=== PATIENT | male | born 1965 | race Caucasian/White ===

== ENCOUNTER 2023-07-24 10:30 | Outpatient (OUT) | payer BC, SELFPAY ==
[2023-07-24 11:51] LABS: Basophils Absolute Auto 0.1 10^3/uL (0.0-0.1); Basophils Percent Auto 0.9 % (0.2-2.0); Eosinophils Absolute Auto 0.2 10^3/uL (0.0-0.7); Eosinophils Percent Auto 2.7 % (0.9-7.0); Hematocrit 48.2 % (42.0-54.0); Hemoglobin 15.8 g/dL (14.0-18.0); Immature Granulocytes Abs Auto 0.02 10^3/uL (0.00-0.03); Immature Granulocytes Pct Auto 0.3 % (0.0-0.5); Lymphocytes Absolute Auto 1.6 10^3/uL (1.2-3.8); Lymphocytes Percent Auto 24.1 % (20.5-60.0); Mean Corpuscular HGB Conc 32.8 g/dL (29.9-35.2); Mean Corpuscular Hemoglobin 28.5 pg (25.9-34.0); Mean Platelet Volume 10.2 fL (9.5-13.5); Monocytes Absolute Auto 0.6 10^3/uL (0.3-0.8); Monocytes Percent Auto 9.4 % (1.7-12.0); Neutrophils Absolute Auto 4.2 10^3/uL (1.4-6.5); Neutrophils Percent Auto 62.6 % (43.0-75.0); Platelet Count 174 10^3/uL (150-450); Red Blood Count 5.54 10^6/uL (4.70-6.10); Red Cell Distribution Width 13.1 % (11.0-15.0); White Blood Count 6.7 10^3/uL (4.0-11.0)
[2023-07-24 12:03] LABS: Estimated Average Glucose 114 mg/dL; Glycohemoglobin A1C 5.6 % (4.5-6.2)
[2023-07-24 13:21] LABS: Alanine Aminotransferase 31 U/L (16-63); Albumin Level 3.7 g/dL (3.4-5.0); Alkaline Phosphatase 68 U/L (46-116); Anion Gap 12.2; Aspartate Amino Transferase 18 U/L (15-37); BUN Creatinine Ratio 13.6; Bilirubin Total 0.6 mg/dL (0.2-1.0); Calcium 8.6 mg/dL (8.5-10.1); Carbon Dioxide 29.3 mmol/L (21.0-32.0); Chloride 106 mmol/L (98-107); Chol HDL Ratio 5.2; Cholesterol 225 mg/dL (<=200); Estimated GFR (African America >60 (>=60); Estimated GFR (Non-African Ame >60 (>=60); Free T3 2.91 pg/mL (2.18-3.98); Globulin 3.8 g/dL; Glucose 89 mg/dL (74-106); HDL Cholesterol 43 mg/dL (40-60); Potassium 4.5 mmol/L (3.5-5.1); Sodium 143 mmol/L (136-145); Thyroid Stimulating Hormone 2.162 uIU/mL (0.358-3.740); Total Protein 7.5 g/dL (6.4-8.2); Triglycerides 188 mg/dL (<=150); VLDL CHOLESTEROL 37.6 mg/dL
[2023-07-24 13:30] LABS: Prostate Specific Antigen Scrn 2.27 ng/mL (<=4.00)
== END 2023-07-24 10:31 | disposition home or self-care (01) ==
LOC: LAB 10:30
PROVIDERS: PCP Family Medicine; Visit Provider Family Medicine
DX: Z00.00 Encounter for general adult medical examination without abnormal findings (principal)
CPT/HCPCS: 36415; 80053; 80061; 83036; 84436; 84443; 84481; 85025; G0103

== ENCOUNTER 2023-07-28 15:07 | Outpatient (REF) | payer BC, SELFPAY ==
[2023-07-28 15:33] LABS: Occult Blood Negative
== END 2023-07-28 15:08 | disposition home or self-care (01) ==
LOC: LAB 15:07
PROVIDERS: PCP Family Medicine; Visit Provider Family Medicine
DX: Z00.00 Encounter for general adult medical examination without abnormal findings (principal)
CPT/HCPCS: G0328

== ENCOUNTER 2024-08-07 00:41 | Emergency (ER) | payer BC, SELFPAY ==
[2024-08-07] VITALS (24 sets, daily range): BP systolic 101–189; BP diastolic 65–114; PULSE 53–88; TEMP 36.6; O2SAT 89–98; BMI 30.1
--- OUTSIDE RECORDS SUMMARY | 2024-08-07 00:48 | XMS_ITS | CCD ---
Author Organization 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 Name Role Phone RICHIE, DR REBOLLAR Admitting Unavailable RICHIE, DR REBOLLAR Attending Unavailable RICHIE, DR REBOLLAR Primary Care Unavailable RICHIE, DR REBOLLAR Consulting Unavailable RICHIE, DR REBOLLAR Admitting Unavailable RICHIE, DR REBOLLAR Attending Unavailable RICHIE, DR REBOLLAR Primary Care Unavailable RICHIE, DR REBOLLAR Consulting Unavailable Problems Active Problems Problem Classification Problem Date Documented Da te Episodic/Chronic Other upper respiratory infections (1 source) Chronic sinusitis, unspecified; Translations: [CHRONIC SINUSITIS UNSPECIFIED] Onset: 06-06-2021 Chronic Unclassified (3 sources) CONTACT W/AND (SUSP) EXPOS COVID-19; Translations: [CONTACT W/AND (SUSP) EXPOS COVID-19] Onset: 06-06-2021 Past or Other Problems Problem Classification Problem Date Documented Da te Episodic/Chronic Other screening for suspected conditions (not mental disorders or infectious disease) (1 source) Encounter for screening for malignant neoplasm of prostate; Translations: [ENC SCREEN MALIG NEOPLASM PROSTATE] Onset: 10-30-2020 Episodic Unclassified (1 source) CONTACT W/AND (SUSP) EXPOS COVID-19; Translations: [CONTACT W/AND (SUSP) EXPOS COVID-19] Onset: 06-05-2021 Results Test Name Value Interpretation Reference Range Facil ity Covid-19 PCR (CVDTBH)on SARS-CoV-2 (COVID-19) RNA HAKEEM+probe Ql (Unsp spec) Not detected Normal NOT DETECTED [facility] Comment on above: Result Comment: This test is not yet approved or cleared by the [place] FDA. When there are no FDA-approved or cleared tests available, and other criteria are met, FDA can make tests available under an emergency access mechanism called an Emergency Use Authorization (EUA). The EUA for this test is supported by the Secretary Board Of Commissioners of Health and Human Service's (HHS's) declaration that circumstances exist to justify the emergency use of in vitro diagnostics for the detection and/or diagnosis of the virus that causes COVID-19. This EUA will remain in effect (meaning this test can be used) for the duration of the COVID-19 declaration justifying emergency of IVDs, unless it is terminated or revoked by FDA (after which the test may no longer be used). When diagnostic testing is negative, the possibility of a false negative should be considered in the context of a patient's recent exposures and the presence of clinical signs and symptoms consistent with SARS-CoV-2. Performed By: #### [facility] #### [facility] [address] [place] [address] Dr. Boby Franks Ambulatory Clinical Summaryo n 11-21-2020 Ambulatory Clinical Summary {[id number]}CD:[id number] Normal [facility] General Surgery Office/Clini c Noteon 11-21-2020 General Surgery Office/Clinic Note HPI Staff Excision of skin lesion on face and chest 11/15/20, 6 days p/o History of Present Illness 6 days s/p excision facial and left chest wall lesions; face lesion with evidence of chronic folliculitis; left chest with seborrheic keratosis; doing well, no pain or drainage. Review of Systems ROS - Provider Constitutional: no fever, no sweats, no weight loss. Eyes: no glasses, no blurred vision, no visual loss. ENMT: no dentures, no hoarseness, no swallowing difficulties, no hearing loss, no ear infection(s), no nose bleeds. Cardiovascular: normal blood pressure, no chest pain, regular heartbeat, no heart murmur. Respiratory: no shortness of breath, no cough, no asthma, no wheezing. Gastrointestinal: no nausea, no vomiting, no diarrhea, no constipation, no blood in stool, no change in bowel habits, no abdominal pain, no hepatitis. Genitourinary: no kidney stones, no urine infection, no dysuria. Musculoskeletal: no pain, no weakness. Skin: no changing moles, no rash, no skin lumps. Neurologic: no seizures, no epilepsy, no headache. Psychiatric: no emotional or psychiatric problem. Heme/Lymph: no bleeding problems, no anemia, no blood clots, no transfusions. Allergy/Immunologic: no swollen lymph nodes/glands, no IV drug abuse. Other: Additional ROS info: Except as noted in the above Review of Systems and in the History of Present Illness, all other systems have been reviewed and are negative or noncontributory. Physical Exam Vitals & Measurements T: 36.4 ?C (Tympanic) skin: incisions healing well, no erythema or drainage, no ecchymoses. Assessment/Plan 1. Seborrheic keratosis (L82.1: Other seborrheic keratosis) doing well, sutures removed, call with problems/questions. 2. Folliculitis barbae (L73.8: Other specified follicular disorders) see #1 Follow-up No qualifying data available Problem List/Past Medical History Ongoing Folliculitis barbae Hyperlipemia Neoplasm of uncertain behavior of skin of face Seborrheic keratosis Skin tag Solar keratosis Vertigo Historical Bilateral carpal tunnel syndrome Entrapment of left ulnar nerve Procedure/Surgical History H/O: vasectomy. Medications Michelle D OTC 24HR 180 mg-240 mg oral tablet, extended release, 1 tab(s), Oral, Daily Multi Vitamins oral tablet, Oral, Daily Pantoprazole [address] Tab, 40 mg= 1 tab(s), Oral, Daily simvastatin 20 mg Tab, 20 mg= 1 tab(s), Oral, Once a day (at bedtime) Allergies No Known Allergies No Known Medication Allergies Social History Alcohol - Low Risk, 11/15/2020 Substance Abuse - Denies Substance Abuse, 11/15/2020 Tobacco Never (less than 100 in lifetime) Tobacco Use:., 11/15/2020 Never (less than 100 in lifetime) Tobacco Use:. Never Smokeless Tobacco Use:., 10/23/2020 Family History HTN: Father. Heart attack: Father. Heart disease: Father. Normal [facility] Comment on above: Result Comment: Elec tronically Signed By: GABI NAJERA, Mike Harkins\Date and Time Signed: 11/21/20 13:13 EDT Pathology Noteon 11-21-2020 Pathology Note [id number] #1.00CD:127 Normal [facility] Ambulatory Clinical Summaryo n 11-15-2020 Ambulatory Clinical Summary {[id number]}CD:[id number] Normal [facility] General Surgery Office/Clini c Noteon 11-15-2020 General Surgery Office/Clinic Note CD:[id number]:[id number] 40KW05iXdmcbGgv7pcie 8xPR5rPvPpmtCiAIkjNu 2qk9syDU62ec3jDyPlVj 8+XtquXN8WSKaHULIv tA9pBMBOBbwSUzMnES9q XxGSDf8DECKbRIgMXQhj TH3ePUK1milawB2lNQ7j VLYjfARfHs3ql6b9 AlljGt3yUq3HUu96hZPo zFFlBJKJS1szlX9kCI7c zZYiN8OlUFVkAo1ZCNr4 iOirbL0kmvA8Gwy4 qUJ6Gd67y8hqcrIaj4Ba FwF5QNphwRn9eUapPQjy fB3bKvXhGTGPrL9lxDzw YC9luN2dkqCwgJix biI+TokhTLWqPld7oXHo AO91N4HyeUklJbb1fTV2 CLMrtKTgLUBuoWi5XLPW LVVBLUNvbXBhdGli bDJhYSBgiuPxkaC0XoyO LQDuHtQlHaj8S4paGSX+ Ethrh7O2Nwl5FTw9DPW6 lRtrKOLbr464QGTa iPqyjCpjeEIqr03vSKMj mQHqOyGag513ULZvikP8 TKfzlHzlVlo1fUQdeISq p1fzbPk1VbOpNBOe AwwOZPIawDxhn7IrAprA DVfad1ycuqJeyZlmBIK5 l1HgUXtwJJIrKDI3PpLu IC8+CgkJPGNvbCB2 GSruB482VpEwrORip0zq cFw2CaX1QRAdNs4YTCjg U35pF1OypRT+Faf2yZEm ZHk+CgkJPHRyPgoJ UGl6oQIxg7X1iAG5YkXf esAbj9c5XIvtXSI2MiY9 LHQ0tRCcbT3hjOoftetm kU2bOgG+CgkJCTxk eSBbN0zsr6H6VaTmn9Uf kOiplbMkTXZjKiPvh6fa LgcqDVJgoI1cMAL0IyCw UXLyyPSiGMNwQH0r vrUfjSIxRQNdTwWxP0Bu v69ii4YzEUPTY7hJRzDg WCE4RT6lZwUsGS2aWjXd YmMxNjlmLWEwZjYt GYFoTo07JVY9OPHaCoS6 KtK2T0A6YuCel0W5pCV6 CdCfGLCywbc4XGSsnFhi BFexmFjcwMddcx4y ZTsiPjxzcGFuIGNsYXNz GIRvZMHiO7Orx74edMJf fRP0Il45n8LhhlRtpPay DM8uRu3hcK64MNkq tGU9PSWstGI9FAXyqLSm HROfx4ZkwLdibnwlzC1b ZERbhR3hHfN+A4lnDJZl F58flZhnhU99HY1f cVIfCdecv9Xeck7LQJlC YAGiprLckCHaaf3tUHPq yFUjd268CT09AyObGXnh a915KA37qDrkJE0f EMAEU7FTBT2JUVYKEtYn ENqyNGVdteMhI8J7aSrv MAMMP2Z4VvQ6FJ3VKmRe YYNBY0JsQeNrPv1L D0ZWKWlYRpB1HfQnLTvl PSJfNzRkYmJkNDQtMDg4 Mx36ETZvOTK8VPRqYcC6 QhkpVGT1ESPwAu79 I0Evfq4ROPlOQF6xqXW+ MshTRWv3NPr7RRGbDFCa UOOlLZGjU1Rjv07gKROs ZWZyZXNoYWJsZSBk TTuvy0SxkUUvOYE6UCu3 WJRpucFqh9RiRtxpDfCq BGyrXKK1eH9aE70sDB5h FO5BAuZbYTGbKdYb CiTlzZI5Gw78LLLyXTZ2 Eu65RvZsROUzLCMtIISc VT1uPpZ3LjY8QHt6DHVw YFI2fTekECAgGWCm nV7gXqJ5fVz7Nz32n2Ux jyKolKTiww6lDNOfHCD4 sD6cQEwwlInqsBV+PHNw LC0jy6G4rQD4MzRz nkNeo4YwF5j5AkJgn1ae CpN7FZh4LLXoO26fRXVl v168HEKjLNYkvQlfYLbw PkhQSSBTdGFmZjwv x9Tpap13O5AlXT6+CgoJ WJe5MNm8KTOgSGEbIMUz ZGVtcmNvbnRlbnQiIGRk SsBsejCybpE2dPMe TMQTUMXXMPVQP30OWPTi EHElGhLsAmPdPL5lDUH0 lAC3GhW0WMQTEQNvSOg3 OFSqFGW7Ib9KSqBe KCFCRKOGYjgiATT0QhPm lGC0Ys66HIPmHVv3Ui0z LYCgICO6ESudADPvUv0x FIV7PXCaHAQ0FFrh AcfKSPj6XOy9FCPkYULy PSJkZGVtcmNvbnRlbnRp iFAoOPWgezVyz9FdTrgj TgVcLZggqP7usQ1y mFikR3T3dAoqNYF6v3Pn cmlnaHQiIGRkOmNvbnRl inD9cLMmNVTRCWQGPJGR A72JSRWnKRWbLfYx dBf1hZeiLQKiDVrjNRFa UFYoRAHtHarhVawuZf31 JiF6FLh3DgHaKDQzG7Mk UMMjAcC2LiX3rFuo xeoaLZ8qDCzcXH4kV3Eu C5TkUU53UZNfe93vEbzP RGk3FPj6GFZ0wElmVPNu NSGeyS65BIStlPZr eK01JNOlIKAvqmy1HDAx yEceMq4aVPEjYqDyhBGc cmdiKDAsIDAsIDApOyB0 HMa8NILddAowGdSy MZN7GkSgf8xifzbvwobr YPMzVEOoMKNyAxU2TRl8 LWluZGVudDogMGluOyBm u341ACE9oKgmHvIr w4XyRIs5TXMdkjGnn7Gp D9s5NsChc3IuFKq0KYRd jZAzARMxw4YbeXhosace ad9rSSpwZfmUOFy6 TWu9WgikTC9faKI7Sn6g PXmzSeZnLU6pOKYfTNP5 VwfeWIJ9XC5aVLJsTRSw XTS2BIvpSkdmQU1G CgkJCTxkaXY+RXhjaXNp u33hg7VduV3mQGPooCon zIVueBBsRD3fOSMgE7Tn XP1mUNJbaF2umITh BZ6zKLRpBSI3FB8uyYE+ HgaCQXtyXXs2IfrDMYj0 M3Grko6POVtAWL2alID+ KftZCOj8DTs0HJSi YXNzPSJkZGVtcmNvbnRl vgQlvPLvDCHkhkOeu8Wr CxccVrYxERgkwD3aoB7a bHdiB3N3cHdsIQP2 o0HkwpwrxZKuLIJiVoVe fmMtekU9nHYkRPTAQKSY HTOWD90KYPWkJHFaDuVc eYe2qVmbUABrUPjm PSJfNTIxYTVlZjItYmQw VU37UgbxZSOyHGYxILqs XlZ9DYjbDXJ5JuQ1bGbc hcxeKD3cCVxiDH6j O8PoE0HfDY21GZYow66w GigyHCg5UrzXIAcIWQMv xpAlzQLrbe5qQQSydZEf t669WG07oYDnjBMt UKTjeW26DYGgJYTbJZT1 YnRuZmxvYXRpbmdzdHls OF3acJ4kCTSzR4f5FaCf YTgef261DV14gQiu MD2iUQIRB3KICE8OBBYD YpMpLCasxkKhrInoZZ1l RuGlXO5lRpmgWQA8AbK6 VETnZPYvNUtmQc53 VYNhFSz5MtJiLSB5OWMj UdVjwT5zdtH2DBE7CoC1 eeIbnRNHi1Z1tYAsqOU7 dP9hFj73W2Jlwq4H UsaDIPdnnWJiU8wzt8Y8 HuXnYB9oT82wxVOhvDs1 GF2dXQQgAC2fldQdtJCb UHRcJcX3ghNnn6X9 nH7kn0X8kMP1OgZoaJ5b dEkkwJKdAUY0C47oeEAs rMG3bJH7OjYHGOBMEbFs AFBGUiCkSQN2RK96 rVP0pHK3ElPdmFR9Zo3o AEYzFIJwNJ87KgvzOAV5 A7KxMJR6Sw9lXKB2Rga1 RKC5YRmgUVjjeO8g EvYwCRBJtI9kcFlrJK7e tU9nepNrkFlkvfN+PC9k aXY+BrwWDAm5DGn2RKYl YXNzPSJkZGVtcmNv bnRlbnRpdGVtIGRkcmVt q7ItXxcnMnAsJDrsdI8u fK2viOsyN4X1rCebZOP4 l9DunxxtwCLoZIKa LlXhfjPdusK4bGFwJKEW WUJZIUJSW55AAXNrOBBj EjBtpBf2bUfrUIZaROkr EKYpBuO2TvNpTMSl MHImPh51UzO5DLi4ZjKr J4BuDnYlWvW9ZUNxNnX7 pOjgwtpuLG9dOFnxNC2h Z2JzD2RvZG40CZYv g17zKpkvIDw8NstPVJrK WSZrvzYnnSExil4vTEPq fDVdw091LU73kOTezSLw GZSrlA76LQBqQIVc TTT8FwRjYyrmHFFjetqg xEpgJT6cxH4hQQKgA6d8 SfTpOPmhw716OJ42nOgs VP0iUBIMY7QRDK4U RUFTIiBkZDplbnRpdHlp GU9kRzDaAH5aEaBfZXH4 GxAlGVB7HjJbDYT5SW21 Kdc2JZYwCDjwWXXd HsY5DVYctY5gzfH6TDK4 DrW9kmZpuYWGx9D1sDDy hVR5hP9vDq81A4Ydih6V SlwPVDavaZViT1ud r9Q1QpPwIM9xH66tcFOm oGx2OL2sVFBgNT6tvbOl wNRuNHCaDgH3xiWrn8S9 eJ8br0Y2fHV8HjNu gF3xcXrdiZWfZOO8K85m mIEkvCB2sQT9VtUIGKTS RaZxTQKJLfKrBBY9VB57 vSI3hWY9VdJmxXR9 Ua8xZJQ2NAB1IX5hQSKq GPTfLmKbYCMxCP2bMcIt LoSiTKHjMhdkLVfcoE5f TdKuRKAEqV9zzInh AB6hsR2ftbRavUftbfA+ OJ8ppHK+ZnlSFGu0VXy7 IGNsYXNzPSJkZGVtcmNv bnRlbnRpdGVtIGRk ikLnh4AvCemfMlQkBEpn mQ0ikG7qxXkkW1F3qHjd HMR1b2QsuzzyjZQrGEOg DcYjfxNpbiB6jPTh OEEAFKCLXHOIR89YVTPr HQBlKjFiwVa7qKrzXEKk IGlkPSJfNjNiNzJmYmUt HhJ9Bf57WmRhVXF3 MDYtNTIwNTlkMDZiZWUw FlB6hYzgnhgwRB8qFTka SQ9wP2SsI8ElWM21DDEd d40hEhkmTJr6ZzdQ FUbBXXNeebVzjBDhqi4o OLNdoPRto841AU25vZYf qWIiDTPsyG26QUDoODXx JEJ7QgHrIvwfBNUg cdbzpWwfXJ4rlP1uTNZi Z7o9FoFuNBezd480PS29 bDhvVN7rIPNSN9ZOZY6K RUFTIiBkZDplbnRp d (more content not included)... [facility] Comment on above: Result Comment: Elec tronically Signed By: GABI NAJERA, Mike Ashraf\.br\Date and Time Signed: 11/15/20 09:19 EDT Provider Letter FTon 10-31 Provider Letter [facility] October 31, 2020 Keturah Quiroz, [address] [place] [address] Re: TOMMIE LOCKWOOD Date of : 1965 Thank you for your referral of Tommie Lockwood who was seen on consultation on October 24, 2020, for mole on face and skin tag on chest. A excisional biopsy is planned. I have enclosed my consultation notes for your review. I will be happy to follow Tommie. Sincerely, iMke Knapp MD General Surgery [facility] OCC BLD IMMUNO SCREENon 08-0 OCCULT BLOOD Negative Normal NEGATIVE [facility] Comment on above: Performed By: #### O BSCRN #### [facility] [address] [place] [address] Lyn Ward Facesheeton 10-25-2020 Facesheet [id number] #1.00CD:127 Normal [facility] Ambulatory Clinical Summaryo n 10-24-2020 Ambulatory Clinical Summary {[id number]}CD:[id number] Normal [facility] GLYCOHEMOGLOBIN A1Con 2020 ADA RECOMMENDATION ADA THERAPEUTIC TARGET 6.0 - 7.0 ACTION SUGGESTED > 7.[address] [facility] Comment on above: Performed By: #### A 1C #### [facility] [address] [place] [address] Lyn Ward Glucose [Mass/Vol] 111 mg/dL Normal [facility] Comment on above: Performed By: #### A 1C #### [facility] [address] [place] [address] Lyn Ward HbA1c (Bld) [Mass fraction] 5.5 % Normal <=6.[address] [facility] Comment on above: Performed By: #### A 1C #### [facility] [address] [place], [place] [address] Lyn Ward Physician Referralon 021 Physician Referral [id number] #1.00CD:127 Normal [facility] Encounters Encounter Date Encounter Type Care Provider Facility Start: 06-05-2021 End: 06-05-[address] KETURAH QUIROZ Facility:[facility] Start: 10-30-2020 Encounter for genera l adult medical examination without abnormal findings DR KETURAH QUIROZ [facility] Start: 10-23-2020 End: 10-24-[address] KETURAH QUIROZ Facility:[facility] Start: 10-23-2020 End: 10-24-2020 Encounter for general adult medical examination without abnormal findings DR KETURAH QUIROZ Facility:[facility] Procedures Date Procedure Procedure Detail Performing Clinician Start: 10-23-[address] AMRBEEN QUIROZ Comment on above: Performed By: #### P SAS #### [facility] [address] [place], [place] [address] Lyn Ward Payers Date Payer Category Payer Unknown [id number] 1965 Unknown [id number] 1958 Unknown [id number] 1958 Unknown [id number] Clinical Note 10-24-2020 Note Date & Type Note Facility 10-24-[address] Quiroz referral for skin tag on chest has been there for years and mole on face just started in the last year and has gotten bigger , no bleeding or drainage from either History of Present Illness 55 yo male with h/o hyperlipidemia, GERD, referred for changing facial mole, increasing in size, no pigmentation change; and irritated skin lesion chest wall; no asa or NSAID use; no personal or fmhx of skin cancer or melanoma. increased sun exposure when younger; no tobacco use. Review of Systems PHQ Score Initial Depression Screen Score: 0 ROS - Provider Constitutional: no fever, no sweats, no weight loss. Eyes: no glasses, no blurred vision, no visual loss. ENMT: no dentures, no hoarseness, no swallowing difficulties, no hearing loss, no ear infection(s), no nose bleeds. Cardiovascular: normal blood pressure, no chest pain, regular heartbeat, no heart murmur. Respiratory: no shortness of breath, no cough, no asthma, no wheezing. Gastrointestinal: no nausea, no vomiting, no diarrhea, no constipation, no blood in stool, no change in bowel habits, no abdominal pain, no hepatitis. Genitourinary: no kidney stones, no urine infection, no dysuria. Musculoskeletal: no pain, no weakness. Skin: yes changing moles, no rash, no skin lumps. Neurologic: no seizures, no epilepsy, no headache. Psychiatric: no emotional or psychiatric problem. Heme/Lymph: no bleeding problems, no anemia, no blood clots, no transfusions. Allergy/Immunologic: no swollen lymph nodes/glands, no IV drug abuse. Other: Additional ROS info: Except as noted in the above Review of Systems and in the History of Present Illness, all other systems have been reviewed and are negative or noncontributory. Physical Exam Vitals & Measurements T: 36.7 ?C (Oral) BP: 122/78 HT: 177.8 cm HT: 177.8 cm WT: 94.4 kg WT: 94.4 kg BMI: 29.86 HEENT: normal conjunctiva, sclera clear, no scleral icterus, EOM intact, PERRLA, oral mucosa moist without lesions. Neck: trachea midline, no mass, symmetric, no thyromegaly or nodules, no adenopathy Respiratory: lungs CTA, respirations non labored. Cardiovascular: regular rate and rhythm, no murmur, no pedal edema or varicosities. Musculoskeletal: normal gait, digits and nails without infection, nodes, cyanosis, clubbing. Skin: no rashes, 3 mm raised, nonpigmented, round lesion right medial cheek; no ulceration or scab; left anterior chest with 5mm raised, keratotic lesion, no ulceration or scab; no ulcers, no subcutaneous nodules, induration. Psychiatric/Neuro: oriented to time, place, person, judgement normal, affect appropriate for age, insight intact, no focal deficits. Tests: review of old records completed, Discussed surgical options, risks, and possible complications with patient. Assessment/Plan 1. Neoplasm of uncertain behavior of skin of face (D48.5: Neoplasm of uncertain behavior of skin) plan excisional biopsy under local anesthesia in the office for definitive diagnosis and treatment; informed consent obtained. 2. Solar keratosis (L57.0: Actinic keratosis) see # 1 Follow-up No qualifying data available Problem List/Past Medical History Ongoing Hyperlipemia Neoplasm of uncertain behavior of skin of face Skin tag Solar keratosis Vertigo Historical Bilateral carpal tunnel syndrome Entrapment of left ulnar nerve Procedure/Surgical History H/O: vasectomy. Medications Michelle D OTC 24HR 180 mg-240 mg oral tablet, extended release, 1 tab(s), Oral, Daily Multi Vitamins oral tablet, Oral, Daily Pantoprazole [address] Tab, 40 mg= 1 tab(s), Oral, Daily simvastatin 20 mg Tab, 20 mg= 1 tab(s), Oral, Once a day (at bedtime) Allergies No Known Allergies No Known Medication Allergies Social History Tobacco Never (less than 100 in lifetime) Tobacco Use:. Never Smokeless Tobacco Use:., 10/23/2020 [facility] Comment on above: Result Comment: Elec tronically Signed By: GABI NAJERA, Mike Harkins\Date and Time Signed: 10/24/20 14:21 EDT Summary Purpose Family History No Family History Records FoundNo Family History Records Found Advance Directives No Advanced Directives Records FoundNo Advanced Directives Records Found Additional Source Comments (unrecognized sect ion and content) No Status Records FoundNo Status Records Found INFORMATION SOURCE (unrecogn ized section and content) DATE CREATED AUTHOR 11/22/2020 [facility] DATE CREATED AUTHOR AUTHOR'S ORGANIZ ATION 06/06/2021 [facility] FOR RECORDS PERTAINING TO PATIENTS WHO ARE OR HAVE BEEN ENROLLED IN A CHEMICAL DEPENDENCY/SUBSTANCEABUSE PROGRAM, SOME INFORMATION MAY BE OMITTED. This clinical summary was aggregated from multiple sources. Caution should be exercised in using it in the provision of clinical care. This summary normalizes information from multiple sources, and as a consequence, information in this document may materially change the coding, format and clinical context of patient data. In addition, data may be omitted in some cases. CLINICAL DECISIONS SHOULD BE BASED ON THE PRIMARY CLINICAL RECORDS. [facility]. provides no warranty or guarantee of the accuracy or completeness of information in this document.
--- NOTE | 2024-08-07 00:50 | ECG_ITS ---
[facility] Test Date: 2024-08-07 Pat Name: ROBERT BOATENG Department: Room: - Gender: Male Residential Program Director: : 1965 Requested By: [id number] Order Number: [id number] Reading MD: NITIN BAUTISTA M.D. Measurements Intervals [place] Rate: 70 P: 30 NM: 174 QRS: 55 QRSD: 86 T: 70 QT: 382 QTc: 403 Interpretive Statements NORMAL SINUS RHYTHM ST ELEVATION, CONSIDER INFERIOR INFARCT, PROBABLY ACUTE ACUTE STEMI Abnormal ECG No previous ECG available for comparison Electronically Signed On 08-07-2024 13:06:27 EDT by NITIN BAUTISTA M.D.
--- NOTE | 2024-08-07 00:58 | ED_ITS ---
HPI - Chest Pain General Chief Complaint: Chest Pain Stated Complaint: CHEST PAIN Time Seen by Provider: 08/07/24 00:57 History of Present Illness HPI narrative: woke up out of his sleep with chest pain, nausea and dyspnea. pain 10. This was around 10:30pm. Denies history of similar pain. nonsmoker. history of hyperlipidemia but noncompliant with his medication. Family history of heart disease. Father NE 48 Related Data Home Medications ?Medication ?Instructions ?Recorded ?Confirmed pantoprazole 40 mg tablet,delayed 40 mg PO DAILY 08/0708/07/24 release simvastatin 20 mg tablet 20 mg PO DAILY 08/07/2407/28 Allergies Allergy/AdvReac Type Severity Reaction Status Date / Time No Known Drug Allergies Allergy Verified 08/07/24 01:09 Review of Systems ROS Status of ROS 10 or more systems reviewed and unremark able except as noted in history and below PFSH PFSH Social History Little interest or pleasure in doing things: not at all Feeling down, depressed, or hopeless: not at all Exam Constitutional Vital Signs, click to edit/add: Last Vital Signs Temp 97.8 F 08/07/24 00:45 Pulse 71 08/07/24 00:45 Resp 18 08/07/24 00:45 BP 168/108 H 08/07/24 00:45 Pulse Ox 98 08/07/24 00:45 O2 Del Method Room Air 08/07/24 00:45 Common normals: no apparent distress, average body habitus, oriented x3, no limitations, healthy appearing, alert and well nourished [facility] Common normals: normocephalic and head/scalp atraumatic Eye Common normals: PERRL and EOMs intact bilaterally Respiratory Common normals: normal respiratory effort, no retractions, no use of accessory muscles and clear to auscultation bilaterally Cardio Common normals: regular rate, regular rhythm, S1 normal heart sound and S2 normal heart sound GI Common normals: Normal to inspection, nondistended, normoactive bowel sounds present, soft to palpation and non-tender Extremity Common normals: normal to inspection and full ROM Neuro Common normals: oriented x3, CN's II-XII intact bilaterally, moves all extremities and no focal motor deficits Psych Appearance: grossly normal Course Vital Signs Vital signs: Vital Signs Temperature 97.8 F 08/07/24 00:45 Pulse Rate 71 08/07/24 00:45 Respiratory Rate 18 08/07/24 00:45 Blood Pressure 168/108 H 08/07/24 00:45 Pulse Oximetry 98 08/07/24 00:45 Oxygen Delivery Method Room Air 08/07/24 00:45 Temperature 97.8 F 08/07/24 00:45 Pulse Rate 71 08/07/24 00:45 Respiratory Rate 18 08/07/24 00:45 Blood Pressure 168/108 H 08/07/24 00:45 Pulse Oximetry 98 08/07/24 00:45 Oxygen Delivery Method Room Air 08/07/24 00:45 MDM - Chest Pain MDM Narrative Medical decision making narrative: patient arrives 2.5 hours after onset of chest pain. pain at home 6-7/10 associated with nausea and dyspnea. Nausea and dyspnea resolved after ER arrival and chest pain decreased to 3-4/10. EKG with 1mm ST elevation II, III, aVF. minimal ST depression I and assymtric T inversion aVL. photo of the EKG sent to pay station department manager Cardiology Dr Aden. Discussed with folder stitcher operator Dr Méndez and he was sent a copy of the EKG. He call back and recommended transfer to [facility]. Closest is [facility]. Will contact [facility]. spoke to integration project manager Dr Damon. sent the first EKG with mild elevation and then the 2nd EKG with marked ST elevation inferior leads. He recommends heparin, Brinlinta, nitro drip and metoprolol. He would like the patient transferred to the geochemical laboratory technician. Will have nursing contact helicopter for transfer Dr Damon called back and because of the length of time of onset of symptoms( over 3 hours now) he would like the patient to receive TNK lytic agent. patient given TNK. He is feeing better and his skin is pink and dry. Informed Dr Damon the patient is leaving via med flight to [facility] Lab Data Labs: Lab Results 08/07/24 Range/Units 00:55 WBC 8.1 (4.0-11.0) 10^3/uL RBC 5.45 (4.70-6.10) 10^6/uL Hgb 16.0 (14.0-18.0) g/dL Hct 46.9 (42.0-54.0) % MCV 86.1 (80.0-94.0) fL MCH 29.4 (25.9-34.0) pg MCHC 34.1 (29.9-35.2) g/dL RDW 13.3 (11.0-15.0) % Plt Count 190 (150-450) 10^3/uL MPV 10.5 (9.5-13.5) fL Neut % (Auto) 64.6 (43.0-75.0) % Lymph % (Auto) 19.3 L (20.5-60.0) % [place] % (Auto) 11.4 (1.7-12.0) % Eos % (Auto) 3.5 (0.9-7.0) % Baso % (Auto) 1.1 (0.2-2.0) % Neut # (Auto) 5.2 (1.4-6.5) 10^3/uL Lymph # (Auto) 1.6 (1.2-3.8) 10^3/uL [place] # (Auto) 0.9 H (0.3-0.8) 10^3/uL Eos # (Auto) 0.3 (0.0-0.7) 10^3/uL Baso # (Auto) 0.1 (0.0-0.1) 10^3/uL Abs Immat Gran (auto) 0.01 (0.00-0.03) 10^3/uL Imm/Tot Granulo (auto) 0.1 (0.0-0.5) % Sodium 142 (136-145) mmol/L Potassium 3.7 (3.5-5.1) mmol/L Chloride 105 (98-107) mmol/L Carbon Dioxide 29.0 (21.0-32.0) mmol/L Anion Gap 11.7 BUN 18.0 (7.0-18.0) mg/dL Creatinine 1.68 H (0.70-1.30) mg/dL Est GFR ( Amer) 51 L (>=60 mL/min/1.73m^2) Est GFR (Non-Af Amer) 42 L (>=60 mL/min/1.73m^2) BUN/Creatinine Ratio 10.7 Glucose 119 H (74-106) mg/dL Calcium 9.3 (8.5-10.1) mg/dL Troponin I High Sens 228.8 H* (4.0-76.1) pg/mL Heart Score History: Highly Suspicious Age: >45-<65 years Risk Factors: 1 or 2 Risk Factors Critical Care Time Critical Care Time Total Critical Care Time: 60 Discharge Plan Discharge Chief Complaint: Chest Pain Clinical Impression: ST elevation myocardial infarction (STEMI) Patient Disposition: [facility]
[2024-08-07 01:14] LABS: Basophils Absolute Auto 0.1 10^3/uL (0.0-0.1); Basophils Percent Auto 1.1 % (0.2-2.0); Eosinophils Absolute Auto 0.3 10^3/uL (0.0-0.7); Eosinophils Percent Auto 3.5 % (0.9-7.0); Hematocrit 46.9 % (42.0-54.0); Immature Granulocytes Abs Auto 0.01 10^3/uL (0.00-0.03); Immature Granulocytes Pct Auto 0.1 % (0.0-0.5); Lymphocytes Absolute Auto 1.6 10^3/uL (1.2-3.8); Lymphocytes Percent Auto 19.3 % (20.5-60.0); Mean Corpuscular HGB Conc 34.1 g/dL (29.9-35.2); Mean Corpuscular Hemoglobin 29.4 pg (25.9-34.0); Mean Corpuscular Volume 86.1 fL (80.0-94.0); Mean Platelet Volume 10.5 fL (9.5-13.5); Monocytes Absolute Auto 0.9 10^3/uL (0.3-0.8); Monocytes Percent Auto 11.4 % (1.7-12.0); Neutrophils Absolute Auto 5.2 10^3/uL (1.4-6.5); Neutrophils Percent Auto 64.6 % (43.0-75.0); Platelet Count 190 10^3/uL (150-450); Red Blood Count 5.45 10^6/uL (4.70-6.10); Red Cell Distribution Width 13.3 % (11.0-15.0); White Blood Count 8.1 10^3/uL (4.0-11.0)
[2024-08-07] MEDS: ASPIRIN 81 MG TABLET.DR 324 MG PO (01:19)
[2024-08-07] MEDS: NITROGLYCERIN 0.4 MG BOTTLE SL (01:23)
--- NOTE | 2024-08-07 01:30 | ECG_ITS ---
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 Measurements Intervals [place] Rate: 74 P: 13 NC: 174 QRS: 40 QRSD: 90 T: 94 QT: 362 QTc: 390 Interpretive Statements NORMAL SINUS RHYTHM ST ELEVATION, CONSIDER INFERIOR INFARCT, PROBABLY ACUTE [address] depression, possible subendocardial injury 4637 Inferior injury or acute infarct ACUTE STEMI 9150 abnormal ECG Compared to ECG 08/07/2024 00:49:34 ST is more elevated in inferior ST is more depressed in lateral Electronically Signed On 08-07-2024 13:09:40 EDT by NITIN BAUTISTA M.D.
[2024-08-07 01:32] LABS: Anion Gap 11.7; BUN Creatinine Ratio 10.7; Calcium 9.3 mg/dL (8.5-10.1); Chloride 105 mmol/L (98-107); Estimated GFR (African America 51 (>=60 mL/min/1.73m^2); Estimated GFR (Non-African Ame 42 (>=60 mL/min/1.73m^2); Glucose 119 mg/dL (74-106); Potassium 3.7 mmol/L (3.5-5.1); Sodium 142 mmol/L (136-145)
[2024-08-07 01:33] LABS: Troponin I High Sensitivity 228.8 pg/mL (4.0-76.1)
[2024-08-07] MEDS: MORPHINE SULFATE 4 MG/ML VIAL IV (01:37)
[2024-08-07] MEDS: NITROGLYCERIN IN 5 % DEXTROSE 50 MG/250 ML INFUS..BTL IV (01:53)
[2024-08-07] MEDS: TICAGRELOR 90 MG TABLET 180 MG PO (01:53)
[2024-08-07] MEDS: METOPROLOL TARTRATE 5 MG/5 ML VIAL IVP (01:56)
[2024-08-07] MEDS: HEPARIN SODIUM (PORCINE) 5,000 UNIT/ML VIAL 4000 UNIT IV (01:59)
--- NOTE | 2024-08-07 02:25 | ECG_ITS ---
The 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 Measurements Intervals [place] Rate: 54 P: 17 NE: 180 QRS: 49 QRSD: 86 T: 78 QT: 424 QTc: 409 Interpretive Statements NORMAL SINUS RHYTHM ST ELEVATION, CONSIDER INFERIOR INFARCT, PROBABLY ACUTE ACUTE STEMI 9150 abnormal ECG Compared to ECG 08/07/2024 01:32:05 ST is less elevated in inferior ST is less depressed in lateral Electronically Signed On 08-07-2024 13:14:46 EDT by NITIN BAUTISTA M.D.
[2024-08-07] MEDS: HEPARIN SODIUM 25,000 UNIT/500 ML D5W IV.SOLN 20 UNIT IV (02:26)
[2024-08-07] MEDS: TENECTEPLASE 50 MG VIAL IVP (02:26)
== END 2024-08-07 02:37 | disposition short-term general hospital (02) ==
PROVIDERS: Emergency Provider Internal Medicine; PCP Family Medicine
DX: I21.3 ST elevation (STEMI) myocardial infarction of unspecified site (principal); E78.5 Hyperlipidemia, unspecified; Z91.148 Patient's other noncompliance with medication regimen for other reason; Z82.49 Family history of ischemic heart disease and other diseases of the circulatory system
CPT/HCPCS: 36415; 71045; 80048; 84484; 85025; 93005; 96374; 96375; 99285; J1644; J2270; J2305; J3101

== ENCOUNTER 2024-12-09 10:17 | Outpatient (OUT) | payer BC, SELFPAY ==
--- OUTSIDE RECORDS SUMMARY | 2024-12-09 10:25 | XMS_ITS | CCD ---
Author Organization [facility] Care Team Providers Care Track Repair Supervisor Name Role Phone DR KETURAH PAT Admitting Unavailable RICHIE, DR REBOLLAR Attending Unavailable RICHIE, DR REBOLLAR Primary Care Unavailable RICHIE, DR REBOLLAR Consulting Unavailable RICHIE, DR REBOLLAR Admitting Unavailable RICHIE, DR REBOLLAR Attending Unavailable RICHIE, DR REBOLLAR Primary Care Unavailable RICHIE, DR REBOLLAR Consulting Unavailable PROVIDER, UNKNOWN Attending Unavailable PROVIDER, UNKNOWN Admitting Unavailable Keturah Pat MD Primary Care Provider [phone] Emile Damon MD Admit Provider Emile Damon MD Attending Provider [phone] Emile Damon Admitting Unavailable Emile Damon Attending Unavailable Keturah Pat Primary Care Unavailable Emile Damon MD Other Provider Keturah Pat MD Primary Care Provider [phone] Emile Damon MD Attending Provider [phone] Rosalia Peters APRN Attending Provider [phone] Allergies Allergy Classification Reported Allergen(s) Allergy Type Date of Onset Reaction(s) Facility (3 sources) Opioids - Morphine Analogues Drug allergy (disorder) 08-17-2024 [facility] Repository Medications Current Medications Medication Drug Class(es) Dates Sig (Normalized) Sig (Original) aspirin 81 mg chewable tablet (5 sources) Platelet Aggregation Inhibitor, Nonsteroidal Anti-inflammatory Drug Start: 08-08-2024 End: 09-06-2024 take 1 tablet by mouth once daily Aspirin (Children's Aspirin) 81 mg tablet,chewable Active 81 MG PO Daily 90 90 September 06, 2024 2:01pm Complies with drug therapy atorvastatin 80 mg oral tablet (5 sources) HMG-CoA Reductase Inhibitor Start: 08-08-2024 End: 09-06-2024 take 1 tablet by mouth once daily in the evening Atorvastatin 80 mg tablet Active 80 MG PO Every evening 90 September 06, 2024 2:01pm Complies with drug therapy 24 hr metoprolol succinate 25 mg extended release oral tablet (8 sources) beta-Adrenergic Romeo Start: 09-26-2024 take 2 tablets by mouth once daily Metoprolol Succinate 25 mg tablet extended release 24 hr Active 12.5 MG PO Daily 45 90 September 26, 2024 4:07pm Complies with drug therapy Start: 08-17-2024 End: 09-26-2024 take 1 tablet by mouth once daily Metoprolol Succinate 25 mg tablet extended release 24 hr Discontinued 25 MG PO Daily 90 September 06, 2024 2:01pm September 26, 2024 4:07pm Start: 08-08-2024 End: 08-17-2024 take 1 capsule by mouth once daily in the evening Metoprolol Succinate 25 mg capsule,sprinkle,ER 24hr Discontinued 25 MG PO Every evening 90 August 08, 2024 12:00am August 17, 2024 12:53pm nitroglycerin 0.4 mg sublingual tablet (3 sources) Nitrate Vasodilator Start: 08-08-2024 Nitroglycerin 0.4 mg tablet, sublingual Active 0.4 MG SUBLINGUAL Q5M as needed for chest pain August 08, 2024 12:00am do not exceed 3 doses per episode Complies with drug therapy ticagrelor 90 mg oral tablet (5 sources) Start: 08-08-2024 End: 09-06-2024 take 1 tablet by mouth twice daily Ticagrelor (Brilinta) 90 mg tablet Active 90 MG PO Twice daily 180 September 06, 2024 2:01pm Complies with drug therapy valsartan 80 mg oral tablet (5 sources) Angiotensin 2 Receptor Romeo Start: 08-08-2024 End: 09-06-2024 take 1 tablet by mouth once daily in the evening Valsartan 80 mg tablet Active 80 MG PO Every evening 90 September 06, 2024 2:02pm Complies with drug therapy Problems Active Problems Problem Classification Problem Date Documented Da te Episodic/Chronic Acute myocardial infarction (11 sources) Myocardial infarction; Translations: [ST elevation (STEMI) myocardial infarction involving other coronary artery of inferior wall] Onset: 08-07-2024 08-07-2024 Chronic Coronary atherosclerosis and other heart disease (5 sources) Ischemic myocardial dysfunction; Translations: [Ischemic cardiomyopathy] 08-17-2024 Chronic Coronary atherosclerosis and other heart disease (6 sources) Coronary angioplasty status; Translations: [Stented coronary artery] Onset: 08-07-2024 08-17-2024 Episodic Disorders of lipid metabolism (5 sources) Dyslipidemia; Translations: [Hyperlipidemia, unspecified] 08-17-2024 Chronic Other upper respiratory infections (1 source) Chronic sinusitis, unspecified; Translations: [CHRONIC SINUSITIS UNSPECIFIED] Onset: 06-06-2021 Chronic Unclassified (3 sources) CONTACT W/AND (SUSP) EXPOS COVID-19; Translations: [CONTACT W/AND (SUSP) EXPOS COVID-19] Onset: 06-06-2021 Unclassified (1 source) I25.5 - Ischemic cardiomyopathy,I21 .19 - ST elevation (STEMI) myocardial infarction involving other coronary artery of inferior wall,Z95.5 - Presence of coronary angioplasty implant and graft Past or Other Problems Problem Classification Problem [...] Results Test Name Value Interpretation Reference Range Facility Alanine aminotransferase [En zymatic activity/volume] in Serum or PlasmaOrdered By: Emile Damon on 08-08-2024 ALT [Catalytic activity/Vol] Alanine aminotransferase [Enzymatic activity/volume] in Serum or Plasma High 7-52 [facility] Albumin [Mass/volume] in Ser um or Plasma by Bromocresol green (BCG) dye binding methoOrdered By: Emile Damon on 08-08-2024 Albumin BCG dye [Mass/Vol] Albumin [Mass/volume] in Serum or Plasma by Bromocresol green (BCG) dye binding metho 3.5-5.7 [facility] Albumin BCG dye [Mass/Vol] 3.9 g/dL 3.5-5.7 [facility] Alkaline phosphatase [Enzyma tic activity/volume] in Serum or PlasmaOrdered By: Emile Damon on 08-08-2024 ALP [Catalytic activity/Vol] Alkaline phosphatase [Enzymatic activity/volume] in Serum or Plasma 34-104 [facility] Aspartate aminotransferase [ Enzymatic activity/volume] in Serum or PlasmaOrdered By: Emile Damon on 08-08-2024 AST [Catalytic activity/Vol] Aspartate aminotransferase [Enzymatic activity/volume] in Serum or Plasma High 13-39 [facility] Basophils Auto (Bld) [#/Vol] Ordered By: Emile Damon on 08-08-2024 Basophils (Bld) [#/Vol] Automated basoph il count 0.0-0.2 [facility] Basophils/100 WBC Auto (Bld) Ordered By: Emile Damon on 08-08-2024 Basophils/100 WBC (Bld) Automated basophil % . [facility] Bilirubin.total [Mass/volume ] in Serum or PlasmaOrdered By: Emile Damon on 08-08-2024 Bilirubin [Mass/Vol] Bilirubin.total [Mass/volume] in Serum or Plasma 0.3-1.0 [facility] Calcium [Mass/volume] in Ser um or PlasmaOrdered By: Emile Damno on 08-08-2024 Calcium [Mass/Vol] Calcium [Mass/volume] in Serum or Plasma Low 8.6-10.3 [facility] Carbon dioxide, total [Moles /volume] in Serum or PlasmaOrdered By: Emile Damon on 08-08-2024 CO2 [Moles/Vol] Carbon dioxide, total [Moles/volume] in Serum or Plasma 21.0-31.0 [facility] Chloride [Moles/volume] in S kylee or PlasmaOrdered By: Emile Damon on 08-08-2024 Chloride [Moles/Vol] Chloride [Moles/volume] in Serum or Plasma High 98-107 [facility] Complete Blood Count Auto Di ffOrdered By: Emile Damon on 08-08-2024 Basophils (Bld) [#/Vol] 0.1 10*3/uL 0.0-0.2 [facility] Comment on above: Order Comment: REDRA W Result Comment: PERF ORMED BY: [facility] [address] [place] [address] PATHOLOGIST PONY EDGER SCOTTY ALFORD M.D. Performed By: #### C BC #### [facility] [address] [place] [address] [place] Basophils/100 WBC (Bld) 0.5 % . [facility] Comment on above: Order Comment: REDRA W Performed By: #### C BC #### [facility] [address] Eosinophils (Bld) [#/Vol] 0.3 10*3/uL 0.0-0.45 [facility] Comment on above: Order Comment: REDRA W Performed By: #### C BC #### [address] Eosinophils/100 WBC (Bld) 3.4 % . [facility] Comment on above: Order Comment: REDRA W Performed By: #### C BC #### [address] Erythrocyte distribution width (RBC) [Ratio] 13.8 % 12.0-14.8 [facility] Comment on above: Order Comment: REDRA W Performed By: #### C BC #### [address] Hematocrit (Bld) [Volume fraction] 44.3 % 38.8-50.0 [facility] Comment on above: Order Comment: REDRA W Performed By: #### C BC #### [place] [address] [place] Hemoglobin (Bld) [Mass/Vol] 15.1 g/dL 13.0-17.0 [facility] Comment on above: Order Comment: REDRA W Performed By: #### C BC #### [place] [address] [place] Lymphocytes (Bld) [#/Vol] 2.0 10*3/uL 1.00-4.8 [facility] Comment on above: Order Comment: REDRA W Performed By: #### C BC #### [place] [address] [place] Lymphocytes/100 WBC (Bld) 20.1 % . [facility] Comment on above: Order Comment: REDRA W Performed By: #### C BC #### [address] MCH (RBC) [Entitic mass] 29.0 pg 27.5-35.2 [facility] Comment on above: Order Comment: REDRA W Performed By: #### C BC #### [address] MCV (RBC) [Entitic vol] 85.1 fL 83.5-101 [facility] Comment on above: Order Comment: REDRA W Performed By: #### C BC #### [address] Monocytes (Bld) [#/Vol] 1.0 10*3/uL High 0.0-0.8 [facility] Comment on above: Order Comment: REDRA W Performed By: #### C BC #### [address] Monocytes/100 WBC (Bld) 9.8 % . [facility] Comment on above: Order Comment: REDRA W Performed By: #### C BC #### [address] Neutrophils (Bld) [#/Vol] 6.5 10*3/uL 1.8-7.7 [facility] Comment on above: Order Comment: REDRA W Performed By: #### C BC #### [address] Neutrophils/100 WBC (Bld) 66.2 % . [facility] Comment on above: Order Comment: REDRA W Performed By: #### C BC #### [address] Platelet mean volume (Bld) [Entitic vol] 8.6 fL 6.6-10.1 [facility] Comment on above: Order Comment: REDRA W Performed By: #### C BC #### [address] [place] [address] [place] Platelets (Bld) [#/Vol] 154 10*3/uL 150-450 [facility] Comment on above: Order Comment: REDRA W Performed By: #### C BC #### [address] RBC (Bld) [#/Vol] 5.21 10*6/uL 3.90-5.60 [facility] Comment on above: Order Comment: REDRA W Performed By: #### C BC #### [address] WBC (Bld) [#/Vol] 9.8 10*3/uL 4.1-10.5 [facility] Comment on above: Order Comment: REDRA W Performed By: #### C BC #### [address] Complete Blood Count Auto Di ffon 08-08-2024 Mean Corpuscular HGB Conc 34.2 g/dL Normal 32.5-35.6 [facility] Comment on above: Order Comment: REDRA W Performed By: #### C BC #### [address] NRBC% 0.2 /100{WBC} Normal 0-0.5 [facility] Comment on above: Order Comment: REDRA W Performed By: #### C BC #### [address] Comprehensive Metabolic Pane ghislaine 08-08-2024 Albumin [Mass/Vol] 3.9 g/dL Normal 3.5-5.7 [facility] Comment on above: Performed By: #### C MP, HS TROP #### [address] Creatinine Clr Calc Pharmacy 92.91 Normal [facility] Comment on above: Result Comment: PERF ORMED BY: [place] [address] PATHOLOGIST PONY EDGER SCOTTY ALFORD M.D. Performed By: #### C MP, HS TROP #### [facility] [address] [place] [address] GFR/1.73 sq M.predicted MDRD (S/P/Bld) [Vol rate/Area] mL/min/{1.73_m2} Normal [facility] Comment on above: Performed By: #### C MP, HS TROP #### [facility] [address] [place] [address] Comprehensive Metabolic Pane lOrdered By: Emile Damon on 08-08-2024 Albumin/Globulin [Mass ratio] 1.6 {ratio} [facility] Comment on above: Performed By: #### C MP, HS TROP #### [address] ALP [Catalytic activity/Vol] 56 U/L 34-104 [facility] Comment on above: Performed By: #### C MP, HS TROP #### [facility] [address] [place] [address] ALT [Catalytic activity/Vol] 58 U/L High 7-52 [facility] Comment on above: Performed By: #### C MP, HS TROP #### [facility] [address] [place] [address] Anion gap [Moles/Vol] 9.2 mmol/L 6.0-15.0 [facility] Comment on above: Performed By: #### C MP, HS TROP #### [facility] [address] [place] [address] AST [Catalytic activity/Vol] 122 U/L High 13-39 [facility] Comment on above: Performed By: #### C MP, HS TROP #### [facility] [address] [place] [address] Bilirubin [Mass/Vol] 0.9 mg/dL 0.3-1.0 [facility] Comment on above: Performed By: #### C MP, HS TROP #### [facility] [address] [place] [address] Calcium [Mass/Vol] 8.5 mg/dL Low 8.6-10.3 [facility] Comment on above: Performed By: #### C MP, HS TROP #### [facility] [address] Chloride [Moles/Vol] 108 mmol/L High 98-107 [facility] Comment on above: Performed By: #### C MP, HS TROP #### [facility] [address] CO2 [Moles/Vol] 24.7 mmol/L 21.0-31.0 [facility] Comment on above: Performed By: #### C MP, HS TROP #### [facility] [address] Creatinine [Mass/Vol] 1.04 mg/dL 0.70-1.30 [facility] Comment on above: Performed By: #### C MP, HS TROP #### [facility] [address] Globulin (S) [Mass/Vol] 2.5 g/dL [facility] Comment on above: Performed By: #### C MP, HS TROP #### [facility] [address] Glucose [Mass/Vol] 113 mg/dL High 70-100 [facility] Comment on above: Result Comment: [place] om Glucose Reference Range is dependent on time and content of last meal. Glucose of more than 200 mg/dL in a nonstressed, ambulatory subject supports the diagnosis of Diabetes Mellitus. ADA recommended reference range Performed By: #### C MP, HS TROP #### [facility] [address] ADA recommended refe rence rangeRandom Glucose Reference Range is dependent on time and content of last meal. Glucose of more than 200 mg/dL in a nonstressed, ambulatory subject supports the diagnosis of Diabetes Mellitus. Potassium [Moles/Vol] 3.9 mmol/L 3.5-5.1 [facility] Comment on above: Performed By: #### C MP, HS TROP #### [facility] [address] Protein [Mass/Vol] 6.4 g/dL 6.4-8.9 [facility] Comment on above: Performed By: #### C MP, HS TROP #### [facility] [address] [place] [address] [place] Sodium [Moles/Vol] 138 mmol/L 136-145 [facility] Comment on above: Performed By: #### C MP, HS TROP #### [facility] [address] [place] [address] [place] Urea nitrogen [Mass/Vol] 15 mg/dL 10-21 [facility] Comment on above: Performed By: #### C MP, HS TROP #### [facility] [address] [place] [address] [place] Creatinine [Mass/volume] in Serum or PlasmaOrdered By: Emile Damon on 08-08-2024 Creatinine [Mass/Vol] Creatinine [Mass/volume] in Serum or Plasma 0.70-1.30 [facility] ECG 12 lead ECGon 08-08-2024 ECG 12 lead ECG [facility] Main [place] [address] [place] [address] Electrocardiograph Report Signed Patient: Robert Boateng MR#: [id number] 57 : 1965 Acct:[id number] Age/Sex: 59 / M ADM Date: 08/07/24 Loc: Room: [address] [place] [address] Type: ADM IN Attending Dr: Emile Damon MD Ordering Provider: Emile Damon MD Date of Service: 08/08/2403/23/500 ECG/ECG 12 lead ECG: Post Angioplasty Procedure in AM Copies to: Test Reason : Blood Pressure : 131/78 mmHG Vent. Rate : 60 BPM Atrial Rate : 60 BPM P-R Int : 168 ms QRS Dur : 78 ms QT Int : 468 ms P-R-T Axes : 57 42 -51 degrees QTcB Int : 468 ms Normal sinus rhythm Inferior infarct (cited on or before 07-Aug-2024) T wave abnormality, consider lateral ischemia Abnormal ECG When compared with ECG of 07-Aug-2024 11:33, T wave inversion now evident in Inferior leads T wave inversion now evident in Lateral leads QT has lengthened Confirmed by IFRAH NAJERA [id number] on 08/08/2024 12:21:25 PM Referred By: Electronically Signed By: GUTIERREZ RAINEY MD [facility] Transcribed By: MUS Signed By Gutierrez Rainey MD, [facility] 08/08/24 1221 Normal [facility] echo transthoracicon [facility] echo transthoracic [facility] [address] Echocardiogram Signed Patient: Robert Boateng MR#: [id number] 57 : 1965 Acct:[id number] Age/Sex: 59 / M ADM Date: 08/07/24 Loc: Room: [address] [place] [address] Type: ADM IN Attending Dr: Emile Damon MD Ordering Provider: Emile Damon MD Date of Service: 08/08/2403/23/500 [facility] echo transthoracic: inferior stemi Copies to: Gutierrez Rainey MD, [facility] Emile Damon MD BSA: 2.2 m2 BP: 170/92 mmHg HR: 67 Reason For Study: inferior stemi History: family history of CAD Interpretation Summary Mild concentric left ventricular hypertrophy. There is moderate inferior wall hypokinesis. The LV ejection fraction is 55 %. A variety of Doppler measurements indicate normal left ventricular diastolic function. There is no prior echocardiogram noted for this patient. Procedure/Quality: A two-dimensional transthoracic echocardiogram with color flow, Doppler and injection of contrast agent Definity was performed. The study was technically good in quality. There is no prior echocardiogram noted for this patient. Left Ventricle: Mild concentric left ventricular hypertrophy. The LV ejection fraction is 55 %. A variety of Doppler measurements indicate normal left ventricular diastolic function. There is moderate inferior wall hypokinesis. Left Atrium: The left atrium appears normal in size. The atrial septum appears normal. Right Atrium: The right atrium appears normal in size. Right Ventricle: The right ventricular size, thickness and function are normal. Aortic Valve: The aortic valve is normal in structure and function. Mitral Valve: The mitral valve is normal in structure and function. Tricuspid Valve: The tricuspid valve is normal in structure and function. Pulmonic Valve: The pulmonic valve is not well seen, but is grossly normal. Arteries: The aortic root is normal size. Pericardium/Pleura: No pericardial effusion seen. There is no pleural effusion. IVC/Hepatic Veins: The IVC is normal in size with an inspiratory collapse of greater then 50%, suggesting normal right atrial pressure. Miscellaneous: No thrombus, vegetation or mass is seen. Measurements with Normals IVSd: 1.3 cm (0.7-1.1 cm)LVIDd: 4.0 cm (3.7-5.4 cm) LVPWd: 1.3 cm (0.7-1.1 cm)LVIDs: 3.0 cm (2.3-3.6 cm) LA dimension: 3.4 cm (2.3-4.0 cm)Ao root diam: 3.3 cm(2.0-3.6 cm) asc Aorta Diam: 3.5 cm(2.1-3.4cm) Doppler with Normals LV V1 max: 76.2 cm/sec (0.7-1.7m/s)MV E max fernando: 78.4 cm/sec(0.8-1.3m/s) MV A max fernando: 54.4 cm/sec(0.0-0.0m/s) MV E/A: 1.4 (<1.5) MMode/2D Measurements Calculations TAPSE: 1.9 cm FS: 26.7 % Ao root area: LVOT diam: 2.0 cm RV S Fernando: EDV(Teich): 8.6 cm2 LVOT area: 3.1 cm2 10.9 cm/sec 71.8 ml ESV(Teich): 33.9 ml EF(Teich): 52.7 % __ LVLd ap4: 8.5 cm SV(MOD-sp4): LAV(MOD-sp4): LA A2 area: 14.8 cm2 EDV(MOD-sp4): 76.3 ml 31.5 ml 136.0 ml LAV(MOD-sp2): LA A4 area: 13.7 cm2 LVLs ap4: 7.5 cm 38.3 ml LA length (vol): ESV(MOD-sp4): 4.8 cm 59.7 ml LA vol: 36.2 ml EF(MOD-sp4): 56.1 % LA vol index: 16.7 ml/m2 Doppler Measurements Calculations MV dec time: MV V2 max: E/E' lat: MV dec slope: 0.15 sec 86.3 cm/sec 7.6 MV max P.0 mmHg E/E' med: 511.9 cm/sec2 MV V2 mean: 9.5 49.3 cm/sec MV mean P.2 mmHg MV V2 VTI: 35.3 cm MVA(VTI): 1.4 cm2 __ Ao V2 max: LV V1 max P.4 cm/sec 2.3 mmHg Ao max P.2 mmHg LV V1 mean PG: Ao mean P.9 mmHg 1.4 mmHg Ao V2 mean: LV V1 mean: 83.8 cm/sec 55.6 cm/sec Ao V2 VTI: 20.1 cm LV V1 VTI: 15.4 cm SURI(I,D): 2.4 cm2 SURI(V,D): 2.3 cm2 Transcribed By: SCV Performed At: 08/08/24 0837 Signed By: Gutierrez Rainey MD, [facility] 08/08/24 1231 Normal [facility] Eosinophils Auto (Bld) [#/Vo l]Ordered By: Emile Damon on 08-08-2024 Eosinophils (Bld) [#/Vol] Automated eosi nophil count 0.0-0.45 [facility] Eosinophils/100 WBC Auto (Bl d)Ordered By: Emile Damon on 08-08-2024 Eosinophils/100 WBC (Bld) Automated eosi nophil % . [facility] Erythrocyte distribution wid th Auto (RBC) [Ratio]Ordered By: Emile Damon on 08-08-2024 Erythrocyte distribution width (RBC) [Ratio] Erythrocyte distribution width [Ratio] by Automated count 12.0-14.8 [facility] Globulin Calc (S) [Mass/Vol] Ordered By: Emile Damon on 08-08-2024 Globulin (S) [Mass/Vol] Serum globulin measurement by calculation (mass/volume) [facility] Glucose [Mass/volume] in Ser um or PlasmaOrdered By: Emile Damon on 08-08-2024 Glucose [Mass/Vol] Glucose [Mass/volume] in Serum or Plasma High 70-100 [facility] Comment on above: ADA recommended refe rence rangeRandom Glucose Reference Range is dependent on time and content of last meal. Glucose of more than 200 mg/dL in a nonstressed, ambulatory subject supports the diagnosis of Diabetes Mellitus. Hematocrit Auto (Bld) [Volum e fraction]Ordered By: Emile Damon on 08-08-2024 Hematocrit (Bld) [Volume fraction] Hematocrit [Volume Fraction] of Blood by Automated count 38.8-50.0 [facility] Hemoglobin [Mass/volume] in BloodOrdered By: Emile Damon on 08-08-2024 Hemoglobin (Bld) [Mass/Vol] Hemoglobin [Mass/volume] in Blood 13.0-17.0 [facility] Leukocytes [#/volume] correc cristal for nucleated erythrocytes in Blood by Automated counOrdered By: Emile Damon on 08-08-2024 WBC corrected for nucl RBC Auto (Bld) [#/Vol] Leukocytes [#/volume] corrected for nucleated erythrocytes in Blood by Automated coun 4.1-10.5 [facility] WBC corrected for nucl RBC Auto (Bld) [#/Vol] 9.8 10*3/uL 4.1-10.5 [facility] Lymphocytes Auto (Bld) [#/Vo l]Ordered By: Emile Damon on 08-08-2024 Lymphocytes (Bld) [#/Vol] Lymphocytes [#/volume] in Blood by Automated count 1.00-4.8 [facility] Lymphocytes/100 WBC Auto (Bl d)Ordered By: Emile Damon on 08-08-2024 Lymphocytes/100 WBC (Bld) Lymphocytes/10 0 leukocytes in Blood by Automated count . [facility] MCH Auto (RBC) [Entitic mass ]Ordered By: Emile Damon on 08-08-2024 MCH (RBC) [Entitic mass] MCH [Entitic ma ss] by Automated count 27.5-35.2 [facility] MCHC Auto (RBC) [Mass/Vol]Or dered By: Emile Damon on 08-08-2024 MCHC (RBC) [Mass/Vol] MCHC [Mass/volume] by Automated count 32.5-35.6 [facility] MCHC (RBC) [Mass/Vol] 34.2 g/dL 32.5-35.6 [facility] MCV Auto (RBC) [Entitic vol] Ordered By: Emile Damon on 08-08-2024 MCV (RBC) [Entitic vol] MCV [Entitic vol ume] by Automated count 83.5-101 [facility] Monocytes Auto (Bld) [#/Vol] Ordered By: Emile Damon on 08-08-2024 Monocytes (Bld) [#/Vol] Automated blood monocyte count High 0.0-0.8 [facility] Monocytes/100 WBC Auto (Bld) Ordered By: Emile Damon on 08-08-2024 Monocytes/100 WBC (Bld) Automated monocyte % . [facility] Neutrophils Auto (Bld) [#/Vo l]Ordered By: Emile Damon on 08-08-2024 Neutrophils (Bld) [#/Vol] Neutrophils [#/volume] in Blood by Automated count 1.8-7.7 [facility] Neutrophils/100 WBC Auto (Bl d)Ordered By: Emile Damon on 08-08-2024 Neutrophils/100 WBC (Bld) Automated neut rophil % . [facility] No Panel InformationOrdered By: Emile Damon on 08-08-2024 Estimated GFR (CKD-EPI) > 60.0 mL/Min [facility] Creatinine Clearance (Chem 92.91 [facility] Nucleated erythrocytes [Pres ence] in Blood by Automated countOrdered By: Emile Damon on 08-08-2024 Nucleated RBC Auto Ql (Bld) Nucleated erythrocytes [Presence] in Blood by Automated count 0-0.5 [facility] Nucleated RBC Auto Ql (Bld) 0.2 /100{WBC} 0-0.5 [facility] Platelet mean volume Auto (B ld) [Entitic vol]Ordered By: Emile Damon on 08-08-2024 Platelet mean volume (Bld) [Entitic vol] Platelet mean volume [Entitic volume] in Blood by Automated count 6.6-10.1 [facility] Platelets Auto (Bld) [#/Vol] Ordered By: Emile Damon on 08-08-2024 Platelets (Bld) [#/Vol] Platelets [#/vol ume] in Blood by Automated count 150-450 [facility] Potassium [Moles/volume] in Serum or PlasmaOrdered By: Emile Damon on 08-08-2024 Potassium [Moles/Vol] Potassium [Moles/volume] in Serum or Plasma 3.5-5.1 [facility] Protein [Mass/volume] in Ser um or PlasmaOrdered By: Emile Damon on 08-08-2024 Protein [Mass/Vol] Protein [Mass/volume] in Serum or Plasma 6.4-8.9 [facility] RBC Auto (Bld) [#/Vol]Ordere d By: Emile Damon on 08-08-2024 RBC (Bld) [#/Vol] Erythrocytes [#/volume] in Blood by Automated count 3.90-5.60 [facility] Serum or plasma albumin/glob ulin mass ratioOrdered By: Emile Damon on 08-08-2024 Albumin/Globulin [Mass ratio] Serum or plasma albumin/globulin mass ratio [facility] Serum or plasma anion gap de terminationOrdered By: Emile Damon on 08-08-2024 Anion gap [Moles/Vol] Serum or plasma anion gap determination 6.0-15.0 [facility] Sodium [Moles/volume] in Ser um or PlasmaOrdered By: Emile Damon on 08-08-2024 Sodium [Moles/Vol] Sodium [Moles/volume] in Serum or Plasma 136-145 [facility] Troponin I High Sensitivityo n 08-08-2024 Troponin I High Sensitivity 48443 Off scale high 0-20 [facility] Comment on above: Result Comment: Crit ical Result : Called to and read back by: DERECK LUNA at: 08/08/2024 05:16:37 by:RADHA The Troponin units of report have been changed to meet the Chest Pain Accreditation requirement, element EC5.M1l2. Troponin units are changed from pg/ml to ng/L. Also, the decimal is removed and results are in whole numbers. PERFORMED BY: [place] [address] PATHOLOGIST PONY EDGER SCOTTY ALFORD M.D. Performed By: #### C MP, HS TROP #### [address] Troponin I.cardiac [Mass/vol ume] in Serum or Plasma by Detection limit <= 0.01 ng/Ordered By: Emile Damon on 08-08-2024 Troponin I.cardiac DL <= 0.01 ng/mL [Mass/Vol] Troponin I.cardiac [Mass/volume] in Serum or Plasma by Detection limit <= 0.01 ng/ Critically high 020 [facility] Comment on above: Critical Result : Ca lled to and read back by: DERECK LUNA at: 08/08/2024 05:16:37 by:DHThe Troponin units of report have been changed to meet the Chest Pain Accreditation requirement, element EC5.M1l2. Troponin units are changed from pg/ml to ng/L. Also, the decimal is removed and results are in whole numbers. Troponin I.cardiac [Mass/vol ume] in Serum or Plasma by Detection limit <= 0.01 ng/mLOrdered By: Emile Damon on 08-08-2024 Troponin I.cardiac DL <= 0.01 ng/mL [Mass/Vol] 92349 ng/L Critically high [address] Comment on above: Critical Result : Ca lled to and read back by: DERECK LUNA at: 08/08/2024 05:16:37 by:DHThe Troponin units of report have been changed to meet the Chest Pain Accreditation requirement, element EC5.M1l2. Troponin units are changed from pg/ml to ng/L. Also, the decimal is removed and results are in whole numbers. Urea nitrogen [Mass/volume] in Serum or PlasmaOrdered By: Emile Damon on 08-08-2024 Urea nitrogen [Mass/Vol] Urea nitrogen [Mass/volume] in Serum or Plasma 7-25 [facility] WBC Auto (Bld) [#/Vol]Ordere d By: Emile Damon on 08-08-2024 WBC (Bld) [#/Vol] Leukocytes [#/volume] in Blood by Automated count 4.1-10.5 [facility] Anti-Xa UF Heparinon 025 Anti-Xa UF Heparin 0.60 [IU]/mL Normal 0.30-0.70 [facility] Comment on above: Result Comment: Use the aPTT protocol when triglycerides are > 800 mg/dL, total bilirubin is > 20 mg/dL and/or patient has received a DOAC, Fondaparinux or LMWH within 72 hours AND baseline anti-Xa level is > 0.7 units/mL PERFORMED BY: [place] [address] PATHOLOGIST PONY EDGER SCOTTY ALFORD M.D. Performed By: #### U FHEP ####[address] Anti-Xa UF Heparin 0.42 [IU]/mL Normal 0.30-0.70 [facility] Comment on above: Result Comment: Use the aPTT protocol when triglycerides are > 800 mg/dL, total bilirubin is > 20 mg/dL and/or patient has received a DOAC, Fondaparinux or LMWH within 72 hours AND baseline anti-Xa level is > 0.7 units/mL PERFORMED BY: [place] [address] PATHOLOGIST PONY EDGER SCOTTY ALFORD M.D. Performed By: #### U FHEP #### [address] Basic Metabolic Panelon 07-28 Anion gap [Moles/Vol] 11.9 mmol/L Normal 6.0-15.0 [facility] Comment on above: Performed By: #### B MP ####[address] Calcium [Mass/Vol] 9.0 mg/dL Normal 8.6-10.3 [facility] Comment on above: Performed By: #### B MP ####[place] [address] Chloride [Moles/Vol] 109 mmol/L High 98-107 [facility] Comment on above: Performed By: #### B MP ####[address] CO2 [Moles/Vol] 23.6 mmol/L Normal 21.0-31.0 [facility] Comment on above: Performed By: #### B MP ####[address] Creatinine [Mass/Vol] 1.38 mg/dL High 0.70-1.30 [facility] Comment on above: Performed By: #### B MP ####[address] Creatinine Clr Calc Pharmacy 70.02 Normal [facility] Comment on above: Result Comment: PERF ORMED BY: [facility] [address] [place] [address] PATHOLOGIST PONY EDGER SCOTTY ALFORD M.D. Performed By: #### B MP ####[address] Estimated GFR 59.274 mL/Min Normal [facility] Comment on above: Performed By: #### B MP ####[address] Glucose [Mass/Vol] 125 mg/dL High 70-100 [facility] Comment on above: Result Comment: [place] Glucose Reference Range is dependent on time and content of last meal. Glucose of more than 200 mg/dL in a nonstressed, ambulatory subject supports the diagnosis of Diabetes Mellitus. ADA recommended reference range Performed By: #### B MP ####[address] Potassium [Moles/Vol] 4.5 mmol/L Normal 3.5-5.1 [facility] Comment on above: Performed By: #### B MP ####[address] Sodium [Moles/Vol] 140 mmol/L Normal 136-145 [facility] Comment on above: Performed By: #### B MP ####[place] [id number] [address] Urea nitrogen [Mass/Vol] 20 mg/dL Normal 7-25 [facility] Comment on above: Performed By: #### B MP ####[address] ECG 12 lead ECGon 08-07-2024 ECG 12 lead ECG [facility] [place] [address] Electrocardiograph Report Signed Patient: Robert Boateng MR#: [id number] 57 : 1965 Acct:[id number] Age/Sex: 59 / M ADM Date: 08/07/24 Loc: Room: [address] [place] [address] Type: ADM IN Attending Dr: Emile Damon MD Ordering Provider: Emile Damon MD Date of Service: 08/07/2402/22/1104 ECG/ECG 12 lead ECG: Post Angioplasty Procedure Copies to: Test Reason : Blood Pressure : 139/81 mmHG Vent. Rate : 57 BPM Atrial Rate : 57 BPM P-R Int : 174 ms QRS Dur : 78 ms QT Int : 424 ms P-R-T Axes : 48 48 57 degrees QTcB Int : 412 ms Sinus bradycardia Possible Inferior infarct , age undetermined Abnormal ECG Confirmed by Fauzia Hernandez ([id number]) on 08/07/2024 10:05:18 PM Referred By: Electronically Signed By: Fauzia Hernandez Transcribed By: MUS Signed By Fauzia Hernandez MD [id number] Normal [facility] ECG 12 lead ECG [facility] [place] [address] Electrocardiograph Report Signed Patient: Robert Boateng MR#: [id number] 57 : 1965 Acct:[id number] Age/Sex: 59 / M ADM Date: 08/07/24 Loc: Room: [address] [place] [address] Type: ADM IN Attending Dr: Emile Damon MD Ordering Provider: Emile Damon MD Date of Service: 08/07/2402/21/918 ECG/ECG 12 lead ECG: prn ekg Copies to: Test Reason : Blood Pressure : 129/80 mmHG Vent. Rate : 66 BPM Atrial Rate : 66 BPM P-R Int : 168 ms QRS Dur : 78 ms QT Int : 430 ms P-R-T Axes : 54 66 63 degrees QTcB Int : 450 ms Normal sinus rhythm with sinus arrhythmia Normal ECG When compared with ECG of 07-Aug-2024 03:58, (Unconfirmed) No significant change was found Confirmed by IFRAH NAJERA [facility] ([id number][facility] on 08/08/2024 12:20:50 PM Referred By: Electronically Signed By: GUTIERREZ RAINEY MD [facility] Transcribed By: MUS Signed By Gutierrez Rainey MD, FACC 08/08/24 1220 Normal [facility] Physician [facility] ECG 12 lead ECG [facility] [place] [address] Electrocardiograph Report Signed Patient: Robert Boateng MR#: [id number] 57 : 1965 Acct:[id number] Age/Sex: 59 / M ADM Date: 08/07/24 Loc: Room: [address] [place] [address] Type: ADM IN Attending Dr: Emile Damon MD Ordering Provider: Emile Damon MD Date of Service: 08/07/2402/21/318 ECG/ECG 12 lead ECG: chest pain Copies to: Test Reason : Blood Pressure : 119/73 mmHG Vent. Rate : 60 BPM Atrial Rate : 60 BPM P-R Int : 168 ms QRS Dur : 78 ms QT Int : 420 ms P-R-T Axes : 52 70 76 degrees QTcB Int : 420 ms Normal sinus rhythm Normal ECG Confirmed by Fauzia Hernandez ([id number]) on 08/07/2024 9:59:55 PM Referred By: Electronically Signed By: Fauzia Hernandez Transcribed By: MUS Signed By Fauzia Hernandez MD [id number] Normal [facility] Heparin anti-Xa unfractionat edOrdered By: Emile Damon on 08-07-2024 Heparin unfractionated Chromogenic method Qn (PPP) Heparin anti-Xa unfractionated 0.30-0.70 [facility] Comment on above: Use the aPTT protoco l when triglycerides are > 800 mg/dL,total bilirubin is > 20 mg/dL and/or patient has received aDOAC, Fondaparinux or LMWH within 72 hours AND baselineanti-Xa level is > 0.7 units/mL Heparin unfractionated Chromogenic method Qn (PPP) 0.60 [IU]/mL 0.30-0.70 [facility] Comment on above: Use the aPTT protoco l when triglycerides are > 800 mg/dL,total bilirubin is > 20 mg/dL and/or patient has received aDOAC, Fondaparinux or LMWH within 72 hours AND baselineanti-Xa level is > 0.7 units/mL Partial Thromboplastin Timeo n 08-07-2024 aPTT Coag (Bld) [Time] 41.1 s High 25.1-36.5 [facility] Comment on above: Result Comment: A he matocrit value greater than 55% may lead to inaccurate results in coagulation testing. Patients having hematocrit values >55% require a special collection tube for coagulation studies. Please contact the laboratory at [phone] for redraw instructions. PERFORMED BY: [facility] [address] [place] [address] PATHOLOGIST PONY EDGER SCOTTY ALFORD M.D. Performed By: #### P TT ####[facility] [id number] [place] [address] [facility] Troponin I High Sensitivityo n 08-07-2024 Troponin I High Sensitivity 56967 Off scale high 0-20 [facility] Comment on above: Result Comment: Crit ical Result : Called to and read back by: ADDISON BORGES at: 08/07/2024 10:15:55 by:QUINTON The Troponin units of report have been changed to meet the Chest Pain Accreditation requirement, element EC5.M1l2. Troponin units are changed from pg/ml to ng/L. Also, the decimal is removed and results are in whole numbers. PERFORMED BY: [facility] [address] [place] [id number] PATHOLOGIST PONY EDGER SCOTTY ALFORD M.D. Performed By: #### H S TROP ####[place] [id number] [place] [id number] [facility] Troponin I High Sensitivity 8587 Off scale high 0-20 [facility] Comment on above: Result Comment: Crit ical Result : Called to and read back by: ADDISON BORGES at: 08/07/2024 08:20:01 by:QUINTON The Troponin units of report have been changed to meet the Chest Pain Accreditation requirement, element EC5.M1l2. Troponin units are changed from pg/ml to ng/L. Also, the decimal is removed and results are in whole numbers. PERFORMED BY: [place] [address] PATHOLOGIST PONY EDGER SCOTTY ALFORD M.D. Performed By: #### H S TROP ####[place] [id number] [facility] Troponin I High Sensitivity 5112 Off scale high 0-20 [facility] Comment on above: Order Comment: 0530 draw Result Comment: Crit ical Result : Called to and read back by: ALIDA SEAY at: 08/07/2024 07:15:03 by:QUINTON The Troponin units of report have been changed to meet the Chest Pain Accreditation requirement, element EC5.M1l2. Troponin units are changed from pg/ml to ng/L. Also, the decimal is removed and results are in whole numbers. PERFORMED BY: [place] [address] PATHOLOGIST PONY EDGER SCOTTY ALFORD M.D. Performed By: #### H S TROP #### [facility] [address] [place], [place] [id number] [facility] aPTT in Platelet poor plasma by Coagulation assayOrdered By: Emile Damon on 08-07-2024 aPTT Coag (PPP) [Time] Activated partial thromboplastin time (aPTT) in platelet poor plasma by coagulation a High 25.1-36.5 [facility] Comment on above: A hematocrit value g reater than 55% may lead to inaccurate results in coagulation testing. Patients having hematocrit values >55% require a special collection tube for coagulation studies. Please contact the laboratory at [phone] for redraw instructions. aPTT Coag (PPP) [Time] 41.1 s High 25.1-36.5 [facility] Comment on above: A hematocrit value g reater than 55% may lead to inaccurate results in coagulation testing. Patients having hematocrit values >55% require a special collection tube for coagulation studies. Please contact the laboratory at [phone] for redraw instructions. Covid-19 PCR ([facility])on SARS-CoV-2 (COVID-19) RNA HAKEEM+probe Ql (Unsp spec) Not detected Normal NOT DETECTED [facility] Comment on above: Result Comment: This test is not yet approved or cleared by the [place] FDA. When there are no FDA-approved or cleared tests available, and other criteria are met, FDA can make tests available under an emergency access mechanism called an Emergency Use Authorization (EUA). The EUA for this test is supported by the [employer] Project Manager of Health and Human Service's (HHS's) declaration [...] SARS-CoV-2. Performed By: #### C [facility] #### [facility] [address] [place] [address] Dr. Boby Franks Ambulatory Clinical Summaryo n 11-21-2020 Ambulatory Clinical Summary {[id number]}CD:[id number] Normal [facility] General Surgery Office/Clini c Noteon 11-21-2020 [...] Heart attack: Father. Heart disease: Father. Normal [facility] Comment on above: Result Comment: Elec tronically Signed By: GABI NAJERA, Mike Harkins\Date and Time Signed: 11/21/20 13:13 EDT Pathology Noteon 11-21-2020 Pathology Note [id number] #[id number]:[address] [facility] Ambulatory Clinical Summaryo n 11-15-2020 Ambulatory Clinical Summary {[id number]}CD:[id number] Normal [facility] General Surgery Office/Clini c Noteon 11-15-2020 General Surgery Office/Clinic Note CD:[id number]:[id number] 10XV12aPdutjToa4cfom 4xBD1oPuUmplVnGQotAf 6pv2jlJH06hq5uTuFqVd 8+GworBK1CMTsGZOGy hT2sVHSAOjkCHkZhIC9b KuULTk3OYURfCTaFOVap KV7uWFH7nnkbgN0jAS1t DTAdbQEoGv4mt6l6 QemkCv9mJl2DSd17uGOl uVPvSMDDT5ivuL1oPE6d xKRdY4BxSHUdVu4TBZd3 qFfolS3ihpC6Zya1 tXO2Ts91p0ezusEvl5Wx WuS8HRfzuTh5jWwtOAwc aP6zXiMnIDMJuF8qdZnz DV6owD3inkHvjJik biI+KsshUWSjBsi1kBMf IA63V6XdxEteSlm1pAD1 FEFujIYrDQRefZc0RKWQ LVVBLUNvbXBhdGli yCXpCYVwrzXaahX8OrxX CYOpEtSpUrp3V7xcKUF+ Aguog3A9Tzi7SQh2AQV8 tRubJCGhe393HTYb mNccxRbkaZTcs42zPJIx oAPgBxYct787QCPvqjR2 RBljePelYgq2oFLslCWk m6nvuOh7ToYeABTb IgwFSZDcgMfkv0QjGfuW UEtml6aobpJfsWmkASF3 a8BfYQvnXAKoUJI6QuCx IC8+CgkJPGNvbCB2 NCfzN015EqXzyYDru2bj gFg7RvA8KZKsVw1UQOdn H50iH1VliIP+Scy8wFGh ZHk+CgkJPHRyPgoJ WMs4iNNjx4D1eFC7NmJq xqRlp6a8RJzmDMA2PqW0 MSV0xXSffU2srGwssjwb eN8cFaC+CgkJCTxk yKFbX1gvw1O2PbTqm5Sz wPzugsEsCWUlLmInm4oa WqsgYVBliQ1wPEN1DmZt ZSZcvWJwOIHnYF2z wiVpgHJxIKNgAuBzY6Zf d34vs1TmRCRWB4mBUrDk EOR1CA7sZkTzYN7dDaAc YmMxNjlmLWEwZjYt BTBqNh97XGY0GXJaOhY5 GkZ7P5A2ChVoa6T1wCP0 CwVqXPWcfww7GSQhvTdp BTritFyipSwrot8d ZTsiPjxzcGFuIGNsYXNz APIeLIZeQ0Nsi15lzIPk vIF5Pm70v6VcjdJqtXph MV7pQo1ycT46XOod yOV3NMNfaUM0HXAfdCLe RUHvv8DubEhrrbjaaL3e CDDmlH8lVhD+K1ovHXVl K40usZkknT91LT2k rFDpZareb6Insd0ZDRvN HIWyakWkvLNsrn6kOCWv hRUat449KD00JoRvUXiq i236TR88qIsiAB7v SRJUR5CXPF9YWNRAWaFc LShhMAXerwGoR8G0tWiv WTRGU3Z8XoD9QD3RUkEc GQNVN3CqPfJxKi7T Z1SWYUpRTfI1AlArJEwq PSJfNzRkYmJkNDQtMDg4 Bc73GCSxXTW0NOLoSjX0 CzjmFHH3BKBaTy21 V2Oxwv6ERXyNSB6meJS+ BjtSSLf3ZId4BLDyIRDj QSHzNQVqE1Cjs01hALBd ZWZyZXNoYWJsZSBk YQbpx6FkwCWeKPE8HQp4 TCXulvKfh2KdKaedGnTy RQkjCTG9lO1tI85rMZ4t NA1DZnLbOLLxBwQj PdOtnCT1Gf20JRPvKTG3 Mk87TuEuEYSbDNFcWCCy BN9oBjV6ZyU7KTd7SGXc IAQ4eRziVHLuMSQw hA6aXmA6mSq5Qi83b1Jm mkDdwQYzcd3dIGTdUYI2 tB4bYOhqgPvnmOT+PHNw JY2jp4I4aSB8WpZj txHvd8NiU5t0XyOln5zf GkM5IEy1TIRsP55eMLSq y210LUMbZGHcxXmuPQkw PkhQSSBTdGFmZjwv o3Libo02P6OkCJ2+CgoJ IXv1SEp9CEHyMLEhNHFp ZGVtcmNvbnRlbnQiIGRk XgKquuIfnkA1mUUq QDHJHCIDTDTQR85TJPNd GUUcRzMmJzAiKV7wJTC0 mPH5IzG6ZFTVHNNqNPx2 RWGxYPZ6Nb5SKnUh CUQQJGBODhicJKI9KaXc pMB4Cn81TIDnXMp1Xn7l JMHaQEZ9IYrlBQRcPc0h LTQ9XZIbTYT5QTyb JwvTMFs9OXq4KXFoRTAy PSJkZGVtcmNvbnRlbnRp rHImTSRskdBpu6VoDvvd NwPiNIjglA2eaU5e lEdhP4R1tVixHPN8z1Wv cmlnaHQiIGRkOmNvbnRl wzI3ySBnULAEASZCPUVW S37MBBViETXvIgGb vEg1iEehKXZgCYmqWWRk JJVwEMQtOtrcSretGd15 YlC8GYa3EiIyTIDcZ4Aj KPNzYfL5TfJ2qLwx gtdbOG1fGWuiAQ7iM9Au Y8XdUO70BQSax18kTpiT RGk3OHg2UTG4xRhiUSPp QOLpgH57IOVmdDBs iW16LEMsMJRldli1YBPw sOclKb3aBINdCiKgvOUq cmdiKDAsIDAsIDApOyB0 XSu4TOZejIspYyVx LYO6BlRxf6whjklacqtn YZQxARAyDIZhTuK3YFw6 LWluZGVudDogMGluOyBm w787ZSG0oMyfFtWv y2FeCQp4BAIkwnOlh2Lo B0j1NzXbn0PrAOi7WWSe lGNuKVJgb4DknKjbzqut zk0mOIdbStnAMTa2 VJm0VxpkEF1ukQJ7Uf1v UKbkFoPjBC7uOBLhBOT6 ClsgXZP5IG3tGTNiOKZf OPB6GMejJjxhAH6S CgkJCTxkaXY+RXhjaXNp x66cj6WwpO1pPHNrjExo oUTvuKNlNV7qVIGqV0Kf BT3dXFPxlC4fgODj HU6vMOMwJGE8CR9pkUJ+ VbnGSOxlMRh8ZgoRAEy5 M2Mljc7FLPjUQO5xaEJ+ HkxRWMh7FPj3JTLi YXNzPSJkZGVtcmNvbnRl wsJvaJDfWTNbgfEer2Lh MrkmObBuADwkgL6miZ1o tIrpP5P3wXbyDPI3 d4IkgklpgHEsJKOoYmHe alPpqyR9rJZcYPOBQTEI QFPGH20GBUZpYNOePuKn pIl1mWmjCPYpQAta PSJfNTIxYTVlZjItYmQw WC49WqhpHBNfQRYwKBiq HlN4XIlwHYX2FzE1uRqc dbmjOA3jUPxpCI4m O1IhL5SeAZ82RFCpy54w TizsWDr4VloEGQlIIYQf ysVeoJFfqz1hUMUspZMx s815IX12kWBlwILk GZMcmC31YPKvHGMwMKB6 YnRuZmxvYXRpbmdzdHls VB1pmT2vBAHqC9o0YmOm RZadm572MK76lHaz SQ3gLVOUI0SQXE7PIGQW IgNgUNxyvmDvhToqAW7n DnRbZD0hLwfoGOE6VhI1 MXPzHACrWWkeXb44 ELYwYQo0PeLdYIS7SBGj TzIvrX4vrgY1KKJ3GwE9 ebYdaJDXt7U2eFVjrJP8 zR4nId74P2Lgit0O IejGWZctiQRdD1riw5G6 BgWqVF8eQ94jxKVkaIb2 VD9fNJYeMX4lktSogRRq PXJpIfU5stVub1G7 sJ8ak9N5vAS4LgRyeU2s xVbfkYRuKGJ5C30utZZv aEO7cEA8PcMZJSYDEdIy LCTAZqEiOKC3TJ44 hSN8tKS3PwAbrUC8Kp7d AYMuUODrEU13ShrgOOH3 K1PzSFT3Cv7kPCQ7Joe9 IXI3COgtLIbvaJ9b TiIsGJZQcK2kwLcfQY2k vQ3lwsTjpLncllX+PC9k aXY+JuySCAg6LRc4BRHf YXNzPSJkZGVtcmNv bnRlbnRpdGVtIGRkcmVt r6UnIlglKzYdNIxxyH5f hE6atKaeI5H0oKxkYVJ1 j1VyxcrbcGJiEHGu SlLvziZockH2kEKdOREN YWMTDKTLC03TEUYkRCVt LuOrwYh1dLmwJPFiOVta JJIvOlT8BrRrUOYr AYBmWq47WnP2TQk3SpJk K3DhFxEbGrF9UYShIeK5 mPpyddokDG6nOHbcJG0o O1RlG0BrJZ81ZJVo v05fEypoKTy6RjlTIDqZ SOAlgjYpjQWkwk0lUTTc vGDgf608IU85bYFmjNXy CSGnoY40UKJcKGKl DKC0ThDgWtndZJZvtklw nZbyND9hmA0wZGYqS9l2 IdGqAIzfd432TW33pSzy HJ6kTHGBJ7CTZA8O RUFTIiBkZDplbnRpdHlp UX9zOtIbHC6wKbGqRPK5 NhXzHDA2TvIfJXV6AB69 Uso0WJKeZPohJJMn CjJ3WFGodU2dneU9VJU0 DiY6jqNvzXBJk2P8oEWx xZX4dG1bAx23D3Jtuz0R VxhIZZnajOLlJ5qf g3D4CiBfVE1tK71wsJBh dXu9OY6jLFEaWZ1msnSa sFEpZGXuDpO2dtBkl0K2 qW8dv0E5eCL5ZpVi xX5mgOtlrSOwQCC2Q87n xFSvvEO7eXE6AgHNJHVH NtZqUBKKIuLqEQQ8IN58 mDT8vCZ9DcCtgIP3 Ia8gFYU3CVU1ZE1rABWz RFHoGwRfTVYjTP0pAdTm ZlOqHVHwXfnvNWeofJ0m KqAnZCZHdH2adZrt UH9xqL3gjhMzjXbgbdJ+ OE0adBF+CmgDDEr9FPn7 IGNsYXNzPSJkZGVtcmNv bnRlbnRpdGVtIGRk ajJem5JsYtbqTrLoWTmx dI8ooG3paUhiT2Y7mLrd XSE7l9TvfudszVMtJWFr ZqSljbUmqfC9lSMs RCZSXSIMWVRXG29OZDUl NZObMwYngTm9qQzuNUPo IGlkPSJfNjNiNzJmYmUt XlK0Ss97DwEnQJM6 MDYtNTIwNTlkMDZiZWUw IsS0tJdqtrjcVG6hIYvs KY2fO9EpZ3OmSJ95YOTo b50kQkgsAHn6LwqN QRxBASBiveOmuBUlwo8y RDIepBFzn986XZ24hMZp mWDyQNJrqI96LVUoVLQy ULF3DlCtVhrwZFEc psblkRdrMR0gmB6eQTAa K4y5ElCpYSqpa086PI62 sGghYS8eYQQCA8BMQQ7P RUFTIiBkZDplbnRp d (more content not included)... Normal [facility] Comment on above: Result Comment: Elec tronically Signed By: GABI NAJERA, Mike Olivera.vandana\Date and Time Signed: 11/15/20 09:19 EDT [place] [facility] [place] [facility] [place], 2020 Keturah Pat, [address] [place] [place] [address] Re: ROBERT BOATENG Date of : 1965 Thank you for your referral of Robert Boateng who was seen on consultation on October 24, 2020, for mole on face and skin tag on chest. A excisional biopsy is planned. I have enclosed my consultation notes for your review. I will be happy to follow Robert. Sincerely, Mike Knapp MD General Surgery Normal [facility] OCC BLD IMMUNO SCREENon OCCULT BLOOD Negative Normal NEGATIVE [facility] Comment on above: Performed By: #### O BSCRN #### [facility] [address] [place] [address] Lyn Escobaren Facesheeton 10-25-2020 Facesheet [id number] #1.00CD:[address] [facility] Ambulatory Clinical Summaryo n 10-24-2020 Ambulatory Clinical Summary {[id number]}CD:[id number] Normal [facility] GLYCOHEMOGLOBIN A1Con 2020 ADA RECOMMENDATION ADA THERAPEUTIC TARGET 6.0 - 7.0 ACTION SUGGESTED > 7.0 Normal [facility] Comment on above: Performed By: #### A 1C #### [facility] [address] [address] Lyn Sylvia Glucose [Mass/Vol] 111 mg/dL Normal [facility] Comment on above: Performed By: #### A 1C #### [facility] [address] [address] Lyn Sylvia HbA1c (Bld) [Mass fraction] 5.5 % Normal <=6.0 [facility] Comment on above: Performed By: #### A 1C #### [facility] [address] [place] [address] Lyn Ward Physician Referralon 021 Physician Referral [id number] #1.00CD:[address] [facility] Vital Signs Date Time Vital Sign Value Performing Clinician Romelia hutson 11-10-2024 13:00-0400 Body height 177.8 cm Keturah Pat MD Work Phone: [facility] 11-10-2024 13:00-0400 Body mass index (BMI) [Ratio] 29.5 kg/m2 Keturah Pat MD Work Phone: [facility] 11-10-2024 13:00-0400 Body weight 93.44 kg Keturah Pat MD Work Phone: [facility] 11-10-2024 13:00-0400 Diastolic blood pressure 82 mm[Hg] Keturah Pat MD Work Phone: [facility] 11-10-2024 13:00-0400 Heart rate 54 /min Keturah Pat MD Work Phone: [facility] 11-10-2024 13:00-0400 Respiratory rate 18 /min Keturah Pat MD Work Phone: [facility] 11-10-2024 13:00-0400 SaO2% (BldA) [Mass fraction] 96 % Keturah Pat MD Work Phone: [facility] 11-10-2024 13:00-0400 Systolic blood pressure 122 mm[Hg] Keturah Pat MD Work Phone: [facility] 09-26-2024 15:53-0400 Body height 177.8 cm Keturah Pat MD Work Phone: [facility] 09-26-2024 15:53-0400 Body mass index (BMI) [Ratio] 29.9 kg/m2 Keturah Pat MD Work Phone: [facility] 09-26-2024 15:53-0400 Body weight 94.8 kg Keturah Pat MD Work Phone: [facility] 09-26-2024 15:53-0400 Diastolic blood pressure 78 mm[Hg] Keturah Pat MD Work Phone: [facility] 09-26-2024 15:53-0400 Heart rate 85 /min Keturah Pat MD Work Phone: [facility] 09-26-2024 15:53-0400 Respiratory rate 18 /min Keturah Pat MD Work Phone: [facility] 09-26-2024 15:53-0400 SaO2% (BldA) [Mass fraction] 98 % Keturah Pat MD Work Phone: [facility] 09-26-2024 15:53-0400 Systolic blood pressure 132 mm[Hg] Keturah Pat MD Work Phone: [facility] 08-17-2024 13:06-0400 Body height 177.8 cm Keturah Pat MD Work Phone: [facility] 08-17-2024 13:06-0400 Body mass index (BMI) [Ratio] 30.4 kg/m2 Keturah Pat MD Work Phone: [facility] 08-17-2024 13:06-0400 Body weight 96.16 kg Keturah Pat MD Work Phone: [facility] 08-17-2024 13:06-0400 Diastolic blood pressure 84 mm[Hg] Keturah Pat MD Work Phone: [facility] 08-17-2024 13:06-0400 Heart rate 61 /min Keturah Pat MD Work Phone: [facility] 08-17-2024 13:06-0400 Respiratory rate 18 /min Keturah Pat MD Work Phone: [facility] 08-17-2024 13:06-0400 SaO2% (BldA) [Mass fraction] 97 % Keturah Pat MD Work Phone: [facility] 08-17-2024 13:06-0400 Systolic blood pressure 120 mm[Hg] Keturah Pat MD Work Phone: [facility] 08-08-2024 12:55-0400 Body height 177.8 cm Keturah Pat MD Work Phone: [facility] 08-08-2024 11:30-0400 Body temperature 98.4 [degF] Keturah Pat MD Work Phone: [facility] 08-08-2024 11:30-0400 Diastolic blood pressure 94 mm[Hg] Keturah Pat MD Work Phone: [facility] 08-08-2024 11:30-0400 Heart rate 64 /min Keturah Pat MD Work Phone: [facility] 08-08-2024 11:30-0400 Respiratory rate 15 /min Keturah Pat MD Work Phone: [facility] 08-08-2024 11:30-0400 SaO2% (BldA) [Mass fraction] 94 % Keturah Pat MD Work Phone: [facility] 08-08-2024 11:30-0400 Systolic blood pressure 153 mm[Hg] Keturah Pat MD Work Phone: [facility] 08-08-2024 07:00-0400 Inhaled oxygen flow rate 2 L/min Keturah Pat MD Work Phone: [facility] 08-08-2024 06:00-0400 Body weight 100.7 kg Keturah Pat MD Work Phone: [facility] 08-07-2024 03:17-0400 Body height 177.8 cm Keturah Pat MD Work Phone: [facility] Encounters Encounter Date Encounter Type Care Provider Facility Start: 11-10-2024 End: 11-10-2024 ambulatory Keturah Pat MD Work Phone: [facility] Work Phone: Start: 11-10-2024 End: 11-10-2024 Patient encounter procedure Rosalia Peters [facility]PLER -[facility] Work Phone: Start: 09-26-2024 End: 09-26-2024 ambulatory Keturah Pat MD Work Phone: [facility] Work Phone: Start: 09-26-2024 End: 09-26-2024 Patient encounter procedure Emile Orellana MD -[facility] Work Phone: Start: 08-17-2024 End: 08-17-2024 Patient encounter procedure Emile Orellana MD -[facility] Work Phone: Start: 08-07-2024 Non-patient / Non-visit Enedelia Pat MD Work Phone: [facility] Work Phone: Start: 08-07-2024 End: 08-07-2024 ambulatory UNKNOWN PROVIDER Facility:[facility] Start: 08-07-2024 End: 08-08-2024 Evaluation and management of inpatient Keturah Pat MD Work Phone: [facility] Work Phone: Start: 06-05-2021 End: 06-05-[address] KETURAH PAT Facility:[facility] Start: 10-30-2020 Encounter for genera l adult medical examination without abnormal findings DR KETURAH PAT [facility] Start: 10-23-2020 End: 10-24-[address] KETURAH PAT Facility:[facility] Start: 10-23-2020 End: 10-24-2020 Encounter for general adult medical examination without abnormal findings DR KETURAH PAT Facility:[facility] Procedures Date Procedure Procedure Detail Performing Clinician Start: 08-07-2024 CL Ivus Initial Vessel Keutrah Pat MD Work Phone: Start: 08-07-2024 CL LHC & COR Angio Georgi Pat MD Work Phone: Start: 08-07-2024 CL PCI AMI 1st Vesse l CX LORETO Keturah Pat MD Work Phone: Start: 08-07-2024 Keturah lopez MD Work Phone: Start: 10-23-[address] ENEDELIA PAT Comment on above: Performed By: #### [facility] #### [facility] [address] [address] [place] Plan of Treatment Date Care Activity Detail Author Start: 08-18-2024 Patient referral [facility] Work Phone: Start: 08-08-2024 [facility] Start: 08-07-2024 Dilation of Coronary Artery, One Artery with Drug-eluting Intraluminal Device, Percutaneous Approach Dilation of Coronary Artery, One Artery with Drug-eluting Intraluminal Device, Percutaneous Approach [facility] Start: 08-07-2024 Fluoroscopy of Left Heart using Low Osmolar Contrast Fluoroscopy of Left Heart using Low Osmolar Contrast [facility] Start: 08-07-2024 Fluoroscopy of Multiple Coronary Arteries using Low Osmolar Contrast Fluoroscopy of Multiple Coronary Arteries using Low Osmolar Contrast [facility] Start: 08-07-2024 Measurement of Cardiac Sampling and Pressure, Left Heart, Percutaneous Approach Measurement of Cardiac Sampling and Pressure, Left Heart, Percutaneous Approach [facility] Start: 08-07-2024 Ultrasonography of Single Coronary Artery, Intravascular Ultrasonography of Single Coronary Artery, Intravascular [facility] Start: 08-07-2024 Hospital admission [facility] Patient Education High cholester ol Heart attack - Discharge instructions Drug Eluting Stents Chest pain - Discharge instructions Know your Meds [facility] Work Phone: Patient referral [facility] Work Phone: Referral to cardiac rehabilitation program [facility] Payers Date Payer Category Payer Self-pay 1965 Unknown [id number] 1965 Unknown [id number] 1965 Unknown [id number] 1958 Unknown [id number] 1958 Unknown [id number] Unknown [id number] Social History Date Type Detail Facility Start: 08-07-2024 End: 08-17-2024 Tobacco smoking status NHIS Never smoked tobacco (finding) [facility] Start: 08-08-2024 Sex Male (finding) [facility] Start: 1965 Sex Assigned At Male F [facility] Medical Equipment Procedure Code Equipment Code Equipment Origin al Text Equipment Identifier Dates CL STENT TERRENCE FRONTIER 3.5 X 26 FDA Start: 08-07-2024 CL STENT TERRENCE FRONTIER 3.5 X 26 FDA Start: 08-07-2024 CL STENT TERRENCE FRONTIER 3.5 X 26 FDA Start: 08-07-2024 Goals Date Patient Goal Desired Activity /State Functional Status Date Assessment Result Facility 08-08-2024 Functional status Patient at Baseline [facility] Work Phone: Mental Status Date Assessment Result Facility 08-08-2024 Cognitive function Cognitive Sta tus Patient at Baseline [facility] Work Phone: Clinical Notes 10-24-2020 to 08-17-2024 Note Date & Type Note Facility 08-17-2024 Evaluation note Authored August 17, 2024 2:19p m CCS 0. NYHA Ia. Excellent cl inical response to pharmacal invasive management strategy followed by PCI to RCA. No mechanical complications of RI. No bleeding complications on dual antiplatelet therapy. [facility] Work Phone: 1(226) 313-495705-12-2025 Discharge summary Author Emile Damon [facility] Note Date/Time August 08, 2024 9:36a m [facility] [address] [place] [address] Discharge Summary Signed Patient: Robert Boateng MR#: [id number] : 1965 Acct:[id number] Age/Sex: 59 / M Adm Date: 5 Loc: Room: [address] [place] [address]: Emile Damon MD Copies to: MD Emile Platt MD~ Providers Date of Discharge: 08/08/24 Discharging Provider: Emile Damon Primary Care Provider: Keturah Pat Discharge Diagnosis (1) ST elevation myocardial infarction (STEMI) of inferior wall: Final Diagnosis Final Discharge Diagnosis: 1. Acute inferior STEMI status post successful pharmacoinvasive management strategy with [id number] fibrinolytic therapy followed by early mechanical revascularization with PCI to the left circumflex. 2. Heart failure with mildly reduced ejection fraction. Post PCI EF 50%. 3. Dyslipidemia Summary Hospital Course Hospital course: Robert is a very pleasant 59-year-old white male who presented to [facility] emergency department early Thursday morning with complaints of about 2 hours worthof severe substernal chest pain. Initial EKG was nondiagnostic but while in theER his ECG changes evolved to meet criteria for inferior STEMI. Due to weather-related transport delay in timing of presentation since onset of symptoms we elected to move forward with a pharmacal invasive strategy. The patient was given fibrinolytic therapy with TNK at the outside hospital emergency department and then once available was transported by [facility] to [facility] for further evaluation and management. On arrival to [facility] ICU his chest pain had resolved as had his ST segment elevation on surface ECG. The patient was admitted to theICU on full medical therapy for ACS including IV unfractionated heparin drip, IVnitroglycerin drip. He had been loaded with oral ticagrelor 180 mg at [facility]. Given his anticoagulation and recent fibrinolytic therapy we elected to wait 4 hours from arrival to go to the Pay Clerk for cardiac catheterization and PCI. Please see my cardiac catheterization and PCI reports for full details of the patient's procedure. However in short he was found to have a culprit lesion of the distal left circumflex. This was treated under IVUS guidance with implantation of a single large caliber frontier [place] drug-eluting stent with excellent clinical angiographic and IVUS results no complications. Left ventriculography showed a mild wall motion abnormality in the inferolateral wallwith an ejection fraction of 50%. The patient tolerated the procedure well without complications. The procedure was performed via the right radial approach. Patient had an uneventful post PCI course over the next 24 hours in the ICU. There was no recurrent angina. ECG and telemetry showed continued normalizationof ST segments. Patient tolerated the initiation of dual antiplatelet therapy with aspirin and ticagrelor well without untoward bleeding complication. This morning post PCI echocardiogram which was done with Definity contrast enhancement showed again a very mild wall motion abnormality in the inferolateral wall. The ejection fraction was calculated at 50%. There was no significant valvular heart disease and no mechanical complication of RI noted. At this point as the patient was ambulating well without dyspnea or angina and as the right radial access site was free of vascular complication, he is being made ready for discharge to home in good condition. Time spent discussing smoking cessation with patient: more than 10 minutes Status at Discharge Cognitive/behavioral status at discharge: Normal Functional status at discharge: independent ambulation Time Spent with Patient Time spent providing/coordinating discharge services (# min): 30 Specific discharge activities: No lifting greater than equal to 10 pounds for 5 days with the right arm. No golf for 5 days. Patient should remain home from work for 1 week and next week may return to light duty. Surgeries and Procedures Operation Date: 08/07/24 09:30 Actual Procedures p CL LHC & COR Angio - Emile Damon MD p CL Ivus Initial Vessel - Emile Damon MD p CL PCI AMI 1st Vessel CX LORETO - Emile Damon MD Complications Complications: None Discharge Plan Discharge Plan Patient Disposition: Home Comment: No lifting greater than equal to 10 pounds for 5 days with the right arm Diet: Low-Sodium Additional Instructions: DISCHARGE INSTRUCTIONS FOR ANGIOPLASTY/CORONARY/PERIPHERAL/STENT IMPLANT FOR ADULT ANTICOAGULATION -Since the greatest risk of a blood clot forming with the stent occurs in the first 2-3 weeks after implantation, you will need to take anticoagulants for at least 12 months. ANTICOAGULATION MEDICATION: Aspirin 81mg once a day and Ticagrelor (Brilinta) 90mg twice a day STATIN MEDICATION: atorvastatin (Lipitor) 80 mg daily Drug-Eluting Stent (LORETO) DO NOT discontinue Brilinta and/or Aspirin during the first few months regardless of what you are advised by your family doctor or pharmacist, without first calling the dovetail machine operator who implanted the stent. If you require pain relief during this time, please take only ACETAMINOPHEN (TYLENOL)- NO additional aspirin or ibuprofen. DISCHARGE ACTIVITIES ARE FOLLOWS: First week after discharge: -Take it easy at home, no strenuous activity. -Do not lift or pull objects over 10-15 pounds, including children, and groceries for four weeks. If puncture site is at wrist do NOT lift more than three pounds for three days. - May walk up stairs. -May shower. -No excessive scrubbing of the affected site (groin). -May ride in car. -May resume sexual intercourse after 1-2 weeks. -No MRI for 12 days. -May drive in 4-7 days. -If puncture site is at the wrist do not manipulate the wrist for 24 hours, and no soaking wrist for three days. Second Week: -May take a bath -May start walking 3 times a week for 15-20 minutes at a leisurely pace. You should be able to carry on a conversation comfortably without feeling winded. -No strenuous activity as in jogging, running, weight lifting, stair steppers, etc. until the dovetail machine operator approves these activities. Check with the dovetail machine operator on your first follow-up visit. CALL YOUR ATHLETIC EVENTS SCORER: -If bleeding should occur from the catheter insertion site- apply pressure to the site then immediately call us. -Report any fever, redness, drainage, increased swelling, or firmness at the catheter insertion site. Some bruising or slight swelling may be present at thetime of discharge. -Should arm or leg become cold, numb, white, or blue, contact the dovetail machine operator immediately. -IF you should experience episodes of angina, e.g. chest discomfort, heaviness, tightness, pressure burning with or without radiation to the neck, jaw, arms or back- use 1 Nitrostat tablet under your tongue every 5-10 minutes and up to three tablets. IF NO RELIEF, CALL 911 or GO TO THE NEAREST EMERGENCY ROOM. -Please notify our office if you have recurrent angina. -Cardiac Rehab Education Provided. Participation in the Cardiopulmonary Rehabilitation program is recommended. The attending dovetail machine operator or a nurse clinician should provide you with specificinstructions regarding activity, diet, medications, and further follow up for you. Follow the medication instructions provided on your discharge. If the dosages and instructions on this sheet differ from the dosage and instructions on the bottle, follow the instructions on the bottle. [facility] is not responsible for incorrect prescription information provided by thepatient during their visit. Do not stop your medications without consulting your health care provider. Please take the list with you to your next doctor's appointment. Instructions: High cholesterol, Heart attack - Discharge instructions, Drug Eluting Stents, Chest pain - Discharge instructions, Know your Meds Prescriptions: New atorvastatin 80 mg Tablet 80 mg PO QPM 90 Days Qty: 90 3RF valsartan 80 mg Tablet 80 mg PO QPM 90 Days Qty: 90 3RF aspirin [Children's Aspirin] 81 mg Tablet,Chewable 81 mg PO DAILY 90 Days Qty: 90 3RF Brilinta 90 mg Tablet 90 mg PO BID 90 Days Qty: 180 3RF metoprolol succinate 25 mg capsule,sprinkle,ER 24hr 25 mg PO QPM 90 Days Qty: 90 3RF nitroglycerin 0.4 mg tablet, sublingual 0.4 mg sublingual Q5M PRN (Reason: chest pain) Qty: 90 3RF Rx Instructions: do not exceed 3 doses per episode Exam Physical Exam Vital Signs: Temp Pulse Resp BP Pulse Ox O2 Del Method O2 Flow Rate 98.9 F 57 L 18 131/78 94 L Nasal Cannula 2 08/07/24 20:00 08/08/24 07:00 08/08/24 07:00 08/08/24 07:00 08/08/24 07:00 08/08/24 07:00 08/08/24 07:00 Const General: cooperative, healthy appearing, comfortable and no acute distress HEENT Head: normocephalic and atraumatic Face and sinus: face symmetric Eyes Pupils: PERRL and accommodation normal EOM: EOM intact bilaterally Direct ophthalmoscopy: no photophobia Neck Carotids: normal carotid upstroke Lymphatic: no lymphadenopathy noted Resp Effort & Inspection: normal respiratory effort, able to speak in complete sentences and symmetric chest movement Auscultation: clear to auscultation bilaterally Cardio Jugular venous pressure: no JVD Palpation: normal PMI Rate: regular rate Rhythm: regular rhythm Heart Sounds: S1 normal, S2 normal and gallop S4 gallop Pulses: radial pulses present and femoral pulses present Other: Right radial access site 2+ pulse. Mild ecchymoses. No pulsatile mass. No pain on palpation. GI Palpation: no hepatosplenomegaly Skin General: no rashes or lesions noted Neuro General: patient alert, patient awake and patient oriented x3 Cranial Nerves: CN's II-XII intact bilaterally Cognition: normal cognition Speech: speech normal Motor: muscle tone normal throughout Sensory Exam: no sensory deficits noted Extrem General: no clubbing, cyanosis or edema Psych Insight: insight good Judgment: judgment good Diagnostic Studies Completed and Pending Studies Pending studies at discharge: 08/07/24 11:04 CPR cardiac rehab ed Routine Labs on day of discharge: 08/08/24 06:18: Corrected WBC 9.8, Uncorrected WBC Count 9.8, RBC 5.21, Hgb 15.1, Hct 44.3, MCV 85.1, MCH 29.0, MCHC 34.2, RDW 13.8, Plt Count 154, MPV 8.6,Neut % (Auto) 66.2, Lymph % (Auto) 20.1, Butts % (Auto) 9.8, Eos % (Auto) 3.4, Baso % (Auto) 0.5, Nucleat RBC Rel Count 0.2, Neut # (Auto) 6.5, Lymph # (Auto) 2.0, Butts # (Auto) 1.0 H, Eos # (Auto) 0.3, Baso # (Auto) 0.1 08/08/24 04:20: Corrected WBC Cancelled, Uncorrected WBC Count Cancelled, RBC Cancelled, Hgb Cancelled, Hct Cancelled, MCV Cancelled, MCH Cancelled, MCHC Cancelled, RDW Cancelled, Plt Count Cancelled, MPV Cancelled, Neut % (Auto) Cancelled, Lymph % (Auto) Cancelled, Butts % (Auto) Cancelled, Eos % (Auto) Cancelled, Baso % (Auto) Cancelled, Nucleat RBC Rel Count Cancelled, Neut # (Auto)Cancelled, Lymph # (Auto) Cancelled, Butts # (Auto) Cancelled, Eos # (Auto) Cancelled, Baso # (Auto) Cancelled, Monocyte Dist Width Cancelled, PHA Creatinine Clear 92.91, Sodium 138, Potassium 3.9, Chloride 108 H, Carbon Dioxide 24.7, Anion Gap 9.2, BUN 15, Creatinine 1.04, Est GFR (CKD-EPI) > 60.0, Glucose 113 H, Calcium 8.5 L, Total Bilirubin 0.9, AST 122 H, ALT 58 H, AlkalinePhosphatase 56, Troponin I High Sens 44529 H*, Total Protein 6.4, Albumin 3.9, Globulin 2.5, Albumin/Globulin Ratio 1.6 08/07/24 09:25: Heparin Anti-Xa, Unfract 0.60, Troponin I High Sens 30849 H* Documented By: Emile Damon MD 08/08/24921 Signed By: <Electronically signed by Emile Damon MD> 08/08/2436 [facility] Work Phone: 1(720) 984-364005-12-2025 [id number] Discharge Summary Signed Patient: Robert Boateng MR#: [id number] : 1965 Acct:[id number] Age/Sex: 59 / M Adm Date: 5 Loc: Room: [address] [place] [address]: Emile Damon MD Copies to: MD Emile Platt MD~ Providers Date of Discharge: 08/08/24 Discharging Provider: Emile Damon Primary Care Provider: Keturah Pat Discharge Diagnosis (1) ST elevation myocardial infarction (STEMI) of inferior wall: Final Diagnosis Final Discharge Diagnosis: 1. Acute inferior STEMI status post successful pharmacoinvasive management strategy with [id number] fibrinolytic therapy followed by early mechanical revascularization with PCI to the left circumflex. 2. Heart failure with mildly reduced ejection fraction. Post PCI EF 50%. 3. Dyslipidemia Summary Hospital Course Hospital course: Robert is a very pleasant 59-year-old white male who presented to [facility] [place] emergency department early Thursday morning with complaints of about 2 hours worthof severe substernal chest pain. Initial EKG was nondiagnostic but while in theER his ECG changes evolved to meet criteria for inferior STEMI. Due to weather-related transport delay in timing of presentation since onset of symptoms we elected tomove forward with a pharmacal invasive strategy. The patient was given fibrinolytic therapy with TNK at the outside hospital emergency department and then once available was transported by [facility] for further evaluation and management. On arrival to [facility] ICU his chest pain had resolved as had his ST segment elevation on surface ECG. The patient was admitted to theICU on full medical therapy for ACS including IV unfractionated heparin drip, IVnitroglycerin drip. He had been loaded with oral ticagrelor 180 mg at [facility]. Given his anticoagulation and recent fibrinolytic therapy we elected to wait 4 hours from arrival to go to the Pay Clerk for cardiac catheterization and PCI. Please see my cardiac catheterization and PCI reports for full details of the patient's procedure. However in short he was found to have a culprit lesion of the distal left circumflex. This was treated under IVUS guidance with implantation of a single large caliber frontier [place] drug-eluting stent with excellent clinical angiographic and IVUS results no complications. Left ventriculography showeda mild wall motion abnormality in the inferolateral wallwith an ejection fraction of 50%. The patient tolerated the procedure well without complications. The procedure was performed via the right radial approach. Patient had an uneventful post PCI course over the next 24 hours in the ICU. There was no recurrentangina. ECG and telemetry showed continued normalizationof ST segments. Patient tolerated the initiation of dual antiplatelet therapy with aspirin and ticagrelor well without untoward bleeding complication. This morning post PCI echocardiogram which was done with Definity contrast enhancement showed again a very mild wall motion abnormality in the inferolateral wall. The ejection fraction was calculated at 50%. There was no significant valvular heart disease and no mechanical complication of MInoted. At this point as the patient was ambulating well without dyspnea or angina and as the right radial access site was free of vascular complication, he is being made ready for discharge to home in good condition. Time spent discussing smoking cessation with patient: more than 10 minutes Status at Discharge Cognitive/behavioral status at discharge: Normal Functional status at discharge: independent ambulation Time Spent with Patient Time spent providing/coordinating discharge services (# min): 30 Specific discharge activities: No lifting greater than equal to 10 pounds for 5 days with the rightarm. No golf for 5 days. Patient should remain home from work for 1 week and next week may return to light duty. Surgeries and Procedures Operation Date: 08/07/24 09:30 Actual Procedures p CL LHC & COR Angio - Emile Damon MD p CL Ivus Initial Vessel - Emile Damon MD p ANGY PCI AMI 1st Vessel CX LORETO - Emile Damon MD Complications Complications: None Discharge Plan Discharge Plan Patient Disposition: Home Comment: No lifting greater than equal to 10 pounds for 5 days with the right arm Diet: Low-Sodium Additional Instructions: DISCHARGE INSTRUCTIONS FOR ANGIOPLASTY/CORONARY/PERIPHERAL/STENT IMPLANT FOR ADULT ANTICOAGULATION -Since the greatest risk of a blood clot forming with the stent occurs in the first 2-3 weeks afterimplantation, you will need to take anticoagulants for at least 12 months. ANTICOAGULATION MEDICATION: Aspirin 81mg once a day and Ticagrelor (Brilinta) 90mg twice a day STATIN MEDICATION: atorvastatin (Lipitor) 80 mg daily Drug-Eluting Stent (LORETO) DO NOT discontinue Brilinta and/or Aspirin during the first few months regardless of what you are advised by your family doctor or pharmacist, without first calling the dovetail machine operator who implanted thestent. If you require pain relief during this time, please take only ACETAMINOPHEN (TYLENOL)- NO additional aspirin or ibuprofen. DISCHARGE ACTIVITIES ARE FOLLOWS: First week after discharge: -Take it easy at home, no strenuous activity. -Do not lift or pull objects over 10-15 pounds, including children, and groceries for four weeks. If puncture site is at wrist do NOT lift more than three pounds for three days. - May walk up stairs. -May shower. -No excessive scrubbing of the affected site (groin). -May ride in car. -May resume sexual intercourse after 1-2 weeks. -No MRI for 12 days. -May drive in 4-7 days. -If puncture site is at the wrist do not manipulate the wrist for 24 hours, and no soaking wrist for three days. Second Week: -May take a bath -May start walking 3 times a week for 15-20 minutes at a leisurely pace. You should be able to carry on a conversation comfortably without feeling winded. -No strenuous activity as in jogging, running, weight lifting, stair steppers, etc. until the dovetail machine operator approves these activities. Check with the dovetail machine operator on your first follow-up visit. CALL YOUR ATHLETIC EVENTS SCORER: -If bleeding should occur from the catheter insertion site- apply pressure to the site then immediately call us. -Report any fever, redness, drainage, increased swelling, or firmness at the catheter insertion site. Some bruising or slight swelling may be present at thetime of discharge. -Should arm or leg become cold, numb, white, or blue, contact the dovetail machine operator immediately. -IF you should experience episodes of angina, e.g. chest discomfort, heaviness, tightness, pressureburning with or without radiation to the neck, jaw, arms or back- use 1 Nitrostat tablet under yourtongue every 5-10 minutes and up to three tablets. IF NO RELIEF, CALL 911 or GO TO THE NEAREST EMERGENCY ROOM. -Please notify our office if you have recurrent angina. -Cardiac Rehab Education Provided. Participation in the Cardiopulmonary Rehabilitation program is recommended. The attending dovetail machine operator or a nurse clinician should provide you with specificinstructions regarding activity, diet, medications, and further follow up for you. Follow the medication instructions provided on your discharge. If the dosages and instructions on this sheet differ from the dosage and instructions on the bottle, follow the instructions on the bottle. [facility] is not responsible for incorrect prescription information provided by thepatient during their visit. Do not stop your medications without consulting your health care provider. Please take the list with you to your next doctor's appointment. Instructions: High cholesterol, Heart attack - Discharge instructions, Drug Eluting Stents, Chest pain - Discharge instructions, Know your Meds Prescriptions: New atorvastatin 80 mg Tablet 80 mg PO QPM 90 Days Qty: 90 3RF valsartan 80 mg Tablet 80 mg PO QPM 90 Days Qty: 90 3RF aspirin [Children's Aspirin] 81 mg Tablet,Chewable 81 mg PO DAILY 90 Days Qty: 90 3RF Brilinta 90 mg Tablet 90 mg PO BID 90 Days Qty: 180 3RF metoprolol succinate 25 mg capsule,sprinkle,ER 24hr 25 mg PO QPM 90 Days Qty: 90 3RF nitroglycerin 0.4 mg tablet, sublingual 0.4 mg sublingual Q5M PRN (Reason: chest pain) Qty: 90 3RF Rx Instructions: do not exceed 3 doses per episode Exam Physical Exam Vital Signs: Temp Pulse Resp BP Pulse Ox O2 Del Method O2 Flow Rate 98.9 F 57 L 18 131/78 94 L Nasal Cannula 2 08/07/24 20:00 08/08/24 07:00 08/08/24 07:00 08/08/24 07:00 08/08/24 07:00 08/08/24 07:00 08/08/24 07:00 Const General: cooperative, healthy appearing, comfortable and no acute distress HEENT Head: normocephalic and atraumatic Face and sinus: face symmetric Eyes Pupils: PERRL and accommodation normal EOM: EOM intact bilaterally Direct ophthalmoscopy: no photophobia Neck Carotids: normal carotid upstroke Lymphatic: no lymphadenopathy noted Resp Effort & Inspection: normal respiratory effort, able to speak in complete sentences and symmetric chest movement Auscultation: clear to auscultation bilaterally Cardio Jugular venous pressure: no JVD Palpation: normal PMI Rate: regular rate Rhythm: regular rhythm Heart Sounds: S1 normal, S2 normal and gallop S4 gallop Pulses: radial pulses present and femoral pulses present Other: Right radial access site 2+ pulse. Mild ecchymoses. No pulsatile mass. No pain on palpation. GI Palpation: no hepatosplenomegaly Skin General: no rashes or lesions noted Neuro General: patient alert, patient awake and patient oriented x3 Cranial Nerves: CN's II-XII intact bilaterally Cognition: normal cognition Speech: speech normal Motor: muscle tone normal throughout Sensory Exam: no sensory deficits noted Extrem General: no clubbing, cyanosis or edema Psych Insight: insight good Judgment: judgment good Diagnostic Studies Completed and Pending Studies Pending studies at discharge: 08/07/24 11:04 CPR cardiac rehab ed Routine Labs on day of discharge: 08/08/24 06:18: Corrected WBC 9.8, Uncorrected WBC Count 9.8, RBC 5.21, Hgb 15.1, Hct 44.3, MCV 85.1, MCH 29.0, MCHC 34.2, RDW 13.8, Plt Count 154, MPV 8.6,Neut % (Auto) 66.2, Lymph % (Auto) 20.1, Butts % (Auto) 9.8, Eos % (Auto) 3.4, Baso % (Auto) 0.5, Nucleat RBC Rel Count 0.2, Neut # (Auto) 6.5, Lymph # (Auto) 2.0, Butts # (Auto) 1.0 H, Eos # (Auto) 0.3, Baso # (Auto) 0.1 08/08/24 04:20: Corrected WBC Cancelled, Uncorrected WBC Count Cancelled, RBC Cancelled, Hgb Cancelled, Hct Cancelled, MCV Cancelled, MCH Cancelled, MCHC Cancelled, RDW Cancelled, Plt Count Cancelled, MPV Cancelled, Neut % (Auto) Cancelled, Lymph % (Auto) Cancelled, Butts % (Auto) Cancelled, Eos % (Auto) Cancelled, Baso % (Auto) Cancelled, Nucleat RBC Rel Count Cancelled, Neut # (Auto)Cancelled, Lymph # (Auto) Cancelled, Butts # (Auto) Cancelled, Eos # (Auto) Cancelled, Baso # (Auto) Cancelled, Monocyte Dist Width Cancelled, PHA Creatinine Clear 92.91, Sodium 138, Potassium 3.9, Chloride 108 H,Carbon Dioxide 24.7, Anion Gap 9.2, BUN 15, Creatinine 1.04, Est GFR (CKD-EPI) > 60.0, Glucose 113 H, Calcium 8.5 L, Total Bilirubin 0.9, AST 122 H, ALT 58 H, AlkalinePhosphatase 56, Troponin I High Sens 00058 H*, Total Protein 6.4, Albumin 3.9, Globulin 2.5, Albumin/Globulin Ratio 1.6 08/07/24 09:25: Heparin Anti-Xa, Unfract 0.60, Troponin I High Sens 87975 H* Documented By: Emile Damon MD 08/08/24921 Signed By: 08/08/24 0936 [facility]05-11-2025 History and physical note Author Emile Damon [facility] Note Date/Time August 07, 2024 11:[address] [facility] [address] [place] [address] Cardiology H&P Signed Patient: Robert Boateng MR#: [id number] : 1965 Acct:[id number] Age/Sex: 59 / M Adm Date: 5 Loc: Room: [address] [place] [address] Type: ADM IN Attending Dr: Emile aDmon MD Copies to: MD Emile Platt MD~ Date of Service: 08/07/2024 Cardiology HPI History of Present Illness Chief complaint: Chest pain, abnormal ECG consistent with acute inferior STEMI HPI: Mr. Boateng is a 59 year old male with history of dyslipidemia and strong family history of premature coronary heart disease but no known personal prior cardiac history who was in his normal state of health until about 1030 last night when he experienced the sudden onset of crushing pressure-like 8/10 chest pain. The symptoms were concerning enough to the patient and his family subsequently they activated EMS and the patient was taken directly to [place] emergency department for emergent evaluation. In the ER patient was experiencing 8/10 substernal chest pain. Initial EKG showed some subtle inferior changes. Patient was initially treated with aspirinand sublingual nitroglycerin with improvement in his pain from 8-3. I was contacted at this point by the ER physician and shown his initial EKG. Changes but nothing that met STEMI criteria. I instructed the ER physician to start thepatient on medical therapy for acute coronary syndrome to include IV unfractionated heparin for anticoagulation, IV nitroglycerin for pain control (systolic blood pressure in the 160s), and IV beta-blockers. This therapy was initiated and the patient's pain remained 2-3/10. However I was then sent a second EKG about 20 minutes after initiation of medical therapy which now showed3 mm of ST elevation in the inferior leads. At this point the STEMI protocol was activated. After about another 20 minutes I was contacted again by the ER physician from [place] telling the that there was going to be a significant delay in transporteither by ground or by air due to weather difficulties. At that point we are about 3 hours from the onset of the patient's symptoms. Given that the transport time and therefore time to ideal mechanical reperfusion via primary PCI was going to be in excess of 120 minutes I made a decision to pursue a pharmac0-invasive management strategy. Per my direction the patient was given IV TNK 50 mg in the [place] ER. He had already been loaded with 180 mg oral Brilinta also per my direction. Once weather was conducive he was then transported by air flight to [facility] for further and ongoing management of acute coronary syndrome now status post systemic thrombolysis. On the patient's arrival to our ICU his chest pain was rated as a 2/10. Vital signs showed a heart rate in the low 50s and a blood pressure systolic of 119 mmHg. His IV heparin and nitroglycerin have been stopped during air transport. This was restarted. At this point post fibrinolytic ECG was obtained which showed complete resolution of ST elevations. Patient at this point was chest pain-free. As such she was admitted to the ICU with plans for urgent cardiac catheterization within 3 to 24 hours status post lytic therapy. The patient did well over the ensuing few hours. There was no recurrence of chest pain or ischemic appearing ECG changes on ECG of telemetry monitoring. Heis now being brought directly to the cardiac catheterization suite to undergo urgent diagnostic left heart catheterization with likely percutaneous coronary invention in the treatment of acute inferior ST segment elevation myocardial infarction with clinical and ECG evidence of early reperfusion via thrombolytic therapy. Review of Systems Review of Systems All other systems reviewed & are negative unless noted below or in HPI [facility] Medical History (Updated 08/07/24 @ 11:06 by Emile Damon MD) GERD (gastroesophageal reflux disease) Social History Smoking Status: Never smoker Meds Medications and Allergies Allergies No Known Allergies Allergy (Verified 08/07/24 03:17) Exam Physical Exam Vital Signs: Temp Pulse Resp BP Pulse Ox O2 Del Method O2 Flow Rate 97.9 F 63 19 133/83 95 Room Air 2 08/07/24 03:02 08/07/24 09:00 08/07/24 09:00 08/07/24 09:00 08/07/24 09:00 08/07/24 09:00 08/07/24 03:10 Const General: cooperative, healthy appearing, comfortable and no acute distress HEENT Head: normocephalic and atraumatic Face and sinus: face symmetric Eyes Pupils: PERRL and accommodation normal EOM: EOM intact bilaterally Direct ophthalmoscopy: no photophobia Neck Carotids: normal carotid upstroke Lymphatic: no lymphadenopathy noted Resp Effort & Inspection: normal respiratory effort, able to speak in complete sentences and symmetric chest movement Auscultation: clear to auscultation bilaterally Cardio Jugular venous pressure: no JVD Palpation: normal PMI Rate: regular rate Rhythm: regular rhythm Heart Sounds: S1 normal, S2 normal and gallop S4 gallop Pulses: radial pulses present and femoral pulses present GI Palpation: no hepatosplenomegaly Skin General: no rashes or lesions noted Neuro General: patient alert, patient awake and patient oriented x3 Cranial Nerves: CN's II-XII intact bilaterally Cognition: normal cognition Speech: speech normal Motor: muscle tone normal throughout Sensory Exam: no sensory deficits noted Extrem General: no clubbing, cyanosis or edema Psych Insight: insight good Judgment: judgment good KENY Risk Score KENY Risk Score Predictor Presentation: Recent (>/=24hr) Angina, Increased Cardiac Marker and ST Deviation>/=0.05mV Score Risk Score (0-7): 3 Results - Cardiology Labs 08/07/24 07:25 Lab results: Comprehensive Metabolic Panel 08/07/24 Range/Units 07:25 Sodium 140 (136-145) mmol/L Potassium 4.5 (3.5-5.1) mmol/L Chloride 109 H (98-107) mmol/L Carbon Dioxide 23.6 (21.0-31.0) mmol/L BUN 20 (7-25) mg/dL Creatinine 1.38 H (0.70-1.30) mg/dL Glucose 125 H (70-100) mg/dL Calcium 9.0 (8.6-10.3) mg/dL Intake and Output 08/06/24 08/07/24 08/07/24 23:59 07:59 15:59 Intake Total 0 / 0 Output Total 0 / 0 Balance 0 / 0 Intake: Oral 0 / 0 Output: Urine 0 / 0 Other: Weight 102.6 kg Date of Last Bowel Movement 08/06/24 08/06/24 Patient Weight 08/07/24 23:59 Weight 102.6 kg Lab 08/07/24 03:48 APTT 41.1 H EKG Interpretations EKG Attestation EKG: I reviewed this ECG and interpreted as documented below: Dysrhythmias Sinus rhythms and dysrhythmias: sinus rhythm RI, pacemaker, normal Myocardial infarction: inferior RI (acute or recent) A&P - Cardiology (1) ST elevation myocardial infarction (STEMI) of inferior wall: Assessment/Problem Details: Impression: Patient currently chest pain-free and with resolved ST elevations onECG status post fibrinolytic therapy given in the pharmacal invasive management of acute inferior STEMI. No evidence of bleeding complications with lytic therapy. Patient appears comfortable, clinically euvolemic and well compensated. Currently CCS 0. Plan: 1. Patient is being brought directly to cardiac apposition suite to undergo urgent diagnostic left heart catheterization with likely percutaneous coronary invention in the treatment of a recent acute inferior ST segment elevation myocardial infarction now with signs of successful early reperfusion after managing via pharmaco invasive management strategy with early thrombolysis. 2. Further diagnostic and therapeutic recommendations will be forthcoming basedon the results of the patient's urgent cardiac catheterization. Code(s): I21.19 - ST elevation (STEMI) myocardial infarction involving other coronary artery of inferior wall Plan Continue pharmaco-invasive management strategy with early cardiac catheterization, likely PCI. Documented By: Emile Damon MD 08/07/24 1124 Signed By: <Electronically signed by Emile Damon MD> 08/07/24 1134 [facility] Work Phone: 1(998) 955-408505-11-2025 [place] [id number] Cardiology PCI Note Signed Patient: Robert Boateng MR#: [id number] : 1965 Acct:[id number] Age/Sex: 59 / M Adm Date: 5 Loc: Room: [address] [place] [address] Type: ADM IN Attending Dr: Emile Damon MD Copies to: MD Emile Platt MD~ Cardiac PCI Note DATE/PROVIDER 08/07/2024 Emile Damon MD INDICATION 1. Acute inferolateral STEMI 2. Culprit lesion identified in the distal left circumflex on diagnostic coronary angiography PRE PROCEDURE Cardiology Pre-Op Diagnosis: STEMI Frailty Scale: Well ASA: 3 Mallampati Score: Class I POST PROCEDURE Cardiology Post-Op Diagnosis: STEMI FINDINGS 1st vessel: Lesion Vessel Segment: Distal left circumflex/proximal OM 3 Culprit Lesion?: Yes Pre-stenosis %: 90 Post stenosis %: 0 Lesion length (mm): 20 Bifurcation lesion?: No Pre KENY flow: III Post KENY flow: III Lesion risk: Non-high Chronic total occlusion?: No Thrombus present?: No AUC SCORE: 14 Lesion complication: None PTCA: None: IVUS guided direct stenting technique employed Drug Eluting Stent: 3.5 x 26 mm frontier [place] drug-eluting stent sized and placed with IVUS guidance. Stent initially deployed to 9 pj x 12 seconds. Postdilatation: 3.5 x 15 mm NC Euphora noncompliant balloon. 4 balloon postdilatation was performedusing the proximal optimization technique. Max 18 pj x 12 seconds Post PCI residual stenosis 0% Post PCI KENY flow 3 Post PCI IVUS: Significant luminal gain documented by IVUS. Distal reference vessel 3.2 mm. Proximal reference vessel 3.5 mm. Post PCI IVUS documented fullstent expansion and wall apposition throughout the length of the stent. There was no evidence of proximal or distal edge dissections. Narrative: Guiding catheter: 6 Syriac EBU 3.5 Anticoagulation: IV bivalirudin using weight-based protocol Coronary guidewire: 190 cm 0.14 BMW IVUS: 6 [place] eye Impression: 1. Successful IVUS guided PCI after successful early reperfusion with thrombolytic therapy, now with implantation of a single large caliber frontier [place] drug-eluting stent in the distal left circumflex/proximal OM 3 with excellent clinical angiographic and IVUS results no complications 2. Successful right radial access with patent hemostasis achieved the application of a TR band. Plan: 1. Will return to the ICU 2. IV normal saline at 100 cc/h x 12 hours 3. Will continue IV bivalirudin at post-PCI dosing of 0.2 mg/kg/h then discontinue 4. Patient is been given 90 mg oral Brilinta in the cardiac catheterization suite. Will plan for dual antiplatelet therapy with aspirin 81 mg daily Brilinta 90 mg twice daily for 12 months following implantation of a single frontier [place] drug-eluting stent in the distal left circumflex in the setting ofan acute inferior STEMI. 5. Will initiate guideline directed medical therapy for mild left ventricular systolic dysfunction in the wake of inferior RI: Metoprolol succinate 25 mg nightly and valsartan 80 mg nightly 6. Will continue high intensity statin therapy: Atorvastatin 80 mg nightly 7. Will plan to check post-PCI TTE tomorrow morning to further evaluate the patient's post PCI valvular heart function left ventricular regional wall motionand systolic function 8. No lifting greater than equal to 10 pounds for 5 days with the right arm 9. Pending a favorable clinical evolution anticipate discharge to home tomorrowwith close outpatient follow-up in [facility] cardiology clinic as well as referral to phase 2 monitored cardiac rehabilitation. Documented By: Emile Damon MD 08/07/24 1141 Signed By: 08/07/24 1146 [facility]05-11-2025 [place] [address] Cardiac Catheterization Note Signed Patient: Robert Boateng MR#: [id number] : 1965 Acct:[id number] Age/Sex: 59 / M Adm Date: 5 Loc: Room: [address] [place] [address] Type: ADM IN Attending Dr: Emile Damon MD Copies to: MD Emile Platt MD~ Cardiac Catheterization (Left) DATE/PROVIDER 08/07/2024 Emile Damon MD INDICATION Acute inferior STEMI PRE PROCEDURE Cardiology Pre-Op Diagnosis: STEMI Frailty Scale: Well ASA Classification: 3 Mallampati Score: Class I POST PROCEDURE Cardiology Post-Op Diagnosis: STEMI PROCEDURE PROCEDURE MEDICATIONS: 1. Versed 2 mg IV 2. Fentanyl 50 mcg IV 3. Benadryl 25 mg IV 4. Verapamil 3 mg IA 5. Heparin 4000 units IA Approach: Radial - Rt Procedures performed: 1. Real-time ultrasound-guided vascular access right radial artery 2. Selective angiography left coronary artery 3. Selective angiography right coronary artery 4. The ventriculography PROCEDURE DETAILS After informed consent was obtained the patient was brought from the ICU to the cardiac apposition suite undergo diagnostic left catheterization with possible percutaneous coronary invention in the treatment of acute inferior STEMI status post fibrinolytic therapy. Conscious addition was administered. The patient's right wrist was prepped and draped in the usual sterile fashion. Under real-time ultrasound guidance using a through and through double vessel puncture technique modified Seldinger [id number] technique hydrophilic 6 Syriac vascular access sheath was inserted into the right radial artery without difficulty or complication. The spasmolytic cocktail was administered. Diagnostic left heart catheterization was then performed via the right radial approach. Once the infarct-relatedartery was identified as the distal left circumflex the case was converted to PCI. HEMOSTASIS Following PCI hemostasis was achieved the application of a TR band inflated to 14 cc of air SUMMARY OF FINDINGS CCS Classification: CCS [id number] at rest or w/ any activity Dominance: Mixed Left Main: The left main coronary artery was found to be a short large-caliber vessel whichis angiographicallynormal. LAD-Prox: The LAD was found to be a long large-caliber vessel which courses along the interventricular grooveto wraparound the anterior margin of the cardiac apex. The LAD gives rise to large 1st and 2nd branches and a medium caliber third diagonal branch. This is a type II LAD. The LAD and diagonal system contains diffuse luminal irregularities. CIRC- Prox: The left circumflex coronary arteries are to be a large-caliber nondominant vessel which gives riseto a medium caliber first OM a large caliber second OM and continues distally as a large caliber third obtuse marginal branch. The left circumflex system contains a tubular irregular concentric 90% stenosis in the distal vessel leading into the proximal OM 3 with evidence of plaque disruption/rupture. There is no evidence of macroscopic thrombus and there is KENY-3 flow distal to the culprit lesion. RCA: The right coronary artery centimeter large-caliber dominant vessel which gives rise to a large caliber posterolateral branch and a large caliber posterior descending coronary artery. The right coronary system contains diffuse luminal irregularities. LEFT VENTRICLE EF %: 50 Left ventriculography was performed both in the JASON and MALTESE caudal projections. Left ventricle was found to have moderate hypokinesis of the inferolateral wall segment. The global ejection fraction is well-preserved at 50%. Left ventricular end-diastolic pressure is measured at 10 to 12 mmHg and there is no gradient on pullback across the aortic valve. VALVE-AORTIC Aortic Valve Disease: No VALVE-MITRAL Mitral Valve Disease: No Positive for Pulmonary Hypertension?: No HEMODYNAMICS LVEDP 10 to 12 mmHg FLUOROSCOPY Total fluoroscopy time including PCI: 9.4 minutes Cumulative air kerma including PCI 1092 mGy Total IV contrast including PCI 164 cc of Isovue IMPRESSION 1. Acute inferolateral STEMI secondary to plaque rupture in the distal left circumflex/OM 3 with angiographic evidence of successful thrombolysis and reperfusion. 2. Focal wall motion abnormality noted in the inferolateral wall with well- preserved overall left ventricular systolic function. Ejection fraction approximately 50% with normal resting left ventricular filling pressures. 3. Otherwise diffuse minimal nonobstructive epicardial coronary heart disease with a right dominantcoronary circulation as described above RECOMMENDATIONS Will proceed with IVUS guided PCI to the culprit lesion in the distal left circumflex. Documented By: Emile Damon MD 08/07/24 1134 Signed By: 08/07/24 1140 [facility]05-11-2025 [place] [address] Cardiology H&P Signed Patient: Robert Boateng MR#: [id number] : 1965 Acct:[id number] Age/Sex: 59 / M Adm Date: 5 Loc: Room: 7K3730-1 Type: ADM IN Attending Dr: Emile Damon MD Copies to: MD Emile Platt MD~ Date of Service: 08/07/2024 Cardiology HPI History of Present Illness Chief complaint: Chest pain, abnormal ECG consistent with acute inferior STEMI HPI: Mr. Boateng is a 59 year old male with history of dyslipidemia and strong family history of premature coronary heart disease but no known personal prior cardiac history who was in his normal state of health until about 1030 last night when he experienced the sudden onset of crushing pressure-like 8/10 chest pain. The symptoms were concerning enough to the patient and his family subsequently they activated EMS and the patient was taken directly to [place] emergency department for emergent evaluation. In the ER patient was experiencing 8/10 substernal chest pain. Initial EKG showed some subtle inferior changes. Patient was initially treated with aspirinand sublingual nitroglycerin with improvementin his pain from 8-3. I was contacted at this point by the ER physician and shown his initial EKG. Changes but nothing that met STEMI criteria. I instructed the ER physician to start thepatient on medical therapy for acute coronary syndrome to include IV unfractionated heparin for anticoagulation, IV nitroglycerin for pain control (systolic blood pressure in the 160s), and IV beta-blockers. This therapy was initiated and the patient's pain remained 2-3/10. However I was then sent a second EKG about 20 minutes after initiation of medical therapy which now showed3 mm of ST elevation in the inferior leads. At this point the STEMI protocol was activated. After about another 20 minutes I was contacted again by the ER physician from [place] telling the that there was going to be a significant delay in transporteither by ground or by air due to weatherdifficulties. At that point we are about 3 hours from the onset of the patient's symptoms. Given that the transport time and therefore time to ideal mechanical reperfusion via primary PCI was going to be in excess of 120 minutes I made a decision to pursue a pharmac0-invasive management strategy. Per my direction the patient was given IV TNK 50 mg in the [place] ER. He had already been loaded with 180 mg oral Brilinta also per my direction. Once weather was conducive he was then [facility] for further and ongoing management of acute coronary syndrome now status post systemic thrombolysis. On the patient's arrival to our ICU his chest pain was rated as a 2/10. Vital signs showed a heart rate in the low 50s and a blood pressure systolic of 119 mmHg. His IV heparin and nitroglycerin havebeen stopped during air transport. This was restarted. At this point post fibrinolytic ECG was obtained which showed complete resolution of ST elevations. Patient at this point was chest pain-free. As such she was admitted to the ICU with plans for urgent cardiac catheterization within 3 to 24 hours status post lytic therapy. The patient did well over the ensuing few hours. There was no recurrence of chest pain or ischemic appearing ECG changes on ECG of telemetry monitoring. Heis now being brought directly to the cardiaccatheterization suite to undergo urgent diagnostic left heart catheterization with likely percutaneous coronary invention in the treatment of acute inferior ST segment elevation myocardial infarctionwith clinical and ECG evidence of early reperfusion via thrombolytic therapy. Review of Systems Review of Systems All other systems reviewed & are negative unless noted below or in HPI FOR[facility], [facility] Medical History (Updated 08/07/24 @ 11:06 by Emile Damon MD) GERD (gastroesophageal reflux disease) Social History Smoking Status: Never smoker Meds Medications and Allergies Allergies No Known Allergies Allergy (Verified 08/07/24 03:17) Exam Physical Exam Vital Signs: Temp Pulse Resp BP Pulse Ox O2 Del Method O2 Flow Rate 97.9 F 63 19 133/83 95 Room Air 2 08/07/24 03:02 08/07/24 09:00 08/07/24 09:00 08/07/24 09:00 08/07/24 09:00 08/07/24 09:00 08/07/24 03:10 Const General: cooperative, healthy appearing, comfortable and no acute distress HEENT Head: normocephalic and atraumatic Face and sinus: face symmetric Eyes Pupils: PERRL and accommodation normal EOM: EOM intact bilaterally Direct ophthalmoscopy: no photophobia Neck Carotids: normal carotid upstroke Lymphatic: no lymphadenopathy noted Resp Effort & Inspection: normal respiratory effort, able to speak in complete sentences and symmetric chest movement Auscultation: clear to auscultation bilaterally Cardio Jugular venous pressure: no JVD Palpation: normal PMI Rate: regular rate Rhythm: regular rhythm Heart Sounds: S1 normal, S2 normal and gallop S4 gallop Pulses: radial pulses present and femoral pulses present GI Palpation: no hepatosplenomegaly Skin General: no rashes or lesions noted Neuro General: patient alert, patient awake and patient oriented x3 Cranial Nerves: CN's II-XII intact bilaterally Cognition: normal cognition Speech: speech normal Motor: muscle tone normal throughout Sensory Exam: no sensory deficits noted Extrem General: no clubbing, cyanosis or edema Psych Insight: insight good Judgment: judgment good KENY Risk Score KENY Risk Score Predictor Presentation: Recent (>/=24hr) Angina, Increased Cardiac Marker and ST Deviation>/=0.05mV Score Risk Score (0-7): 3 Results - Cardiology Labs 08/07/24 07:25 Lab results: Comprehensive Metabolic Panel 08/07/24 Range/Units 07:25 Sodium 140 (136-145) mmol/L Potassium 4.5 (3.5-5.1) mmol/L Chloride 109 H (98-107) mmol/L Carbon Dioxide 23.6 (21.0-31.0) mmol/L BUN 20 (7-25) mg/dL Creatinine 1.38 H (0.70-1.30) mg/dL Glucose 125 H (70-100) mg/dL Calcium 9.0 (8.6-10.3) mg/dL Intake and Output 08/06/24 08/07/24 08/07/24 23:59 07:59 15:59 Intake Total 0 / 0 Output Total 0 / 0 Balance 0 / 0 Intake: Oral 0 / 0 Output: Urine 0 / 0 Other: Weight 102.6 kg Date of Last Bowel Movement 08/06/24 08/06/24 Patient Weight 08/07/24 23:59 Weight 102.6 kg Lab 08/07/24 03:48 APTT 41.1 H EKG Interpretations EKG Attestation EKG: I reviewed this ECG and interpreted as documented below: Dysrhythmias Sinus rhythms and dysrhythmias: sinus rhythm RI, pacemaker, normal Myocardial infarction: inferior RI (acute or recent) A&P - Cardiology (1) ST elevation myocardial infarction (STEMI) of inferior wall: Assessment/Problem Details: Impression: Patient currently chest pain-free and with resolved ST elevations onECG status post fibrinolytic therapy given in the pharmacal invasive management of acute inferior STEMI. No evidence ofbleeding complications with lytic therapy. Patient appears comfortable, clinically euvolemic and well compensated. Currently CCS 0. Plan: 1. Patient is being brought directly to cardiac apposition suite to undergo urgent diagnostic left heart catheterization with likely percutaneous coronary invention in the treatment of a recent acuteinferior ST segment elevation myocardial infarction now with signs of successful early reperfusion after managing via pharmaco invasive management strategy with early thrombolysis. 2. Further diagnostic and therapeutic recommendations will be forthcoming basedon the results of the patient's urgent cardiac catheterization. Code(s): I21.19 - ST elevation (STEMI) myocardial infarction involving other coronary artery of inferior wall Plan Continue pharmaco-invasive management strategy with early cardiac catheterization, likely PCI. Documented By: Emile Damon MD 08/07/24 1124 Signed By: 08/07/24 1134 [facility]05-11-2025 Evaluation note* Diagnosis Onset Date Resolution Status Admit Date ST elevation myocardial infa rction (STEMI) of inferior wall acute July 3:00am [facility] Work Phone: 1(931) 723-208107-28-[address] Pat referral for skin tag on chest has been there for years and mole on face just started in thelast year and has gotten bigger , no bleeding or drainage from either History of Present Illness 55 yo male with h/o hyperlipidemia, GERD, referred for changing facial mole, increasing in size, nopigmentation change; and irritated skin lesion chest wall; no asa or NSAID use; no personal or fmhxof skin cancer or melanoma. increased sun exposure when younger; no tobacco use. Review of Systems PHQ Score Initial Depression Screen Score: 0 ROS - Provider Constitutional: no fever, no sweats, no weight loss. Eyes: no glasses, no blurred vision, no visual loss. ENMT: no dentures, no hoarseness, no swallowing difficulties, no hearing loss, no ear infection(s),no nose bleeds. Cardiovascular: normal blood pressure, no [...] lesion right medial cheek; no ulceration or scab;left anterior chest with 5mm raised, keratotic lesion, [...] in the office for definitive diagnosis and treatment;informed consent obtained. 2. Solar keratosis (L57.0: Actinic [...] lifetime) Tobacco Use:. Never Smokeless Tobacco [facility] Comment: Electronically Signed By: Mike KNAPP MD\Date and Time Signed: 10/24/20 14:21 EDTHospital Discharge instructions Additional Instructions DISCHARGE INSTRUCTIONS FOR ANGIOPLASTY/CORONARY/PERIPHERAL/STENT IMPLANT FOR ADULT ANTICOAGULATION -Since the greatest risk of a blood clot forming with the stent occurs in the first 2-3 weeks after implantation, you will need to take anticoagulants for at least 12 months. ANTICOAGULATION MEDICATION: Aspirin 81mg once a day and Ticagrelor (Brilinta) 90mg twice a day STATIN MEDICATION: atorvastatin (Lipitor) 80 mg daily Drug-Eluting Stent (LORETO) DO NOT discontinue Brilinta and/or Aspirin during the first few months regardless of what you are advised by your family doctor or pharmacist, without first calling the dovetail machine operator who implanted the stent. If you require pain relief during this time, please take only ACETAMINOPHEN (TYLENOL)- NO additional aspirin or ibuprofen. DISCHARGE ACTIVITIES ARE FOLLOWS: First week after discharge: -Take it easy at home, no strenuous activity. -Do not lift or pull objects over 10-15 pounds, including children, and groceries for four weeks. If puncture site is at wrist do NOT lift more than three pounds for three days. - May walk up stairs. -May shower. -No excessive scrubbing of the affected site (groin). -May ride in car. -May resume sexual intercourse after 1-2 weeks. -No MRI for 12 days. -May drive in 4-7 days. -If puncture site is at the wrist do not manipulate the wrist for 24 hours, and no soaking wrist for three days. Second Week: -May take a bath -May start walking 3 times a week for 15-20 minutes at a leisurely pace. You should be able to carry on a conversation comfortably without feeling winded. -No strenuous activity as in jogging, running, weight lifting, stair steppers, etc. until the dovetail machine operator approves these activities. Check with the dovetail machine operator on your first follow-up visit. CALL YOUR ATHLETIC EVENTS SCORER: -If bleeding should occur from the catheter insertion site- apply pressure to the site then immediately call us. -Report any fever, redness, drainage, increased swelling, or firmness at the catheter insertion site. Some bruising or slight swelling may be present at the time of discharge. -Should arm or leg become cold, numb, white, or blue, contact the dovetail machine operator immediately. -IF you should experience episodes of angina, e.g. chest discomfort, heaviness, tightness, pressure burning with or without radiation to the neck, jaw, arms or back- use 1 Nitrostat tablet under your tongue every 5-10 minutes and up to three tablets. IF NO RELIEF, CALL 911 or GO TO THE NEAREST EMERGENCY ROOM. -Please notify our office if you have recurrent angina. -Cardiac Rehab Education Provided. Participation in the Cardiopulmonary Rehabilitation program is recommended. The attending dovetail machine operator or a nurse clinician should provide you with specific instructions regarding activity, diet, medications, and further follow up for you. Follow the medication instructions provided on your discharge. If the dosages and instructions on this sheet differ from the dosage and instructions on the bottle, follow the instructions on the bottle. [facility] is not responsible for incorrect prescription information provided by the patient during their visit. Do not stop your medications without consulting your health care provider. Please take the list with you to your next doctor's appointment.[facility] Work Phone: Reason for referral (narrative)No reason for referral information availableNationwide Children'S Hospital Work Phone: Summary Purpose Family History Relationship Condition Age at Onset Recorded Date/T shirin father Heart disease Unknown Cardiac arrest Unknown Hypertension Unknown Myocardial infarction Unknown sister Female pelvic inflammatory disease Unknow n sister Hypertension Unknown brother Heart disease Unknown Chronic obstructive pulmonary disease Unk nown Status post angioplasty Unknown sister Hypothyroidism Unknown Presence of cardiac pacemaker Unknown Atrial fibrillation Unknown sister Renal insufficiency Unknown Advance Directives Advance Directive Response Recorded Date/ Time Advance Directives No August 07 2:36am Chief Complaint and Reason for Visit Chief Complaint Admit Date STEMI August 07, 2024 3:00a m STEMI August 07, 2024 11:24 am Reason for Visit Admit Date ST elevation myocardial infarction (STEM I) of inferior wall August 07, 2024 3:00am Chief Complaint Admit Date STEMI August 07, 2024 3:00a m STEMI August 07, 2024 11:24 am [facility] 08/08August 17, 2024 12:35 pm 6 week f/u September 26, 2024 3:42 pm Reason for Visit Admit Date ST elevation myocardial infarction (STEM I) of inferior wall August 07, 2024 3:00am Acute ST elevation myocardia l infarction (STEMI) of inferior wall August 17, 2024 12:35pm Dyslipidemia August 17, 2024 12:35 pm Ischemic cardiomyopathy August 17, 2024 1 2:35pm Stented coronary artery August 17, 2024 1 2:35pm Chief Complaint Admit Date [facility] 08/08August 17, 2024 12:35 pm 6 week f/u September 26, 2024 3:42 pm 6 week f/u November 10, 2024 12 :54pm Reason for Visit Admit Date Acute ST elevation myocardia l infarction (STEMI) of inferior wall August 17, 2024 12:35pm Dyslipidemia August 17, 2024 12:35 pm Ischemic cardiomyopathy August 17, 2024 1 2:35pm Stented coronary artery August 17, 2024 1 2:35pm Acute ST elevation myocardia l infarction (STEMI) of inferior wall September 26, 2024 3:42pm Dyslipidemia September 26, 2024 3:42 pm Ischemic cardiomyopathy September 26, 2024 3:42pm Stented coronary artery September 26, 2024 3:42pm Additional Source Comments (unrecognized sect ion and content) No Status Records FoundNo Status Records FoundNo Status Records FoundNo Status Records Found INFORMATION SOURCE (unrecogn ized section and content) DATE CREATED AUTHOR 11/22/2020 [facility] DATE CREATED AUTHOR AUTHOR'S ORGANIZ ATION 06/06/2021 [facility] DATE CREATED AUTHOR AUTHOR'S ORGANIZ ATION 08/08/2024 [facility] [employer] [facility] DATE CREATED AUTHOR AUTHOR'S ORGANIZ ATION 09/18/2024 [facility] Care Teams (unrecognized sec tion and content) Team Status: Active Member Role Status Dates Keturah Pat MD Primary Care Provider Active Team Status: Inactive Member Role Status Dates Keturah Pat MD Primary Care Provider Active Start: August 07, 2024 End: August 08, 2024 Emile Damon MD Admit Provider, Attending Provider A ctive Start: August 07, 2024 End: August 08, 2024 Team Status: Active Member Role Status Mi Pat MD Primary Care Provider Active Start: August 07, 2024 Eimle Damon MD Admit Provider, Atte nding Provider, Other Provider Active Start: August 07, 2024 Team Status: Inactive Member Role Status Mi Pat MD Primary Care Provider Active Start: August 07, 2024 End: August 08, 2024 Emile Damon MD Admit Provider Active Start: [facility] 2024 End: August 08, 2024 Emile Damon MD Attending Provider Active Star t: August 07, 2024 End: August 08, 2024 Team Status: Active Member Role Status Mi Pat MD Primary Care Provider Active Start: August 07, 2024 Emile Damon MD Admit Provider Active Start: [facility] 2024 Emile Damon MD Attending Provider Active Star t: August 07, 2024 Emile Damon MD Other Provider Active Start: [facility] 2024 Team Status: Inactive Member Role Status Mi Pat MD Primary Care Provider Active Start: August 17, 2024 End: August 17, 2024 Emile Damon MD Attending Provider Active Star t: August 17, 2024 End: August 17, 2024 Team Status: Inactive Member Role Status Mi Pat MD Primary Care Provider Active Start: September 26, 2024 End: September 26, 2024 Emile Damon MD Attending Provider Active Star t: September 26, 2024 End: September 26, 2024 Team Status: Inactive Member Role Status Mi Pat MD Primary Care Provider Active Start: November 10, 2024 End: November 10, 2024 Rosalia Peters APRN Attending Provider Active Start: November 10, 2024 End: November 10, 2024 Goals (unrecognized section and content) Goals may be documented in a n alternate section FOR RECORDS PERTAINING TO PATIENTS WHO ARE [...] BE BASED ON THE PRIMARY CLINICAL RECORDS. [facility] [employer] [facility]. provides no warranty or guarantee of the accuracy or completeness of information in this document.
[2024-12-09 10:45] LABS: Hematocrit 46.6 % (42.0-54.0); Hemoglobin 15.4 g/dL (14.0-18.0); Immature Granulocytes Abs Auto 0.01 10^3/uL (0.00-0.03); Immature Granulocytes Pct Auto 0.1 % (0.0-0.5); Lymphocytes Absolute Auto 1.5 10^3/uL (1.2-3.8); Mean Corpuscular HGB Conc 33.0 g/dL (29.9-35.2); Mean Corpuscular Hemoglobin 29.1 pg (25.9-34.0); Mean Corpuscular Volume 87.9 fL (80.0-94.0); Platelet Count 191 10^3/uL (150-450); Red Blood Count 5.30 10^6/uL (4.70-6.10); White Blood Count 7.3 10^3/uL (4.0-11.0)
[2024-12-09 11:11] LABS: Alanine Aminotransferase 51 U/L (16-63); Albumin Globulin Ratio 1.1; Albumin Level 4.0 g/dL (3.4-5.0); Alkaline Phosphatase 81 U/L (46-116); Anion Gap 12.2; Aspartate Amino Transferase 27 U/L (15-37); Blood Urea Nitrogen 15.0 mg/dL (7.0-18.0); Calcium 9.1 mg/dL (8.5-10.1); Carbon Dioxide 28.7 mmol/L (21.0-32.0); Chloride 108 mmol/L (98-107); Cholesterol 110 mg/dL (<=200); Estimated GFR (African America >60 (>=60 mL/min/1.73m^2); Estimated GFR (Non-African Ame >60 (>=60 mL/min/1.73m^2); Free T3 1.99 pg/mL (2.18-3.98); Globulin 3.7 g/dL; Glucose 105 mg/dL (74-106); HDL Cholesterol 42 mg/dL (40-60); Potassium 3.9 mmol/L (3.5-5.1); Sodium 145 mmol/L (136-145); Thyroid Stimulating Hormone 1.307 uIU/mL (0.358-3.740); Total Protein 7.7 g/dL (6.4-8.2); Triglycerides 42 mg/dL (<=150); VLDL CHOLESTEROL 8.4 mg/dL
== END 2024-12-09 10:18 | disposition home or self-care (01) ==
LOC: LAB 10:17
PROVIDERS: PCP Family Medicine; Visit Provider Family Medicine
DX: Z00.00 Encounter for general adult medical examination without abnormal findings (principal); Z12.5 Encounter for screening for malignant neoplasm of prostate
CPT/HCPCS: 36415; 80053; 80061; 83036; 84436; 84443; 84481; 85025; G0103

== ENCOUNTER 2024-12-14 15:23 | Outpatient (REF) | payer BC, SELFPAY ==
--- OUTSIDE RECORDS SUMMARY | 2024-12-08 09:15 | XMS_ITS ---
Author Organization [facility] in [place] Address [address] [place] [address] Care Team Providers Care Law Enforcement Director Name Role Phone Bi Georgi Primary Care Provider Allergies No Known Allergies REASON FOR VISIT yearly wellness exam Medications Medication SIG (Take, Route, Frequency, Duration) Notes Start Date End Date Status Pantoprazole Sodium 40 MG TAKE 1 TABLET BY MOUTH EVERY DAY FOR 30 DAYS; Duration: 90 days Active Valsartan 80 MG 1 tablet Orally Once a day Active Aspirin 81 81 MG 1 tablet Orally Once a day Active Atorvastatin Calcium 80 MG 1 tablet Oral ly Once a day Active Metoprolol Succinate ER 25 MG 1 tablet Orally Once a day Active Ticagrelor 90 MG 1 tablet Orally Twic e a day Active Social History Tobacco Use: Social History Observation Description Date Details (start date - stop date) Never Smoker NA - NA Tobacco Use/Smoking Question Answer Notes Patient is a nonsmoker AUDIT-C (Standard) Question Answer Notes Did you have a drink containing alcohol in the p ast year? No Points 0 Interpretation Negative Vital Signs Weight 203.0 lbs 12/08/2024 Height 70 in 12/08/2024 Blood pressure systolic 120 mm Hg 12/09/19 25 Blood pressure diastolic 82 mm Hg 025 BMI 29.12 kg/m2 12/08/2024 Encounters Encounter Location Date Provider Diagnosis [facility] [address] [place] [address] 12/08/2024 Georgi Pat Well adult Z00.0 0 Assessments Encounter Date Diagnosis (ICD Code) Assessment Notes Treatment Notes Treatment Clinical Notes Section Notes 12/08/2024 Well adult (ICD-10 - Z00.00) Plan Of Treatment Pending Test Test Name Order Date HEMOGLOBIN A1C (GLYCO) 12/08/2024 LIPID PANEL (CHOL/TRIG/HDL/LDL) 12/09/19 25 STOOL OCCULT BLOOD 12/08/2024 THYROID PANEL (T4/TSH/FREE T3) PSA, SCREENING 12/08/2024 CMP (COMP MET BLAND) w/eGFR CKD-EPI 2024 CBC WITH DIFF 12/08/2024 Progress Notes * Tommie LOCKWOOD MDOB: 6 (59 yo M)Acc No.[id number]:12/08/2024 Progress Note Patient: Tommie LIU Provider: Roxie Pat ([facility])MD :1965 A ge:59 Y S ex:Male Date:12/08/2024 Address:[address] [place], [place] [id number] Check In:01:05 PM ESTCheck O ut:01:32 PM EST Subjective: * Chief Complaints: * Y early wellness exam * HPI: G eneral: No cpltaint. D epression Screening: PHQ-2 (2015 Edition) L ittle interest or pleasure in doing things??Not at all F eeling down, depressed, or hopeless? S everal days T otal Score 1 * ROS: E ENT: hearing changes d enies. v isual changes d enies.?non-healing mouth sores d enies. s wollen glands or neck lumps d enies. h oarseness d enies. s ore throat d enies. d ifficulty swallowing d enies. n ose bleeds d enies. n west congestion d enies. e ar ache d enies. e ar discharge?denies. r inging in ears d enies. l ight sensitivity d enies. e ye pain d enies. b lurring d enies. e ye irritation d enies. d ouble vision d enies.?vision loss d enies. G eneral/Constitutional: Sweats: D enies. F atigue d enies. S leep problems d enies. A norexia d enies. M alaise d enies. W eight loss d enies.?Fatigue or Weakness d enies. F ever or Chills d enies. C ardiovascular: Shortness of Breath w/lying flat d enies. L ightheadedness/dizziness d enies. C hest tightness/ heavy pressure d enies. S welling of legs, ankles, or feet d enies. W aking up with shortness of breath d enies. C hest pain denies. P alpitations d enies. W eight gain d enies. R espiratory: Chronic or frequent cough d enies. C oughing up blood?denies. D ifficulty breathing d enies. P roductive cough d enies. S noring?denies. S hortness of breath that awakens from sleep (PND) d enies. C hest pain d enies. S putum production d enies. W heezing d enies. M usculoskeletal: Joint pain d enies. J oint Fluid d enies. B ack pain d enies. K nee pain d enies. N aquilino pain d enies. J oint Stiffness d enies. M uscle cramps d enies. W eakness of muscles d enies. A rthritis d enies. M uscle aches d enies. P ain in shoulder(s) d enies. S wollen joints d enies. * Active Problem List R42 Dizziness and giddin ess Modified On:10/03/2022/U Status:confirmed E78.5 Hyperlipidemia, unsp ecified Modified On:10/03/2022U Status:confirmed H10.9 Conjunctivitis Modified On:10/03/2022/U Status:confirmed Z00.00 Well adult Modified On:11/18/2023/U Status:confirmed I21.3 STEMI (ST elevation myocardial infarction) Modified On:08/10/2024/U Status:confirmed Z95.5 Stented coronary art vita Modified On:08/18/2024/U Status:confirmed * Medical History: * Surgical History: V asectomy Cardiac cath- stents placed- Dr Damon * Hospitalization/Major Diagno stic Procedure: s ee above * Family History: F ather: 47 yrs, Heart Disease, diagnosed with Unspecified heart disease. M other: alive. B rother(s): alive. S ister(s): alive. S on(s): alive. D elizaer(s): alive. 2 brother(s) , 4 sister(s) - healthy. 1 son(s) , 1 daughter(s) - healthy. . * Social History: T obacco Use: T obacco Use/Smoking P atient is a n onsmoker D rug/Alcohol: A ROBYN-C (Standard) D id you have a drink containing alcohol in the past year? N o P oints 0 I nterpretation N egative * Medications: T akingAspirin 81(Aspirin) 81 MG Tablet Delayed Release 1 tablet Orally Once a day Atorvastatin Calcium 80 MG Tablet 1 tablet Orally Once a day Metoprolol Succinate ER 25 MG Tablet Extended Release 24 Hour 1 tablet Orally Once a day Pantoprazole Sodium 40 MG Tablet Delayed Release TAKE 1 TABLET BY MOUTH EVERY DAY FOR 30 DAYS Ticagrelor 90 MG Tablet 1 tablet Orally Twice a day Valsartan 80 MG Tablet 1 tablet Orally Once a day Taking Aspirin 81(Aspirin) 81 MG Tablet Delayed Release 1 tablet Orally Once a day Taking Atorvastatin Calcium 80 MG Tablet 1 tablet Orally Once a day Taking Metoprolol Succinate ER 25 MG Tablet Extended Release 24 Hour 1 tablet Orally Once a day Taking Pantoprazole Sodium 40 MG Tablet Delayed Release TAKE 1 TABLET BY MOUTH EVERY DAY FOR 30 DAYS Taking Ticagrelor 90 MG Tablet 1 tablet Orally Twice a day Taking Valsartan 80 MG Tablet 1 tablet Orally Once a day DiscontinuedSimvastatin 20 MG Tablet TAKE 1 TABLET BY MOUTH EVERY DAY IN THE EVENING FOR 90 DAYS Medication List reviewed and reconciled with the patientDiscontinued Simvastatin 20 MG Tablet TAKE 1 TABLET BY MOUTH EVERY DAY IN THE EVENING FOR 90 DAYS Medication List reviewed and reconciled with the patient * Allergies: N .K.D.A.no[Allergies Verified] Objective: * Vitals: W t:203.0lbs, Ht: 70 in, BP:120/82mm Hg, BMI:29.12Index, Ht-cm: 177.8 cm, Wt-k.08 kg. * Examination: P hysical Exam: GENERAL: w ell developed, well nourished, in no acute distress. HEAD: n ormocephalic/atraumatic. EYES: p upils equal, round and reactive to light, conjunctivae and sclerae normal. EARS: n o deformity or lesion of external ear, canals and TM appear normal bilaterally, TM's intact, not inflamed with normal light reflex, hearing grossly normal to conversational speech. NOSE: n o deformity, discharge, inflammation, or lesions.? MOUTH: m ucous membranes moist, normal oropharynx and posterior pharynx without lesions or exudates, tongue normal, dentition normal. NECK: n aquilino supple, no masses or palpable cervical nodes, trachea midline, thyroid without nodules, masses, tenderness, or enlargement. CHEST: n o chest wall deformity, no chest wall tenderness.? LUNGS: n ormal respiratory effort and clear to auscultation, no wheezes, rales, or rhonchi, good air exchange. CARDIO: r egular rate and rhythm, normal S1 and S2, nor murmur, rub, or gallop. PULSES: n ormal capillary refill. ABDOMEN: s oft, non-distended, non-tender, no masses. MUSCULOSKELETAL: n o deformity or scoliosis noted, normal range of motion, joints normal, no erythema, edema, effusion, or ecchymosis. EXTREMITY: n o clubbing, cyanosis, edema, or deformity with normal ROM in both upper and lower bilateral extremities. NEUROLOGIC: g rossly normal. SKIN: n o rashes, ulcerations, or suspicious lesions. LYMPH NODES: n o cervical adenopathy, nodes normal. MENTAL STATUS: a lert and oriented x3, normal mood and affect. P rostate: Prostate Symmetry S ymmetrical Lobes. Prostate Tenderness R ight Lobe no tenderness, Left lobe no tenderness. Prostate Consistency R ight lobe normal consistency, Left lobe normal consistency. Prostate Size 3 0 grams. Prostate Nodule N o prostate Nodule. Assessment: * Assessment: 1. W ell adult - Z00.00 (Primary) Plan: * Treatment: * Procedure Codes: * Preventive Medicine: Screenings/Counseling: B [place] ACTION PLAN Above Normal BMI Follow-up D ietary management education, guidance, and counseling * * Sign off status: Completed Visit Status: C HK (Check Out) true * Provider: Roxie Pat ([facility])MD Date: 0 12/08/2024 Generated for Printi ng/Faxing/eTransmitting on: 0 12/14/2024 03:25 PM EDT History and Physical Notes * HPI (History of Present Illness) Category Sub-Category Detail Notes Category Not es General No cpltaint Depression Screening PHQ-2 (2015 Edition) Little interest or pleasure in doing things?: Not at all Feeling down, depressed, or hopeless?: S everal days Total Score: 1 Examination Category Sub-Category Detail Notes Category Not es Prostate Prostate Symmetry Symmetrical Lobes Prostate Tenderness Right Lobe no tender ness, Left lobe no tenderness Prostate Consistency Right lobe normal c onsistency, Left lobe normal consistency Prostate Size 30 grams Prostate Nodule No prostate Nodule Physical Exam GENERAL: well developed, well nouris hed, in no acute distress HEAD: normocephalic/atraum atic EYES: pupils equal, round and reactive to light, conjunctivae and sclerae normal EARS: no deformity or lesi on of external ear, canals and TM appear normal bilaterally, TM's intact, not inflamed with normal light reflex, hearing grossly normal to conversational speech NOSE: no deformity, discha rge, inflammation, or lesions MOUTH: mucous membranes l[address] [facility], normal oropharynx and posterior pharynx without lesions or exudates, tongue normal, dentition normal NECK: neck supple, no mass es or palpable cervical nodes, trachea midline, thyroid without nodules, masses, tenderness, or enlargement CHEST: no chest wall deform ity, no chest wall tenderness LUNGS: normal respiratory e ffort and clear to auscultation, no wheezes, rales, or rhonchi, good air exchange CARDIO: regular rate and rhy thm, normal S1 and S2, nor murmur, rub, or gallop PULSES: normal capillary ref ill ABDOMEN: soft, non-distended, non-tender, no masses RECTAL: MUSCULOSKELETAL: no deformity or scol iosis noted, normal range of motion, joints normal, no erythema, edema, effusion, or ecchymosis EXTREMITY: no clubbing, cyanosi s, edema, or deformity with normal ROM in both upper and lower bilateral extremities NEUROLOGIC: grossly normal SKIN: no rashes, ulceratio ns, or suspicious lesions LYMPH NODES: no cervical adenopat hy, nodes normal MENTAL STATUS: alert and oriented x 3, normal mood and affect
--- OUTSIDE RECORDS SUMMARY | 2024-12-14 15:25 | XMS_ITS | Encounter Summary ---
Author Organization [facility] Address [address] [place] [address] Phone Care Team Providers Care Detective And Intelligence Analyst Name Role Phone Unavailable Primary Care Provider Unavailabl e Encounter Details Date Type Department Care Team (Late st Contact Info) Description 08/08/2024 Scanned Document [facility] [address] [place] [address] Scanning, Generic Provider Social History Tobacco Use Types Packs/Day Years Used Date Smoking Tobacco: Never Assessed Sex and Gender Information Value Date Recorded Sex Assigned at Not on file Legal Sex Male 12:43 PM EDT Gender Identity Not on file Sexual Orientation Not on file documented as of this encounter Plan of Treatment Not on file documented as of this encounter Procedures Procedure Name Priority Date/Time Associated Diagnosis Comments ECHOCARDIOGRAM 08/08/2024 documented in this encounter Results * Echocardiogram (08/08/2024) Narrative 08/08/2024 Ordered by an unspecified provider. us Generic Provider Scanning CV ECHO PROCEDURES Fin al Result documented in this encounter Visit Diagnoses Not on filedocumented in this encounter
--- OUTSIDE RECORDS SUMMARY | 2024-12-14 15:25 | XMS_ITS | Clinical Summary ---
Author Organization [facility] Address [address] [place] [address] Phone Care Team Providers Care Manager Channel Name Role Phone Unavailable Primary Care Provider Unavailabl e Social History Tobacco Use Types Packs/Day Years Used Date Smoking Tobacco: Never Assessed Sex and Gender Information Value Date Recorded Sex Assigned at Not on file Legal Sex Male 12:43 PM EDT Gender Identity Not on file Sexual Orientation Not on file Plan of Treatment Health Maintenance Due Date Last Done Comments CT Colonography 1965 Colonoscopy 1965 Colorectal Cancer Screening 1965 FIT-DNA (Cologuard) 1965 FIT 1965 HIV Screening 1965 Lipid Panel 1965 Sigmoidoscopy 1965 Yearly Adult Physical 1965 MMR Vaccines (1 of 1 - Stand sophie series) 1967 Hepatitis C Screening 01/10/1984 Hepatitis B Vaccines (1 of 3 - 19+ 3-dose series) 1985 Pneumococcal Vaccine (1 of 2 - PCV) 1985 DTaP/Tdap/Td Vaccines (1 - Tdap) 01/10/1988 PSA Prostate Cancer Screening 01/10/2016 Zoster Vaccines (1 of 2) 01/10/2016 COVID-19 Vaccine (1 - 2023-2 5 season) 2024 Influenza Vaccine (#1) 2024 HIB Vaccines Aged Out No longer eligi ble based on patient's age to complete this topic HPV Vaccines Aged Out No longer eligi ble based on patient's age to complete this topic Hepatitis A Vaccines Aged Out No long er eligible based on patient's age to complete this topic IPV Vaccines Aged Out No longer eligi ble based on patient's age to complete this topic Meningococcal Vaccine Aged Out No ghislaine yessenia eligible based on patient's age to complete this topic Rotavirus Vaccines Aged Out No longer eligible based on patient's age to complete this topic Insurance [facility]
--- OUTSIDE RECORDS SUMMARY | 2024-12-14 16:47 | XMS_ITS | CCD ---
Author Organization [facility] Care Team Providers Care Media Planner / Buyer Name Role Phone DR KETURAH PAT Admitting Unavailable RICHIE, DR REBOLLAR Attending Unavailable RICHIE, DR REBOLLAR Primary Care Unavailable RICHIE, DR REBOLLAR Consulting Unavailable RICHIE, DR REBOLLAR Admitting Unavailable RICHIE, DR REBOLLAR Attending Unavailable RICHIE, DR REBOLLAR Primary Care Unavailable RICHIE, DR REBOLLAR Consulting Unavailable PROVIDER, UNKNOWN Attending Unavailable PROVIDER, UNKNOWN Admitting Unavailable Keturah Pat MD Primary Care Provider [phone] Emile Damon MD Admit Provider Emile Damon MD Attending Provider Emile Damon Admitting Unavailable Emile Damon Attending Unavailable Keturah Pat Primary Care Unavailable Emile Damon MD Other Provider Keturah Pat MD Primary Care Provider [phone] Emile Damon MD Attending Provider Rosalia Peters APRN Attending Provider Allergies Allergy Classification Reported Allergen(s) Allergy Type Date of Onset Reaction(s) Facility (3 sources) Opioids - Morphine Analogues Drug allergy (disorder) 08-17-2024 [facility] Repository Medications Current Medications Medication Drug Class(es) [...] activity/volume] in Serum or Plasma High 7-52 [facility] Albumin [Mass/volume] in Ser um or Plasma by Bromocresol green (BCG) dye binding methoOrdered By: Emile Damon on 08-08-2024 Albumin BCG dye [Mass/Vol] Albumin [Mass/volume] in Serum or Plasma by Bromocresol green (BCG) dye binding metho 3.5-5.7 [facility] Albumin BCG dye [Mass/Vol] 3.9 g/dL 3.5-5.7 [facility] Alkaline phosphatase [Enzyma tic activity/volume] in Serum or PlasmaOrdered By: Emile Damon on 08-08-2024 ALP [Catalytic activity/Vol] Alkaline phosphatase [Enzymatic activity/volume] in Serum or Plasma 34-104 [facility] Aspartate aminotransferase [ Enzymatic activity/volume] in Serum or PlasmaOrdered By: Emile Damon on 08-08-2024 AST [Catalytic activity/Vol] Aspartate aminotransferase [Enzymatic activity/volume] in Serum or Plasma High 13-39 [facility] Basophils Auto (Bld) [#/Vol] Ordered By: Emile Damon on 08-08-2024 Basophils (Bld) [#/Vol] Automated basoph il count 0.0-0.2 [facility] Basophils/100 WBC Auto (Bld) Ordered By: Emile Damon on 08-08-2024 Basophils/100 WBC (Bld) Automated basophil % . [facility] Bilirubin.total [Mass/volume ] in Serum or PlasmaOrdered By: Emile Damon on 08-08-2024 Bilirubin [Mass/Vol] Bilirubin.total [Mass/volume] in Serum or Plasma 0.3-1.0 [facility] Calcium [Mass/volume] in Ser um or PlasmaOrdered By: Emile Damon on 08-08-2024 Calcium [Mass/Vol] Calcium [Mass/volume] in Serum or Plasma Low 8.6-10.3 [facility] Carbon dioxide, total [Moles /volume] in Serum or PlasmaOrdered By: Emile Damon on 08-08-2024 CO2 [Moles/Vol] Carbon dioxide, total [Moles/volume] in Serum or Plasma 21.0-31.0 [facility] Chloride [Moles/volume] in S kylee or PlasmaOrdered By: Emile Damon on 08-08-2024 Chloride [Moles/Vol] Chloride [Moles/volume] in Serum or Plasma High 98-107 [facility] Complete Blood Count Auto Di ffOrdered By: Emile Damon on 08-08-2024 Basophils (Bld) [#/Vol] 0.1 10*3/uL 0.0-0.2 [facility] Comment on above: Order Comment: REDRA W Result Comment: PERF ORMED BY: [facility] [address] [place] [address] PATHOLOGIST GLASS [employer]UL[employer] MACHINE ADJUSTER SCOTTY ALFORD M.D. Performed By: #### C BC #### [facility] [address] [place] [address] [place] Basophils/100 WBC (Bld) 0.5 % . [facility] Comment on above: Order Comment: REDRA W Performed By: #### C BC #### [facility] [address] Eosinophils (Bld) [#/Vol] 0.3 10*3/uL 0.0-0.45 [facility] Comment on above: Order Comment: REDRA W Performed By: #### C BC #### [address] Eosinophils/100 WBC (Bld) 3.4 % . [facility] Comment on above: Order Comment: REDRA W Performed By: #### C BC #### [address] Erythrocyte distribution width (RBC) [Ratio] 13.8 % 12.0-14.8 [facility] Comment on above: Order Comment: REDRA W Performed By: #### C BC #### [address] Hematocrit (Bld) [Volume fraction] 44.3 % 38.8-50.0 [facility] Comment on above: Order Comment: REDRA W Performed By: #### C BC #### [place] [address] [place] Hemoglobin (Bld) [Mass/Vol] 15.1 g/dL 13.0-17.0 [facility] Comment on above: Order Comment: REDRA W Performed By: #### C BC #### [place] [address] [place] Lymphocytes (Bld) [#/Vol] 2.0 10*3/uL 1.00-4.8 [facility] Comment on above: Order Comment: REDRA W Performed By: #### C BC #### [place] [address] [place] Lymphocytes/100 WBC (Bld) 20.1 % . [facility] Comment on above: Order Comment: REDRA W Performed By: #### C BC #### [address] MCH (RBC) [Entitic mass] 29.0 pg 27.5-35.2 [facility] Comment on above: Order Comment: REDRA W Performed By: #### C BC #### [address] MCV (RBC) [Entitic vol] 85.1 fL 83.5-101 [facility] Comment on above: Order Comment: REDRA W Performed By: #### C BC #### [address] Monocytes (Bld) [#/Vol] 1.0 10*3/uL High 0.0-0.8 [facility] Comment on above: Order Comment: REDRA W Performed By: #### C BC #### [address] Monocytes/100 WBC (Bld) 9.8 % . [facility] Comment on above: Order Comment: REDRA W Performed By: #### C BC #### [address] Neutrophils (Bld) [#/Vol] 6.5 10*3/uL 1.8-7.7 [facility] Comment on above: Order Comment: REDRA W Performed By: #### C BC #### [address] Neutrophils/100 WBC (Bld) 66.2 % . [facility] Comment on above: Order Comment: REDRA W Performed By: #### C BC #### [address] Platelet mean volume (Bld) [Entitic vol] 8.6 fL 6.6-10.1 [facility] Comment on above: Order Comment: REDRA W Performed By: #### C BC #### [address] [place] [address] [place] Platelets (Bld) [#/Vol] 154 10*3/uL 150-450 [facility] Comment on above: Order Comment: REDRA W Performed By: #### C BC #### [address] RBC (Bld) [#/Vol] 5.21 10*6/uL 3.90-5.60 [facility] Comment on above: Order Comment: REDRA W Performed By: #### C BC #### [address] WBC (Bld) [#/Vol] 9.8 10*3/uL 4.1-10.5 [facility] Comment on above: Order Comment: REDRA W Performed By: #### C BC #### [address] Complete Blood Count Auto Di ffon 08-08-2024 Mean Corpuscular HGB Conc 34.2 g/dL Normal 32.5-35.6 [facility] Comment on above: Order Comment: REDRA W Performed By: #### C BC #### [address] NRBC% 0.2 /100{WBC} Normal 0-0.5 [facility] Comment on above: Order Comment: REDRA W Performed By: #### C BC #### [address] Comprehensive Metabolic Pane ghislaine 08-08-2024 Albumin [Mass/Vol] 3.9 g/dL Normal 3.5-5.7 [facility] Comment on above: Performed By: #### C MP, HS TROP #### [address] Creatinine Clr Calc Pharmacy 92.91 Normal [facility] Comment on above: Result Comment: PERF ORMED BY: [place] [address] PATHOLOGIST GLASS BUL[employer] MACHINE ADJUSTER SCOTTY ALFORD M.D. Performed By: #### C MP, HS TROP #### [facility] [address] [place] [address] GFR/1.73 sq M.predicted MDRD (S/P/Bld) [Vol rate/Area] mL/min/{1.73_m2} Normal [facility] Comment on above: Performed By: #### C MP, HS TROP #### [facility] [address] [place] [address] Comprehensive Metabolic Pane lOrdered By: Emile Damon on 08-08-2024 Albumin/Globulin [Mass ratio] 1.6 {ratio} [facility] Comment on above: Performed By: #### C MP, HS TROP #### [address] ALP [Catalytic activity/Vol] 56 U/L 34-104 [facility] Comment on above: Performed By: #### C MP, HS TROP #### [facility] [address] [place] [address] ALT [Catalytic activity/Vol] 58 U/L High 7-52 [facility] Comment on above: Performed By: #### C MP, HS TROP #### [facility] [address] [place] [address] Anion gap [Moles/Vol] 9.2 mmol/L 6.0-15.0 [facility] Comment on above: Performed By: #### C MP, HS TROP #### [facility] [address] [place] [address] AST [Catalytic activity/Vol] 122 U/L High 13-39 [facility] Comment on above: Performed By: #### C MP, HS TROP #### [facility] [address] [place] [address] Bilirubin [Mass/Vol] 0.9 mg/dL 0.3-1.0 [facility] Comment on above: Performed By: #### C MP, HS TROP #### [facility] [address] [place] [address] Calcium [Mass/Vol] 8.5 mg/dL Low 8.6-10.3 [facility] Comment on above: Performed By: #### C MP, HS TROP #### [facility] [address] Chloride [Moles/Vol] 108 mmol/L High 98-107 [facility] Comment on above: Performed By: #### C MP, HS TROP #### [facility] [address] CO2 [Moles/Vol] 24.7 mmol/L 21.0-31.0 [facility] Comment on above: Performed By: #### C MP, HS TROP #### [facility] [address] Creatinine [Mass/Vol] 1.04 mg/dL 0.70-1.30 [facility] Comment on above: Performed By: #### C MP, HS TROP #### [facility] [address] Globulin (S) [Mass/Vol] 2.5 g/dL [facility] Comment on above: Performed By: #### C MP, HS TROP #### [facility] [address] Glucose [Mass/Vol] 113 mg/dL High 70-100 [facility] Comment on above: Result Comment: [facility] om Glucose Reference Range is dependent on time and content of last meal. Glucose of more than 200 mg/dL in a nonstressed, ambulatory subject supports the diagnosis of Diabetes Mellitus. ADA recommended reference range Performed By: #### C MP, HS TROP #### [facility] [address] ADA recommended refe rence rangeRandom Glucose Reference Range is dependent on time and content of last meal. Glucose of more than 200 mg/dL in a nonstressed, ambulatory subject supports the diagnosis of Diabetes Mellitus. Potassium [Moles/Vol] 3.9 mmol/L 3.5-5.1 [facility] Comment on above: Performed By: #### C MP, HS TROP #### [facility] [address] Protein [Mass/Vol] 6.4 g/dL 6.4-8.9 [facility] Comment on above: Performed By: #### C MP, HS TROP #### [facility] [address] [place] [address] [place] Sodium [Moles/Vol] 138 mmol/L 136-145 [facility] Comment on above: Performed By: #### C MP, HS TROP #### [facility] [address] [place] [address] [place] Urea nitrogen [Mass/Vol] 15 mg/dL 10-21 [facility] Comment on above: Performed By: #### C MP, HS TROP #### [facility] [address] [place] [address] [place] Creatinine [Mass/volume] in Serum or PlasmaOrdered By: Emile Damon on 08-08-2024 Creatinine [Mass/Vol] Creatinine [Mass/volume] in Serum or Plasma 0.70-1.30 [facility] ECG 12 lead ECGon 08-08-2024 ECG 12 lead ECG [facility] [place] [address] [place] [address] Electrocardiograph Report Signed Patient: Robert Boateng MR#: [id number] 57 : 1965 Acct:[id number] Age/Sex: 59 / M ADM Date: 08/07/24 Loc: Room: [address] [place] [address] Type: ADM IN Attending Dr: Emile Damon [...] QT has lengthened Confirmed by IFRAH NAJERA [facility] ([id number]) on 08/08/2024 12:21:25 PM Referred By: Electronically Signed By: GUTIERREZ RAINEY MD [facility] Transcribed By: MUS Signed By Gutierrez Rainey MD, [facility] 08/08/24 1221 Normal [facility] echo transthoracicon [facility] echo transthoracic [facility] [place] [address] Echocardiogram Signed Patient: Robert Boateng MR#: [id number] 57 : 1965 Acct:[id number] Age/Sex: 59 / M ADM Date: 08/07/24 Loc: Room: [address] [place] [address] Type: ADM IN Attending Dr: Emile Damon MD Ordering Provider: Emile Damon MD Date of Service: 08/08/2403/23/500 [facility] echo transthoracic: inferior stemi Copies to: Gutierrez Rainey MD, [facility] Emile Damon MD BSA: 2.2 m2 BP: [...] 08/08/24 0837 Signed By: Gutierrez Rainey MD, [facility] 08/08/24 1231 Normal [facility] Eosinophils Auto (Bld) [#/Vo l]Ordered By: Emile Damon on 08-08-2024 Eosinophils (Bld) [#/Vol] Automated eosi nophil count 0.0-0.45 [facility] Eosinophils/100 WBC Auto (Bl d)Ordered By: Emile Damon on 08-08-2024 Eosinophils/100 WBC (Bld) Automated eosi nophil % . [facility] Erythrocyte distribution wid th Auto (RBC) [Ratio]Ordered By: Emile Damon on 08-08-2024 Erythrocyte distribution width (RBC) [Ratio] Erythrocyte distribution width [Ratio] by Automated count 12.0-14.8 [facility] Globulin Calc (S) [Mass/Vol] Ordered By: Emile Damon on 08-08-2024 Globulin (S) [Mass/Vol] Serum globulin measurement by calculation (mass/volume) [facility] Glucose [Mass/volume] in Ser um or PlasmaOrdered By: Emile Damon on 08-08-2024 Glucose [Mass/Vol] Glucose [Mass/volume] in Serum or Plasma High 70-100 [facility] Comment on above: ADA recommended refe rence rangeRandom Glucose Reference Range is dependent on time and content of last meal. Glucose of more than 200 mg/dL in a nonstressed, ambulatory subject supports the diagnosis of Diabetes Mellitus. Hematocrit Auto (Bld) [Volum e fraction]Ordered By: Emile Damon on 08-08-2024 Hematocrit (Bld) [Volume fraction] Hematocrit [Volume Fraction] of Blood by Automated count 38.8-50.0 [facility] Hemoglobin [Mass/volume] in BloodOrdered By: Emile Damon on 08-08-2024 Hemoglobin (Bld) [Mass/Vol] Hemoglobin [Mass/volume] in Blood 13.0-17.0 [facility] Leukocytes [#/volume] correc cristal for nucleated erythrocytes in Blood by Automated counOrdered By: Emile Damon on 08-08-2024 WBC corrected for nucl RBC Auto (Bld) [#/Vol] Leukocytes [#/volume] corrected for nucleated erythrocytes in Blood by Automated coun 4.1-10.5 [facility] WBC corrected for nucl RBC Auto (Bld) [#/Vol] 9.8 10*3/uL 4.1-10.5 [facility] Lymphocytes Auto (Bld) [#/Vo l]Ordered By: Emile Damon on 08-08-2024 Lymphocytes (Bld) [#/Vol] Lymphocytes [#/volume] in Blood by Automated count 1.00-4.8 [facility] Lymphocytes/100 WBC Auto (Bl d)Ordered By: Emile Damon on 08-08-2024 Lymphocytes/100 WBC (Bld) Lymphocytes/10 0 leukocytes in Blood by Automated count . [facility] MCH Auto (RBC) [Entitic mass ]Ordered By: Emile Damon on 08-08-2024 MCH (RBC) [Entitic mass] MCH [Entitic ma ss] by Automated count 27.5-35.2 [facility] MCHC Auto (RBC) [Mass/Vol]Or dered By: Emile Damon on 08-08-2024 MCHC (RBC) [Mass/Vol] MCHC [Mass/volume] by Automated count 32.5-35.6 [facility] MCHC (RBC) [Mass/Vol] 34.2 g/dL 32.5-35.6 [facility] MCV Auto (RBC) [Entitic vol] Ordered By: Emile Damon on 08-08-2024 MCV (RBC) [Entitic vol] MCV [Entitic vol ume] by Automated count 83.5-101 [facility] Monocytes Auto (Bld) [#/Vol] Ordered By: Emile Damon on 08-08-2024 Monocytes (Bld) [#/Vol] Automated blood monocyte count High 0.0-0.8 [facility] Monocytes/100 WBC Auto (Bld) Ordered By: Emile Damon on 08-08-2024 Monocytes/100 WBC (Bld) Automated monocyte % . [facility] Neutrophils Auto (Bld) [#/Vo l]Ordered By: Emile Damon on 08-08-2024 Neutrophils (Bld) [#/Vol] Neutrophils [#/volume] in Blood by Automated count 1.8-7.7 [facility] Neutrophils/100 WBC Auto (Bl d)Ordered By: Emile Damon on 08-08-2024 Neutrophils/100 WBC (Bld) Automated neut rophil % . [facility] No Panel InformationOrdered By: Emile Damon on 08-08-2024 Estimated GFR (CKD-EPI) > 60.0 mL/Min [facility] Creatinine Clearance (Chem 92.91 [facility] Nucleated erythrocytes [Pres ence] in Blood by Automated countOrdered By: Emile Damon on 08-08-2024 Nucleated RBC Auto Ql (Bld) Nucleated erythrocytes [Presence] in Blood by Automated count 0-0.5 [facility] Nucleated RBC Auto Ql (Bld) 0.2 /100{WBC} 0-0.5 [facility] Platelet mean volume Auto (B ld) [Entitic vol]Ordered By: Emile Damon on 08-08-2024 Platelet mean volume (Bld) [Entitic vol] Platelet mean volume [Entitic volume] in Blood by Automated count 6.6-10.1 [facility] Platelets Auto (Bld) [#/Vol] Ordered By: Emile Damon on 08-08-2024 Platelets (Bld) [#/Vol] Platelets [#/vol ume] in Blood by Automated count 150-450 [facility] Potassium [Moles/volume] in Serum or PlasmaOrdered By: Emile Damon on 08-08-2024 Potassium [Moles/Vol] Potassium [Moles/volume] in Serum or Plasma 3.5-5.1 [facility] Protein [Mass/volume] in Ser um or PlasmaOrdered By: Emile Damon on 08-08-2024 Protein [Mass/Vol] Protein [Mass/volume] in Serum or Plasma 6.4-8.9 [facility] RBC Auto (Bld) [#/Vol]Ordere d By: Emile Damon on 08-08-2024 RBC (Bld) [#/Vol] Erythrocytes [#/volume] in Blood by Automated count 3.90-5.60 [facility] Serum or plasma albumin/glob ulin mass ratioOrdered By: Emile Damon on 08-08-2024 Albumin/Globulin [Mass ratio] Serum or plasma albumin/globulin mass ratio [facility] Serum or plasma anion gap de terminationOrdered By: Emile Damon on 08-08-2024 Anion gap [Moles/Vol] Serum or plasma anion gap determination 6.0-15.0 [facility] Sodium [Moles/volume] in Ser um or PlasmaOrdered By: Emile Damon on 08-08-2024 Sodium [Moles/Vol] Sodium [Moles/volume] in Serum or Plasma 136-145 [facility] Troponin I High Sensitivityo n 08-08-2024 Troponin I High Sensitivity 33877 Off scale high 0-20 [facility] Comment on above: Result Comment: Crit ical Result : Called to and read back by: DERECK LUNA at: 08/08/2024 05:16:37 by:RADHA The Troponin units of report have been changed to meet the Chest Pain Accreditation requirement, element EC5.M1l2. Troponin units are changed from pg/ml to ng/L. Also, the decimal is removed and results are in whole numbers. PERFORMED BY: [place] [address] PATHOLOGIST GLASS BUL[employer] MACHINE ADJUSTER SCOTTY ALFORD M.D. Performed By: #### C MP, HS TROP #### [address] Troponin I.cardiac [Mass/vol ume] in Serum or Plasma by Detection limit <= 0.01 ng/Ordered By: Emile Damon on 08-08-2024 Troponin I.cardiac DL <= 0.01 ng/mL [Mass/Vol] Troponin I.cardiac [Mass/volume] in Serum or Plasma by Detection limit <= 0.01 ng/ Critically high 020 [facility] Comment on above: Critical Result : Ca [...] Troponin I.cardiac DL <= 0.01 ng/mL [Mass/Vol] [address]3550 ng/L Critically high [address] Comment on above: Critical Result : [...] nitrogen [Mass/volume] in Serum or Plasma 7-25 [facility] WBC Auto (Bld) [#/Vol]Ordere d By: Emile Damon on 08-08-2024 WBC (Bld) [#/Vol] Leukocytes [#/volume] in Blood by Automated count 4.1-10.5 [facility] Anti-Xa UF Heparinon 025 Anti-Xa UF Heparin 0.60 [IU]/mL Normal 0.30-0.70 [facility] Comment on above: Result Comment: Use the aPTT protocol when triglycerides are > 800 mg/dL, total bilirubin is > 20 mg/dL and/or patient has received a DOAC, Fondaparinux or LMWH within 72 hours AND baseline anti-Xa level is > 0.7 units/mL PERFORMED BY: [place] [address] PATHOLOGIST GL[employer]UL[employer] MACHINE ADJUSTER SCOTTY ALFORD M.D. Performed By: #### U FHEP ####[address] Anti-Xa UF Heparin 0.42 [IU]/mL Normal 0.30-0.70 [facility] Comment on above: Result Comment: Use the aPTT protocol when triglycerides are > 800 mg/dL, total bilirubin is > 20 mg/dL and/or patient has received a DOAC, Fondaparinux or LMWH within 72 hours AND baseline anti-Xa level is > 0.7 units/mL PERFORMED BY: [place] [address] PATHOLOGIST GLASS BUL[employer] MACHINE ADJUSTER SCOTTY ALFORD M.D. Performed By: #### U FHEP #### [address] Basic Metabolic Panelon 07-28 Anion gap [Moles/Vol] 11.9 mmol/L Normal 6.0-15.0 [facility] Comment on above: Performed By: #### B MP ####[address] Calcium [Mass/Vol] 9.0 mg/dL Normal 8.6-10.3 [facility] Comment on above: Performed By: #### B MP ####[facility] [address] Chloride [Moles/Vol] 109 mmol/L High 98-107 [facility] Comment on above: Performed By: #### B MP ####[address] CO2 [Moles/Vol] 23.6 mmol/L Normal 21.0-31.0 [facility] Comment on above: Performed By: #### B MP ####[address] Creatinine [Mass/Vol] 1.38 mg/dL High 0.70-1.30 [facility] Comment on above: Performed By: #### B MP ####[address] Creatinine Clr Calc Pharmacy 70.02 Normal [facility] Comment on above: Result Comment: PERF ORMED BY: [facility] [address] [place] [address] PATHOLOGIST GLASS BUL[employer] MACHINE ADJUSTER SCOTTY ALFORD M.D. Performed By: #### B MP ####[address] Estimated GFR 59.274 mL/Min Normal [facility] Comment on above: Performed By: #### B MP ####[address] Glucose [Mass/Vol] 125 mg/dL High 70-100 [facility] Comment on above: Result Comment: [facility] Glucose Reference Range is dependent on time and content of last meal. Glucose of more than 200 mg/dL in a nonstressed, ambulatory subject supports the diagnosis of Diabetes Mellitus. ADA recommended reference range Performed By: #### B MP ####[address] Potassium [Moles/Vol] 4.5 mmol/L Normal 3.5-5.1 [facility] Comment on above: Performed By: #### B MP ####[address] Sodium [Moles/Vol] 140 mmol/L Normal 136-145 [facility] Comment on above: Performed By: #### B MP ####[place] [id number] [address] Urea nitrogen [Mass/Vol] 20 mg/dL Normal 7-25 [facility] Comment on above: Performed By: #### B MP ####[address] ECG 12 lead ECGon 08-07-2024 ECG 12 lead ECG [facility] [place] [address] Electrocardiograph Report Signed Patient: Robert Boateng MR#: [id number] 57 : 1965 Acct:[id number] Age/Sex: 59 / M ADM Date: 08/07/24 Loc: Room: [address] [place] [address] Type: ADM IN Attending Dr: Emile Damon [...] undetermined Abnormal ECG Confirmed by Fauzia Hernandez ([id number]) on 08/07/2024 10:05:18 PM Referred By: Electronically Signed By: Fauzia Hernandez Transcribed By: MUS Signed By Fauzia Hernandez MD 2204 Normal [facility] ECG 12 lead ECG [facility] [place] [address] Electrocardiograph Report Signed Patient: Robert Boateng MR#: [id number] 57 : 1965 Acct:[id number] Age/Sex: 59 / M ADM Date: 08/07/24 Loc: Room: [address] [place] [address] Type: ADM IN Attending Dr: Emile Damon [...] change was found Confirmed by IFRAH NAJERA [facility] ([id number]) on 08/08/2024 12:20:50 PM Referred By: Electronically Signed By: GUTIERREZ RAINEY MD [facility] Transcribed By: MUS Signed By Gutierrez Rainey MD, FACC 08/08/24 1220 Normal [facility] ECG 12 lead ECG [facility] [place] [address] Electrocardiograph Report Signed Patient: Robert Boateng MR#: [id number] 57 : 1965 Acct:[id number] Age/Sex: 59 / M ADM Date: 08/07/24 Loc: Room: [address] [place] [address] Type: ADM IN Attending Dr: Emile Damon [...] rhythm Normal ECG Confirmed by Fauzia Hernandez ([id number]) on 08/07/2024 9:59:55 PM Referred By: Electronically Signed By: Fauzia Hernandez Transcribed By: MUS Signed By Fauzia Hernandez MD [id number] Normal [facility] Heparin anti-Xa unfractionat edOrdered By: Emile Damon on 08-07-2024 Heparin unfractionated Chromogenic method Qn (PPP) Heparin anti-Xa unfractionated 0.30-0.70 [facility] Comment on above: Use the aPTT protoco l when triglycerides are > 800 mg/dL,total bilirubin is > 20 mg/dL and/or patient has received aDOAC, Fondaparinux or LMWH within 72 hours AND baselineanti-Xa level is > 0.7 units/mL Heparin unfractionated Chromogenic method Qn (PPP) 0.60 [IU]/mL 0.30-0.70 [facility] Comment on above: Use the aPTT protoco l when triglycerides are > 800 mg/dL,total bilirubin is > 20 mg/dL and/or patient has received aDOAC, Fondaparinux or LMWH within 72 hours AND baselineanti-Xa level is > 0.7 units/mL Partial Thromboplastin Timeo n 08-07-2024 aPTT Coag (Bld) [Time] 41.1 s High 25.1-36.5 Th e [facility] Comment on above: Result Comment: A he matocrit value greater than 55% may lead to inaccurate results in coagulation testing. Patients having hematocrit values >55% require a special collection tube for coagulation studies. Please contact the laboratory at [phone] for redraw instructions. PERFORMED BY: [facility] [address] [place] [address] PATHOLOGIST [employer]UL[employer] MACHINE ADJUSTER SCOTTY ALFORD M.D. Performed By: #### P TT ####[facility] [address] [place] [address] [facility] Troponin I High Sensitivityo n 08-07-2024 Troponin I High Sensitivity 44920 Off scale high 0-20 [facility] Comment on above: Result Comment: Crit ical Result : Called to and read back by: ADDISON BORGES at: 08/07/2024 10:15:55 by:QUINTON The Troponin units of report have been changed to meet the Chest Pain Accreditation requirement, element EC5.M1l2. Troponin units are changed from pg/ml to ng/L. Also, the decimal is removed and results are in whole numbers. PERFORMED BY: [facility] [address] [place] [id number] PATHOLOGIST [employer] MACHINE ADJUSTER SCOTTY ALFORD M.D. Performed By: #### H S TROP ####[address] [address] [id number] [place] [id number] [facility] Troponin I High Sensitivity 8587 Off scale high 0-20 [facility] Comment on above: Result Comment: Crit ical Result : Called to and read back by: ADDISON BORGES at: 08/07/2024 08:20:01 by:QUINTON The Troponin units of report have been changed to meet the Chest Pain Accreditation requirement, element EC5.M1l2. Troponin units are changed from pg/ml to ng/L. Also, the decimal is removed and results are in whole numbers. PERFORMED BY: [place] [address] PATHOLOGIST [employer] MACHINE ADJUSTER SCOTTY ALFORD M.D. Performed By: #### H S TROP ####[place] [id number] [facility] Troponin I High Sensitivity 5112 Off scale high 0-20 [facility] Comment on above: Order Comment: [...] results are in whole numbers. PERFORMED BY: [place] [address] PATHOLOGIST [employer] MACHINE ADJUSTER SCOTTY ALFORD M.D. Performed By: #### H S TROP #### [facility] [address] [place], [place] [id number] [facility] aPTT in Platelet poor plasma by Coagulation assayOrdered By: Emile Damon on 08-07-2024 aPTT Coag (PPP) [Time] Activated partial thromboplastin time (aPTT) in platelet poor plasma by coagulation a High 25.1-36.5 [facility] Comment on above: A hematocrit value g reater than 55% may lead to inaccurate results in coagulation testing. Patients having hematocrit values >55% require a special collection tube for coagulation studies. Please contact the laboratory at [phone] for redraw instructions. aPTT Coag (PPP) [Time] 41.1 s High 25.1-36.5 [facility] Comment on above: A hematocrit value g reater than 55% may lead to inaccurate results in coagulation testing. Patients having hematocrit values >55% require a special collection tube for coagulation studies. Please contact the laboratory at [phone] for redraw instructions. Covid-19 PCR ([facility])on SARS-CoV-2 (COVID-19) RNA HAKEEM+probe Ql (Unsp spec) Not detected Normal NOT DETECTED [facility] Comment on above: Result Comment: This test is not yet approved or cleared by the [place] FDA. When there are no FDA-approved or cleared tests available, and other criteria are met, FDA can make tests available under an emergency access mechanism called an Emergency Use Authorization (EUA). The EUA for this test is supported by the Application Development Consultant of Health and Human Service's (HHS's) declaration [...] consistent with SARS-CoV-2. Performed By: #### C [facility] #### [facility] [address] [place] [address] Dr. Boby Franks Ambulatory Clinical Summaryo n 11-21-2020 Ambulatory Clinical Summary {[id number]}CD:[id number] Normal [facility] General Surgery Office/Clini c Noteon 11-21-2020 [...] Heart attack: Father. Heart disease: Father. Normal [facility] Comment on above: Result Comment: Elec tronically Signed By: GABI NAJERA, Mike Harkins\Date and Time Signed: 11/21/20 13:13 EDT Pathology Noteon 11-21-2020 Pathology Note [id number] #1.00CD:127 Normal [facility] Ambulatory Clinical Summaryo n 11-15-2020 Ambulatory Clinical Summary {[id number]}CD:[id number] Normal [facility] General Surgery Office/Clini c Noteon 11-15-2020 General Surgery Office/Clinic Note CD:[id number]:[id number] 89YJ74iGiurlAyt1paru 2tWT3mWfNmknZcXErwJz 4zo6ymHZ28wz2nTqNuLy 8+UdpdTX0ECPfSQOTg qN8oUWOROlaRSqXyZF4f FrCITx7UPILdVDkXPWwy XB5bXZF3ghvvtC7jMD3o TSWgkCJpOp7qg6j0 CfvrHw7uSw7KUy10iHRu rCZdMSXMC8bydX5bHC8r bGIxJ8IwDJEgCt0XUUz2 wSwunB5dyjZ6Evp7 sIA1Id01j9jxtkLoj8Xl BuF4IQglqMu1bAmqZHbt tH6tCxJoOEIVfP0noOlc JF6puC3yirXumZqh biI+SvrkXJWqQcz8oXXs NJ13D8QgbJzrSdx2pUA7 YPBmyGInJDIfwNn1ZBMI LVVBLUNvbXBhdGli rPJqMVKkzmPumeO4ZokJ AKGwPcHrFqw3G4cmXUY+ Yxkos3F0Tij1ODj2WSI7 lGosAJIbx006JRYg lZllnVzwlPPkm28dRRSo pKZvEvHwg233WPRcugH9 QCipyJyeYou8aHXcfJNi l6tzxCb2DyPqKGHp VjvTLEKkvGzmt6ViPpfV JBcpm7mwniEhrEmlHIQ1 k5MiTSjsBLFaIOV1KsQg IC8+CgkJPGNvbCB2 NFczX396KqGxvVGrk5xb fQg7SsB7JUXxIv7LSFji H39tP8PfgEB+Sqh9xEXu ZHk+CgkJPHRyPgoJ PFa4uRMgd3Y6jZI4JyAt seYtd4s6BQqlEQC0YmV6 VBE3jDPjlH4spDioxesx aB1cIeC+CgkJCTxk xOGsU9hli6F7IePit5Kq lXdnjrEkEOXwLgYxu3jz JzgoUODnbP8iBCC4IkIp NKDudBNpVKZaXO5d vvFqqDVkFSJkXhFiA9Pl o33gu6XvUGZXD9uKCoQx NVV5DD9tIhEnYC4lApWx YmMxNjlmLWEwZjYt MSRhBr58UJU9XFMnTdR6 MjD9N3N8OxLse0W1aMO9 XvLyTXSxfhk9JUUihVkv FKuzmNhnlLtets8w ZTsiPjxzcGFuIGNsYXNz XSVwZHUoA4Eem96yyMJv bOT2Zx51q5NgujHwcOxo KD1uBc3vaS44UNbf nRR0HQZsqNS9UMVagIUh VTVin7MowBvnpspbtN0x DXHowV4qBcC+B5nwDOZp Y85gkEexvS33OI1y kCDgZrhcc8Qegu8BNRuX TNEwraRyoVPjqz6zOSXc rFBsa124EJ81JpNlKCks v741NG90sIslLO4u WWMYZ0IFCJ2NVKBLXtJa LApdPISglkJgT5X7rGhj HXVXS7E1PbS4UA1ANpRj NHIIX6SoEaHwCt3U V1AFWUiVVdQ2IjUmLPmv PSJfNzRkYmJkNDQtMDg4 Zu20KWNqSST0HZVxVpG7 KieuMPQ5VDKuJc85 I4Tyqp0UJBiCBR6vwLB+ PvsFGVd4RFk5XSXrQGRw GYPtTDAcW0Bch04fLCTh ZWZyZXNoYWJsZSBk WCsra9IgpKItRYY8CUe1 YKSakeGkq9SgWyisUfHz VNzeAAR6iT2uV65jGD4a CF0GVfYkPZNbFeQw PdFjrGM4Zi24RPIwBFK7 Rx04BuMzYEJeUOPfVBWt OP7eYqH1EbY2JPl3JILx XOH6iYxiLZYuVDOy fX9pObE6jBh9Lh42z4Jd kxNgjXOwgb4cBWDiZXV8 uE4uZOvsxPiquWO+PHNw BP7fd2S3nVJ4CiGr fpIhb3QoE9g5UhOmd1tt OmS8PYd3OYXoN43eKECb j827WZBgZSLkfJzgCMej PkhQSSBTdGFmZjwv m0Ntbf51C3KcGW9+CgoJ YSs8YBz8COEjYMLsXEUl ZGVtcmNvbnRlbnQiIGRk YdGkptXfipR8fCHh IAZPGLLRUHSEP62JPRSq MNOsWvMxQxRmIP0fYJV0 rER6NiE4GIQCBKEnARh3 XOXdNVF0Tg8AAeAi RMLTEPRNNlqoLOM4RnRs vOL1Xl87TKGxDLl0Le6g SIJvQXK1UBsfWSPyBb8f HBX8NGKmESS7XMpx GirOFTf9JUp8YCGcEVHf PSJkZGVtcmNvbnRlbnRp lCTjMANmckBob3JlLndb ZsYcXYjvwF8iuB3x tOixN2V1gRfnKZG0x6Ui cmlnaHQiIGRkOmNvbnRl ocQ6xAYvGIFUCWUAZZXQ X46MCRElDAWsPnSc hTi8nSttTHDxJOgeJZGe PAPzZGKjXjyaWaaxIw96 GuQ3VDw9OpEhTGZbV8Bz OGBbAyK7EeY9fZow zgclFW2oDUxbNT8fE2Sw F4JeWA72BHFub44bZzbR OAa6SJw1GYL2kCdoDJTl YNXsuX24SQMyxLVn bC72WBWlSWTcbtt0KHWk dPmhRw6yENAaEkGpdLKq cmdiKDAsIDAsIDApOyB0 WPg1RMZdhWdwJlBe AOG0HnUei3raveegixmi XANoISRkXIVeAsM4YLi4 LWluZGVudDogMGluOyBm k634FNZ4cPtbTdPo q8IpCYc3DFCnxnSes4Ri W1n9HnTpj9KnZLg0AOVn tPNzDCYzr2IhzBdjcbvj pf5rKAilNvbXGOv2 CPt5OtfxLJ9wvUB9Ts6p LJxyYgIgTV0dYINvKPZ2 FsflGWW5IG9cCXUbTSVu HBH8KUznIzysJB3M CgkJCTxkaXY+RXhjaXNp n44kl7FveO1mBFBdcRwv bPNyzABjVO1yBKZyY4Zy VV2qKEGsxH2bsUTh MQ5eGWXxAGL2UM8ujCA+ WdcNFAfxLUi4RwiWGVo6 R0Wlsg7ABGxCLU1szZJ+ BgjBRKs3IPk2TDXg YXNzPSJkZGVtcmNvbnRl yqUspVKnWVWpbeBbk9Xj YedoCsSgUTfadL0enV3m aYapO3J6gDtlQLX2 o6GgsybvxODwPTKtBlUr grGmhoS9eUDsXKZKUSCH QDQXY91MUEAuWCVbXqPp cQw3vRffNGPgNPwz PSJfNTIxYTVlZjItYmQw IV41WrrkPOOjPHUcWWlr QsK2ROccOBW3JuO8cErp chezIY2uSYifSI0y W7LvU7YjCW05SLLmh84b PobnDGn8XxjJLFoTTFNm hrNstAIjii3nOOBbcWFa v766LC58mNJnyKHu RBTdhB85FLVgXMJfZFL0 YnRuZmxvYXRpbmdzdHls OA0qrA2tRQKaC0v1AkGe JPkfu037OK51bCng NC0jIAICA6KQGH8GDGTL HpFvFRnztmOfrXtaZM4t VnLuRI2dKovyIPD2CyU2 RUIfVKUzIQhrKy23 MSZhDYa1KxEvXPY0TXAk AhHdwG6dlzN8JVD8ItO1 wjLuoSPIo6V7fPUyaOX6 aC7lTz01R7Jfgm3I VhaSRCofuVEpT5xyl4G2 QvNzPZ0bL87pbYVqyKf2 AB1hBRBvMP8uzkVirMVd WCPrYrX6wyCfj7C3 zW3dk2Z6oBT2AlSsqX3i wWzdbMDzVID1N47lmPHw qBC2pYP0WhSEFHORMxJr EPPPCkFzIDM6FC61 bDD4kPU6AjNdcGN3Ss2u RVSkWXWpPO78KbytEAL6 M4UyMFN4Zq9zOGR6Cjl6 XSV0DOtiMMqxcQ8t FhZwHHMHcQ2pmOloGD1v tX0vscQblPolxzO+PC9k aXY+GskBHSt1FBa3JPLe YXNzPSJkZGVtcmNv bnRlbnRpdGVtIGRkcmVt u8LeXugyVpXaAVfrhF5z yB1flMxjG9Y1wEdkBDA4 m0XajbkhxGBhAYRs LwQrfpUfdmK5tDBcQLBB BGCCDQDGK38KUBWwUKGo ZnYwcWd1xUgwURPpKGxb ZZMuWeP7VcWeZSGp BKLoWa27IeR2DMt6NsJp E4XcWiOzOhE2ZXFsRhK6 vCxzfatsOI0bJEenQO1b P9MiC5VmGV50CANq d87rJjzxBZs1PhqXFTfB JIFehuNvgUGpbc6jLWWa aPPhl980GE39fDNmlQLq THOjzB47ONCfXJUw ZOK7OqWaQknvSFSbcugr hBfcFA2scK1rZAHlL0w4 VyZvEJvqv375KY83qCct FT8qXIRRW5TXAD1L RUFTIiBkZDplbnRpdHlp WD2jXlFqDF8tTkVmKTN8 RuNgELN0NeZhNWV4QN41 Ezl5ZPXhIBaqAUPt FfB6WXEqvO8dmvK5TCT4 BuX0nbTikOULj2D0fEVo qJR6nP9uJa72D2Rgcm1Q PnyRKZmihRPhF5bb k6A7MyYjJR6mY31qxGJt aRm2CF8dLXIrOA6lnfTi lKQnZJMuGlD2ubYdg1Y5 hV9xt1X8fHJ9GzLp nZ1xpZokxIIvAVL7G00p zFGjhJL1hIJ4XxPJLUKE CiDrSXWMMeAoIMU2VD21 aXD2mAL1OkEomZQ8 Iu8xBIJ2FPR1YR0aKWWb JFGsJfFlRJPvRV4cBjLi SeZaPFQrLgphBQzdeE6h NzHyXXGJqZ2xkSqz AS0thZ0uerHciKjwkfC+ QL0rtEQ+BwpNZJd9KOs3 IGNsYXNzPSJkZGVtcmNv bnRlbnRpdGVtIGRk ikJrg4EbIypfAgTfQAqp gV7dpA9scDiuC1Q3mFbl GGG8j0VnlegjsSJsCMLz WwRbfhIycoV3tRMf PJIDVHETHJUYK43OXSKg FZEqXlQrpHl0sSaaGFOy IGlkPSJfNjNiNzJmYmUt SwL1Sn23EkUuQEV3 MDYtNTIwNTlkMDZiZWUw NpJ8wNienygwCY6dQAxw SV6oE9PvO7HrCQ49OFHa s64ySorjJFp3MxoA NDaRPSFpmkQytTHnxh3s XPXhdSFlw780ZS54gBUe dKHgIKOjzX28BDQzXHOa NYU9WvFpPczkSTSa czjnwJeeYI2jbQ4zYWAu Y3u5DgWmKXlui100YV08 dJxjGC0jWZFZF8FJCA8R RUFTIiBkZDplbnRp d (more content not included)... Normal [facility] Comment on above: Result Comment: Elec tronically Signed By: GABI NAJERA, Mike Olivera.vandana\Date and Time Signed: 11/15/20 09:19 EDT [facility] Letter [facility] October 31, 2020 Keturah Pat, [address] [facility] [address] Re: ROBERT BOATENG Date of : 1965 Thank you for your referral of Robert Boateng who was seen on consultation on October 24, 2020, for mole on face and skin tag on chest. A excisional biopsy is planned. I have enclosed my consultation notes for your review. I will be happy to follow Robert. Sincerely, Mike Knapp MD General Surgery Normal [facility] OCC BLD IMMUNO SCREENon OCCULT BLOOD Negative Normal NEGATIVE [facility] Comment on above: Performed By: #### O BSCRN #### [facility] [address] [place] [address] Lyn Escobaren Facesheeton 10-25-2020 Facesheet [id number] #1.00CD:127 Normal [facility] Ambulatory Clinical Summaryo n 10-24-2020 Ambulatory Clinical Summary {[id number]}CD:[id number] Normal [facility] GLYCOHEMOGLOBIN A1Con 2020 ADA RECOMMENDATION ADA THERAPEUTIC TARGET 6.0 - 7.0 ACTION SUGGESTED > 7.0 Normal [facility] Comment on above: Performed By: #### A 1C #### [facility] [address] [address] Lyn Sylvia Glucose [Mass/Vol] 111 mg/dL Normal [facility] Comment on above: Performed By: #### A 1C #### [facility] [address] [address] Lyn Sylvia HbA1c (Bld) [Mass fraction] 5.5 % Normal <=6.0 [facility] Comment on above: Performed By: #### A 1C #### [facility] [address] [place] [address] Lyn Ward Physician Referralon 021 Physician Referral [id number] #1.00CD:127 Normal [facility] Vital Signs Date Time Vital Sign Value Performing Clinician Romelia hutson 11-10-2024 13:00-0400 Body height 177.8 cm Keturah Pat MD Work Phone: [facility] 11-10-2024 13:00-0400 Body mass index (BMI) [Ratio] 29.5 kg/m2 Keturah Pat MD Work Phone: [facility] 11-10-2024 13:00-0400 Body weight 93.44 kg Keturah Pat MD Work Phone: [facility] 11-10-2024 13:00-0400 Diastolic blood pressure 82 mm[Hg] Keturah Pat MD Work Phone: [facility] 11-10-2024 13:00-0400 Heart rate 54 /min Keturah Pat MD Work Phone: [facility] 11-10-2024 13:00-0400 Respiratory rate 18 /min Keturah Pat MD Work Phone: [facility] 11-10-2024 13:00-0400 SaO2% (BldA) [Mass fraction] 96 % Keturah Pat MD Work Phone: [facility] 11-10-2024 13:00-0400 Systolic blood pressure 122 mm[Hg] Keturah Pat MD Work Phone: [facility] 09-26-2024 15:53-0400 Body height 177.8 cm Keturah Pat MD Work Phone: [facility] 09-26-2024 15:53-0400 Body mass index (BMI) [Ratio] 29.9 kg/m2 Keturah Pat MD Work Phone: [facility] 09-26-2024 15:53-0400 Body weight 94.8 kg Keturah Pat MD Work Phone: [facility] 09-26-2024 15:53-0400 Diastolic blood pressure 78 mm[Hg] Keturah Pat MD Work Phone: [facility] 09-26-2024 15:53-0400 Heart rate 85 /min Keturah Pat MD Work Phone: [facility] 09-26-2024 15:53-0400 Respiratory rate 18 /min Keturah Pat MD Work Phone: [facility] 09-26-2024 15:53-0400 SaO2% (BldA) [Mass fraction] 98 % Keturah Pat MD Work Phone: [facility] 09-26-2024 15:53-0400 Systolic blood pressure 132 mm[Hg] Keturah Pat MD Work Phone: [facility] 08-17-2024 13:06-0400 Body height 177.8 cm Keturah Pat MD Work Phone: [facility] 08-17-2024 13:06-0400 Body mass index (BMI) [Ratio] 30.4 kg/m2 Keturah Pat MD Work Phone: [facility] 08-17-2024 13:06-0400 Body weight 96.16 kg Keturah Pat MD Work Phone: [facility] 08-17-2024 13:06-0400 Diastolic blood pressure 84 mm[Hg] Keturah Pat MD Work Phone: [facility] 08-17-2024 13:06-0400 Heart rate 61 /min Keturah Pat MD Work Phone: [facility] 08-17-2024 13:06-0400 Respiratory rate 18 /min Keturah Pat MD Work Phone: [facility] 08-17-2024 13:06-0400 SaO2% (BldA) [Mass fraction] 97 % Keturah Pat MD Work Phone: [facility] 08-17-2024 13:06-0400 Systolic blood pressure 120 mm[Hg] Keturah Pat MD Work Phone: [facility] 08-08-2024 12:55-0400 Body height 177.8 cm Keturah Pat MD Work Phone: [facility] 08-08-2024 11:30-0400 Body temperature 98.4 [degF] Keturah Pat MD Work Phone: [facility] 08-08-2024 11:30-0400 Diastolic blood pressure 94 mm[Hg] Keturah Pat MD Work Phone: [facility] 08-08-2024 11:30-0400 Heart rate 64 /min Keturah Pat MD Work Phone: [facility] 08-08-2024 11:30-0400 Respiratory rate 15 /min Keturah Pat MD Work Phone: [facility] 08-08-2024 11:30-0400 SaO2% (BldA) [Mass fraction] 94 % Keturah Pat MD Work Phone: [facility] 08-08-2024 11:30-0400 Systolic blood pressure 153 mm[Hg] Keturah Pat MD Work Phone: [facility] 08-08-2024 07:00-0400 Inhaled oxygen flow rate 2 L/min Keturah Pat MD Work Phone: [facility] 08-08-2024 06:00-0400 Body weight 100.7 kg Keturah Pat MD Work Phone: [facility] 08-07-2024 03:17-0400 Body height 177.8 cm Keturah Pat MD Work Phone: [facility] Encounters Encounter Date Encounter Type Care Provider Facility Start: 11-10-2024 End: 11-10-2024 ambulatory Keturah Pat MD Work Phone: [facility] Work Phone: Start: 11-10-2024 End: 11-10-2024 Patient encounter procedure Rosalia Peters CR[employer] EXAMINER -[facility] Work Phone: Start: 09-26-2024 End: 09-26-2024 ambulatory Keturah Pat MD Work Phone: [facility] Work Phone: Start: 09-26-2024 End: 09-26-2024 Patient encounter procedure Emile Orellana MD -[facility] Work Phone: Start: 08-17-2024 End: 08-17-2024 Patient encounter procedure Emile Orellana MD -[facility] Work Phone: Start: 08-07-2024 Non-patient / Non-visit Enedelia Pat MD Work Phone: [facility] Work Phone: Start: 08-07-2024 End: 08-07-2024 ambulatory UNKNOWN PROVIDER Facility:[facility] Start: 08-07-2024 End: 08-08-2024 Evaluation and management of inpatient Keturah Pat MD Work Phone: [facility] Work Phone: Start: 06-05-2021 End: 06-05-[address] KETURAH PAT Facility:[facility] Start: 10-30-2020 Encounter for genera l adult medical examination without abnormal findings DR KETURAH PAT [facility] Start: 10-23-2020 End: 10-24-[address] KETURAH PAT Facility:[facility] Start: 10-23-2020 End: 10-24-2020 Encounter for general adult medical examination without abnormal findings DR KETURAH PAT Facility:[facility] Procedures Date Procedure Procedure Detail Performing Clinician Start: 08-07-2024 CL Ivus Initial Vessel Keturah Pat MD Work Phone: Start: 08-07-2024 CL LHC [facility] COR Angio Georgi Pat MD Work Phone: Start: 08-07-2024 CL PCI AMI 1st Vesse l CX LORETO Keturah Pat MD Work Phone: Start: 08-07-2024 Keturah lopez MD Work Phone: Start: 10-23-[address] ENEDELIA PAT Comment on above: Performed By: #### P [facility] #### [facility] [address] [address] Lyn Ward Plan of Treatment Date Care Activity Detail Author Start: 08-18-2024 Patient referral [facility] Work Phone: Start: 08-08-2024 [facility] Start: 08-07-2024 Dilation of Coronary Artery, One Artery with Drug-eluting Intraluminal Device, Percutaneous Approach Dilation of Coronary Artery, One Artery with Drug-eluting Intraluminal Device, Percutaneous Approach [facility] Start: 08-07-2024 Fluoroscopy of Left Heart using Low Osmolar Contrast Fluoroscopy of Left Heart using Low Osmolar Contrast [facility] Start: 08-07-2024 Fluoroscopy of Multiple Coronary Arteries using Low Osmolar Contrast Fluoroscopy of Multiple Coronary Arteries using Low Osmolar Contrast [facility] Start: 08-07-2024 Measurement of Cardiac Sampling and Pressure, Left Heart, Percutaneous Approach Measurement of Cardiac Sampling and Pressure, Left Heart, Percutaneous Approach [facility] Start: 08-07-2024 Ultrasonography of Single Coronary Artery, Intravascular Ultrasonography of Single Coronary Artery, Intravascular [facility] Start: 08-07-2024 Hospital admission [facility] Patient Education High cholester ol Heart attack - Discharge instructions Drug Eluting Stents Chest pain - Discharge instructions Know your Meds [facility] Work Phone: Patient referral [facility] Work Phone: Referral to cardiac rehabilitation program [facility] Payers Date Payer Category Payer Self-pay 1965 Unknown [id number] 1965 Unknown [id number] 1966 Unknown [id number] 1959 Unknown [id number] 1959 Unknown [id number] Unknown [id number] Social History Date Type Detail Facility Start: 08-07-2024 End: 08-17-2024 Tobacco smoking status NHIS Never smoked tobacco (finding) [facility] Start: 08-08-2024 Sex Male (finding) [facility] Start: 1965 Sex Assigned At Male F [facility] Medical Equipment Procedure Code Equipment Code Equipment Origin al Text Equipment Identifier Dates CL STENT TERRENCE FRONTIER 3.5 X 26 FDA Start: 08-07-2024 CL STENT TERRENCE FRONTIER 3.5 X 26 FDA Start: 08-07-2024 CL STENT TERRENCE FRONTIER 3.5 X 26 FDA Start: 08-07-2024 Goals Date Patient Goal Desired Activity /State Functional Status Date Assessment Result Facility 08-08-2024 Functional status Patient at Baseline [facility] Work Phone: Mental Status Date Assessment Result Facility 08-08-2024 Cognitive function Cognitive Sta tus Patient at Baseline [facility] Work Phone: Clinical Notes 10-24-2020 to 08-17-2024 Note Date & Type Note Facility 08-17-2024 Evaluation note Authored August 17, 2024 2:19p m [facility]CS 0. NYHA Ia. Excellent cl inical response to pharmacal invasive management strategy followed by PCI to RCA. No mechanical complications of [place]. No bleeding complications on dual antiplatelet therapy. [facility] Work Phone: [phone] 427-683605-12-2025 Discharge summary Author Emile Damon [facility] Note Date/Time August 08, 2024 9:36a m [facility] [address] [place] [address] Discharge Summary Signed Patient: Robert Boateng MR#: [id number] : 1965 Acct:[id number] Age/Sex: 59 / M Adm Date: 5 Loc: Room: [address] [place] [address]: Emile Damon MD Copies to: MD Emile Platt MD~ Providers Date of Discharge: 08/08/24 Discharging Provider: Emile Damon Primary Care Provider: Keturah Pat Discharge Diagnosis (1) ST elevation myocardial infarction (STEMI) of inferior wall: Final Diagnosis Final Discharge Diagnosis: 1. Acute inferior STEMI status post successful pharmacoinvasive management strategy with [id number] fibrinolytic therapy followed by early mechanical revascularization with PCI to the left circumflex. 2. Heart failure with mildly reduced ejection fraction. Post PCI EF 50%. 3. Dyslipidemia Summary Hospital Course Hospital course: Robert is a very pleasant 59-year-old white male who presented to [place] emergency department early Thursday morning with complaints [...] once available was transported by [facility] to [facility] for further evaluation and management. On arrival to [facility] ICU his chest pain had resolved as had his ST segment elevation on surface ECG. The patient was admitted to theICU on full medical therapy for ACS including IV unfractionated heparin drip, IVnitroglycerin drip. He had been loaded with oral ticagrelor 180 mg at [place] ER. Given his anticoagulation and recent fibrinolytic therapy we elected to wait 4 hours from arrival to go to the [facility] for cardiac catheterization and PCI. Please see [...] heart disease and no mechanical complication of IL noted. At this point as the patient [...] doctor or pharmacist, without first calling the filer repairer who implanted the stent. If you require [...] weight lifting, stair steppers, etc. until the filer repairer approves these activities. Check with the filer repairer on your first follow-up visit. CALL YOUR BELT LOOP MACHINE OPERATOR: -If bleeding should occur from the catheter insertion site- apply pressure to the site then immediately call us. -Report any fever, redness, drainage, increased swelling, or firmness at the catheter insertion site. Some bruising or slight swelling may be present at thetime of discharge. -Should arm or leg become cold, numb, white, or blue, contact the filer repairer immediately. -IF you should experience episodes of [...] Cardiopulmonary Rehabilitation program is recommended. The attending filer repairer or a nurse clinician should provide you with specificinstructions regarding activity, diet, medications, and further follow up for you. Follow the medication instructions provided on your discharge. If the dosages and instructions on this sheet differ from the dosage and instructions on the bottle, follow the instructions on the bottle. [facility] is not responsible for incorrect prescription information [...] % (Auto) 66.2, Lymph % (Auto) 20.1, Cobb % (Auto) 9.8, Eos % (Auto) 3.4, Baso % (Auto) 0.5, Nucleat RBC Rel Count 0.2, Neut # (Auto) 6.5, Lymph # (Auto) 2.0, Cobb # (Auto) 1.0 H, Eos # (Auto) 0.3, Baso # (Auto) 0.1 08/08/24 04:20: Corrected WBC Cancelled, Uncorrected WBC Count Cancelled, RBC Cancelled, Hgb Cancelled, Hct Cancelled, MCV Cancelled, MCH Cancelled, MCHC Cancelled, RDW Cancelled, Plt Count Cancelled, MPV Cancelled, Neut % (Auto) Cancelled, Lymph % (Auto) Cancelled, Cobb % (Auto) Cancelled, Eos % (Auto) Cancelled, Baso % (Auto) Cancelled, Nucleat RBC Rel Count Cancelled, Neut # (Auto)Cancelled, Lymph # (Auto) Cancelled, Cobb # (Auto) Cancelled, Eos # (Auto) Cancelled, Baso # (Auto) Cancelled, Monocyte Dist Width Cancelled, PHA Creatinine Clear 92.91, Sodium 138, Potassium 3.9, Chloride 108 H, Carbon Dioxide 24.7, Anion Gap 9.2, BUN 15, Creatinine 1.04, Est GFR (CKD-EPI) > 60.0, Glucose 113 H, Calcium 8.5 L, Total Bilirubin 0.9, AST 122 H, ALT 58 H, AlkalinePhosphatase 56, Troponin I High Sens 90969 H*, Total Protein 6.4, Albumin 3.9, Globulin 2.5, Albumin/Globulin Ratio 1.6 08/07/24 09:25: Heparin Anti-Xa, Unfract 0.60, Troponin I High Sens 88758 H* Documented By: Emile Damon MD 08/08/24921 Signed By: <Electronically signed by Emile Damon MD> 08/08/2436 [facility] Work Phone: 1(177) 949-616605-12-2025 [place] [id number] Discharge Summary Signed Patient: Robert Boateng MR#: [id number] : 1965 Acct:[id number] Age/Sex: 59 / M Adm Date: 5 Loc: Room: [address] [place] [address]: Emile Damon MD Copies to: MD Emile Platt MD~ Providers Date of Discharge: 08/08/24 Discharging Provider: Emile Damon Primary Care Provider: Keturah Pat Discharge Diagnosis (1) ST elevation myocardial infarction (STEMI) of inferior wall: Final Diagnosis Final Discharge Diagnosis: 1. Acute inferior STEMI status post successful pharmacoinvasive management strategy with [id number] fibrinolytic therapy followed by early mechanical revascularization with PCI to the left circumflex. 2. Heart failure with mildly reduced ejection fraction. Post PCI EF 50%. 3. Dyslipidemia Summary Hospital Course Hospital course: Robert is a very pleasant 59-year-old white male who presented to [place] emergency department early Thursday morning with complaints [...] and then once available was transported by [facility] for further evaluation and management. On arrival to [facility] ICU his chest pain had resolved as had his ST segment elevation on surface ECG. The patient was admitted to theICU on full medical therapy for ACS including IV unfractionated heparin drip, IVnitroglycerin drip. He had been loaded with oral ticagrelor 180 mg at [facility]. Given his anticoagulation and recent fibrinolytic therapy we elected to wait 4 hours from arrival to go to the [facility] for cardiac catheterization and PCI. Please see my cardiac catheterization and PCI reports for full details of the patient's procedure. However in short he was found to have a culprit lesion of the distal left circumflex. This was treated under IVUS guidance with implantation of a single large caliber frontier [place] drug-eluting stent with excellent clinical angiographic and [...] doctor or pharmacist, without first calling the filer repairer who implanted thestent. If you require pain [...] weight lifting, stair steppers, etc. until the filer repairer approves these activities. Check with the filer repairer on your first follow-up visit. CALL YOUR BELT LOOP MACHINE OPERATOR: -If bleeding should occur from the catheter insertion site- apply pressure to the site then immediately call us. -Report any fever, redness, drainage, increased swelling, or firmness at the catheter insertion site. Some bruising or slight swelling may be present at thetime of discharge. -Should arm or leg become cold, numb, white, or blue, contact the filer repairer immediately. -IF you should experience episodes of [...] Cardiopulmonary Rehabilitation program is recommended. The attending filer repairer or a nurse clinician should provide you with specificinstructions regarding activity, diet, medications, and further follow up for you. Follow the medication instructions provided on your discharge. If the dosages and instructions on this sheet differ from the dosage and instructions on the bottle, follow the instructions on the bottle. [facility] is not responsible for incorrect prescription information [...] % (Auto) 66.2, Lymph % (Auto) 20.1, Cobb % (Auto) 9.8, Eos % (Auto) 3.4, Baso % (Auto) 0.5, Nucleat RBC Rel Count 0.2, Neut # (Auto) 6.5, Lymph # (Auto) 2.0, Cobb # (Auto) 1.0 H, Eos # (Auto) 0.3, Baso # (Auto) 0.1 08/08/24 04:20: Corrected WBC Cancelled, Uncorrected WBC Count Cancelled, RBC Cancelled, Hgb Cancelled, Hct Cancelled, MCV Cancelled, MCH Cancelled, MCHC Cancelled, RDW Cancelled, Plt Count Cancelled, MPV Cancelled, Neut % (Auto) Cancelled, Lymph % (Auto) Cancelled, Cobb % (Auto) Cancelled, Eos % (Auto) Cancelled, Baso % (Auto) Cancelled, Nucleat RBC Rel Count Cancelled, Neut # (Auto)Cancelled, Lymph # (Auto) Cancelled, Cobb # (Auto) Cancelled, Eos # (Auto) Cancelled, Baso # (Auto) Cancelled, Monocyte Dist Width Cancelled, PHA Creatinine Clear 92.91, Sodium 138, Potassium 3.9, Chloride 108 H,Carbon Dioxide 24.7, Anion Gap 9.2, BUN 15, Creatinine 1.04, Est GFR (CKD-EPI) > 60.0, Glucose 113 H, Calcium 8.5 L, Total Bilirubin 0.9, AST 122 H, ALT 58 H, AlkalinePhosphatase 56, Troponin I High Sens 86673 H*, Total Protein 6.4, Albumin 3.9, Globulin 2.5, Albumin/Globulin Ratio 1.6 08/07/24 09:25: Heparin Anti-Xa, Unfract 0.60, Troponin I High Sens 45413 H* Documented By: Emile Damon MD 08/08/24921 Signed By: 08/08/24 0936 [facility]05-11-2025 History and physical note Author Emile Damon [facility] Note Date/Time August 07, 2024 11:34 am [facility] [address] [place] [address] Cardiology H&P Signed Patient: Robert Boateng MR#: [id number] : 1965 Acct:[id number] Age/Sex: 59 / M Adm Date: 5 Loc: Room: [address] [place] [address] Type: ADM IN Attending Dr: Emile Damon [...] and the patient was taken directly to [place] emergency department for emergent evaluation. In the [...] contacted again by the ER physician from [place] telling the that there was going to [...] given IV TNK 50 mg in the [place] ER. He had already been loaded with 180 mg oral Brilinta also per my direction. Once weather was conducive he was then transported by air flight to [facility] for further and ongoing management of acute [...] negative unless noted below or in HPI [facility] Medical History (Updated 08/07/24 @ 11:06 by [...] Dysrhythmias Sinus rhythms and dysrhythmias: sinus rhythm IL, pacemaker, normal Myocardial infarction: inferior IL (acute or recent) A&P - Cardiology (1) [...] 08/07/24 1134 [facility] Work Phone: 1(301) 741-748405-11-2025 Procedure [place] [id number] Cardiology PCI Note Signed Patient: Robert Boateng MR#: [id number] : 1965 Acct:[id number] Age/Sex: 59 / M Adm Date: 5 Loc: Room: [address] [place] [address] Type: ADM IN Attending Dr: Emile Damon [...] Eluting Stent: 3.5 x 26 mm frontier [place] drug-eluting stent sized and placed with IVUS [...] distal edge dissections. Narrative: Guiding catheter: 6 Sami EBU 3.5 Anticoagulation: IV bivalirudin using weight-based protocol Coronary guidewire: 190 cm 0.14 BMW IVUS: 6 Sami [place]any [place] eye Impression: 1. Successful IVUS guided PCI after successful early reperfusion with thrombolytic therapy, now with implantation of a single large caliber frontier [place] drug-eluting stent in the distal left circumflex/proximal [...] systolic dysfunction in the wake of inferior IL: Metoprolol succinate 25 mg nightly and valsartan [...] MD 08/07/24 1141 Signed By: 08/07/24 1146 [facility]05-11-2025 [place] [address] Cardiac Catheterization Note Signed Patient: Robert Boateng MR#: [id number] : 1965 Acct:[id number] Age/Sex: 59 / M Adm Date: 5 Loc: Room: [address] [place] [address] Type: ADM IN Attending Dr: Emile Damon [...] through double vessel puncture technique modified Seldinger pnrj-bvy-yoyq technique hydrophilic 6 Sami vascular access sheath was inserted into the [...] air SUMMARY OF FINDINGS CCS Classification: CCS [id number] at rest or w/ any activity Dominance: [...] was performed both in the JASON and ROMANIAN caudal projections. Left ventricle was found to [...] MD 08/07/24 1134 Signed By: 08/07/24 1140 [facility]05-11-2025 [place] [address] Cardiology H&P Signed Patient: Robert Boateng MR#: [id number] : 1965 Acct:[id number] Age/Sex: 59 / M Adm Date: 5 Loc: Room: 2C1443-3 Type: ADM IN Attending Dr: Emile Damon [...] and the patient was taken directly to [place] emergency department for emergent evaluation. In the [...] contacted again by the ER physician from [place] telling the that there was going to [...] given IV TNK 50 mg in the [place] ER. He had already been loaded with 180 mg oral Brilinta also per my direction. Once weather was conducive he was then transported byair flight to [facility] for further and ongoing management of acute [...] negative unless noted below or in HPI [facility] Medical History (Updated 08/07/24 @ 11:06 by [...] Dysrhythmias Sinus rhythms and dysrhythmias: sinus rhythm IL, pacemaker, normal Myocardial infarction: inferior IL (acute or recent) A&P - Cardiology (1) [...] MD 08/07/24 1124 Signed By: 08/07/24 1134 [facility]05-11-2025 Evaluation note* Diagnosis Onset Date Resolution Status Admit Date ST elevation myocardial infa rction (STEMI) of inferior wall acute July 3:00am [facility] Work Phone: 1(749) 578-408607-28-[address] Pat referral for skin [...] lifetime) Tobacco Use:. Never Smokeless Tobacco Use:., [facility]2020[facility]Result Comment: Electronically Signed By: [...] doctor or pharmacist, without first calling the filer repairer who implanted the stent. If you require [...] weight lifting, stair steppers, etc. until the filer repairer approves these activities. Check with the filer repairer on your first follow-up visit. CALL YOUR BELT LOOP MACHINE OPERATOR: -If bleeding should occur from the catheter insertion site- apply pressure to the site then immediately call us. -Report any fever, redness, drainage, increased swelling, or firmness at the catheter insertion site. Some bruising or slight swelling may be present at the time of discharge. -Should arm or leg become cold, numb, white, or blue, contact the filer repairer immediately. -IF you should experience episodes of [...] Cardiopulmonary Rehabilitation program is recommended. The attending filer repairer or a nurse clinician should provide you with specific instructions regarding activity, diet, medications, and further follow up for you. Follow the medication instructions provided on your discharge. If the dosages and instructions on this sheet differ from the dosage and instructions on the bottle, follow the instructions on the bottle. [facility] is not responsible for incorrect prescription information provided by the patient during their visit. Do not stop your medications without consulting your health care provider. Please take the list with you to your next doctor's appointment.[facility] Work Phone: Reason for referral (narrative)No reason for referral information availableMart[facility]erry [facility] Work Phone: Summary Purpose Family History [...] m STEMI August 07, 2024 11:24 am [facility] 08/08August 17, 2024 12:35 pm 6 week [...] 2024 1 2:35pm Chief Complaint Admit Date [facility] 08/08August 17, 2024 12:35 pm 6 week [...] section and content) DATE CREATED AUTHOR 11/22/2020 [facility] DATE CREATED AUTHOR AUTHOR'S ORGANIZ ATION 06/06/2021 [facility] DATE CREATED AUTHOR AUTHOR'S ORGANIZ ATION 08/08/2024 [facility] [employer] [facility] DATE CREATED AUTHOR AUTHOR'S ORGANIZ ATION 09/18/2024 [facility] Care Teams (unrecognized sec tion [...] August 07, 2024 Emile Damon MD Admit Provider, Atte nding Provider, Other Provider Active Start: August 07, 2024 Team Status: Inactive Member Role Status Mi Pat MD Primary Care Provider Active Start: August 07, 2024 End: August 08, 2024 Emile Damon MD Admit Provider Active Start: [facility] 2024 End: August 08, 2024 Emile Damon MD Attending Provider Active Star t: August 07, 2024 End: August 08, 2024 Team Status: Active Member Role Status Mi Pat MD Primary Care Provider Active Start: August 07, 2024 Emile Damon MD Admit Provider Active Start: [facility] 2024 Emile Damon MD Attending Provider Active Star t: August 07, 2024 Emile Damon MD Other Provider Active Start: [facility] 2024 Team Status: Inactive Member Role Status [...] BE BASED ON THE PRIMARY CLINICAL RECORDS. [facility]. provides no warranty or guarantee of the accuracy or completeness of information in this document.
== END 2024-12-14 15:24 | disposition home or self-care (01) ==
LOC: LAB 15:23
PROVIDERS: PCP Family Medicine; Visit Provider Family Medicine
DX: Z00.00 Encounter for general adult medical examination without abnormal findings (principal)
CPT/HCPCS: G0328

== ENCOUNTER 2024-12-22 07:12 | Outpatient (RCR) | payer BC, SELFPAY ==
--- NOTE | 2024-08-19 13:59 | CR1_ITS ---
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 Electronically Signed On 08-24-2024 9:14:39 EDT by Waqas Garcia
--- NOTE | 2024-08-24 14:10 | CR1_ITS ---
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 Electronically Signed On 08-25-2024 10:04:04 EDT by Waqas Garcia
--- NOTE | 2024-09-14 08:01 | CR1_ITS ---
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 Electronically Signed On 09-14-2024 17:58:50 EDT by Waqas Garcia
--- NOTE | 2024-10-12 13:24 | CR1_ITS ---
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 Interpretive Statements Patient may continue cardiac rehab as outlined in the treatment plan. Electronically Signed On 11-04-2024 10:14:18 EDT by NITIN BAUTISTA M.D.
--- NOTE | 2024-11-14 08:33 | CR1_ITS ---
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 Order Number: [id number] Reading MD: Ly Barnes Interpretive Statements Session Date: Electronically Signed On 11-25-2024 13:28:06 EDT by Ly Barnes
--- NOTE | 2024-12-13 14:37 | CR1_ITS ---
The [facility] Test Date: 2024-12-13 Pat Name: ROBERT BOATENG Department: Room: - Gender: Male Senior Advocate: : 1965 Requested By: ISACC NGUYEN Order Number: [id number] Jacinta MD: NITIN BAUTISTA M.D. Interpretive Statements Patient may continue cardiac rehab as outlined in the treatment plan. Electronically Signed On 12-14-2024 18:02:35 EDT by NITIN BAUTISTA M.D.
--- NOTE | 2024-12-22 14:59 | CR1_ITS ---
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 Order Number: [id number] Jacinta MD: NITIN BAUTISTA M.D. Interpretive Statements Electronically Signed On 12-22-2024 21:36:23 EDT by NITIN BAUTISTA M.D.
== END 2024-12-22 14:58 | disposition home or self-care (01) ==
LOC: CR 07:12
PROVIDERS: PCP Family Medicine
DX: I21.9 Acute myocardial infarction, unspecified (principal); Z98.61 Coronary angioplasty status
CPT/HCPCS: 93798

== ENCOUNTER 2025-01-02 12:25 | Outpatient (OUT) | payer BC, SELFPAY ==
--- OUTSIDE RECORDS SUMMARY | 2025-01-02 12:27 | XMS_ITS | Clinical Summary ---
Author Organization [facility] Address [address] [place] [address] Phone Care Team Providers Care Electric Switch Repairer Name Role Phone Unavailable Primary Care Provider [...] patient's age to complete this topic Insurance [facility]
--- OUTSIDE RECORDS SUMMARY | 2025-01-02 12:27 | XMS_ITS | Patient Health Record ---
Author Organization [facility] [place] Address [address] [place] [address] Care Team Providers Care Community Nurse Name Role Phone Georgi Pat Primary Care Provider [phone] Allergies No Known Allergies Results Component Value Reference Range Notes ITP Reviewed date:08/24/2024 09:37:26 AM Interpretation: Performing Lab: Notes/Report: Source Facility: [place] [address] Cardiac Rehab Report Signed Patient: ROBERT LOCKWOOD MR#: [id number] : 1965 Acct:[id number] Age/Sex: 59 / M ADM Date: 08/24/24 Loc: CR Attending Dr: Non-Staff Physician Lyla Ordering Physician: Waqas Garcia D.O. 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 Electronically Signed On 08-24-2024 9:14:39 EDT by Waqas Garcia Dictated By: Waqas Garcia D.O. Signed By: 08/24/24 0914 08/24/24 0914 DD/ 1420 TD/TT: Hall Coordinator: JEEVAN Reviewed date:08/25/2024 10:25:01 AM Interpretation: Performing Lab: Notes/Report: Source Facility: [place] [address] Cardiac Rehab Report Signed Patient: ROBERT LOCKWOOD MR#: [id number] : 1965 Acct:[id number] Age/Sex: 59 / M ADM Date: 08/24/24 Loc: CR Attending Dr: Non-Staff Physician Lyla Ordering Physician: Waqas Garcia D.O. 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 Electronically Signed On 08-25-2024 10:04:04 EDT by Waqas Garcia Dictated By: Waqas Garcia D.O. Signed By: 08/25/24 1004 08/25/24 1004 DD/ 1354 TD/TT: Hall Coordinator: JEEVAN Reviewed date:11/06/2024 07:56:53 PM Interpretation: Performing Lab: Notes/Report: Source Facility: [place] [address] [place] [address] Cardiac Rehab Report Signed Patient: ROBERT LOCKWOOD MR#: [id number] : 1965 Acct:[id number] Age/Sex: 59 / M ADM Date: 11/02/24 Loc: CR Attending Dr: Non-Staff Physician Lyla Ordering Physician: Raj Nguyen M.D. 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 Interpretive Statements Patient may continue cardiac rehab as outlined in the treatment plan. Electronically Signed On 11-04-2024 10:14:18 EDT by NITIN BAUTISTA M.D. Dictated By: NITIN BAUTISTA Signed By: 11/04/24 1014 11/04/24 1014 DD/ 1157 TD/TT: Hall Coordinator: JEEVAN Reviewed date:11/28/2024 02:07:21 PM Interpretation: Performing Lab: Notes/Report: Source Facility: [place] [address] Cardiac Rehab Report Signed Patient: ROBERT LOCKWOOD MR#: [id number] : 1965 Acct:[id number] Age/Sex: 59 / M ADM Date: 11/24/24 Loc: CR Attending Dr: Non-Staff Physician Lyla Ordering Physician: NITIN BAUITSTA Date of Service: 11/14/24 Procedure(s): ITP Accession Number(s): [id number] cc: [facility] Test Date: 2024-11-14 Pat Name: ROBERT LOCKWOOD Department: Room: - Gender: Male 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 Order Number: [id number] Jacinta MD: Ly Barnes Interpretive Statements Session Date: Electronically Signed On 11-25-2024 13:28:06 EDT by Ly Barnes Dictated By: Ly Barnes M.D. Signed By: 11/25/24 1328 11/25/24 1328 DD/ 1151 TD/TT: Hall Coordinator: CBC AUTO DIFF Reviewed date:12/11/2024 01:03:21 PM Interpretation: Performing Lab: Notes/Report: [facility] , White Blood Count 7.3 4.0-11.0 10 3/uL Red Blood Count 5.30 4.70-6.10 10 6/uL Hemoglobin 15.4 14.0-18.0 g/dL Hematocrit 46.6 42.0-54.0 % Mean Corpuscular Volume 87.9 80.0-94.0 fL Mean Corpuscular Hemoglobin 29.1 25.9-34.0 pg Mean Corpuscular HGB Conc 33.0 29.9-35.2 g/dL Red Cell Distribution Width 13.2 11.0-15.0 % Platelet Count 191 150-450 10 3/uL Mean Platelet Volume 10.2 9.5-13.5 fL Neutrophils Percent Auto 67.1 43.0-75.0 % Lymphocytes Percent Auto 20.8 20.5-60.0 % Monocytes Percent Auto 8.3 1.7-12.0 % Eosinophils Percent Auto 2.9 0.9-7.0 % Basophils Percent Auto 0.8 0.2-2.0 % Immature Granulocytes Pct Auto 0.1 0.0-0.5 % Neutrophils Absolute Auto 4.9 1.4-6.5 10 3/uL Lymphocytes Absolute Auto 1.5 1.2-3.8 10 3/uL Monocytes Absolute Auto 0.6 0.3-0.8 10 3/uL Eosinophils Absolute Auto 0.2 0.0-0.7 10 3/uL Basophils Absolute Auto 0.1 0.0-0.1 10 3/uL Immature Granulocytes Abs Auto 0.01 0.00-0.03 10 3/uL Performing Lab: see note ML - The [facility] FREE T3 Reviewed date:12/11/2024 01:03:21 PM Interpretation: Performing Lab: Notes/Report: [facility] Free T3 1.99 2.18-3.98 pg/mL Performing Lab: see note ML - The [facility] LB GLYCOHEMOGLOBIN A1C Reviewed date:12/11/2024 01:03:21 PM Interpretation: Performing Lab: Notes/Report: [facility] , Glycohemoglobin A1C 5.5 4.5-6.2 % > 7.0 ADA RECOMMENDED LIMIT 4.0 - 6.0 ACTION SUGGESTED ADA THERAPEUTIC TARGET < 7.0 Estimated Average Glucose 111 Performing Lab: see note ML - [facility] LB LIPID PROFILE Reviewed date:12/11/2024 01:03:21 PM Interpretation: Performing Lab: Notes/Report: [facility] , Triglycerides 42 <=150 mg/dL Cholesterol 110 <=200 mg/dL HDL Cholesterol 42 40-60 mg/dL <40 mg/dl - HIGH CARDIOVASCULAR RISK > or =60 mg/dl - LOW CARDIOVASCULAR RISK LDL Cholesterol Calculated 59.6 >190 mg/dl VERY HIGH 100-129 mg/dl NEAR OR ABOVE OPTIMAL 130-159 mg/dl BORDERLINE HIGH <100 mg/dl OPTIMAL 160-189 mg/dl HIGH VLDL CHOLESTEROL 8.4 Chol HDL Ratio 2.6 4.4 - 7.1 AVERAGE RISK 7.1 - 11.0 MODERATE RISK >11.0 HIGH RISK 3.3 - 4.4 LOW RISK Performing Lab: see note ML - [facility] LB PROF 14(COMP METB) Reviewed date:12/11/2024 01:03:21 PM Interpretation: Performing Lab: Notes/Report: [facility] , Sodium 145 136-145 mmol/L Potassium 3.9 3.5-5.1 mmol/L Chloride 108 98-107 mmol/L Carbon Dioxide 28.7 21.0-32.0 mmol/L Anion Gap 12.2 Glucose 105 74-106 mg/dL Blood Urea Nitrogen 15.0 7.0-18.0 mg/dL Creatinine 1.11 0.70-1.30 mg/dL Estimated GFR ( Tea >60 >=60 mL/min/1.73m 2 Estimated GFR (Non- Shruti >60 >=60 mL/min/1.73m 2 BUN Creatinine Ratio 13.5 Calcium 9.1 8.5-10.1 mg/dL Bilirubin Total 0.9 0.2-1.0 mg/dL Aspartate Amino Transferase 27 15-37 U/L Alanine Aminotransferase 51 16-63 U/L Alkaline Phosphatase 81 46-116 U/L Total Protein 7.7 6.4-8.2 g/dL Albumin Level 4.0 3.4-5.0 g/dL Globulin 3.7 Albumin Globulin Ratio 1.1 Performing Lab: see note ML - [facility] LB PSA SCREENING Reviewed date:12/11/2024 01:03:21 PM Interpretation: Performing Lab: Notes/Report: [facility] , Prostate Specific Antigen Scrn 1.59 <=4.00 ng/mL Performing Lab: see note ML - [facility] LB T4 Reviewed date:12/11/2024 01:03:21 PM Interpretation: Performing Lab: Notes/Report: [facility] , T4 Thyroxine 6.90 4.50-12.10 ug/dL Performing Lab: see note ML - [facility] LB TSH Reviewed date:12/11/2024 01:03:21 PM Interpretation: Performing Lab: Notes/Report: [facility] , Thyroid Stimulating Hormone 1.307 0.358-3.740 u IU/mL Performing Lab: see note ML - [facility] LB ITP Reviewed date:12/14/2024 06:06:45 PM Interpretation: Performing Lab: Notes/Report: Source Facility: [place] [address] Cardiac Rehab Report Signed Patient: ROBERT LOCKWOOD MR#: [id number] : 1965 Acct:[id number] Age/Sex: 59 / M ADM Date: 12/14/24 Loc: CR Attending Dr: Non-Staff Physician Lyla Ordering Physician: Raj Nguyen M.D. 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 Interpretive Statements Patient may continue cardiac rehab as outlined in the treatment plan. Electronically Signed On 12-14-2024 18:02:35 EDT by NITIN BAUTISTA M.D. Dictated By: NITIN BAUTISTA Signed By: 12/14/24 18012/14/241801 DD/ 1005 TD/TT: Hall Coordinator: Madison Warren* Reviewed date:12/14/2024 05:59:21 PM Interpretation: Performing Lab: Notes/Report: [facility] , Occult Blood Positive Performing Lab: see note ML - [facility] LB ITP Reviewed date:09/14/2024 06:09:22 PM Interpretation: Performing Lab: Notes/Report: Source Facility: [place] [address] [place] [address] Cardiac Rehab Report Signed Patient: ROBERT LOCKWOOD MR#: [id number] : 1965 Acct:[id number] Age/Sex: 59 / M ADM Date: 09/13/24 Loc: CR Attending Dr: Non-Staff Physician Lyla Ordering Physician: Waqas Garcia D.O. 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 Electronically Signed On 09-14-2024 17:58:50 EDT by Waqas Garcia Dictated By: Waqas Garcia D.O. Signed By: 09/14/24 17509/14/24 175 DD/ 0755 TD/TT: Hall Coordinator: ECG 12 lead Reviewed date:08/07/2024 06:14:58 PM Interpretation: Performing Lab: Notes/Report: Source Facility: [place] [address] [place] [address] Electrocardiograph Report Signed Patient: ROBERT LOCKWOOD MR#: [id number] : 1965 Acct:[id number] Age/Sex: 59 / M ADM Date: 08/07/24 Loc: ER Attending Dr: Ordering Physician: Dayo Wall Date of Service: 08/07/24 Procedure(s): ECG 12 lead Accession Number(s): [id number] cc: [facility] Test Date: 2024-08-07 Pat Name: ROBERT LOCKWOOD Department: Room: - Gender: Male 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 Measurements Intervals [place] Rate: 54 P: 17 IN: 180 QRS: 49 QRSD: 86 T: 78 QT: 424 QTc: 409 Interpretive Statements NORMAL SINUS RHYTHM ST ELEVATION, CONSIDER INFERIOR INFARCT, PROBABLY ACUTE ACUTE STEMI 9150 abnormal ECG Compared to ECG 08/07/2024 01:32:05 ST is less elevated in inferior ST is less depressed in lateral Electronically Signed On 08-07-2024 13:14:46 EDT by NITIN BAUTISTA M.D. Dictated By: NITIN BAUTISTA Signed By: 08/07/24 1315 DD/ 0226 TD/TT: Hall Coordinator: ECG 12 lead Reviewed date:08/07/2024 06:14:58 PM Interpretation: Performing Lab: Notes/Report: Source Facility: [facility] [place] [address] [place] [address] Electrocardiograph Report Signed Patient: ROBERT LOCKWOOD MR#: [id number] : 1965 Acct:[id number] Age/Sex: 59 / M ADM Date: 08/07/24 Loc: ER Attending Dr: Ordering Physician: Dayo Wall Date of Service: 08/07/24 Procedure(s): ECG 12 lead Accession Number(s): [id number] cc: [facility] Test Date: 2024-08-07 Pat Name: ROBERT LOCKWOOD Department: Room: - Gender: Male 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 Measurements Intervals [place] Rate: 74 P: 13 IN: 174 QRS: 40 QRSD: 90 T: 94 QT: 362 QTc: 390 Interpretive Statements NORMAL SINUS RHYTHM ST ELEVATION, CONSIDER INFERIOR INFARCT, PROBABLY ACUTE [address] depression, possible subendocardial injury 4637 Inferior injury or acute infarct ACUTE STEMI 9150 abnormal ECG Compared to ECG 08/07/2024 00:49:34 ST is more elevated in inferior ST is more depressed in lateral Electronically Signed On 08-07-2024 13:09:40 EDT by NITIN BAUTISTA M.D. Dictated By: NITIN BAUTISTA Signed By: 08/07/24 131 DD/ 013 TD/TT: Hall Coordinator: ECG 12 lead Reviewed date:08/07/2024 06:14:58 PM Interpretation: Performing Lab: Notes/Report: Source Facility: [place] [address] Electrocardiograph Report Signed Patient: ROBERT LOCKWOOD MR#: [id number] : 1965 Acct:[id number] Age/Sex: 59 / M ADM Date: 08/07/24 Loc: ER Attending Dr: Ordering Physician: Dayo Wall Date of Service: 08/07/24 Procedure(s): ECG 12 lead Accession Number(s): [id number] cc: [facility] Test Date: 2024-08-07 Pat Name: ROBERT LOCKWOOD Department: Room: - Gender: Male 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 Measurements Intervals [place] Rate: 70 P: 30 IN: 174 QRS: 55 QRSD: 86 T: 70 QT: 382 QTc: 403 Interpretive Statements NORMAL SINUS RHYTHM ST ELEVATION, CONSIDER INFERIOR INFARCT, PROBABLY ACUTE ACUTE STEMI Abnormal ECG No previous ECG available for comparison Electronically Signed On 08-07-2024 13:06:27 EDT by NITIN BAUTISTA M.D. Dictated By: NITIN BAUTISTA Signed By: 08/07/24 1306 DD/ 0049 TD/TT: Hall Coordinator: Troponin I High Sensitivity Reviewed date:08/07/2024 06:14:58 PM Interpretation: Performing Lab: Notes/Report: [facility] , Troponin I High Sensitivity 228.8 4.0-76.1 pg/m L PERCENTILE OF cTnI DISTRIBUTION IN A REFERENCE POPULATION, UNIVERSAL DEFINITION OF MYOCARDIAL INFARCTION. THE UPPER CUT-OFF POINTS HAVE BEEN ESTABLISHED BASED ON THE FOURTH WITH OTHER DIAGNOSTIC AND CLINICAL INFORMATION. Dory at 0132 NOTE: HIGH-SENSITIVITY TROPONIN ASSAY IS NOT INTENDED TO BE RESULTS CALLED TO JULIANO DHILLON RN @BY Varsha Costa REFERENCE LIMIT (URL) OF TROPONIN, DEFINED THE 99TH 99TH PERCENTILE = 76.2 PG/ML USED IN ISOLATION BUT SHOULD BE INTERPRETED IN CONJUNCTION DIAGNOSIS. HAS BEEN CONFIRMED THE DECISION THRESHOLD FOR [place] Performing Lab: see note ML - [facility] LB PROF CHEM 8 (BAS METB) Reviewed date:08/07/2024 06:14:58 PM Interpretation: Performing Lab: Notes/Report: [facility] , Sodium 142 136-145 mmol/L Potassium 3.7 3.5-5.1 mmol/L Chloride 105 98-107 mmol/L Carbon Dioxide 29.0 21.0-32.0 mmol/L Anion Gap 11.7 Glucose 119 74-106 mg/dL Blood Urea Nitrogen 18.0 7.0-18.0 mg/dL Creatinine 1.68 0.70-1.30 mg/dL Estimated GFR ( Tea 51 >=60 mL/min/1.73m 2 Estimated GFR (Non- Shruti 42 >=60 mL/min/1.73m 2 BUN Creatinine Ratio 10.7 Calcium 9.3 8.5-10.1 mg/dL Performing Lab: see note ML - [facility] LB CBC AUTO DIFF Reviewed date:08/07/2024 06:14:58 PM Interpretation: Performing Lab: Notes/Report: [facility] , White Blood Count 8.1 4.0-11.0 10 3/uL Red Blood Count 5.45 4.70-6.10 10 6/uL Hemoglobin 16.0 14.0-18.0 g/dL Hematocrit 46.9 42.0-54.0 % Mean Corpuscular Volume 86.1 80.0-94.0 fL Mean Corpuscular Hemoglobin 29.4 25.9-34.0 pg Mean Corpuscular HGB Conc 34.1 29.9-35.2 g/dL Red Cell Distribution Width 13.3 11.0-15.0 % Platelet Count 190 150-450 10 3/uL Mean Platelet Volume 10.5 9.5-13.5 fL Neutrophils Percent Auto 64.6 43.0-75.0 % Lymphocytes Percent Auto 19.3 20.5-60.0 % Monocytes Percent Auto 11.4 1.7-12.0 % Eosinophils Percent Auto 3.5 0.9-7.0 % Basophils Percent Auto 1.1 0.2-2.0 % Immature Granulocytes Pct Auto 0.1 0.0-0.5 % Neutrophils Absolute Auto 5.2 1.4-6.5 10 3/uL Lymphocytes Absolute Auto 1.6 1.2-3.8 10 3/uL Monocytes Absolute Auto 0.9 0.3-0.8 10 3/uL Eosinophils Absolute Auto 0.3 0.0-0.7 10 3/uL Basophils Absolute Auto 0.1 0.0-0.1 10 3/uL Immature Granulocytes Abs Auto 0.01 0.00-0.03 10 3/uL Performing Lab: see note ML - 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 Order Number: [id number] Jacinta MD: NITIN BAUTISTA M.D. Interpretive Statements Electronically Signed On 12-22-2024 21:36:23 EDT by NITIN BAUTISTA M.D. Dictated By: NITIN BAUTISTA Signed By: 12/22/24213512/22/242135 DD/ 51 TD/TT: Hall Coordinator: Reason For Referral Diagnosis 1 Positive occult stoo l blood test (R19.5) Referral Organization [facility] Referring Provider First Name Georgi Referring Provider Last Name Bi Referring Provider Speciality [facility] Referred Provider Mike Knapp Referred Provider Specialty General Surg vita Referral Priority Routine Medications Medication SIG (Take, Route, Frequency, Duration) Notes Start Date End Date Status Pantoprazole Sodium 40 MG TAKE 1 TABLET BY MOUTH EVERY DAY FOR 30 DAYS; Duration: 90 days Active Valsartan 80 MG 1 tablet Orally Once a day Active Metoprolol Succinate ER 25 MG 1 tablet Orally Once a day Active Aspirin 81 81 MG 1 tablet Orally Once a day Active Atorvastatin Calcium 80 MG 1 tablet Oral ly Once a day Active Ticagrelor 90 MG 1 tablet Orally Twic e a day Active Social History Tobacco Use: Social History Observation Description Date Details (start date - stop date) Never Smoker NA - NA Tobacco Use/Smoking Question Answer Notes Patient is a nonsmoker Alcohol Screen (Audit-C) Question Answer Notes Did you have a drink containing alcohol in the p ast year? No Points 0 Interpretation Negative AUDIT-C (Standard) Question Answer Notes Did you have a drink containing alcohol in the p ast year? No Points 0 Interpretation Negative Problems Problem Type SNOMED Code ICD Code Onset Dates Problem Status W/U Status Risk Notes Problem Hyperlipidemia (37881651) Hyperlipidemia, unspecified (E78.5) Active confirmed Problem Dizziness and giddiness (747593105) Dizziness and giddiness (R42) Active confirmed Problem Stented coronary artery (877715449) Stented coronary artery (Z95.5) Active confirmed Problem Well adult (061410669) Well adult (Z00.00) Active confirmed Problem Conjunctivitis (9080744) Conjunctivitis (H10.9) Active confirmed Problem STEMI - ST elevation myocardial infarction (081205748) STEMI (ST elevation myocardial infarction) (I21.3) Active confirmed Vital Signs Blood pressure diastolic 82 mm Hg 12/08/2024 Height 70 in 12/08/2024 Blood pressure systolic 120 mm Hg 12/08/2024 Weight 203.0 lbs 12/08/2024 BMI 29.12 kg/m2 12/08/2024 Encounters Encounter Location Date Provider Diagnosis [facility] [address] [place] [address] 08/10/2024 Georgi Pat [facility] [address] [place] [address] 12/02/2024 Georgi Pat [facility] [address] [place] [address] 12/11/2024 Georgi Pat [facility] [address] [place] [address] 12/14/2024 Georgi Pat Positive occult stoo l blood test R19.5 [facility] [address] [place] [address] 12/21/2024 Georgi Pta Positive occult stoo l blood test R19.5 [facility] [address] [place] [address] 12/08/2024 Georgi Pat Well adult Z00.00 Assessments Encounter Date Diagnosis (ICD Code) Assessment Notes Treatment Notes Treatment Clinical Notes Section Notes 12/08/2024 Well adult (ICD-10 - Z00.00) 12/14/2024 Positive occult stool blood test (ICD-10 - R19.5) 12/21/2024 Positive occult stool blood test (ICD-10 - R19.5) Plan Of Treatment Pending Test Test Name Order Date CMP (COMPLETE METABOLIC PANEL) 4 HEMOGLOBIN A1C (GLYCO) 07/20/2023 HEMOGLOBIN A1C (GLYCO) 12/08/2024 LIPID PANEL (CHOL/TRIG/HDL/LDL) 07/20/19 24 LIPID PANEL (CHOL/TRIG/HDL/LDL) 12/09/19 25 CBC WITH DIFF 07/20/2023 PSA, PROSTATE-SPECIFIC ANTIGEN 4 STOOL OCCULT BLOOD 07/20/2023 STOOL OCCULT BLOOD 12/08/2024 CT ABD and PELV W CON 12/21/2024 THYROID PANEL (T4/TSH/FREE T3) 4 THYROID PANEL (T4/TSH/FREE T3) 5 PSA, SCREENING 12/08/2024 CMP (COMP MET BLAND) w/eGFR CKD-EPI 2024 CBC WITH DIFF 12/08/2024 Insurance Providers Payer Name Payer Address Payer Phone Subscriber Number Group Number Insured Name Patient Relationship to Insured Coverage Start Date Coverage End Date [employer] PPO PLUS LOCAL PLAN [address] [place] [phone] [id number] Robert Lockwood Self - patient is the insured Medical (General) History Medical History History ICD Code Seasonal Allergic Rhinitis Sinusitis Surgical History Surgery Date(Month/Year) Cardiac cath- stents placed- Dr Damon Vasectomy Hospitalization History Reason Date(Month/Year) see above
--- OUTSIDE RECORDS SUMMARY | 2025-01-02 12:27 | XMS_ITS | Encounter Summary ---
Author Organization [facility] Address [address] 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
--- OUTSIDE RECORDS SUMMARY | 2025-01-02 12:30 | XMS_ITS | CCD ---
Author Organization [facility] Care Team Providers Care Earth Moving Technician Name Role Phone DR KETURAH PAT Admitting Unavailable RICHIE, DR REBOLLAR Attending Unavailable RICHIE, DR REBOLLAR Primary Care Unavailable RICHIE, DR REBOLLAR Consulting Unavailable RICHIE, DR REBOLLAR Admitting Unavailable RICHIE, DR REBOLLAR Attending Unavailable RICHIE, DR REBOLLAR Primary Care Unavailable RICHIE, DR REBOLLAR Consulting Unavailable PROVIDER, UNKNOWN Attending Unavailable PROVIDER, UNKNOWN Admitting Unavailable Keturah Pat MD Primary Care Provider [phone] Emile Damon MD Admit Provider Emile Damon MD Attending Provider Emile Damon Admitting Unavailable Emile Damon Attending Unavailable Keturah Pat Primary Care Unavailable Emile Damon MD Other Provider Keturah Pat MD Primary Care Provider [phone] Emile Damon MD Attending Provider Rosalia Peters APRN Attending Provider Mike ASHLEY Attending Unavailable Keturah Pat Referring Unavailable Allergies Allergy Classification Reported Allergen(s) Allergy Type Date of Onset Reaction(s) Facility (3 sources) Opioids - Morphine Analogues Drug allergy (disorder) [facility] Repository (1 source) No Known Medication Allergies; Translations: [No Known Medication Allergies] Propensity to adverse reactions (disorder) [facility] Repository Medications Current Medications Medication Drug Class(es) Dates Sig (Normalized) Sig (Original) aspirin 81 mg chewable tablet (5 sources) Platelet Aggregation Inhibitor, Nonsteroidal Anti-inflammatory Drug Start: 08-08-2024 End: 09-06-2024 take 1 tablet by mouth once daily Aspirin (Children's Aspirin) 81 mg tablet,chewable Active 81 MG PO Daily 90 90 September 06 2025 2:01pm Complies with drug therapy atorvastatin 80 [...] hr Active 12.5 MG PO Daily 45 September 26, 2024 4:07pm Complies with drug [...] 24hr Discontinued 25 MG PO Every evening August 08, 2024 12:00am August 17, 2024 [...] aminotransferase [Enzymatic activity/volume] in Serum or Plasma [facility] Albumin [Mass/volume] in Ser um or Plasma by Bromocresol green (BCG) dye binding methoOrdered By: Emile Damon on 08-08-2024 Albumin BCG dye [Mass/Vol] Albumin [Mass/volume] in Serum or Plasma by Bromocresol green (BCG) dye binding metho 3.5-5.7 [facility] Albumin BCG dye [Mass/Vol] 3.9 g/dL 3.5-5.7 [facility] Alkaline phosphatase [Enzyma tic activity/volume] in Serum or PlasmaOrdered By: Emile Damon on 08-08-2024 ALP [Catalytic activity/Vol] Alkaline phosphatase [Enzymatic activity/volume] in Serum or Plasma 34-104 [facility] Aspartate aminotransferase [ Enzymatic activity/volume] in Serum or PlasmaOrdered By: Emile Damon on 08-08-2024 AST [Catalytic activity/Vol] Aspartate aminotransferase [Enzymatic activity/volume] in Serum or Plasma High 13-39 [facility] Basophils Auto (Bld) [#/Vol] Ordered By: Emile Damon on 08-08-2024 Basophils (Bld) [#/Vol] Automated basoph il count 0.0-0.2 [facility] Basophils/100 WBC Auto (Bld) Ordered By: Emile Damon on 08-08-2024 Basophils/100 WBC (Bld) Automated basophil % . [facility] Bilirubin.total [Mass/volume ] in Serum or PlasmaOrdered By: Emile Damon on 08-08-2024 Bilirubin [Mass/Vol] Bilirubin.total [Mass/volume] in Serum or Plasma 0.3-1.0 [facility] Calcium [Mass/volume] in Ser um or PlasmaOrdered By: Emile Damon on 08-08-2024 Calcium [Mass/Vol] Calcium [Mass/volume] in Serum or Plasma Low 8.6-10.3 [facility] Carbon dioxide, total [Moles /volume] in Serum or PlasmaOrdered By: Emile Damon on 08-08-2024 CO2 [Moles/Vol] Carbon dioxide, total [Moles/volume] in Serum or Plasma 21.0-31.0 [facility] Chloride [Moles/volume] in S kylee or PlasmaOrdered By: Emile Damon on 08-08-2024 Chloride [Moles/Vol] Chloride [Moles/volume] in Serum or Plasma High 98-107 [facility] Complete Blood Count Auto Di ffOrdered By: Emile Damon on 08-08-2024 Basophils (Bld) [#/Vol] 0.1 10*3/uL 0.0-0.2 [facility] Comment on above: Order Comment: REDRA W Result Comment: PERF ORMED BY: [place] [address] PATHOLOGIST AUTOMATIC GRINDING MACHINE OPERATOR SCOTTY ALFORD M.D. Performed By: #### C BC #### [place] [address] [place] Basophils/100 WBC (Bld) 0.5 % . [facility] Comment on above: Order Comment: REDRA W Performed By: #### C BC #### [place] [address] [place] Eosinophils (Bld) [#/Vol] 0.3 10*3/uL 0.0-0.45 [facility] Comment on above: Order Comment: REDRA W Performed By: #### C BC #### [address] Eosinophils/100 WBC (Bld) 3.4 % . [facility] Comment on above: Order Comment: REDRA W Performed By: #### C BC #### [address] Erythrocyte distribution width (RBC) [Ratio] 13.8 % 12.0-14.8 [facility] Comment on above: Order Comment: REDRA W Performed By: #### C BC #### [address] Hematocrit (Bld) [Volume fraction] 44.3 % 38.8-50.0 [facility] Comment on above: Order Comment: REDRA W Performed By: #### C BC #### [address] Hemoglobin (Bld) [Mass/Vol] 15.1 g/dL 13.0-17.0 [facility] Comment on above: Order Comment: REDRA W Performed By: #### C BC #### [place] [address] [place] Lymphocytes (Bld) [#/Vol] 2.0 10*3/uL 1.00-4.8 [facility] Comment on above: Order Comment: REDRA W Performed By: #### C BC #### [facility] [address] Lymphocytes/100 WBC (Bld) 20.1 % . [facility] Comment on above: Order Comment: REDRA W Performed By: #### C BC #### [address] MCH (RBC) [Entitic mass] 29.0 pg 27.5-35.2 [facility] Comment on above: Order Comment: REDRA W Performed By: #### C BC #### [address] MCV (RBC) [Entitic vol] 85.1 fL 83.5-101 [facility] Comment on above: Order Comment: REDRA W Performed By: #### C BC #### [address] Monocytes (Bld) [#/Vol] 1.0 10*3/uL High 0.0-0.8 [facility] Comment on above: Order Comment: REDRA W Performed By: #### C BC #### [address] Monocytes/100 WBC (Bld) 9.8 % . [facility] Comment on above: Order Comment: REDRA W Performed By: #### C BC #### [address] Neutrophils (Bld) [#/Vol] 6.5 10*3/uL 1.8-7.7 [facility] Comment on above: Order Comment: REDRA W Performed By: #### C BC #### [address] Neutrophils/100 WBC (Bld) 66.2 % . [facility] Comment on above: Order Comment: REDRA W Performed By: #### C BC #### [address] Platelet mean volume (Bld) [Entitic vol] 8.6 fL 6.6-10.1 [facility] Comment on above: Order Comment: REDRA W Performed By: #### C BC #### [address] Platelets (Bld) [#/Vol] 154 10*3/uL 150-450 [facility] Comment on above: Order Comment: REDRA W Performed By: #### C BC #### [address] RBC (Bld) [#/Vol] 5.21 10*6/uL 3.90-5.60 [facility] Comment on above: Order Comment: REDRA W Performed By: #### C BC #### [address] WBC (Bld) [#/Vol] 9.8 10*3/uL 4.1-10.5 [facility] Comment on above: Order Comment: REDRA W Performed By: #### C BC #### [address] Complete Blood Count Auto Di ffon 08-08-2024 Mean Corpuscular HGB Conc 34.2 g/dL Normal 32.5-35.6 [facility] Comment on above: Order Comment: REDRA W Performed By: #### C BC #### [address] NRBC% 0.2 /100{WBC} Normal 0-0.5 [facility] Comment on above: Order Comment: REDRA W Performed By: #### C BC #### [address] Comprehensive Metabolic Pane ghislaine 08-08-2024 Albumin [Mass/Vol] 3.9 g/dL Normal 3.5-5.7 [facility] Comment on above: Performed By: #### C MP, HS TROP #### [address] Creatinine Clr Calc Pharmacy 92.91 Normal [facility] Comment on above: Result Comment: PERF ORMED BY: [place] [address] PATHOLOGIST AUTOMATIC GRINDING MACHINE OPERATOR SCOTTY ALFORD M.D. Performed By: #### C MP, HS TROP #### [facility] [address] [place] [address] GFR/1.73 sq M.predicted MDRD (S/P/Bld) [Vol rate/Area] mL/min/{1.73_m2} Normal [facility] Comment on above: Performed By: #### C MP, HS TROP #### [facility] [address] [place] [address] Comprehensive Metabolic Pane lOrdered By: Emile Damon on 08-08-2024 Albumin/Globulin [Mass ratio] 1.6 {ratio} [facility] Comment on above: Performed By: #### C MP, HS TROP #### [facility] [address] [place] [address] ALP [Catalytic activity/Vol] 56 U/L 34-104 [facility] Comment on above: Performed By: #### C MP, HS TROP #### [facility] [address] [place] [address] ALT [Catalytic activity/Vol] 58 U/L High 7-52 [facility] Comment on above: Performed By: #### C MP, HS TROP #### [facility] [address] [place] [address] Anion gap [Moles/Vol] 9.2 mmol/L 6.0-15.0 [facility] Comment on above: Performed By: #### C MP, HS TROP #### [facility] [address] [place] [address] AST [Catalytic activity/Vol] 122 U/L High 13-39 [facility] Comment on above: Performed By: #### C MP, HS TROP #### [facility] [address] [place] [address] Bilirubin [Mass/Vol] 0.9 mg/dL 0.3-1.0 [facility] Comment on above: Performed By: #### C MP, HS TROP #### [facility] [address] Calcium [Mass/Vol] 8.5 mg/dL Low 8.6-10.3 [facility] Comment on above: Performed By: #### C MP, HS TROP #### [facility] [address] Chloride [Moles/Vol] 108 mmol/L High 98-107 [facility] Comment on above: Performed By: #### C MP, HS TROP #### [facility] [address] CO2 [Moles/Vol] 24.7 mmol/L 21.0-31.0 [facility] Comment on above: Performed By: #### C MP, HS TROP #### [facility] [address] Creatinine [Mass/Vol] 1.04 mg/dL 0.70-1.30 [facility] Comment on above: Performed By: #### C MP, HS TROP #### [facility] [address] Globulin (S) [Mass/Vol] 2.5 g/dL [facility] Comment on above: Performed By: #### C MP, HS TROP #### [facility] [address] Glucose [Mass/Vol] 113 mg/dL High 70-100 [facility] Comment on above: Result Comment: [place] om Glucose Reference Range is dependent on time and content of last meal. Glucose of more than 200 mg/dL in a nonstressed, ambulatory subject supports the diagnosis of Diabetes Mellitus. ADA recommended reference range Performed By: #### C MP, HS TROP #### [facility] [address] ADA recommended refe rence rangeRandom Glucose Reference Range is dependent on time and content of last meal. Glucose of more than 200 mg/dL in a nonstressed, ambulatory subject supports the diagnosis of Diabetes Mellitus. Potassium [Moles/Vol] 3.9 mmol/L 3.5-5.1 [facility] Comment on above: Performed By: #### C MP, HS TROP #### [facility] [address] [place] [address] [place] Protein [Mass/Vol] 6.4 g/dL 6.4-8.9 [facility] Comment on above: Performed By: #### C MP, HS TROP #### [facility] [address] [place] [address] [place] Sodium [Moles/Vol] 138 mmol/L 136-145 [facility] Comment on above: Performed By: #### C MP, HS TROP #### [facility] [address] [place] [address] [place] Urea nitrogen [Mass/Vol] 15 mg/dL 10-21 [facility] Comment on above: Performed By: #### C MP, HS TROP #### [facility] [address] Creatinine [Mass/volume] in Serum or PlasmaOrdered By: Emile Damon on 08-08-2024 Creatinine [Mass/Vol] Creatinine [Mass/volume] in Serum or Plasma 0.70-1.30 [facility] ECG 12 lead ECGon 08-08-2024 ECG 12 lead ECG [facility] [place] [address] [place] [address] Electrocardiograph Report Signed Patient: Robert Boateng MR#: [id number] 57 : 1965 Acct:[id number] Age/Sex: 59 / M ADM Date: 08/07/24 Loc: Room: [address] [place] [address] Type: ADM IN Attending Dr: Emile Damon [...] QT has lengthened Confirmed by IFRAH NAJERA [facility], GUTIERREZ (137) on 08/08/2024 12:21:25 PM Referred By: Electronically Signed By: GUTIERREZ RAINEY MD [facility] Transcribed By: MUS Signed By Gutierrez Rainey MD, [facility] 08/08/24 1221 Normal [facility] echo transthoracicon [facility] echo transthoracic [facility] [place] [address] Echocardiogram Signed Patient: Robert Boateng MR#: [id number] 57 : 1965 Acct:[id number] Age/Sex: 59 / M ADM Date: 08/07/24 Loc: Room: [address] [place] [address] Type: ADM IN Attending Dr: Emile Damon MD Ordering Provider: Emile Damon MD Date of Service: 08/08/2403/23/500 [facility] echo transthoracic: inferior stemi Copies to: Gutierrez Rainey MD, [facility] Emile Damon MD BSA: 2.2 m2 BP: [...] 08/08/24 0837 Signed By: Gutierrez Rainey MD, [facility] 08/08/24 1231 Normal [facility] Eosinophils Auto (Bld) [#/Vo l]Ordered By: Emile Damon on 08-08-2024 Eosinophils (Bld) [#/Vol] Automated eosi nophil count 0.0-0.45 [facility] Eosinophils/100 WBC Auto (Bl d)Ordered By: Emile Damon on 08-08-2024 Eosinophils/100 WBC (Bld) Automated eosi nophil % . [facility] Erythrocyte distribution wid th Auto (RBC) [Ratio]Ordered By: Emile Damon on 08-08-2024 Erythrocyte distribution width (RBC) [Ratio] Erythrocyte distribution width [Ratio] by Automated count 12.0-14.8 [facility] Globulin Calc (S) [Mass/Vol] Ordered By: Emile Damon on 08-08-2024 Globulin (S) [Mass/Vol] Serum globulin measurement by calculation (mass/volume) [facility] Glucose [Mass/volume] in Ser um or PlasmaOrdered By: Emile Damon on 08-08-2024 Glucose [Mass/Vol] Glucose [Mass/volume] in Serum or Plasma High 70-100 [facility] Comment on above: ADA recommended refe rence rangeRandom Glucose Reference Range is dependent on time and content of last meal. Glucose of more than 200 mg/dL in a nonstressed, ambulatory subject supports the diagnosis of Diabetes Mellitus. Hematocrit Auto (Bld) [Volum e fraction]Ordered By: Emile Damon on 08-08-2024 Hematocrit (Bld) [Volume fraction] Hematocrit [Volume Fraction] of Blood by Automated count 38.8-50.0 [facility] Hemoglobin [Mass/volume] in BloodOrdered By: Emile Damon on 08-08-2024 Hemoglobin (Bld) [Mass/Vol] Hemoglobin [Mass/volume] in Blood 13.0-17.0 [facility] Leukocytes [#/volume] correc cristal for nucleated erythrocytes in Blood by Automated counOrdered By: Emile Damon on 08-08-2024 WBC corrected for nucl RBC Auto (Bld) [#/Vol] Leukocytes [#/volume] corrected for nucleated erythrocytes in Blood by Automated coun 4.1-10.5 [facility] WBC corrected for nucl RBC Auto (Bld) [#/Vol] 9.8 10*3/uL 4.1-10.5 [facility] Lymphocytes Auto (Bld) [#/Vo l]Ordered By: Emile Damon on 08-08-2024 Lymphocytes (Bld) [#/Vol] Lymphocytes [#/volume] in Blood by Automated count 1.00-4.8 [facility] Lymphocytes/100 WBC Auto (Bl d)Ordered By: Emile Damon on 08-08-2024 Lymphocytes/100 WBC (Bld) Lymphocytes/10 0 leukocytes in Blood by Automated count . [facility] MCH Auto (RBC) [Entitic mass ]Ordered By: Emile Damon on 08-08-2024 MCH (RBC) [Entitic mass] MCH [Entitic ma ss] by Automated count 27.5-35.2 [facility] MCHC Auto (RBC) [Mass/Vol]Or dered By: Emile Damon on 08-08-2024 MCHC (RBC) [Mass/Vol] MCHC [Mass/volume] by Automated count 32.5-35.6 [facility] MCHC (RBC) [Mass/Vol] 34.2 g/dL 32.5-35.6 [facility] MCV Auto (RBC) [Entitic vol] Ordered By: Emile Damon on 08-08-2024 MCV (RBC) [Entitic vol] MCV [Entitic vol ume] by Automated count 83.5-101 [facility] Monocytes Auto (Bld) [#/Vol] Ordered By: Emile Damon on 08-08-2024 Monocytes (Bld) [#/Vol] Automated blood monocyte count High 0.0-0.8 [facility] Monocytes/100 WBC Auto (Bld) Ordered By: Emile Damon on 08-08-2024 Monocytes/100 WBC (Bld) Automated monocyte % . [facility] Neutrophils Auto (Bld) [#/Vo l]Ordered By: Emile Damon on 08-08-2024 Neutrophils (Bld) [#/Vol] Neutrophils [#/volume] in Blood by Automated count 1.8-7.7 [facility] Neutrophils/100 WBC Auto (Bl d)Ordered By: Emile Damon on 08-08-2024 Neutrophils/100 WBC (Bld) Automated neut rophil % . [facility] No Panel InformationOrdered By: Emile Damon on 08-08-2024 Estimated GFR (CKD-EPI) > 60.0 mL/Min [facility] Creatinine Clearance (Chem 92.91 [facility] Nucleated erythrocytes [Pres ence] in Blood by Automated countOrdered By: Emile Damon on 08-08-2024 Nucleated RBC Auto Ql (Bld) Nucleated erythrocytes [Presence] in Blood by Automated count 0-0.5 [facility] Nucleated RBC Auto Ql (Bld) 0.2 /100{WBC} 0-0.5 [facility] Platelet mean volume Auto (B ld) [Entitic vol]Ordered By: Emile Damon on 08-08-2024 Platelet mean volume (Bld) [Entitic vol] Platelet mean volume [Entitic volume] in Blood by Automated count 6.6-10.1 [facility] Platelets Auto (Bld) [#/Vol] Ordered By: Emile Damon on 08-08-2024 Platelets (Bld) [#/Vol] Platelets [#/vol ume] in Blood by Automated count 150-450 [facility] Potassium [Moles/volume] in Serum or PlasmaOrdered By: Emile Damon on 08-08-2024 Potassium [Moles/Vol] Potassium [Moles/volume] in Serum or Plasma 3.5-5.1 [facility] Protein [Mass/volume] in Ser um or PlasmaOrdered By: Emile Damon on 08-08-2024 Protein [Mass/Vol] Protein [Mass/volume] in Serum or Plasma 6.4-8.9 [facility] RBC Auto (Bld) [#/Vol]Ordere d By: Emile Damon on 08-08-2024 RBC (Bld) [#/Vol] Erythrocytes [#/volume] in Blood by Automated count 3.90-5.60 [facility] Serum or plasma albumin/glob ulin mass ratioOrdered By: Emile Damon on 08-08-2024 Albumin/Globulin [Mass ratio] Serum or plasma albumin/globulin mass ratio [facility] Serum or plasma anion gap de terminationOrdered By: Emile Damon on 08-08-2024 Anion gap [Moles/Vol] Serum or plasma anion gap determination 6.0-15.0 [facility] Sodium [Moles/volume] in Ser um or PlasmaOrdered By: Emile Damon on 08-08-2024 Sodium [Moles/Vol] Sodium [Moles/volume] in Serum or Plasma 136-145 [facility] Troponin I High Sensitivityo n 08-08-2024 Troponin I High Sensitivity 62599 Off scale high 0-20 [facility] Comment on above: Result Comment: Crit ical Result : Called to and read back by: DERECK LUNA at: 08/08/2024 05:16:37 by: The Troponin units of report have been changed to meet the Chest Pain Accreditation requirement, element EC5.M1l2. Troponin units are changed from pg/ml to ng/L. Also, the decimal is removed and results are in whole numbers. PERFORMED BY: [place] [address] PATHOLOGIST AUTOMATIC GRINDING MACHINE OPERATOR SCOTTY ALFORD M.D. Performed By: #### C MP, TROP #### [address] Troponin I.cardiac [Mass/vol ume] in Serum or Plasma by Detection limit <= 0.01 ng/Ordered By: Emile Damon on 08-08-2024 Troponin I.cardiac DL <= 0.01 ng/mL [Mass/Vol] Troponin I.cardiac [Mass/volume] in Serum or Plasma by Detection limit <= 0.01 ng/ Critically high 0-20 [facility] Comment on above: Critical Result : Ca [...] Troponin I.cardiac DL <= 0.01 ng/mL [Mass/Vol] 76292 ng/L Critically high 0-20 [facility] Comment on above: Critical Result : Ca [...] Urea nitrogen [Mass/volume] in Serum or Plasma 10-21 [facility] WBC Auto (Bld) [#/Vol]Ordere d By: Emile Damon on 08-08-2024 WBC (Bld) [#/Vol] Leukocytes [#/volume] in Blood by Automated count 4.1-10.5 [facility] Anti-Xa UF Heparinon 025 Anti-Xa UF Heparin 0.60 [IU]/mL Normal 0.30-0.70 [facility] Comment on above: Result Comment: Use the aPTT protocol when triglycerides are > 800 mg/dL, total bilirubin is > 20 mg/dL and/or patient has received a DOAC, Fondaparinux or LMWH within 72 hours AND baseline anti-Xa level is > 0.7 units/mL PERFORMED BY: [place] [address] PATHOLOGIST AUTOMATIC GRINDING MACHINE OPERATOR SCOTTY ALFORD M.D. Performed By: #### U FHEP ####[address] Anti-Xa UF Heparin 0.42 [IU]/mL Normal 0.30-0.70 [facility] Comment on above: Result Comment: Use the aPTT protocol when triglycerides are > 800 mg/dL, total bilirubin is > 20 mg/dL and/or patient has received a DOAC, Fondaparinux or LMWH within 72 hours AND baseline anti-Xa level is > 0.7 units/mL PERFORMED BY: [facility] [address] [place] [address] PATHOLOGIST AUTOMATIC GRINDING MACHINE OPERATOR SCOTTY ALFORD M.D. Performed By: #### U FHEP #### [address] Basic Metabolic Panelon 07-28 Anion gap [Moles/Vol] 11.9 mmol/L Normal 6.0-15.[address] [facility] Comment on above: Performed By: #### B MP ####[place] [address] [place] Calcium [Mass/Vol] 9.0 mg/dL Normal 8.6-10.3 [facility] Comment on above: Performed By: #### B MP ####[address] Chloride [Moles/Vol] 109 mmol/L High 98-107 [facility] Comment on above: Performed By: #### B MP ####[address] CO2 [Moles/Vol] 23.6 mmol/L Normal 21.0-31.0 [facility] Comment on above: Performed By: #### B MP ####[address] Creatinine [Mass/Vol] 1.38 mg/dL High 0.70-1.30 [facility] Comment on above: Performed By: #### B MP ####[address] Creatinine Clr Calc Pharmacy 70.02 Normal [facility] Comment on above: Result Comment: PERF ORMED BY: [facility] [address] [place] [address] PATHOLOGIST AUTOMATIC GRINDING MACHINE OPERATOR SCOTTY ALFORD M.D. Performed By: #### B MP ####[address] Estimated GFR 59.274 mL/Min Normal [facility] Comment on above: Performed By: #### B MP ####[address] Glucose [Mass/Vol] 125 mg/dL High 70-100 [facility] Comment on above: Result Comment: [place] om Glucose Reference Range is dependent on time and content of last meal. Glucose of more than 200 mg/dL in a nonstressed, ambulatory subject supports the diagnosis of Diabetes Mellitus. ADA recommended reference range Performed By: #### B MP ####[address] Potassium [Moles/Vol] 4.5 mmol/L Normal 3.5-5.1 [facility] Comment on above: Performed By: #### B MP ####[facility] [place] [id number] [facility] Sodium [Moles/Vol] 140 mmol/L Normal 136-145 [facility] Comment on above: Performed By: #### B MP ####[facility] [place] [id number] [facility] Urea nitrogen [Mass/Vol] 20 mg/dL Normal 7-25 [facility] Comment on above: Performed By: #### B MP ####[place] [id number] [place] [address] [facility] ECG 12 lead ECGon 08-07-2024 ECG 12 [place] [address] Electrocardiograph Report Signed Patient: Robert Boateng MR#: [id number] 56 : 1965 Acct:[id number] Age/Sex: 59 / M ADM Date: 08/07/24 Loc: Room: [address] [place] [address] Type: ADM IN Attending Dr: Emile Damon [...] undetermined Abnormal ECG Confirmed by Fauzia Hernandez ([id number]) on 08/07/2024 10:05:18 PM Referred By: Electronically Signed By: Fauzia Hernandez Transcribed By: MUS Signed By Fauzia Hernandez MD 2204 Normal [facility] ECG 12 [place] [address] Electrocardiograph Report Signed Patient: Robert Boateng MR#: [id number] 57 : 1965 Acct:[id number] Age/Sex: 59 / M ADM Date: 08/07/24 Loc: Room: [address] [place] [address] Type: ADM IN Attending Dr: Emile Damon [...] change was found Confirmed by IFRAH NAJERA [facility] ([id number][facility] on 08/08/2024 12:20:50 PM Referred By: Electronically Signed By: GUTIERREZ RAINEY MD FAC Transcribed By: MUS Signed By Gutierrez Rainey MD, FACC 08/08/24 1220 Normal [facility] ECG 12 lead ECG [facility] [address] Electrocardiograph Report Signed Patient: Robert Boateng MR#: [id number] 56 : 1965 Acct:[id number] Age/Sex: 59 / M ADM Date: 08/07/24 Loc: Room: [address] [place] [address] Type: ADM IN Attending Dr: Emile Damon [...] rhythm Normal ECG Confirmed by Fauzia Hernandez ([id number]) on 08/07/2024 9:59:55 PM Referred By: Electronically Signed By: Fauzia Hernandez Transcribed By: MUS Signed By Fauzia Hernandez MD 05/11/2 5 2159 Normal [facility] Heparin anti-Xa unfractionat edOrdered By: Emile Damon on 08-07-2024 Heparin unfractionated Chromogenic method Qn (PPP) Heparin anti-Xa unfractionated 0.30-0.70 [facility] Comment on above: Use the aPTT protoco l when triglycerides are > 800 mg/dL,total bilirubin is > 20 mg/dL and/or patient has received aDOAC, Fondaparinux or LMWH within 72 hours AND baselineanti-Xa level is > 0.7 units/mL Heparin unfractionated Chromogenic method Qn (PPP) 0.60 [IU]/mL 0.30-0.70 [facility] Comment on above: Use the aPTT protoco l when triglycerides are > 800 mg/dL,total bilirubin is > 20 mg/dL and/or patient has received aDOAC, Fondaparinux or LMWH within 72 hours AND baselineanti-Xa level is > 0.7 units/mL Partial Thromboplastin Timeo n 08-07-2024 aPTT Coag (Bld) [Time] 41.1 s High 25.1-36.5 [facility] Comment on above: Result Comment: A he matocrit value greater than 55% may lead to inaccurate results in coagulation testing. Patients having hematocrit values >55% require a special collection tube for coagulation studies. Please contact the laboratory at [phone] for redraw instructions. PERFORMED BY: [facility] [address] [place] [address] PATHOLOGIST AUTOMATIC GRINDING MACHINE OPERATOR SCOTTY ALFORD M.D. Performed By: #### P TT ####[facility] [place] [address] [facility] Troponin I High Sensitivityo n 08-07-2024 Troponin I High Sensitivity 40857 Off scale high 0-20 [facility] Comment on above: Result Comment: Crit ical Result : Called to and read back by: ADDISON BORGES at: 08/07/2024 10:15:55 by:QUINTON The Troponin units of report have been changed to meet the Chest Pain Accreditation requirement, element EC5.M1l2. Troponin units are changed from pg/ml to ng/L. Also, the decimal is removed and results are in whole numbers. PERFORMED BY: [place] [address] PATHOLOGIST AUTOMATIC GRINDING MACHINE OPERATOR SCOTTY ALFORD M.D. Performed By: #### H S TROP ####[place] [id number] [facility] Troponin I High Sensitivity 8587 Off scale high 0-20 [facility] Comment on above: Result Comment: Crit ical Result : Called to and read back by: ADDISON BORGES at: 08/07/2024 08:20:01 by:QUINTON The Troponin units of report have been changed to meet the Chest Pain Accreditation requirement, element EC5.M1l2. Troponin units are changed from pg/ml to ng/L. Also, the decimal is removed and results are in whole numbers. PERFORMED BY: [place] [address] PATHOLOGIST AUTOMATIC GRINDING MACHINE OPERATOR SCOTTY ALFORD M.D. Performed By: #### H S TROP ####[address] [address] [facility] Troponin I High Sensitivity 5112 Off scale high 0-20 [facility] Comment on above: Order Comment: [...] results are in whole numbers. PERFORMED BY: [place] [address] PATHOLOGIST AUTOMATIC GRINDING MACHINE OPERATOR SCOTTY ALFORD M.D. Performed By: #### H S TROP #### [place] [id number] [facility] aPTT in Platelet poor plasma by Coagulation assayOrdered By: Emile Damon on 08-07-2024 aPTT Coag (PPP) [Time] Activated partial thromboplastin time (aPTT) in platelet poor plasma by coagulation a High 25.1-36.5 [facility] Comment on above: A hematocrit value g reater than 55% may lead to inaccurate results in coagulation testing. Patients having hematocrit values >55% require a special collection tube for coagulation studies. Please contact the laboratory at [phone] for redraw instructions. aPTT Coag (PPP) [Time] 41.1 s High 25.1-36.5 [facility] Comment on above: A hematocrit value g reater than 55% may lead to inaccurate results in coagulation testing. Patients having hematocrit values >55% require a special collection tube for coagulation studies. Please contact the laboratory at [phone] for redraw instructions. Covid-19 PCR (CVDTB)on SARS-CoV-2 (COVID-19) RNA HAKEEM+probe Ql (Unsp spec) Not detected Normal NOT DETECTED [facility] Comment on above: Result Comment: This test is not yet approved or cleared by the [place] FDA. When there are no FDA-approved or cleared tests available, and other criteria are met, FDA can make tests available under an emergency access mechanism called an Emergency Use Authorization (EUA). The EUA for this test is supported by the Cost of Health and Human Service's (HHS's) declaration [...] consistent with SARS-CoV-2. Performed By: #### C VDTBH #### [facility] [address] [place], [place] [address] Dr. Boby LARA BLD IMMUNO SCREENon OCCULT BLOOD Negative Normal NEGATIVE [facility] Comment on above: Performed By: #### O BSCRN #### [facility] [address] [place], [place] [address] Lyn Ward GLYCOHEMOGLOBIN A1Con 2020 ADA RECOMMENDATION ADA THERAPEUTIC TARGET 6.0 - 7.0 ACTION SUGGESTED > 7.0 Normal [facility] Comment on above: Performed By: #### A 1C #### [facility] [address] [place], [place] [address] Lyn Ward Glucose [Mass/Vol] 111 mg/dL Normal [facility] Comment on above: Performed By: #### A 1C #### [facility] [address] [place], [place] [address] Lyn Ward HbA1c (Bld) [Mass fraction] 5.5 % Normal <=6.0 [facility] Comment on above: Performed By: #### A 1C #### [facility] [address] [place], [place] [address] Lyn Ward Vital Signs Date Time Vital Sign Value Performing Clinician Faci haresh 11-10-2024 13:00-0400 Body height 177.8 cm Keturah Pat MD Work Phone: [facility] 11-10-2024 13:00-0400 Body mass index (BMI) [Ratio] 29.5 kg/m2 Keturah Pat MD Work Phone: [facility] 11-10-2024 13:00-0400 Body weight 93.44 kg Keturah Pat MD Work Phone: [facility] 11-10-2024 13:00-0400 Diastolic blood pressure 82 mm[Hg] Keturah Pat MD Work Phone: [facility] 11-10-2024 13:00-0400 Heart rate 54 /min Keturah Pat MD Work Phone: [facility] 11-10-2024 13:00-0400 Respiratory rate 18 /min Keturah Pat MD Work Phone: [facility] 11-10-2024 13:00-0400 SaO2% (BldA) [Mass fraction] 96 % Keturah Pat MD Work Phone: [facility] 11-10-2024 13:00-0400 Systolic blood pressure 122 mm[Hg] Keturah Pat MD Work Phone: [facility] 09-26-2024 15:53-0400 Body height 177.8 cm Keturah Pat MD Work Phone: [facility] 09-26-2024 15:53-0400 Body mass index (BMI) [Ratio] 29.9 kg/m2 Keturah Pat MD Work Phone: [facility] 09-26-2024 15:53-0400 Body weight 94.8 kg Keturah Pat MD Work Phone: [facility] 09-26-2024 15:53-0400 Diastolic blood pressure 78 mm[Hg] Keturah Pat MD Work Phone: [facility] 09-26-2024 15:53-0400 Heart rate 85 /min Keturah Pat MD Work Phone: [facility] 09-26-2024 15:53-0400 Respiratory rate 18 /min Keturah Pat MD Work Phone: [facility] 09-26-2024 15:53-0400 SaO2% (BldA) [Mass fraction] 98 % Keturah Pat MD Work Phone: [facility] 09-26-2024 15:53-0400 Systolic blood pressure 132 mm[Hg] Keturah Pat MD Work Phone: [facility] 08-17-2024 13:06-0400 Body height 177.8 cm Keturah Pat MD Work Phone: [facility] 08-17-2024 13:06-0400 Body mass index (BMI) [Ratio] 30.4 kg/m2 Keturah Pat MD Work Phone: [facility] 08-17-2024 13:06-0400 Body weight 96.16 kg Keturah Pat MD Work Phone: [facility] 08-17-2024 13:06-0400 Diastolic blood pressure 84 mm[Hg] Keturah Pat MD Work Phone: [facility] 08-17-2024 13:06-0400 Heart rate 61 /min Keturah Pat MD Work Phone: [facility] 08-17-2024 13:06-0400 Respiratory rate 18 /min Keturah Pat MD Work Phone: [facility] 08-17-2024 13:06-0400 SaO2% (BldA) [Mass fraction] 97 % Keturah Pat MD Work Phone: [facility] 08-17-2024 13:06-0400 Systolic blood pressure 120 mm[Hg] Keturah Pat MD Work Phone: [facility] 08-08-2024 12:55-0400 Body height 177.8 cm Keturah Pat MD Work Phone: [facility] 08-08-2024 11:30-0400 Body temperature 98.4 [degF] Keturah Pat MD Work Phone: [facility] 08-08-2024 11:30-0400 Diastolic blood pressure 94 mm[Hg] Keturah Pta MD Work Phone: [facility] 08-08-2024 11:30-0400 Heart rate 64 /min Keturah Pat MD Work Phone: [facility] 08-08-2024 11:30-0400 Respiratory rate 15 /min Keturah Pat MD Work Phone: [facility] 08-08-2024 11:30-0400 SaO2% (BldA) [Mass fraction] 94 % Keturah Pat MD Work Phone: [facility] 08-08-2024 11:30-0400 Systolic blood pressure 153 mm[Hg] Keturah Pat MD Work Phone: [facility] 08-08-2024 07:00-0400 Inhaled oxygen flow rate 2 L/min Keturah Pat MD Work Phone: [facility] 08-08-2024 06:00-0400 Body weight 100.7 kg Keturah Pat MD Work Phone: [facility] 08-07-2024 03:17-0400 Body height 177.8 cm Keturah Pat MD Work Phone: [facility] Encounters Encounter Date Encounter Type Care Provider Facility Start: 01-24-2025 [facility] Start: 11-10-2024 End: 11-10-2024 ambulatory Keturah Pat MD Work Phone: [facility] Work Phone: Start: 11-10-2024 End: 11-10-2024 Patient encounter procedure Rosalia Peters APRN -[facility] Work Phone: Start: 09-26-2024 End: 09-26-2024 ambulatory Ketuarh Pat MD Work Phone: [facility] Work Phone: Start: 09-26-2024 End: 09-26-2024 Patient encounter procedure Emile Orellana MD -[facility] Work Phone: Start: 08-17-2024 End: 08-17-2024 Patient encounter procedure Emile Orellana MD -[facility] Work Phone: Start: 08-07-2024 Non-patient / Non-visit Enedelia Pat MD Work Phone: [facility] Work Phone: Start: 08-07-2024 End: 08-07-2024 ambulatory UNKNOWN PROVIDER [facility] Start: 08-07-2024 End: 08-08-2024 Evaluation and management of inpatient Keturah Pat MD Work Phone: [facility] Work Phone: Start: 06-05-2021 End: 06-05-[address] KETURAH PAT Facility: Start: 10-30-2020 Encounter for genera l adult medical examination without abnormal findings DR KETURAH PAT [facility] Start: 10-23-2020 End: 10-24-[address] [...] Comment on above: Performed By: #### P [facility] #### [facility] [address] [place] [address] Lyn Ward Plan of Treatment Date Care Activity Detail Author Start: 08-18-2024 Patient referral [facility] Work Phone: Start: 08-08-2024 [facility] Start: 08-07-2024 Dilation of Coronary Artery, One Artery with Drug-eluting Intraluminal Device, Percutaneous Approach Dilation of Coronary Artery, One Artery with Drug-eluting Intraluminal Device, Percutaneous Approach [facility] Start: 08-07-2024 Fluoroscopy of Left Heart using Low Osmolar Contrast Fluoroscopy of Left Heart using Low Osmolar Contrast [facility] Start: 08-07-2024 Fluoroscopy of Multiple Coronary Arteries using Low Osmolar Contrast Fluoroscopy of Multiple Coronary Arteries using Low Osmolar Contrast [facility] Start: 08-07-2024 Measurement of Cardiac Sampling and Pressure, Left Heart, Percutaneous Approach Measurement of Cardiac Sampling and Pressure, Left Heart, Percutaneous Approach [facility] Start: 08-07-2024 Ultrasonography of Single Coronary Artery, Intravascular Ultrasonography of Single Coronary Artery, Intravascular [facility] Start: 08-07-2024 Hospital admission [facility] Patient Education High cholester ol Heart attack - Discharge instructions Drug Eluting Stents Chest pain - Discharge instructions Know your Meds [facility] Work Phone: Patient referral [facility] Work Phone: Referral to cardiac rehabilitation program [facility] Payers Date Payer Category Payer Self-pay 1965 Unknown [id number] 1965 Unknown [id number] 1965 Unknown [id number] 1965 Unknown [id number] [id number] 1958 Unknown [id number] 1958 Unknown [id number] Unknown [id number] [id number] [id number] Social History Date Type Detail Facility Start: 08-07-2024 End: 08-17-2024 Tobacco smoking status NHIS Never smoked tobacco (finding) [facility] Start: 08-08-2024 Sex Male (finding) [facility] Start: 1965 Sex Assigned At Male F [facility] Medical Equipment Procedure Code Equipment Code Equipment Origin al Text Equipment Identifier Dates CL STENT NOAH FRONTIER 3.5 X 26 FDA Start: 08-07-2024 CL STENT NOAH FRONTIER 3.5 X 26 FDA Start: 08-07-2024 CL STENT NOAH FRONTIER 3.5 X 26 FDA Start: 08-07-2024 Goals Date Patient Goal Desired Activity /State Functional Status Date Assessment Result Facility 08-08-2024 Functional status Patient at [facility] Work Phone: Mental Status Date Assessment Result Facility 08-08-2024 Cognitive function Cognitive Sta tus Patient at Baseline [facility] Work Phone: Evaluation note 08-17-2024 Note Date & Type Note Facility 08-17-2024 Evaluation note Authored May 21st, 2025 2:19p m CCS 0. NYHA Ia. Excellent cl inical response to pharmacal invasive management strategy followed by PCI to RCA. No mechanical complications of NY. No bleeding complications on dual antiplatelet therapy. [facility] Work Phone: Discharge summary 08-08-2024 Note Date & Type Note Facility 08-08-2024 Discharge summary Note Date/Time August 08, 2024 9:36am [facility] [address] [place] [address] Discharge Summary Signed Patient: Robert Boateng MR#: [id number] : 1965 Acct:[id number] Age/Sex: 59 / M Adm Date: 5 Loc: Room: [address] [place] [address]: Emile Damon MD Copies to: MD Emile Platt MD~ Providers Date of Discharge: 08/08/24 Discharging Provider: Emile Damon Primary Care Provider: Keturah Pat Discharge Diagnosis (1) ST elevation myocardial infarction (STEMI) of inferior wall: Final Diagnosis Final Discharge Diagnosis: 1. Acute inferior STEMI status post successful pharmacoinvasive management strategy with [id number] fibrinolytic therapy followed by early mechanical revascularization with PCI to the left circumflex. 2. Heart failure with mildly reduced ejection fraction. Post PCI EF 50%. 3. Dyslipidemia Summary Hospital Course Hospital course: Robert is a very pleasant 59-year-old white male who presented to [place] emergency department early Thursday morning with complaints [...] once available was transported by [facility] to [facility] for further evaluation and management. On arrival to [facility] ICU his chest pain had resolved as had his ST segment elevation on surface ECG. The patient was admitted to theICU on full medical therapy for ACS including IV unfractionated heparin drip, IVnitroglycerin drip. He had been loaded with oral ticagrelor 180 mg at [facility]. Given his anticoagulation and recent fibrinolytic therapy we elected to wait 4 hours from arrival to go to the Ent Consultant for cardiac catheterization and PCI. Please see my cardiac catheterization and PCI reports for full details of the patient's procedure. However in short he was found to have a culprit lesion of the distal left circumflex. This was treated under IVUS guidance with implantation of a single large caliber frontier Hixton drug-eluting stent with excellent clinical angiographic and [...] heart disease and no mechanical complication of [place] noted. At this point as the patient [...] MD p CL Ivus Initial Vessel - MD shelli Mcdonough PCI AMI 1st Vessel CX LORETO - [...] doctor or pharmacist, without first calling the stress test technician who implanted the stent. If you require [...] weight lifting, stair steppers, etc. until the stress test technician approves these activities. Check with the stress test technician on your first follow-up visit. CALL YOUR INDOOR PLANT TECHNICIAN: -If bleeding should occur from the catheter insertion site- apply pressure to the site then immediately call us. -Report any fever, redness, drainage, increased swelling, or firmness at the catheter insertion site. Some bruising or slight swelling may be present at thetime of discharge. -Should arm or leg become cold, numb, white, or blue, contact the stress test technician immediately. -IF you should experience episodes of [...] Cardiopulmonary Rehabilitation program is recommended. The attending stress test technician or a nurse clinician should provide you with specificinstructions regarding activity, diet, medications, and further follow up for you. Follow the medication instructions provided on your discharge. If the dosages and instructions on this sheet differ from the dosage and instructions on the bottle, follow the instructions on the bottle. [facility] is not responsible for incorrect prescription information [...] % (Auto) 66.2, Lymph % (Auto) 20.1, [place] % (Auto) 9.8, Eos % (Auto) 3.4, Baso % (Auto) 0.5, Nucleat RBC Rel Count 0.2, Neut # (Auto) 6.5, Lymph # (Auto) 2.0, [place] # (Auto) 1.0 H, Eos # (Auto) 0.3, Baso # (Auto) 0.1 08/08/24 04:20: Corrected WBC Cancelled, Uncorrected WBC Count Cancelled, RBC Cancelled, Hgb Cancelled, Hct Cancelled, MCV Cancelled, MCH Cancelled, MCHC Cancelled, RDW Cancelled, Plt Count Cancelled, MPV Cancelled, Neut % (Auto) Cancelled, Lymph % (Auto) Cancelled, [place] % (Auto) Cancelled, Eos % (Auto) Cancelled, Baso % (Auto) Cancelled, Nucleat RBC Rel Count Cancelled, Neut # (Auto)Cancelled, Lymph # (Auto) Cancelled, [place] # (Auto) Cancelled, Eos # (Auto) Cancelled, Baso # (Auto) Cancelled, Monocyte Dist Width Cancelled, PHA Creatinine Clear 92.91, Sodium 138, Potassium 3.9, Chloride 108 H, Carbon Dioxide 24.7, Anion Gap 9.2, BUN 15, Creatinine 1.04, Est GFR (CKD-EPI) > 60.0, Glucose 113 H, Calcium 8.5 L, Total Bilirubin 0.9, AST 122 H, ALT 58 H, AlkalinePhosphatase 56, Troponin I High Sens 82815 H*, Total Protein 6.4, Albumin 3.9, Globulin 2.5, Albumin/Globulin Ratio 1.6 08/07/24 09:25: Heparin Anti-Xa, Unfract 0.60, Troponin I High Sens 04110 H* Documented By: Emile Damon MD 08/08/24 0922 Signed By: <Electronically signed by Emile Damon MD> 08/08/24 0936 [facility] Work Phone: Discharge summary 08-08-2024 Note Date & Type Note Facility 08-08-2024 Discharge summary [facility] enter History and physical note 08-07-2024 Note Date & Type Note Facility 08-07-2024 History and physi gregory note Note Date/Time August 07, 2024 11:34am [facility] [address] [place] [address] Cardiology H&P Signed Patient: Robert Boateng MR#: [id number] : 1965 Acct:[id number] Age/Sex: 59 / M Adm Date: 5 Loc: Room: [address] [place] [address] Type: ADM IN Attending Dr: Emile Damon [...] and the patient was taken directly to [place] emergency department for emergent evaluation. In the [...] contacted again by the ER physician from [place] telling the that there was going to [...] given IV TNK 50 mg in the [place] ER. He had already been loaded with 180 mg oral Brilinta also per my direction. Once weather was conducive he was then transported by air flight to [facility] for further and ongoing management of acute [...] unless noted below or in HPI [facility] Medical History (Updated 08/07/24 @ 11:06 [...] Dysrhythmias Sinus rhythms and dysrhythmias: sinus rhythm [place], pacemaker, normal Myocardial infarction: inferior [place] (acute or recent) A&P - Cardiology (1) [...] signed by Emile Damon MD> 08/07/24 1134 [facility] Work Phone: Procedure note 08-07-2024 Note Date & Type Note Facility 08-07-2024 Procedure note [facility] enter Procedure note 08-07-2024 Note Date & Type Note Facility 08-07-2024 Procedure note [facility] enter History and physical note 08-07-2024 Note Date & Type Note Facility 08-07-2024 History and physi gregory note [facility] enter Evaluation note 08-07-2024 Note Date & Type Note Facility 08-07-2024 Evaluation note Diagnosis Onset Date Resolution ST elevation myocardial infarction (STEMI) of inferior wall acute August 07, 2024 3 :00am [facility] Work Phone: Hospital Discharge instructions Note Date & Type Note Facility Hospital Discharge instructions Additional Instructions DISCHARGE INSTRUCTIONS FOR ANGIOPLASTY/CORONARY/PERIPHERAL /STENT IMPLANT FOR ADULT ANTICOAGULATION -Since the greatest [...] doctor or pharmacist, without first calling the stress test technician who implanted the stent. If you require [...] weight lifting, stair steppers, etc. until the stress test technician approves these activities. Check with the stress test technician on your first follow-up visit. CALL YOUR INDOOR PLANT TECHNICIAN: -If bleeding should occur from the catheter insertion site- apply pressure to the site then immediately call us. -Report any fever, redness, drainage, increased swelling, or firmness at the catheter insertion site. Some bruising or slight swelling may be present at the time of discharge. -Should arm or leg become cold, numb, white, or blue, contact the stress test technician immediately. -IF you should experience episodes of [...] Cardiopulmonary Rehabilitation program is recommended. The attending stress test technician or a nurse clinician should provide you with specific instructions regarding activity, diet, medications, and further follow up for you. Follow the medication instructions provided on your discharge. If the dosages and instructions on this sheet differ from the dosage and instructions on the bottle, follow the instructions on the bottle. [facility] is not responsible for incorrect prescription information provided by the patient during their visit. Do not stop your medications without consulting your health care provider. Please take the list with you to your next doctor's appointment. [facility] [facility] Work Phone: Reason for referral (narrative) Note Date & Type Note Facility Reason for referral (narrative) No reason for referral information available [facility] Work Phone: Summary Purpose Family History No Family History Records Found Relationship Condition Age at Onset Recorded Date/T shirin father Heart disease Unknown Cardiac arrest Unknown Hypertension Unknown Myocardial infarction Unknown sister Female pelvic inflammatory disease Unknow n sister Hypertension Unknown brother Heart disease Unknown Chronic obstructive pulmonary disease Unk nown Status post angioplasty Unknown sister Hypothyroidism Unknown Presence of cardiac pacemaker Unknown Atrial fibrillation Unknown sister Renal insufficiency Unknown Advance Directives No Advanced Directives Records Found Advance Directive Response Recorded Date/ Time Advance [...] m STEMI August 07, 2024 11:24 am [facility] 08/08August 17, 2024 12:35 pm 6 week [...] 2024 1 2:35pm Chief Complaint Admit Date [facility] 08/08August 17, 2024 12:35 pm 6 week [...] ized section and content) DATE CREATED AUTHOR 06/06/2021 [facility] DATE CREATED AUTHOR AUTHOR'S ORGANIZ ATION 08/08/2024 [facility] DATE CREATED AUTHOR AUTHOR'S ORGANIZ ATION 09/18/2024 [facility] DATE CREATED AUTHOR AUTHOR'S ORGANIZ ATION 12/20/2024 [facility] Care Teams (unrecognized sec tion and content) Team Status: Active Member Role Status Mi Pat MD Primary Care Provider Active Team Status: Inactive Member Role Status Mi [...] Emile Damon MD Admit Provider Active Start: melody 2024 End: August 08, 2024 Emile Damon MD Attending Provider Active Star t: August 07, 2024 End: August 08, 2024 Team Status: Active Member Role Status Mi Pat MD Primary Care Provider Active Start: August 07, 2024 Emile Damon MD Admit Provider Active Start: Esteban oliver 2024 Emile Damon MD Attending Provider Active Star t: August 07, 2024 Emile Damon MD Other Provider Active Start: Esteban oliver 2024 Team Status: Inactive Member Role Status [...] 2024 Team Status: Inactive Member Role Status Dates [...] BE BASED ON THE PRIMARY CLINICAL RECORDS. [employer] provides no warranty or guarantee of the accuracy or completeness of information in this document.
--- NOTE | 2025-01-02 14:34 | CT_ITS ---
The [address] [address] Patient Name: ROBERT BOATENG MRN: [id number] date: 1965 Sex: M Assigned Patient Location: CT Current Patient Location: [facility] Accession/Order Number: [id number] Exam Date: 01/02/2025 14:23 Report Date: 01/02/2025 17:54 At the request of: KETURAH QUIROZ MD Procedure: CT abdomen pelvis w con CT ABDOMEN AND PELVIS WITH INTRAVENOUS CONTRAST: CLINICAL HISTORY: Positive Occult Stool Test COMPARISON: None TECHNIQUE: Spiral images were obtained through the abdomen and pelvis following the administration of intravenous contrast. This CT exam was performed using one or more following dose reduction techniques: Automated exposure control, adjustment of the mA and/or kV according to patient size, or use of iterative reconstruction technique. FINDINGS: Lung Bases: [Lung bases are clear.] Organs:Left hepatic lobe hypodensities suggestive of a cyst.[Otherwise fatty infiltration liver. Exophytic lesion right kidney interpolar location indeterminate 37 HU 1.7 cm in size not clearly simple cyst. Otherwise, the Liver, spleen, adrenals, kidneys, pancreas unremarkable. GI: Rectal contrast noted. Qkqx-mu-xevuwvob stool burden. Colonic diverticulosis. Presence of retained stool does degrade evaluation for possible colonic mass. No discrete areas of apple core formation or definite intraluminal mass identified.[No bowel obstruction. Appendix unremarkable. Small hiatal hernia. Pelvis:[Bladder prostate unremarkable.] Peritoneum/Retroperitoneum:No free air or free fluid. Kziz-jo-idugbwvi plaque involving the nonaneurysmal aorta.[ Abd wall/Bones:Multilevel degenerative changes of the lumbar spine.[No suspicious osseous lesion. CT/CT abdomen pelvis w con IMPRESSION: Colonic diverticulosis without definite high-grade colonic stricturing or mass identified. Presence of stool does degrade evaluation. Please note this is not a substitute for colonoscopy or endoscopy given the reported presence for Hemoccult-positive stool.. Small hiatal hernia. Exophytic lesion right kidney 1.7 cm in size, indeterminate, not clearly a simple cyst. Consider ultrasound correlation. Impression dictated by: Mateusz Chin M.D. 01/02/2025 5:54 PM Dictation Location: [place] [address] Electronically authenticated by: [id number] Y Date: 01/02/2025 17:54
== END 2025-01-02 12:26 | disposition home or self-care (01) ==
LOC: CT 12:26
PROVIDERS: PCP Family Medicine; Visit Provider Family Medicine
DX: R19.5 Other fecal abnormalities (principal); N28.89 Other specified disorders of kidney and ureter
CPT/HCPCS: 74177; Q9963; Q9967

== ENCOUNTER 2025-01-05 11:01 | Outpatient (OUT) | payer BC, SELFPAY ==
[2025-01-05 11:30] LABS: Hematocrit 44.7 % (42.0-54.0); Hemoglobin 15.4 g/dL (14.0-18.0); Immature Granulocytes Abs Auto 0.02 10^3/uL (0.00-0.03); Immature Granulocytes Pct Auto 0.2 % (0.0-0.5); Lymphocytes Absolute Auto 1.4 10^3/uL (1.2-3.8); Mean Corpuscular HGB Conc 34.5 g/dL (29.9-35.2); Mean Corpuscular Hemoglobin 29.9 pg (25.9-34.0); Mean Corpuscular Volume 86.8 fL (80.0-94.0); Platelet Count 170 10^3/uL (150-450); Red Blood Count 5.15 10^6/uL (4.70-6.10); White Blood Count 8.6 10^3/uL (4.0-11.0)
[2025-01-06 04:07] LABS: CEA 1.5 ng/mL (0.0-4.7)
--- OUTSIDE RECORDS SUMMARY | 2025-01-06 13:23 | XMS_ITS | CCD ---
Author Organization [facility] Care Team Providers Care Piano Case Maker Name Role Phone DR KETURAH PAT Admitting Unavailable RICHIE, DR REBOLLAR Attending Unavailable RICHIE, DR REBOLLAR Primary Care Unavailable RICHIE, DR REBOLLAR Consulting Unavailable RICHIE, DR REBOLLAR Admitting Unavailable RICHIE, DR REBOLLAR Attending Unavailable RICHIE, DR REBOLLAR Primary Care Unavailable RICHIE, DR REBOLLAR Consulting Unavailable PROVIDER, UNKNOWN Attending Unavailable PROVIDER, UNKNOWN Admitting Unavailable Keturah Pat MD Primary Care Provider [phone] Emile Damon MD Admit Provider Emile Damon MD Attending Provider Emile Damon Admitting Unavailable Emile Dmaon Attending Unavailable Keturah Pat Primary Care Unavailable Emile Damon MD Other Provider Keturah Pat MD Primary Care Provider [phone] Emile Damon MD Attending Provider [phone] Rosalia Peters APRN Attending Provider [phone] Mike ASHLEY Attending Unavailable Keturah Pat Referring Unavailable Allergies Allergy Classification Reported Allergen(s) Allergy Type Date of Onset Reaction(s) Facility (3 sources) Opioids - Morphine Analogues Drug allergy (disorder) [facility] Repository (1 source) No Known Medication Allergies; Translations: [No Known Medication Allergies] Propensity to adverse reactions (disorder) [facility] Repository Medications Current Medications Medication Drug [...] aminotransferase [Enzymatic activity/volume] in Serum or Plasma [facility] 752 [facility] Albumin [Mass/volume] in Ser um or Plasma by Bromocresol green (BCG) dye binding methoOrdered By: Emile Damon on 08-08-2024 Albumin BCG dye [Mass/Vol] Albumin [Mass/volume] in Serum or Plasma by Bromocresol green (BCG) dye binding metho 3.5-5.7 [facility] Albumin BCG dye [Mass/Vol] 3.9 g/dL 3.5-5.7 [facility] Alkaline phosphatase [Enzyma tic activity/volume] in Serum or PlasmaOrdered By: Emile Damon on 08-08-2024 ALP [Catalytic activity/Vol] Alkaline phosphatase [Enzymatic activity/volume] in Serum or Plasma 34-104 [facility] Aspartate aminotransferase [ Enzymatic activity/volume] in Serum or PlasmaOrdered By: Emile Damon on 08-08-2024 AST [Catalytic activity/Vol] Aspartate aminotransferase [Enzymatic activity/volume] in Serum or Plasma High 13-39 [facility] Basophils Auto (Bld) [#/Vol] Ordered By: Emile Damon on 08-08-2024 Basophils (Bld) [#/Vol] Automated basoph il count 0.0-0.2 [facility] Basophils/100 WBC Auto (Bld) Ordered By: Emile Damon on 08-08-2024 Basophils/100 WBC (Bld) Automated basophil % . [facility] Bilirubin.total [Mass/volume ] in Serum or PlasmaOrdered By: Emile Damon on 08-08-2024 Bilirubin [Mass/Vol] Bilirubin.total [Mass/volume] in Serum or Plasma 0.3-1.0 [facility] Calcium [Mass/volume] in Ser um or PlasmaOrdered By: Emile Damon on 08-08-2024 Calcium [Mass/Vol] Calcium [Mass/volume] in Serum or Plasma Low 8.6-10.3 [facility] Carbon dioxide, total [Moles /volume] in Serum or PlasmaOrdered By: Emile Damon on 08-08-2024 CO2 [Moles/Vol] Carbon dioxide, total [Moles/volume] in Serum or Plasma 21.0-31.0 [facility] Chloride [Moles/volume] in S kylee or PlasmaOrdered By: Emile Damon on 08-08-2024 Chloride [Moles/Vol] Chloride [Moles/volume] in Serum or Plasma High 98-107 [facility] Complete Blood Count Auto Di ffOrdered By: Emile Damon on 08-08-2024 Basophils (Bld) [#/Vol] 0.1 10*3/uL 0.0-0.2 [facility] Comment on above: Order Comment: REDRA W Result Comment: PERF ORMED BY: [place] [address] PATHOLOGIST TRAINING ASSISTANT SCOTTY ALFORD M.D. Performed By: #### C BC #### [place] [address] [place] Basophils/100 WBC (Bld) 0.5 % . F [facility] Comment on above: Order Comment: REDRA W Performed By: #### C BC #### [place] [address] [place] Eosinophils (Bld) [#/Vol] 0.3 10*3/uL 0.0-0.45 [facility] Comment on above: Order Comment: REDRA W Performed By: #### C BC #### [address] Eosinophils/100 WBC (Bld) 3.4 % . [facility] Comment on above: Order Comment: REDRA W Performed By: #### C BC #### [address] Erythrocyte distribution width (RBC) [Ratio] 13.8 % 12.0-14.8 [facility] Comment on above: Order Comment: REDRA W Performed By: #### C BC #### [address] Hematocrit (Bld) [Volume fraction] 44.3 % 38.8-50.0 [facility] Comment on above: Order Comment: REDRA W Performed By: #### C BC #### [address] Hemoglobin (Bld) [Mass/Vol] 15.1 g/dL 13.0-17.0 [facility] Comment on above: Order Comment: REDRA W Performed By: #### C BC #### [place] [address] [place] Lymphocytes (Bld) [#/Vol] 2.0 10*3/uL 1.00-4.8 [facility] Comment on above: Order Comment: REDRA W Performed By: #### C BC #### [facility] [address] Lymphocytes/100 WBC (Bld) 20.1 % . [facility] Comment on above: Order Comment: REDRA W Performed By: #### C BC #### [address] MCH (RBC) [Entitic mass] 29.0 pg 27.5-35.2 [facility] Comment on above: Order Comment: REDRA W Performed By: #### C BC #### [address] MCV (RBC) [Entitic vol] 85.1 fL 83.5-101 F [facility] Comment on above: Order Comment: REDRA W Performed By: #### C BC #### [address] Monocytes (Bld) [#/Vol] 1.0 10*3/uL High 0.0-0.8 [facility] Comment on above: Order Comment: REDRA W Performed By: #### C BC #### [address] Monocytes/100 WBC (Bld) 9.8 % . [facility] Comment on above: Order Comment: REDRA W Performed By: #### C BC #### [address] Neutrophils (Bld) [#/Vol] 6.5 10*3/uL 1.8-7.7 [facility] Comment on above: Order Comment: REDRA W Performed By: #### C BC #### [address] Neutrophils/100 WBC (Bld) 66.2 % . [facility] Comment on above: Order Comment: REDRA W Performed By: #### C BC #### [address] Platelet mean volume (Bld) [Entitic vol] 8.6 fL 6.6-10.1 [facility] Comment on above: Order Comment: REDRA W Performed By: #### C BC #### [address] Platelets (Bld) [#/Vol] 154 10*3/uL 150-450 [facility] Comment on above: Order Comment: REDRA W Performed By: #### C BC #### [address] RBC (Bld) [#/Vol] 5.21 10*6/uL 3.90-5.60 [facility] Comment on above: Order Comment: REDRA W Performed By: #### C BC #### [address] WBC (Bld) [#/Vol] 9.8 10*3/uL 4.1-10.5 [facility] Comment on above: Order Comment: REDRA W Performed By: #### C BC #### [address] Complete Blood Count Auto Di ffon 08-08-2024 Mean Corpuscular HGB Conc 34.2 g/dL Normal 32.5-35.6 [facility] Comment on above: Order Comment: REDRA W Performed By: #### C BC #### [address] NRBC% 0.2 /100{WBC} Normal 0-0.5 [facility] Comment on above: Order Comment: REDRA W Performed By: #### C BC #### [address] Comprehensive Metabolic Pane ghislaine 08-08-2024 Albumin [Mass/Vol] 3.9 g/dL Normal 3.5-5.7 [facility] Comment on above: Performed By: #### C MP, HS TROP #### [address] Creatinine Clr Calc Pharmacy 92.91 Normal [facility] Comment on above: Result Comment: PERF ORMED BY: [place] [address] PATHOLOGIST TRAINING ASSISTANT SCOTTY ALFORD M.D. Performed By: #### C MP, HS TROP #### [facility] [address] [place] [address] GFR/1.73 sq M.predicted MDRD (S/P/Bld) [Vol rate/Area] mL/min/{1.73_m2} Normal [facility] Comment on above: Performed By: #### C MP, HS TROP #### [facility] [address] [place] [address] Comprehensive Metabolic Pane lOrdered By: Emile Damon on 08-08-2024 Albumin/Globulin [Mass ratio] 1.6 {ratio} [facility] Comment on above: Performed By: #### C MP, HS TROP #### [facility] [address] [place] [address] ALP [Catalytic activity/Vol] 56 U/L 34-104 [facility] Comment on above: Performed By: #### C MP, HS TROP #### [facility] [address] [place] [address] ALT [Catalytic activity/Vol] 58 U/L High 7-52 [facility] Comment on above: Performed By: #### C MP, HS TROP #### [facility] [address] [place] [address] Anion gap [Moles/Vol] 9.2 mmol/L 6.0-15.0 [facility] Comment on above: Performed By: #### C MP, HS TROP #### [facility] [address] [place] [address] AST [Catalytic activity/Vol] 122 U/L High 13-39 [facility] Comment on above: Performed By: #### C MP, HS TROP #### [facility] [address] [place] [address] Bilirubin [Mass/Vol] 0.9 mg/dL 0.3-1.0 [facility] Comment on above: Performed By: #### C MP, HS TROP #### [facility] [address] Calcium [Mass/Vol] 8.5 mg/dL Low 8.6-10.3 [facility] Comment on above: Performed By: #### C MP, HS TROP #### [facility] [address] Chloride [Moles/Vol] 108 mmol/L High 98-107 [facility] Comment on above: Performed By: #### C MP, HS TROP #### [facility] [address] CO2 [Moles/Vol] 24.7 mmol/L 21.0-31.0 [facility] Comment on above: Performed By: #### C MP, HS TROP #### [facility] [address] Creatinine [Mass/Vol] 1.04 mg/dL 0.70-1.30 [facility] Comment on above: Performed By: #### C MP, HS TROP #### [facility] [address] Globulin (S) [Mass/Vol] 2.5 g/dL [facility] Comment on above: Performed By: #### C MP, HS TROP #### [facility] [address] Glucose [Mass/Vol] 113 mg/dL High 70-100 [facility] Comment on above: Result Comment: [place] om Glucose Reference Range is dependent on time and content of last meal. Glucose of more than 200 mg/dL in a nonstressed, ambulatory subject supports the diagnosis of Diabetes Mellitus. ADA recommended reference range Performed By: #### C MP, HS TROP #### [facility] [address] ADA recommended refe rence rangeRandom Glucose Reference Range is dependent on time and content of last meal. Glucose of more than 200 mg/dL in a nonstressed, ambulatory subject supports the diagnosis of Diabetes Mellitus. Potassium [Moles/Vol] 3.9 mmol/L 3.5-5.1 [facility] Comment on above: Performed By: #### C MP, HS TROP #### [facility] [address] [place] [address] [place] Protein [Mass/Vol] 6.4 g/dL 6.4-8.9 [facility] Comment on above: Performed By: #### C MP, HS TROP #### [facility] [address] [place] [address] [place] Sodium [Moles/Vol] 138 mmol/L 136-145 [facility] Comment on above: Performed By: #### C MP, HS TROP #### [facility] [address] [place] [address] [place] Urea nitrogen [Mass/Vol] 15 mg/dL 10-21 [facility] Comment on above: Performed By: #### C MP, HS TROP #### [facility] [address] Creatinine [Mass/volume] in Serum or PlasmaOrdered By: Emile Damon on 08-08-2024 Creatinine [Mass/Vol] Creatinine [Mass/volume] in Serum or Plasma 0.70-1.30 [facility] ECG 12 lead ECGon 08-08-2024 ECG 12 lead ECG [facility] [place] [address] [place] [address] Electrocardiograph Report Signed Patient: Robert Boateng MR#: [id number] 57 : 1965 Acct:[id number] Age/Sex: 59 / M ADM Date: 08/07/24 Loc: Room: [address] [place] [address] Type: ADM IN Attending Dr: Emile Damon [...] QT has lengthened Confirmed by IFRAH NAJERA [facility], GTUIERREZ ([id number]) on 08/08/2024 12:21:25 PM Referred By: Electronically Signed By: GUTIERREZ RAINEY MD [facility] Transcribed By: MUS Signed By Gutierrez Rainey MD, [facility] 08/08/24 1221 Normal [facility] echo transthoracicon [facility] echo transthoracic [facility] [place] [address] Echocardiogram Signed Patient: Robert Boateng MR#: [id number] 57 : 1965 Acct:[id number] Age/Sex: 59 / M ADM Date: 08/07/24 Loc: Room: [address] [place] [address] Type: ADM IN Attending Dr: Emile Damon MD Ordering Provider: Emile Damon MD Date of Service: 08/08/2403/23/500 [facility]: inferior stemi Copies to: Gutierrez Rainey MD, [facility] Emile Damon MD BSA: 2.2 [...] max fernando: 78.4 cm/sec(0.8-1.3m/s) MV A max fernadno: 54.4 cm/sec(0.0-0.0m/s) MV E/A: 1.4 (<1.5) MMode/2D [...] 08/08/24 0837 Signed By: Gutierrez Rainey MD, [facility] 08/08/24 1231 Normal [facility] Eosinophils Auto (Bld) [#/Vo l]Ordered By: Emile Damon on 08-08-2024 Eosinophils (Bld) [#/Vol] Automated eosi nophil count 0.0-0.45 [facility] Eosinophils/100 WBC Auto (Bl d)Ordered By: Emile Damon on 08-08-2024 Eosinophils/100 WBC (Bld) Automated eosi nophil % . [facility] Erythrocyte distribution wid th Auto (RBC) [Ratio]Ordered By: Emile Damon on 08-08-2024 Erythrocyte distribution width (RBC) [Ratio] Erythrocyte distribution width [Ratio] by Automated count 12.0-14.8 [facility] Globulin Calc (S) [Mass/Vol] Ordered By: Emile Damon on 08-08-2024 Globulin (S) [Mass/Vol] Serum globulin measurement by calculation (mass/volume) [facility] Glucose [Mass/volume] in Ser um or PlasmaOrdered By: Emile Damon on 08-08-2024 Glucose [Mass/Vol] Glucose [Mass/volume] in Serum or Plasma High 70-100 [facility] Comment on above: ADA recommended refe rence rangeRandom Glucose Reference Range is dependent on time and content of last meal. Glucose of more than 200 mg/dL in a nonstressed, ambulatory subject supports the diagnosis of Diabetes Mellitus. Hematocrit Auto (Bld) [Volum e fraction]Ordered By: Emile Damon on 08-08-2024 Hematocrit (Bld) [Volume fraction] Hematocrit [Volume Fraction] of Blood by Automated count 38.8-50.0 [facility] Hemoglobin [Mass/volume] in BloodOrdered By: Emile Damon on 08-08-2024 Hemoglobin (Bld) [Mass/Vol] Hemoglobin [Mass/volume] in Blood 13.0-17.0 [facility] Leukocytes [#/volume] correc cristal for nucleated erythrocytes in Blood by Automated counOrdered By: Emile Damon on 08-08-2024 WBC corrected for nucl RBC Auto (Bld) [#/Vol] Leukocytes [#/volume] corrected for nucleated erythrocytes in Blood by Automated coun 4.1-10.5 [facility] WBC corrected for nucl RBC Auto (Bld) [#/Vol] 9.8 10*3/uL 4.1-10.5 [facility] Lymphocytes Auto (Bld) [#/Vo l]Ordered By: Emile Damon on 08-08-2024 Lymphocytes (Bld) [#/Vol] Lymphocytes [#/volume] in Blood by Automated count 1.00-4.8 [facility] Lymphocytes/100 WBC Auto (Bl d)Ordered By: Emile Damon on 08-08-2024 Lymphocytes/100 WBC (Bld) Lymphocytes/10 0 leukocytes in Blood by Automated count . [facility] MCH Auto (RBC) [Entitic mass ]Ordered By: Emile Damon on 08-08-2024 MCH (RBC) [Entitic mass] MCH [Entitic ma ss] by Automated count 27.5-35.2 [facility] MCHC Auto (RBC) [Mass/Vol]Or dered By: Emile Damon on 08-08-2024 MCHC (RBC) [Mass/Vol] MCHC [Mass/volume] by Automated count 32.5-35.6 [facility] MCHC (RBC) [Mass/Vol] 34.2 g/dL 32.5-35.6 [facility] MCV Auto (RBC) [Entitic vol] Ordered By: Emile Damon on 08-08-2024 MCV (RBC) [Entitic vol] MCV [Entitic vol ume] by Automated count 83.5-101 [facility] Monocytes Auto (Bld) [#/Vol] Ordered By: Emile Damon on 08-08-2024 Monocytes (Bld) [#/Vol] Automated blood monocyte count High 0.0-0.8 [facility] Monocytes/100 WBC Auto (Bld) Ordered By: Emile Damon on 08-08-2024 Monocytes/100 WBC (Bld) Automated monocyte % . [facility] Neutrophils Auto (Bld) [#/Vo l]Ordered By: Emile Damon on 08-08-2024 Neutrophils (Bld) [#/Vol] Neutrophils [#/volume] in Blood by Automated count 1.8-7.7 [facility] Neutrophils/100 WBC Auto (Bl d)Ordered By: Emile Damon on 08-08-2024 Neutrophils/100 WBC (Bld) Automated neut rophil % . [facility] No Panel InformationOrdered By: Emile Damon on 08-08-2024 Estimated GFR (CKD-EPI) > 60.0 mL/Min [facility] Pharmacy Creatinine Clearance (Chem 92.91 [facility] Nucleated erythrocytes [Pres ence] in Blood by Automated countOrdered By: Emile Damon on 08-08-2024 Nucleated RBC Auto Ql (Bld) Nucleated erythrocytes [Presence] in Blood by Automated count 0-0.5 [facility] Nucleated RBC Auto Ql (Bld) 0.2 /100{WBC} 0-0.5 [facility] Platelet mean volume Auto (B ld) [Entitic vol]Ordered By: Emile Damon on 08-08-2024 Platelet mean volume (Bld) [Entitic vol] Platelet mean volume [Entitic volume] in Blood by Automated count 6.6-10.1 [facility] Platelets Auto (Bld) [#/Vol] Ordered By: Emile Damon on 08-08-2024 Platelets (Bld) [#/Vol] Platelets [#/vol ume] in Blood by Automated count 150-450 [facility] Potassium [Moles/volume] in Serum or PlasmaOrdered By: Emile Damon on 08-08-2024 Potassium [Moles/Vol] Potassium [Moles/volume] in Serum or Plasma 3.5-5.1 [facility] Protein [Mass/volume] in Ser um or PlasmaOrdered By: Emile Damon on 08-08-2024 Protein [Mass/Vol] Protein [Mass/volume] in Serum or Plasma 6.4-8.9 [facility] RBC Auto (Bld) [#/Vol]Ordere d By: Emile Damon on 08-08-2024 RBC (Bld) [#/Vol] Erythrocytes [#/volume] in Blood by Automated count 3.90-5.60 [facility] Serum or plasma albumin/glob ulin mass ratioOrdered By: Emile Damon on 08-08-2024 Albumin/Globulin [Mass ratio] Serum or plasma albumin/globulin mass ratio [facility] Serum or plasma anion gap de terminationOrdered By: Emile Damon on 08-08-2024 Anion gap [Moles/Vol] Serum or plasma anion gap determination 6.0-15.0 [facility] Sodium [Moles/volume] in Ser um or PlasmaOrdered By: Emile Damon on 08-08-2024 Sodium [Moles/Vol] Sodium [Moles/volume] in Serum or Plasma 136-145 [facility] Troponin I High Sensitivityo n 08-08-2024 Troponin I High Sensitivity 56691 Off scale high 0-20 [facility] Comment on above: Result Comment: Crit ical Result : Called to and read back by: DERECK LUNA at: 08/08/2024 05:16:37 by: The Troponin units of report have been changed to meet the Chest Pain Accreditation requirement, element EC5.M1l2. Troponin units are changed from pg/ml to ng/L. Also, the decimal is removed and results are in whole numbers. PERFORMED BY: [place] [address] PATHOLOGIST TRAINING ASSISTANT SCOTTY ALFORD M.D. Performed By: #### C MP, TROP #### [address] Troponin I.cardiac [Mass/vol ume] in Serum or Plasma by Detection limit <= 0.01 ng/Ordered By: Emile Damon on 08-08-2024 Troponin I.cardiac DL <= 0.01 ng/mL [Mass/Vol] Troponin I.cardiac [Mass/volume] in Serum or Plasma by Detection limit <= 0.01 ng/ Critically high 0-20 [facility] Comment on above: Critical Result : Ca [...] Troponin I.cardiac DL <= 0.01 ng/mL [Mass/Vol] 47811 ng/L Critically high 0-20 [facility] Comment on above: Critical Result : Ca [...] nitrogen [Mass/volume] in Serum or Plasma 10-21 [facility] WBC Auto (Bld) [#/Vol]Ordere d By: Emile Damon on 08-08-2024 WBC (Bld) [#/Vol] Leukocytes [#/volume] in Blood by Automated count 4.1-10.5 [facility] Anti-Xa UF Heparinon 025 Anti-Xa UF Heparin 0.60 [IU]/mL Normal 0.30-0.70 [facility] Comment on above: Result Comment: Use the aPTT protocol when triglycerides are > 800 mg/dL, total bilirubin is > 20 mg/dL and/or patient has received a DOAC, Fondaparinux or LMWH within 72 hours AND baseline anti-Xa level is > 0.7 units/mL PERFORMED BY: [place] [address] PATHOLOGIST TRAINING ASSISTANT SCOTTY ALFORD M.D. Performed By: #### U FHEP ####[address] Anti-Xa UF Heparin 0.42 [IU]/mL Normal 0.30-0.70 [facility] Comment on above: Result Comment: Use the aPTT protocol when triglycerides are > 800 mg/dL, total bilirubin is > 20 mg/dL and/or patient has received a DOAC, Fondaparinux or LMWH within 72 hours AND baseline anti-Xa level is > 0.7 units/mL PERFORMED BY: [facility] [address] [place] [address] PATHOLOGIST TRAINING ASSISTANT SCOTTY ALFORD M.D. Performed By: #### U FHEP #### [address] Basic Metabolic Panelon 07-28 Anion gap [Moles/Vol] 11.9 mmol/L Normal 6.0-15.0 [facility] Comment on above: Performed By: #### B MP ####[place] [address] [place] Calcium [Mass/Vol] 9.0 mg/dL Normal 8.6-10.3 [facility] Comment on above: Performed By: #### B MP ####[address] Chloride [Moles/Vol] 109 mmol/L High 98-107 [facility] Comment on above: Performed By: #### B MP ####[address] CO2 [Moles/Vol] 23.6 mmol/L Normal 21.0-31.0 [facility] Comment on above: Performed By: #### B MP ####[address] Creatinine [Mass/Vol] 1.38 mg/dL High 0.70-1.30 [facility] Comment on above: Performed By: #### B MP ####[address] Creatinine Clr Calc Pharmacy 70.02 Normal [facility] Comment on above: Result Comment: PERF ORMED BY: [facility] [address] [place] [address] PATHOLOGIST TRAINING ASSISTANT SCOTTY ALFORD M.D. Performed By: #### B MP ####[address] Estimated GFR 59.274 mL/Min Normal [facility] Comment on above: Performed By: #### B MP ####[address] Glucose [Mass/Vol] 125 mg/dL High 70-100 [facility] Comment on above: Result Comment: [place] om Glucose Reference Range is dependent on time and content of last meal. Glucose of more than 200 mg/dL in a nonstressed, ambulatory subject supports the diagnosis of Diabetes Mellitus. ADA recommended reference range Performed By: #### B MP ####[address] Potassium [Moles/Vol] 4.5 mmol/L Normal 3.5-5.1 [facility] Comment on above: Performed By: #### B MP ####[facility] [place] [id number] [facility] Sodium [Moles/Vol] 140 mmol/L Normal 136-145 [facility] Physician Group Comment on above: Performed By: #### B MP ####[id number] [facility] Urea nitrogen [Mass/Vol] 20 mg/dL Normal 7-25 [facility] Comment on above: Performed By: #### B MP ####[id number] [place] [address] [facility] ECG 12 lead ECGon 08-07-2024 ECG 12 [place] [address] Electrocardiograph Report Signed Patient: Robert Boateng MR#: [id number] 56 : 1965 Acct:[id number] Age/Sex: 59 / M ADM Date: 08/07/24 Loc: Room: [address] [place] [address] Type: ADM IN Attending Dr: Emile Damon [...] undetermined Abnormal ECG Confirmed by Fauzia Hernandez ([id number]) on 08/07/2024 10:05:18 PM Referred By: Electronically Signed By: Fauzia Hernandez Transcribed By: MUS Signed By Fauzia Hernandez MD 2204 Normal [facility] [place] 12 [place] [address] Electrocardiograph Report Signed Patient: Robert Boateng MR#: [id number] 57 : 1965 Acct:[id number] Age/Sex: 59 / M ADM Date: 08/07/24 Loc: Room: [address] [place] [address] Type: ADM IN Attending Dr: Emile Damon [...] change was found Confirmed by IFRAH NAJERA [facility] ([id number]) on 08/08/2024 12:20:50 PM Referred By: Electronically Signed By: GUTIERREZ RAINEY MD FAC Transcribed By: MUS Signed By Gutierrez Rainey MD, FACC 08/08/24 1220 Normal [facility] ECG 12 lead ECG [place] [address] Electrocardiograph Report Signed Patient: Robert Boateng MR#: [id number] 57 : 1965 Acct:[id number] Age/Sex: 59 / M ADM Date: 08/07/24 Loc: Room: [address] [place] [address] Type: ADM IN Attending Dr: Emile Damon MD Ordering Provider: Emile Daomn MD Date of Service: 08/07/2402/21/318 ECG/ECG 12 [...] rhythm Normal ECG Confirmed by Fauzia Hernandez ([id number]) on 08/07/2024 9:59:55 PM Referred By: Electronically Signed By: Fauzia Hernandez Transcribed By: MUS Signed By Fauzia Hernandez MD 05/11/2 5 2159 Normal [facility] Heparin anti-Xa unfractionat edOrdered By: Emile Damon on 08-07-2024 Heparin unfractionated Chromogenic method Qn (PPP) Heparin anti-Xa unfractionated 0.30-0.70 [facility] Comment on above: Use the aPTT protoco l when triglycerides are > 800 mg/dL,total bilirubin is > 20 mg/dL and/or patient has received aDOAC, Fondaparinux or LMWH within 72 hours AND baselineanti-Xa level is > 0.7 units/mL Heparin unfractionated Chromogenic method Qn (PPP) 0.60 [IU]/mL 0.30-0.70 [facility] Comment on above: Use the aPTT protoco l when triglycerides are > 800 mg/dL,total bilirubin is > 20 mg/dL and/or patient has received aDOAC, Fondaparinux or LMWH within 72 hours AND baselineanti-Xa level is > 0.7 units/mL Partial Thromboplastin Timeo n 08-07-2024 aPTT Coag (Bld) [Time] 41.1 s High 25.1-36.5 [facility] Comment on above: Result Comment: A he matocrit value greater than 55% may lead to inaccurate results in coagulation testing. Patients having hematocrit values >55% require a special collection tube for coagulation studies. Please contact the laboratory at [phone] for redraw instructions. PERFORMED BY: [facility] [address] [place] [address] PATHOLOGIST TRAINING ASSISTANT SCOTTY ALFORD M.D. Performed By: #### P TT ####[facility] [place] [address] [facility] Troponin I High Sensitivityo n 08-07-2024 Troponin I High Sensitivity 26160 Off scale high 0-20 [facility] Comment on above: Result Comment: Crit ical Result : Called to and read back by: ADDISON BORGES at: 08/07/2024 10:15:55 by:QUINTON The Troponin units of report have been changed to meet the Chest Pain Accreditation requirement, element EC5.M1l2. Troponin units are changed from pg/ml to ng/L. Also, the decimal is removed and results are in whole numbers. PERFORMED BY: [place] [address] PATHOLOGIST TRAINING ASSISTANT SCOTTY ALFORD M.D. Performed By: #### H S TROP ####[place] [address] [id number] [facility] Troponin I High Sensitivity 8587 Off scale high 0-20 [facility] Comment on above: Result Comment: Crit ical Result : Called to and read back by: ADDISON BORGES at: 08/07/2024 08:20:01 by:QUINTON The Troponin units of report have been changed to meet the Chest Pain Accreditation requirement, element EC5.M1l2. Troponin units are changed from pg/ml to ng/L. Also, the decimal is removed and results are in whole numbers. PERFORMED BY: [place] [address] PATHOLOGIST TRAINING ASSISTANT SCOTTY ALFORD M.D. Performed By: #### H S TROP ####[address] [address] [facility] Troponin I High Sensitivity 5112 Off scale high 0-20 [facility] Comment on above: Order Comment: [...] results are in whole numbers. PERFORMED BY: [place] [address] PATHOLOGIST TRAINING ASSISTANT SCOTTY ALFORD M.D. Performed By: #### H S TROP #### [place] [id number] [facility] aPTT in Platelet poor plasma by Coagulation assayOrdered By: Emile Damon on 08-07-2024 aPTT Coag (PPP) [Time] Activated partial thromboplastin time (aPTT) in platelet poor plasma by coagulation a High 25.1-36.5 [facility] Comment on above: A hematocrit value g reater than 55% may lead to inaccurate results in coagulation testing. Patients having hematocrit values >55% require a special collection tube for coagulation studies. Please contact the laboratory at [phone] for redraw instructions. aPTT Coag (PPP) [Time] 41.1 s High 25.1-36.5 [facility] Comment on above: A hematocrit value g reater than 55% may lead to inaccurate results in coagulation testing. Patients having hematocrit values >55% require a special collection tube for coagulation studies. Please contact the laboratory at [phone] for redraw instructions. Covid-19 PCR (CVDTB)on SARS-CoV-2 (COVID-19) RNA HAKEEM+probe Ql (Unsp spec) Not detected Normal NOT DETECTED [facility] Comment on above: Result Comment: This test is not yet approved or cleared by the [place] FDA. When there are no FDA-approved or cleared tests available, and other criteria are met, FDA can make tests available under an emergency access mechanism called an Emergency Use Authorization (EUA). The EUA for this test is supported by the [employer] of Health and Human Service's (HHS's) declaration [...] SARS-CoV-2. Performed By: #### C VDTBH #### [facility] [address] [place], [place] [address] Dr. Boby LARA BLD IMMUNO SCREENon OCCULT BLOOD Negative Normal NEGATIVE [facility] Comment on above: Performed By: #### O BSCRN #### [facility] [address] [place], [place] [address] Lyn Ward GLYCOHEMOGLOBIN A1Con 2020 ADA RECOMMENDATION ADA THERAPEUTIC TARGET 6.0 - 7.0 ACTION SUGGESTED > 7.0 Normal [facility] Comment on above: Performed By: #### A 1C #### [facility] [address] [place], [place] [address] Lyn Ward Glucose [Mass/Vol] 111 mg/dL Normal [facility] Comment on above: Performed By: #### A 1C #### [facility] [address] [place], [place] [address] Lyn Ward HbA1c (Bld) [Mass fraction] 5.5 % Normal <=6.0 [facility] Comment on above: Performed By: #### A 1C #### [facility] [address] [place], [place] [address] Lyn Ward Vital Signs Date Time Vital Sign Value Performing Clinician Faci haresh 11-10-2024 13:00-0400 Body height 177.8 cm Keturah Pat MD Work Phone: [facility] 11-10-2024 13:00-0400 Body mass index (BMI) [Ratio] 29.5 kg/m2 Keturah Pat MD Work Phone: [facility] 11-10-2024 13:00-0400 Body weight 93.44 kg Keturah Pat MD Work Phone: [facility] 11-10-2024 13:00-0400 Diastolic blood pressure 82 mm[Hg] Keturah Pat MD Work Phone: [facility] 11-10-2024 13:00-0400 Heart rate 54 /min Keturah Pat MD Work Phone: [facility] 11-10-2024 13:00-0400 Respiratory rate 18 /min Keturah Pat MD Work Phone: [facility] 11-10-2024 13:00-0400 SaO2% (BldA) [Mass fraction] 96 % Keturah Pat MD Work Phone: [facility] 11-10-2024 13:00-0400 Systolic blood pressure 122 mm[Hg] Keturah Pat MD Work Phone: [facility] 09-26-2024 15:53-0400 Body height 177.8 cm Keturah Pat MD Work Phone: [facility] 09-26-2024 15:53-0400 Body mass index (BMI) [Ratio] 29.9 kg/m2 Keturah Pat MD Work Phone: [facility] 09-26-2024 15:53-0400 Body weight 94.8 kg Keturah Pat MD Work Phone: [facility] 09-26-2024 15:53-0400 Diastolic blood pressure 78 mm[Hg] Keturah Pat MD Work Phone: [facility] 09-26-2024 15:53-0400 Heart rate 85 /min Keturah Pat MD Work Phone: [facility] 09-26-2024 15:53-0400 Respiratory rate 18 /min Keturah Pat MD Work Phone: [facility] 09-26-2024 15:53-0400 SaO2% (BldA) [Mass fraction] 98 % Keturah Pat MD Work Phone: [facility] 09-26-2024 15:53-0400 Systolic blood pressure 132 mm[Hg] Keturah Pat MD Work Phone: [facility] 08-17-2024 13:06-0400 Body height 177.8 cm Keturah Pat MD Work Phone: [facility] 08-17-2024 13:06-0400 Body mass index (BMI) [Ratio] 30.4 kg/m2 Keturah Pat MD Work Phone: [facility] 08-17-2024 13:06-0400 Body weight 96.16 kg Keturah Pat MD Work Phone: [facility] 08-17-2024 13:06-0400 Diastolic blood pressure 84 mm[Hg] Keturah Pat MD Work Phone: [facility] 08-17-2024 13:06-0400 Heart rate 61 /min Keturah Pat MD Work Phone: [facility] 08-17-2024 13:06-0400 Respiratory rate 18 /min Keturah Pat MD Work Phone: [facility] 08-17-2024 13:06-0400 SaO2% (BldA) [Mass fraction] 97 % Keturah Pat MD Work Phone: [facility] 08-17-2024 13:06-0400 Systolic blood pressure 120 mm[Hg] Keturah Pat MD Work Phone: [facility] 08-08-2024 12:55-0400 Body height 177.8 cm Keturah Pat MD Work Phone: [facility] 08-08-2024 11:30-0400 Body temperature 98.4 [degF] Keturah Pat MD Work Phone: [facility] 08-08-2024 11:30-0400 Diastolic blood pressure 94 mm[Hg] Keturah Pat MD Work Phone: [facility] 08-08-2024 11:30-0400 Heart rate 64 /min Keturah Pat MD Work Phone: [facility] 08-08-2024 11:30-0400 Respiratory rate 15 /min Keturah Pat MD Work Phone: [facility] 08-08-2024 11:30-0400 SaO2% (BldA) [Mass fraction] 94 % Keturah Pat MD Work Phone: [facility] 08-08-2024 11:30-0400 Systolic blood pressure 153 mm[Hg] Keturah Pat MD Work Phone: [facility] 08-08-2024 07:00-0400 Inhaled oxygen flow rate 2 L/min Keturah Pat MD Work Phone: [facility] 08-08-2024 06:00-0400 Body weight 100.7 kg Keturah Pat MD Work Phone: [facility] 08-07-2024 03:17-0400 Body height 177.8 cm Keturah Pat MD Work Phone: [facility] Encounters Encounter Date Encounter Type Care Provider Facility Start: 01-24-2025 ambulatory [facility] Start: 11-10-2024 End: 11-10-2024 ambulatory Keturah Pat MD Work Phone: [facility] Work Phone: Start: 11-10-2024 End: 11-10-2024 Patient encounter procedure Rosalia Peters APRN -[facility] Work Phone: Start: 09-26-2024 End: 09-26-2024 ambulatory Keturah Pat MD Work Phone: [facility] Work Phone: Start: 09-26-2024 End: 09-26-2024 Patient encounter procedure Emile Orellana MD -[facility] Work Phone: Start: 08-17-2024 End: 08-17-2024 Patient encounter procedure Emile Orellana MD -[facility] Work Phone: Start: 08-07-2024 Non-patient / Non-visit Enedelia Pat MD Work Phone: [facility] Work Phone: Start: 08-07-2024 End: 08-07-2024 ambulatory UNKNOWN PROVIDER [facility] Start: 08-07-2024 End: 08-08-2024 Evaluation and management of inpatient Keturah Pat MD Work Phone: [facility] Work Phone: Start: 06-05-2021 End: 06-05-[address] KETURAH PAT Facility: Start: 10-30-2020 Encounter for genera l adult medical examination without abnormal findings DR KETURAH PAT [facility] Start: 10-23-2020 End: 10-24-[address] KETURAH [...] Comment on above: Performed By: #### [facility] #### [facility] [address] [place] [address] Lyn Ward Plan of Treatment Date Care Activity Detail Author Start: 08-18-2024 Patient referral [facility] Work Phone: Start: 08-08-2024 [facility] Start: 08-07-2024 Dilation of Coronary Artery, One Artery with Drug-eluting Intraluminal Device, Percutaneous Approach Dilation of Coronary Artery, One Artery with Drug-eluting Intraluminal Device, Percutaneous Approach [facility] Start: 08-07-2024 Fluoroscopy of Left Heart using Low Osmolar Contrast Fluoroscopy of Left Heart using Low Osmolar Contrast [facility] Start: 08-07-2024 Fluoroscopy of Multiple Coronary Arteries using Low Osmolar Contrast Fluoroscopy of Multiple Coronary Arteries using Low Osmolar Contrast [facility] Start: 08-07-2024 Measurement of Cardiac Sampling and Pressure, Left Heart, Percutaneous Approach Measurement of Cardiac Sampling and Pressure, Left Heart, Percutaneous Approach [facility] Start: 08-07-2024 Ultrasonography of Single Coronary Artery, Intravascular Ultrasonography of Single Coronary Artery, Intravascular [facility] Start: 08-07-2024 Hospital admission [facility] Patient Education High cholester ol Heart attack - Discharge instructions Drug Eluting Stents Chest pain - Discharge instructions Know your Meds [facility] Work Phone: Patient referral [facility] Work Phone: Referral to cardiac rehabilitation program [facility] Payers Date Payer Category Payer Self-pay 1965 Unknown [id number] 1965 Unknown [id number] 1965 Unknown [id number] 1965 Unknown [id number] [id number] 1958 Unknown [id number] 1958 Unknown [id number] Unknown [id number] [id number] [id number] Social History Date Type Detail Facility Start: 08-07-2024 End: 08-17-2024 Tobacco smoking status NHIS Never smoked tobacco (finding) [facility] Start: 08-08-2024 Sex Male (finding) [facility] Start: 1965 Sex Assigned At Male F [facility] Medical Equipment Procedure Code Equipment Code Equipment Origin al Text Equipment Identifier Dates CL STENT TERRENCE FRONTIER 3.5 X 26 FDA Start: 08-07-2024 CL STENT TERRENCE FRONTIER 3.5 X 26 FDA Start: 08-07-2024 CL STENT TERRENCE FRONTIER 3.5 X 26 FDA Start: 08-07-2024 Goals Date Patient Goal Desired Activity /State Functional Status Date Assessment Result Facility 08-08-2024 Functional status Patient at Baseline [facility] Work Phone: Mental Status Date Assessment Result Facility 08-08-2024 Cognitive function Cognitive Sta tus Patient at Baseline [facility] Work Phone: Evaluation note 08-17-2024 Note Date & Type Note Facility 08-17-2024 Evaluation note Authored May 21st, 2025 2:19p m CCS 0. NYHA Ia. Excellent cl inical response to pharmacal invasive management strategy followed by PCI to RCA. No mechanical complications of NH. No bleeding complications on dual antiplatelet therapy. [facility] Work Phone: Discharge summary 08-08-2024 Note Date & Type Note Facility 08-08-2024 Discharge summary Note Date/Time August 08, 2024 9:36am [facility] [address] [place] [address] Discharge Summary Signed Patient: Robert Boateng MR#: [id number] : 1965 Acct:[id number] Age/Sex: 59 / M Adm Date: 5 Loc: Room: [address] [place] [address]: Emile Damon MD Copies to: MD Emile Platt MD~ Providers Date of Discharge: 08/08/24 Discharging Provider: Emile Damon Primary Care Provider: Keturah Pat Discharge Diagnosis (1) ST elevation myocardial infarction (STEMI) of inferior wall: Final Diagnosis Final Discharge Diagnosis: 1. Acute inferior STEMI status post successful pharmacoinvasive management strategy with [id number] fibrinolytic therapy followed by early mechanical revascularization with PCI to the left circumflex. 2. Heart failure with mildly reduced ejection fraction. Post PCI EF 50%. 3. Dyslipidemia Summary Hospital Course Hospital course: Robert is a very pleasant 59-year-old white male who presented to [facility] emergency department early Thursday morning with complaints [...] once available was transported by [facility] to [facility] for further evaluation and management. On arrival to [facility] ICU his chest pain had resolved as [...] hours from arrival to go to the [facility] for cardiac catheterization and PCI. Please see [...] heart disease and no mechanical complication of NH noted. At this point as the patient [...] doctor or pharmacist, without first calling the certified veterinary technician who implanted the stent. If you [...] weight lifting, stair steppers, etc. until the certified veterinary technician approves these activities. Check with the certified veterinary technician on your first follow-up visit. CALL YOUR BLUE LINE OPERATOR: -If bleeding should occur from the catheter insertion site- apply pressure to the site then immediately call us. -Report any fever, redness, drainage, increased swelling, or firmness at the catheter insertion site. Some bruising or slight swelling may be present at thetime of discharge. -Should arm or leg become cold, numb, white, or blue, contact the certified veterinary technician immediately. -IF you should experience episodes [...] Cardiopulmonary Rehabilitation program is recommended. The attending certified veterinary technician or a nurse clinician should provide you with specificinstructions regarding activity, diet, medications, and further follow up for you. Follow the medication instructions provided on your discharge. If the dosages and instructions on this sheet differ from the dosage and instructions on the bottle, follow the instructions on the bottle. [facility] is not responsible for incorrect prescription information [...] % (Auto) 66.2, Lymph % (Auto) 20.1, [place] % (Auto) 9.8, Eos % (Auto) 3.4, Baso % (Auto) 0.5, Nucleat RBC Rel Count 0.2, Neut # (Auto) 6.5, Lymph # (Auto) 2.0, [place] # (Auto) 1.0 H, Eos # (Auto) 0.3, Baso # (Auto) 0.1 08/08/24 04:20: Corrected WBC Cancelled, Uncorrected WBC Count Cancelled, RBC Cancelled, Hgb Cancelled, Hct Cancelled, MCV Cancelled, MCH Cancelled, MCHC Cancelled, RDW Cancelled, Plt Count Cancelled, MPV Cancelled, Neut % (Auto) Cancelled, Lymph % (Auto) Cancelled, [place] % (Auto) Cancelled, Eos % (Auto) Cancelled, Baso % (Auto) Cancelled, Nucleat RBC Rel Count Cancelled, Neut # (Auto)Cancelled, Lymph # (Auto) Cancelled, [place] # (Auto) Cancelled, Eos # (Auto) Cancelled, Baso # (Auto) Cancelled, Monocyte Dist Width Cancelled, PHA Creatinine Clear 92.91, Sodium 138, Potassium 3.9, Chloride 108 H, Carbon Dioxide 24.7, Anion Gap 9.2, BUN 15, Creatinine 1.04, Est GFR (CKD-EPI) > 60.0, Glucose 113 H, Calcium 8.5 L, Total Bilirubin 0.9, AST 122 H, ALT 58 H, AlkalinePhosphatase 56, Troponin I High Sens 15570 H*, Total Protein 6.4, Albumin 3.9, Globulin 2.5, Albumin/Globulin Ratio 1.6 08/07/24 09:25: Heparin Anti-Xa, Unfract 0.60, Troponin I High Sens 36429 H* Documented By: Emile Damon MD 08/08/24 0922 Signed By: <Electronically signed by Emile Damon MD> 08/08/24 0936 [facility] Work Phone: Discharge summary 08-08-2024 Note Date & Type Note Facility 08-08-2024 Discharge summary [facility] History and physical note 08-07-2024 Note Date & Type Note Facility 08-07-2024 History and physi gregory note Note Date/Time August 07, 2024 11:34am [facility] [address] [place] [address] Cardiology H&P Signed Patient: Robert Boateng MR#: [id number] : 1965 Acct:[id number] Age/Sex: 59 / M Adm Date: 5 Loc: Room: [address] [place] [address] Type: ADM IN Attending Dr: Emile Damon [...] and the patient was taken directly to [facility] emergency department for emergent evaluation. In the [...] contacted again by the ER physician from [facility] telling the that there was going to [...] given IV TNK 50 mg in the [facility] ER. He had already been loaded with 180 mg oral Brilinta also per my direction. Once weather was conducive he was then transported by air flight to [facility] for further and ongoing management of acute [...] negative unless noted below or in HPI [facility] Medical History (Updated 08/07/24 @ 11:06 [...] Dysrhythmias Sinus rhythms and dysrhythmias: sinus rhythm NH, pacemaker, normal Myocardial infarction: inferior NH (acute or recent) A&P - Cardiology (1) [...] signed by Emile Damon MD> 08/07/24 1134 [facility] Work Phone: Procedure note 08-07-2024 Note Date & Type Note Facility 08-07-2024 Procedure note [facility] enter Procedure note 08-07-2024 Note Date & Type Note Facility 08-07-2024 Procedure note [facility] enter History and physical note 08-07-2024 Note Date & Type Note Facility 08-07-2024 History and physi gregory note [facility] enter Evaluation note 08-07-2024 Note Date & Type Note Facility 08-07-2024 Evaluation note Diagnosis Onset Date Resolution ST elevation myocardial infarction (STEMI) of inferior wall acute August 07, 2024 3 :00am [facility] Work Phone: Hospital Discharge instructions Note [...] doctor or pharmacist, without first calling the certified veterinary technician who implanted the stent. If you [...] weight lifting, stair steppers, etc. until the certified veterinary technician approves these activities. Check with the certified veterinary technician on your first follow-up visit. CALL YOUR BLUE LINE OPERATOR: -If bleeding should occur from the catheter insertion site- apply pressure to the site then immediately call us. -Report any fever, redness, drainage, increased swelling, or firmness at the catheter insertion site. Some bruising or slight swelling may be present at the time of discharge. -Should arm or leg become cold, numb, white, or blue, contact the certified veterinary technician immediately. -IF you should experience episodes [...] Cardiopulmonary Rehabilitation program is recommended. The attending certified veterinary technician or a nurse clinician should provide you with specific instructions regarding activity, diet, medications, and further follow up for you. Follow the medication instructions provided on your discharge. If the dosages and instructions on this sheet differ from the dosage and instructions on the bottle, follow the instructions on the bottle. [facility] is not responsible for incorrect prescription information provided by the patient during their visit. Do not stop your medications without consulting your health care provider. Please take the list with you to your next doctor's appointment. [facility] Work Phone: Reason for referral (narrative) Note Date & Type Note Facility Reason for referral (narrative) No reason for referral information available [facility] Work Phone: Summary Purpose Family History No [...] m STEMI August 07, 2024 11:24 am [facility] [place] 17, 2024 12:35 pm 6 week [...] 2024 1 2:35pm Chief Complaint Admit Date [facility] [place] 17, 2024 12:35 pm 6 week [...] and content) DATE CREATED AUTHOR 06/06/2021 [facility] DATE CREATED AUTHOR AUTHOR'S ORGANIZ ATION 08/08/2024 [facility] DATE CREATED AUTHOR AUTHOR'S ORGANIZ ATION 09/18/2024 [facility] DATE CREATED AUTHOR AUTHOR'S ORGANIZ ATION 12/20/2024 [facility] Care Teams (unrecognized sec tion and [...] 2024 Team Status: Inactive Member Role Status iM Pat MD Primary Care Provider Active Start: [...] BE BASED ON THE PRIMARY CLINICAL RECORDS. [employer] provides no warranty or guarantee of the accuracy or completeness of information in this document.
== END 2025-01-05 11:02 | disposition home or self-care (01) ==
LOC: LAB 01-06 13:19
PROVIDERS: PCP Family Medicine; Visit Provider Family Medicine
DX: R19.5 Other fecal abnormalities (principal)
CPT/HCPCS: 36415; 82378; 85025

== ENCOUNTER 2025-01-11 07:09 | Outpatient (OUT) | payer BC, SELFPAY ==
--- OUTSIDE RECORDS SUMMARY | 2025-01-02 14:23 | XMS_ITS ---
Author Organization [facility] [place] Address [address] [place] [address] Care Team Providers Care Cable Installer Repairer Name Role Phone Georgi Pat Primary Care Provider REASON FOR VISIT CT results Problems Problem Type SNOMED Code ICD Code Onset Dates Problem Status W/U Status Risk Notes Problem Renal cyst (016317498) Renal cyst (Q61.00) Active confirmed Encounters Encounter Location Date Provider Diagnosis [facility] [address] [place] [address] 01/02/2025 Georgi Pat Renal cyst Q61.00 an d Positive occult stool blood test R19.5 Assessments Encounter Date Diagnosis (ICD Code) Assessment Notes Treatment Notes Treatment Clinical Notes Section Notes 01/02/2025 Renal cyst (ICD-10 - Q61.00) 01/02/2025 Positive occult stool blood test (ICD-10 - R19.5) Plan Of Treatment Pending Test Test Name Order Date CBC 01/02/2025 CEA 01/02/2025 US Renal 01/02/2025 Progress Notes * Tommie LOCKWOOD MDOB: 6 (59 yo M)Acc No.[id number]:01/02/2025 Patient: Tommie LIU :1965 A ge:59 Y S ex:Male Address:[address] [place] [address], [id number] Subjective: * Chief Complaints: * C T results * Medical History: * Surgical History: * Hospitalization/Major Diagno stic Procedure: * Medications: Objective: * Vitals: * Physical Examination: Assessment: * Assessment: 1. R enal cyst - Q61.00 (Primary) 2 . P ositive occult stool blood test - R19.5 Plan: * Treatment: 2. P ositive occult stool blood test L AB: CBC L AB: CEA * Procedure Codes: * true * Date: Generated for Jennifer oconnor/Carolyn/eTransmitting on: 07:11 AM EDT
--- OUTSIDE RECORDS SUMMARY | 2025-01-11 07:11 | XMS_ITS | CCD ---
Author Organization [facility] CliniSysd Care Team Providers Care Sales Marketing Director Name Role Phone DR KETURAH PAT Admitting Unavailable RICHIE, DR REBOLLAR Attending Unavailable RICHIE, DR REBOLLAR Primary Care Unavailable RICHIE, DR REBOLLAR Consulting Unavailable RICHIE, DR REBOLLAR Admitting Unavailable RICHIE, DR REBOLLAR Attending Unavailable RICHIE, DR REBOLLAR Primary Care Unavailable RICHIE, DR REBOLLAR Consulting Unavailable PROVIDER, UNKNOWN Attending Unavailable PROVIDER, UNKNOWN Admitting Unavailable Keturah Pat MD Primary Care Provider [phone] Emile Damon MD Admit Provider Emile Damon MD Attending Provider Emile Damon Admitting Unavailable Emile Damon Attending Unavailable Keturah Pat Primary Care Unavailable Emile Damon MD Other Provider Keturah Pat MD Primary Care Provider [phone] Emile Damon MD Attending Provider Rosalia Peters APRN Attending Provider Mike ASHLEY Attending Unavailable Keturah Pat Referring Unavailable Allergies Allergy Classification Reported Allergen(s) Allergy Type Date of Onset Reaction(s) Facility (3 sources) Opioids - Morphine Analogues Drug allergy (disorder) [facility] Repository (1 source) No Known Medication Allergies; Translations: [No Known Medication Allergies] Propensity to adverse reactions (disorder) [facility] Repository Medications Current Medications Medication Drug [...] aminotransferase [Enzymatic activity/volume] in Serum or Plasma [facility] 752 [facility] Albumin [Mass/volume] in Ser um or Plasma by Bromocresol green (BCG) dye binding methoOrdered By: Emile Damon on 08-08-2024 Albumin BCG dye [Mass/Vol] Albumin [Mass/volume] in Serum or Plasma by Bromocresol green (BCG) dye binding metho 3.5-5.7 [facility] Albumin BCG dye [Mass/Vol] 3.9 g/dL 3.5-5.7 [facility] Alkaline phosphatase [Enzyma tic activity/volume] in Serum or PlasmaOrdered By: Emile Damon on 08-08-2024 ALP [Catalytic activity/Vol] Alkaline phosphatase [Enzymatic activity/volume] in Serum or Plasma 34-104 [facility] Aspartate aminotransferase [ Enzymatic activity/volume] in Serum or PlasmaOrdered By: Emile Damon on 08-08-2024 AST [Catalytic activity/Vol] Aspartate aminotransferase [Enzymatic activity/volume] in Serum or Plasma High 13-39 [facility] Basophils Auto (Bld) [#/Vol] Ordered By: Emile Damon on 08-08-2024 Basophils (Bld) [#/Vol] Automated basoph il count 0.0-0.2 [facility] Basophils/100 WBC Auto (Bld) Ordered By: Emile Damon on 08-08-2024 Basophils/100 WBC (Bld) Automated basophil % . [facility] Bilirubin.total [Mass/volume ] in Serum or PlasmaOrdered By: Emile Damon on 08-08-2024 Bilirubin [Mass/Vol] Bilirubin.total [Mass/volume] in Serum or Plasma 0.3-1.0 [facility] Calcium [Mass/volume] in Ser um or PlasmaOrdered By: Emile Damon on 08-08-2024 Calcium [Mass/Vol] Calcium [Mass/volume] in Serum or Plasma Low 8.6-10.3 [facility] Carbon dioxide, total [Moles /volume] in Serum or PlasmaOrdered By: Emile Damon on 08-08-2024 CO2 [Moles/Vol] Carbon dioxide, total [Moles/volume] in Serum or Plasma 21.0-31.0 [facility] Chloride [Moles/volume] in S kylee or PlasmaOrdered By: Emile Damon on 08-08-2024 Chloride [Moles/Vol] Chloride [Moles/volume] in Serum or Plasma High 98-107 [facility] Complete Blood Count Auto Di ffOrdered By: Emile Damon on 08-08-2024 Basophils (Bld) [#/Vol] 0.1 10*3/uL 0.0-0.2 [facility] Comment on above: Order Comment: REDRA W Result Comment: PERF ORMED BY: [place] [address] PATHOLOGIST LICENSED ARCHITECT SCOTTY ALFORD M.D. Performed By: #### C BC #### [place] [address] [place] Basophils/100 WBC (Bld) 0.5 % . [facility] Comment on above: Order Comment: REDRA W Performed By: #### C BC #### [place] [address] [place] Eosinophils (Bld) [#/Vol] 0.3 10*3/uL 0.0-0.45 [facility] Comment on above: Order Comment: REDRA W Performed By: #### C BC #### [address] Eosinophils/100 WBC (Bld) 3.4 % . [facility] Comment on above: Order Comment: REDRA W Performed By: #### C BC #### [address] Erythrocyte distribution width (RBC) [Ratio] 13.8 % 12.0-14.8 [facility] Comment on above: Order Comment: REDRA W Performed By: #### C BC #### [address] Hematocrit (Bld) [Volume fraction] 44.3 % 38.8-50.0 [facility] Comment on above: Order Comment: REDRA W Performed By: #### C BC #### [address] Hemoglobin (Bld) [Mass/Vol] 15.1 g/dL 13.0-17.0 [facility] Comment on above: Order Comment: REDRA W Performed By: #### C BC #### [place] [address] [place] Lymphocytes (Bld) [#/Vol] 2.0 10*3/uL 1.00-4.8 [facility] Comment on above: Order Comment: REDRA W Performed By: #### C BC #### [facility] [address] Lymphocytes/100 WBC (Bld) 20.1 % . [facility] Comment on above: Order Comment: REDRA W Performed By: #### C BC #### [address] MCH (RBC) [Entitic mass] 29.0 pg 27.5-35.2 [facility] Comment on above: Order Comment: REDRA W Performed By: #### C BC #### [address] MCV (RBC) [Entitic vol] 85.1 fL 83.5-101 [facility] Comment on above: Order Comment: REDRA W Performed By: #### C BC #### [address] Monocytes (Bld) [#/Vol] 1.0 10*3/uL High 0.0-0.8 [facility] Comment on above: Order Comment: REDRA W Performed By: #### C BC #### [address] Monocytes/100 WBC (Bld) 9.8 % . [facility] Comment on above: Order Comment: REDRA W Performed By: #### C BC #### [address] Neutrophils (Bld) [#/Vol] 6.5 10*3/uL 1.8-7.7 [facility] Comment on above: Order Comment: REDRA W Performed By: #### C BC #### [address] Neutrophils/100 WBC (Bld) 66.2 % . [facility] Comment on above: Order Comment: REDRA W Performed By: #### C BC #### [address] Platelet mean volume (Bld) [Entitic vol] 8.6 fL 6.6-10.1 [facility] Comment on above: Order Comment: REDRA W Performed By: #### C BC #### [address] Platelets (Bld) [#/Vol] 154 10*3/uL 150-450 [facility] Comment on above: Order Comment: REDRA W Performed By: #### C BC #### [address] RBC (Bld) [#/Vol] 5.21 10*6/uL 3.90-5.60 [facility] Comment on above: Order Comment: REDRA W Performed By: #### C BC #### [address] WBC (Bld) [#/Vol] 9.8 10*3/uL 4.1-10.5 [facility] Comment on above: Order Comment: REDRA W Performed By: #### C BC #### [address] Complete Blood Count Auto Di ffon 08-08-2024 Mean Corpuscular HGB Conc 34.2 g/dL Normal 32.5-35.6 [facility] Comment on above: Order Comment: REDRA W Performed By: #### C BC #### [address] NRBC% 0.2 /100{WBC} Normal 0-0.5 [facility] Comment on above: Order Comment: REDRA W Performed By: #### C BC #### [address] Comprehensive Metabolic Pane ghislaine 08-08-2024 Albumin [Mass/Vol] 3.9 g/dL Normal 3.5-5.7 [facility] Comment on above: Performed By: #### C MP, HS TROP #### [address] Creatinine Clr Calc Pharmacy 92.91 Normal [facility] Comment on above: Result Comment: PERF ORMED BY: [place] [address] PATHOLOGIST LICENSED ARCHITECT SCOTTY ALFORD M.D. Performed By: #### C MP, HS TROP #### [facility] [address] [place] [address] GFR/1.73 sq M.predicted MDRD (S/P/Bld) [Vol rate/Area] mL/min/{1.73_m2} Normal [facility] Comment on above: Performed By: #### C MP, HS TROP #### [facility] [address] [place] [address] Comprehensive Metabolic Pane lOrdered By: Emile Damon on 08-08-2024 Albumin/Globulin [Mass ratio] 1.6 {ratio} [facility] Comment on above: Performed By: #### C MP, HS TROP #### [facility] [address] [place] [address] ALP [Catalytic activity/Vol] 56 U/L 34-104 [facility] Comment on above: Performed By: #### C MP, HS TROP #### [facility] [address] [place] [address] ALT [Catalytic activity/Vol] 58 U/L High 7-52 [facility] Comment on above: Performed By: #### C MP, HS TROP #### [facility] [address] [place] [address] Anion gap [Moles/Vol] 9.2 mmol/L 6.0-15.0 [facility] Comment on above: Performed By: #### C MP, HS TROP #### [facility] [address] [place] [address] AST [Catalytic activity/Vol] 122 U/L High 13-39 [facility] Comment on above: Performed By: #### C MP, HS TROP #### [facility] [address] [place] [address] Bilirubin [Mass/Vol] 0.9 mg/dL 0.3-1.0 [facility] Comment on above: Performed By: #### C MP, HS TROP #### [facility] [address] Calcium [Mass/Vol] 8.5 mg/dL Low 8.6-10.3 [facility] Comment on above: Performed By: #### C MP, HS TROP #### [facility] [address] Chloride [Moles/Vol] 108 mmol/L High 98-107 [facility] Comment on above: Performed By: #### C MP, HS TROP #### [facility] [address] CO2 [Moles/Vol] 24.7 mmol/L 21.0-31.0 [facility] Comment on above: Performed By: #### C MP, HS TROP #### [facility] [address] Creatinine [Mass/Vol] 1.04 mg/dL 0.70-1.30 [facility] Comment on above: Performed By: #### C MP, HS TROP #### [facility] [address] Globulin (S) [Mass/Vol] 2.5 g/dL [facility] Comment on above: Performed By: #### C MP, HS TROP #### [facility] [address] Glucose [Mass/Vol] 113 mg/dL High 70-100 [facility] Comment on above: Result Comment: Lenore om Glucose Reference Range is dependent on time and content of last meal. Glucose of more than 200 mg/dL in a nonstressed, ambulatory subject supports the diagnosis of Diabetes Mellitus. ADA recommended reference range Performed By: #### C MP, HS TROP #### [facility] [address] ADA recommended refe rence rangeRandom Glucose Reference Range is dependent on time and content of last meal. Glucose of more than 200 mg/dL in a nonstressed, ambulatory subject supports the diagnosis of Diabetes Mellitus. Potassium [Moles/Vol] 3.9 mmol/L 3.5-5.1 [facility] Comment on above: Performed By: #### C MP, HS TROP #### [facility] [address] [place] [address] [place] Protein [Mass/Vol] 6.4 g/dL 6.4-8.9 [facility] Comment on above: Performed By: #### C MP, HS TROP #### [facility] [address] [place] [address] [place] Sodium [Moles/Vol] 138 mmol/L 136-145 [facility] Comment on above: Performed By: #### C MP, HS TROP #### [facility] [address] [place] [address] [place] Urea nitrogen [Mass/Vol] 15 mg/dL 10-21 [facility] Comment on above: Performed By: #### C MP, HS TROP #### [facility] [address] Creatinine [Mass/volume] in Serum or PlasmaOrdered By: Emile Damon on 08-08-2024 Creatinine [Mass/Vol] Creatinine [Mass/volume] in Serum or Plasma 0.70-1.30 [facility] ECG 12 lead ECGon 08-08-2024 ECG 12 lead ECG [facility] Main [place] [address] [place] [address] Electrocardiograph Report Signed Patient: Robert Boateng MR#: [id number] 57 : 1965 Acct:[id number] Age/Sex: 59 / M ADM Date: 08/07/24 Loc: Room: [address] [place] [address] Type: ADM IN Attending Dr: Emile Damon [...] has lengthened Confirmed by IFRAH NAJERA [facility], GUTIERREZ ([id number]) on 08/08/2024 12:21:25 PM Referred By: Electronically Signed By: GUTIERREZ RAINEY MD [facility] Transcribed By: MUS Signed By Gutierrez Rainey MD, [facility] 08/08/24 1221 Normal [facility] echo transthoracicon [facility] echo transthoracic [facility] [place] [address] Echocardiogram Signed Patient: Robert Boateng MR#: [id number] 57 : 1965 Acct:[id number] Age/Sex: 59 / M ADM Date: 08/07/24 Loc: Room: [address] [place] [address] Type: ADM IN Attending Dr: Emile Damon MD Ordering Provider: Emile Damon MD Date of Service: 08/08/2403/23/500 [facility] echo transthoracic: inferior stemi Copies to: Gutierrez Rainey MD, [facility] Emile Damon MD BSA: 2.2 m2 [...] 0837 Signed By: Gutierrez Rainey MD, [facility] 08/08/24 1231 Normal [facility] Eosinophils Auto (Bld) [#/Vo l]Ordered By: Emile Damon on 08-08-2024 Eosinophils (Bld) [#/Vol] Automated eosi nophil count 0.0-0.45 [facility] Eosinophils/100 WBC Auto (Bl d)Ordered By: Emile Damon on 08-08-2024 Eosinophils/100 WBC (Bld) Automated eosi nophil % . [facility] Erythrocyte distribution wid th Auto (RBC) [Ratio]Ordered By: Emile Damon on 08-08-2024 Erythrocyte distribution width (RBC) [Ratio] Erythrocyte distribution width [Ratio] by Automated count 12.0-14.8 [facility] Globulin Calc (S) [Mass/Vol] Ordered By: Emile Damon on 08-08-2024 Globulin (S) [Mass/Vol] Serum globulin measurement by calculation (mass/volume) [facility] Glucose [Mass/volume] in Ser um or PlasmaOrdered By: Emile Damon on 08-08-2024 Glucose [Mass/Vol] Glucose [Mass/volume] in Serum or Plasma High 70-100 [facility] Comment on above: ADA recommended refe rence rangeRandom Glucose Reference Range is dependent on time and content of last meal. Glucose of more than 200 mg/dL in a nonstressed, ambulatory subject supports the diagnosis of Diabetes Mellitus. Hematocrit Auto (Bld) [Volum e fraction]Ordered By: Emile Damno on 08-08-2024 Hematocrit (Bld) [Volume fraction] Hematocrit [Volume Fraction] of Blood by Automated count 38.8-50.0 [facility] Hemoglobin [Mass/volume] in BloodOrdered By: Emile Damon on 08-08-2024 Hemoglobin (Bld) [Mass/Vol] Hemoglobin [Mass/volume] in Blood 13.0-17.0 [facility] Leukocytes [#/volume] correc cristal for nucleated erythrocytes in Blood by Automated counOrdered By: Emile Damon on 08-08-2024 WBC corrected for nucl RBC Auto (Bld) [#/Vol] Leukocytes [#/volume] corrected for nucleated erythrocytes in Blood by Automated coun 4.1-10.5 [facility] WBC corrected for nucl RBC Auto (Bld) [#/Vol] 9.8 10*3/uL 4.1-10.5 [facility] Lymphocytes Auto (Bld) [#/Vo l]Ordered By: Emile Damon on 08-08-2024 Lymphocytes (Bld) [#/Vol] Lymphocytes [#/volume] in Blood by Automated count 1.00-4.8 [facility] Lymphocytes/100 WBC Auto (Bl d)Ordered By: Emile Damon on 08-08-2024 Lymphocytes/100 WBC (Bld) Lymphocytes/10 0 leukocytes in Blood by Automated count . [facility] MCH Auto (RBC) [Entitic mass ]Ordered By: Emile Damon on 08-08-2024 MCH (RBC) [Entitic mass] MCH [Entitic ma ss] by Automated count 27.5-35.2 [facility] MCHC Auto (RBC) [Mass/Vol]Or dered By: Emile Damon on 08-08-2024 MCHC (RBC) [Mass/Vol] MCHC [Mass/volume] by Automated count 32.5-35.6 [facility] MCHC (RBC) [Mass/Vol] 34.2 g/dL 32.5-35.6 [facility] MCV Auto (RBC) [Entitic vol] Ordered By: Emile Damon on 08-08-2024 MCV (RBC) [Entitic vol] MCV [Entitic vol ume] by Automated count 83.5-101 [facility] Monocytes Auto (Bld) [#/Vol] Ordered By: Emile Damon on 08-08-2024 Monocytes (Bld) [#/Vol] Automated blood monocyte count High 0.0-0.8 [facility] Monocytes/100 WBC Auto (Bld) Ordered By: Emile Damon on 08-08-2024 Monocytes/100 WBC (Bld) Automated monocyte % . [facility] Neutrophils Auto (Bld) [#/Vo l]Ordered By: Emile Damon on 08-08-2024 Neutrophils (Bld) [#/Vol] Neutrophils [#/volume] in Blood by Automated count 1.8-7.7 [facility] Neutrophils/100 WBC Auto (Bl d)Ordered By: Emile Damon on 08-08-2024 Neutrophils/100 WBC (Bld) Automated neut rophil % . [facility] No Panel InformationOrdered By: Emile Damon on 08-08-2024 Estimated GFR (CKD-EPI) > 60.0 mL/Min [facility] Pharmacy Creatinine Clearance (Chem 92.91 [facility] Nucleated erythrocytes [Pres ence] in Blood by Automated countOrdered By: Emile Damon on 08-08-2024 Nucleated RBC Auto Ql (Bld) Nucleated erythrocytes [Presence] in Blood by Automated count 0-0.5 [facility] Nucleated RBC Auto Ql (Bld) 0.2 /100{WBC} 0-0.5 [facility] Platelet mean volume Auto (B ld) [Entitic vol]Ordered By: Emile Damon on 08-08-2024 Platelet mean volume (Bld) [Entitic vol] Platelet mean volume [Entitic volume] in Blood by Automated count 6.6-10.1 [facility] Platelets Auto (Bld) [#/Vol] Ordered By: Emile Damon on 08-08-2024 Platelets (Bld) [#/Vol] Platelets [#/vol ume] in Blood by Automated count 150-450 [facility] Potassium [Moles/volume] in Serum or PlasmaOrdered By: Emile Damon on 08-08-2024 Potassium [Moles/Vol] Potassium [Moles/volume] in Serum or Plasma 3.5-5.1 [facility] Protein [Mass/volume] in Ser um or PlasmaOrdered By: Emile Damon on 08-08-2024 Protein [Mass/Vol] Protein [Mass/volume] in Serum or Plasma 6.4-8.9 [facility] RBC Auto (Bld) [#/Vol]Ordere d By: Emile Damon on 08-08-2024 RBC (Bld) [#/Vol] Erythrocytes [#/volume] in Blood by Automated count 3.90-5.60 [facility] Serum or plasma albumin/glob ulin mass ratioOrdered By: Emile Damon on 08-08-2024 Albumin/Globulin [Mass ratio] Serum or plasma albumin/globulin mass ratio [facility] Serum or plasma anion gap de terminationOrdered By: Emile Damon on 08-08-2024 Anion gap [Moles/Vol] Serum or plasma anion gap determination 6.0-15.0 [facility] Sodium [Moles/volume] in Ser um or PlasmaOrdered By: Emile Damon on 08-08-2024 Sodium [Moles/Vol] Sodium [Moles/volume] in Serum or Plasma 136-145 [facility] Troponin I High Sensitivityo n 08-08-2024 Troponin I High Sensitivity 54[address] Off scale high 0-20 [facility] Comment on above: Result Comment: Crit ical Result : Called to and read back by: DERECK LUNA at: 08/08/2024 05:16:37 by: The Troponin units of report have been changed to meet the Chest Pain Accreditation requirement, element EC5.M1l2. Troponin units are changed from pg/ml to ng/L. Also, the decimal is removed and results are in whole numbers. PERFORMED BY: [place] [address] PATHOLOGIST LICENSED ARCHITECT SCOTTY ALFORD M.D. Performed By: #### C MP, TROP #### [address] Troponin I.cardiac [Mass/vol ume] in Serum or Plasma by Detection limit <= 0.01 ng/Ordered By: Emile Damon on 08-08-2024 Troponin I.cardiac DL <= 0.01 ng/mL [Mass/Vol] Troponin I.cardiac [Mass/volume] in Serum or Plasma by Detection limit <= 0.01 ng/ Critically high 0-20 [facility] Comment on above: Critical Result : [...] Troponin I.cardiac DL <= 0.01 ng/mL [Mass/Vol] 77596 ng/L Critically high 0-20 [facility] Comment on above: Critical Result : [...] nitrogen [Mass/volume] in Serum or Plasma 10-21 [facility] WBC Auto (Bld) [#/Vol]Ordere d By: Emile Damon on 08-08-2024 WBC (Bld) [#/Vol] Leukocytes [#/volume] in Blood by Automated count 4.1-10.5 [facility] Anti-Xa UF Heparinon 025 Anti-Xa UF Heparin 0.60 [IU]/mL Normal 0.30-0.70 [facility] Comment on above: Result Comment: Use the aPTT protocol when triglycerides are > 800 mg/dL, total bilirubin is > 20 mg/dL and/or patient has received a DOAC, Fondaparinux or LMWH within 72 hours AND baseline anti-Xa level is > 0.7 units/mL PERFORMED BY: [place] [address] PATHOLOGIST LICENSED ARCHITECT SCOTTY ALFORD M.D. Performed By: #### U FHEP ####[address] Anti-Xa UF Heparin 0.42 [IU]/mL Normal 0.30-0.70 [facility] Comment on above: Result Comment: Use the aPTT protocol when triglycerides are > 800 mg/dL, total bilirubin is > 20 mg/dL and/or patient has received a DOAC, Fondaparinux or LMWH within 72 hours AND baseline anti-Xa level is > 0.7 units/mL PERFORMED BY: [facility] [address] [place] [address] PATHOLOGIST LICENSED ARCHITECT SCOTTY ALFORD M.D. Performed By: #### U FHEP #### [address] Basic Metabolic Panelon 07-28 Anion gap [Moles/Vol] 11.9 mmol/L Normal 6.0-15.[address] [facility] Comment on above: Performed By: #### B MP ####[place] [address] [place] Calcium [Mass/Vol] 9.0 mg/dL Normal 8.6-10.3 [facility] Comment on above: Performed By: #### B MP ####[address] Chloride [Moles/Vol] 109 mmol/L High 98-107 [facility] Comment on above: Performed By: #### B MP ####[address] CO2 [Moles/Vol] 23.6 mmol/L Normal 21.0-31.0 [facility] Comment on above: Performed By: #### B MP ####[address] Creatinine [Mass/Vol] 1.38 mg/dL High 0.70-1.30 [facility] Comment on above: Performed By: #### B MP ####[address] Creatinine Clr Calc Pharmacy 70.02 Normal [facility] Comment on above: Result Comment: PERF ORMED BY: [facility] [address] [place] [address] PATHOLOGIST LICENSED ARCHITECT SCOTTY ALFORD M.D. Performed By: #### B MP ####[address] Estimated GFR 59.274 mL/Min Normal [facility] Comment on above: Performed By: #### B MP ####[address] Glucose [Mass/Vol] 125 mg/dL High 70-100 [facility] Comment on above: Result Comment: Lenore om Glucose Reference Range is dependent on time and content of last meal. Glucose of more than 200 mg/dL in a nonstressed, ambulatory subject supports the diagnosis of Diabetes Mellitus. ADA recommended reference range Performed By: #### B MP ####[address] Potassium [Moles/Vol] 4.5 mmol/L Normal 3.5-5.1 [facility] Comment on above: Performed By: #### B MP ####[facility] [place] [id number] [facility] Sodium [Moles/Vol] 140 mmol/L Normal 136-145 [facility] Comment on above: Performed By: #### B MP ####[facility] [place] [id number] [facility] Urea nitrogen [Mass/Vol] 20 mg/dL Normal 7-25 [facility] Comment on above: Performed By: #### B MP ####[place] [id number] [place] [address] [facility] ECG 12 lead ECGon 08-07-2024 ECG 12 [place] [address] Electrocardiograph Report Signed Patient: Robert Boateng MR#: [id number] 57 : 1965 Acct:[id number] Age/Sex: 59 / M ADM Date: 08/07/24 Loc: Room: [address] [place] [address] Type: ADM IN Attending Dr: Emile Damon [...] undetermined Abnormal ECG Confirmed by Fauzia Hernandez ([id number]) on 08/07/2024 10:05:18 PM Referred By: Electronically Signed By: Fauzia Hernandez Transcribed By: MUS Signed By Fauzia Hernandez MD 2204 Normal [facility] [facility] 12 [place] [address] Electrocardiograph Report Signed Patient: Robert Boateng MR#: [id number] 57 : 1965 Acct:[id number] Age/Sex: 59 / M ADM Date: 08/07/24 Loc: Room: [address] [place] [address] Type: ADM IN Attending Dr: Emile Damon [...] was found Confirmed by IFRAH [facility]A [facility] ([id number] on 08/08/2024 12:20:50 PM Referred By: Electronically Signed By: GUTIERREZ RAINEY MD FAC Transcribed By: MUS Signed By Gutierrez Rainey MD, FACC 08/08/24 1220 Normal [facility] 12 lead ECG [facility] [place] [address] Electrocardiograph Report Signed Patient: Robert Boateng MR#: [id number] 57 : 1965 Acct:[id number] Age/Sex: 59 / M ADM Date: 08/07/24 Loc: Room: [address] [place] [address] Type: ADM IN Attending Dr: Emile Damon [...] rhythm Normal ECG Confirmed by Fauzia Hernandez ([id number]) on 08/07/2024 9:59:55 PM Referred By: Electronically Signed By: Fauzia Hernandez Transcribed By: MUS Signed By Fauzia Hernandez MD 05/11/2 5 2159 Normal [facility] Heparin anti-Xa unfractionat edOrdered By: Emile Damon on 08-07-2024 Heparin unfractionated Chromogenic method Qn (PPP) Heparin anti-Xa unfractionated 0.30-0.70 [facility] Comment on above: Use the aPTT protoco l when triglycerides are > 800 mg/dL,total bilirubin is > 20 mg/dL and/or patient has received aDOAC, Fondaparinux or LMWH within 72 hours AND baselineanti-Xa level is > 0.7 units/mL Heparin unfractionated Chromogenic method Qn (PPP) 0.60 [IU]/mL 0.30-0.70 [facility] Comment on above: Use the aPTT protoco l when triglycerides are > 800 mg/dL,total bilirubin is > 20 mg/dL and/or patient has received aDOAC, Fondaparinux or LMWH within 72 hours AND baselineanti-Xa level is > 0.7 units/mL Partial Thromboplastin Timeo n 08-07-2024 aPTT Coag (Bld) [Time] 41.1 s High 25.1-36.5 [facility] Comment on above: Result Comment: A he matocrit value greater than 55% may lead to inaccurate results in coagulation testing. Patients having hematocrit values >55% require a special collection tube for coagulation studies. Please contact the laboratory at [phone] for redraw instructions. PERFORMED BY: [facility] [address] [place] [address] PATHOLOGIST LICENSED ARCHITECT SCOTTY ALFORD M.D. Performed By: #### P TT ####[facility] [place] [address] [facility] Troponin I High Sensitivityo n 08-07-2024 Troponin I High Sensitivity 71791 Off scale high 0-20 [facility] Comment on above: Result Comment: Crit ical Result : Called to and read back by: ADDISON BORGES at: 08/07/2024 10:15:55 by:QUINTON The Troponin units of report have been changed to meet the Chest Pain Accreditation requirement, element EC5.M1l2. Troponin units are changed from pg/ml to ng/L. Also, the decimal is removed and results are in whole numbers. PERFORMED BY: [place] [address] PATHOLOGIST LICENSED ARCHITECT SCOTTY ALFORD M.D. Performed By: #### H S TROP ####[place] [id number] [facility] Troponin I High Sensitivity 8587 Off scale high 0-20 [facility] Comment on above: Result Comment: Crit ical Result : Called to and read back by: ADDISON BORGES at: 08/07/2024 08:20:01 by:QUINTON The Troponin units of report have been changed to meet the Chest Pain Accreditation requirement, element EC5.M1l2. Troponin units are changed from pg/ml to ng/L. Also, the decimal is removed and results are in whole numbers. PERFORMED BY: [place] [address] PATHOLOGIST LICENSED ARCHITECT SCOTTY ALFORD M.D. Performed By: #### H S TROP ####[address] [address] [facility] Troponin I High Sensitivity 5112 Off scale high 0-20 [facility] Comment on above: Order Comment: [...] results are in whole numbers. PERFORMED BY: [place] [address] PATHOLOGIST LICENSED ARCHITECT SCOTTY ALFORD M.D. Performed By: #### H S TROP #### [place] [id number] [facility] aPTT in Platelet poor plasma by Coagulation assayOrdered By: Emile Damon on 08-07-2024 aPTT Coag (PPP) [Time] Activated partial thromboplastin time (aPTT) in platelet poor plasma by coagulation a High 25.1-36.5 [facility] Comment on above: A hematocrit value g reater than 55% may lead to inaccurate results in coagulation testing. Patients having hematocrit values >55% require a special collection tube for coagulation studies. Please contact the laboratory at [phone] for redraw instructions. aPTT Coag (PPP) [Time] 41.1 s High 25.1-36.5 [facility] Comment on above: A hematocrit value g reater than 55% may lead to inaccurate results in coagulation testing. Patients having hematocrit values >55% require a special collection tube for coagulation studies. Please contact the laboratory at [phone] for redraw instructions. Covid-19 PCR (CVDTB)on SARS-CoV-2 (COVID-19) RNA HAKEEM+probe Ql (Unsp spec) Not detected Normal NOT DETECTED [facility] Comment on above: Result Comment: This test is not yet approved or cleared by the [place] FDA. When there are no FDA-approved or cleared tests available, and other criteria are met, FDA can make tests available under an emergency access mechanism called an Emergency Use Authorization (EUA). The EUA for this test is supported by the Director Of Mobile Marketing of Health and Human Service's (HHS's) declaration [...] VDTBH #### [facility] [address], [place] [address] Dr. Boby LARA BLD IMMUNO SCREENon OCCULT BLOOD Negative Normal NEGATIVE [facility] Comment on above: Performed By: #### O BSCRN #### [facility] [address], [place] [address] Lyn Ward GLYCOHEMOGLOBIN A1Con 2020 ADA RECOMMENDATION ADA THERAPEUTIC TARGET 6.0 - 7.0 ACTION SUGGESTED > 7.0 Normal [facility] Comment on above: Performed By: #### A 1C #### [facility] [address], [place] [address] Lyn Ward Glucose [Mass/Vol] 111 mg/dL Normal [facility] Comment on above: Performed By: #### A 1C #### [facility] [address], [place] [address] Lyn Ward HbA1c (Bld) [Mass fraction] 5.5 % Normal <=6.0 [facility] Comment on above: Performed By: #### A 1C #### [facility] [address], [place] [address] Lyn Ward Vital Signs Date Time Vital Sign Value Performing Clinician Faci haresh 11-10-2024 13:00-0400 Body height 177.8 cm Keturah Pat MD Work Phone: [facility] 11-10-2024 13:00-0400 Body mass index (BMI) [Ratio] 29.5 kg/m2 Keturah Pat MD Work Phone: [facility] 11-10-2024 13:00-0400 Body weight 93.44 kg Keturah Pat MD Work Phone: [facility] 11-10-2024 13:00-0400 Diastolic blood pressure 82 mm[Hg] Keturah Pat MD Work Phone: [facility] 11-10-2024 13:00-0400 Heart rate 54 /min Keturah Pat MD Work Phone: [facility] 11-10-2024 13:00-0400 Respiratory rate 18 /min Keturah Pat MD Work Phone: [facility] 11-10-2024 13:00-0400 SaO2% (BldA) [Mass fraction] 96 % Keturah Pat MD Work Phone: [facility] 11-10-2024 13:00-0400 Systolic blood pressure 122 mm[Hg] Keturah aPt MD Work Phone: [facility] 09-26-2024 15:53-0400 Body height 177.8 cm Keturah Pat MD Work Phone: [facility] 09-26-2024 15:53-0400 Body mass index (BMI) [Ratio] 29.9 kg/m2 Keturah Pat MD Work Phone: [facility] 09-26-2024 15:53-0400 Body weight 94.8 kg Keturah Pat MD Work Phone: [facility] 09-26-2024 15:53-0400 Diastolic blood pressure 78 mm[Hg] Keturah Pat MD Work Phone: [facility] 09-26-2024 15:53-0400 Heart rate 85 /min Keturah Pat MD Work Phone: [facility] 09-26-2024 15:53-0400 Respiratory rate 18 /min Keturah Pat MD Work Phone: [facility] 09-26-2024 15:53-0400 SaO2% (BldA) [Mass fraction] 98 % Keturah Pat MD Work Phone: [facility] 09-26-2024 15:53-0400 Systolic blood pressure 132 mm[Hg] Keturah Pat MD Work Phone: [facility] 08-17-2024 13:06-0400 Body height 177.8 cm Keturah Pat MD Work Phone: [facility] 08-17-2024 13:06-0400 Body mass index (BMI) [Ratio] 30.4 kg/m2 Keturah Pat MD Work Phone: [facility] 08-17-2024 13:06-0400 Body weight 96.16 kg Keturah Pat MD Work Phone: [facility] 08-17-2024 13:06-0400 Diastolic blood pressure 84 mm[Hg] Keturah Pat MD Work Phone: [facility] 08-17-2024 13:06-0400 Heart rate 61 /min Keturah Pat MD Work Phone: [facility] 08-17-2024 13:06-0400 Respiratory rate 18 /min Keturah Pat MD Work Phone: [facility] 08-17-2024 13:06-0400 SaO2% (BldA) [Mass fraction] 97 % Keturah Pat MD Work Phone: [facility] 08-17-2024 13:06-0400 Systolic blood pressure 120 mm[Hg] Keturah Pat MD Work Phone: [facility] 08-08-2024 12:55-0400 Body height 177.8 cm Keturah Pat MD Work Phone: [facility] 08-08-2024 11:30-0400 Body temperature 98.4 [degF] Keturah Pat MD Work Phone: [facility] 08-08-2024 11:30-0400 Diastolic blood pressure 94 mm[Hg] Keturah Pat MD Work Phone: [facility] 08-08-2024 11:30-0400 Heart rate 64 /min Keturah Pat MD Work Phone: [facility] 08-08-2024 11:30-0400 Respiratory rate 15 /min Keturah Pat MD Work Phone: [facility] 08-08-2024 11:30-0400 SaO2% (BldA) [Mass fraction] 94 % Keturah Pat MD Work Phone: [facility] 08-08-2024 11:30-0400 Systolic blood pressure 153 mm[Hg] Keturah Pat MD Work Phone: [facility] 08-08-2024 07:00-0400 Inhaled oxygen flow rate 2 L/min Keturah Pat MD Work Phone: [facility] 08-08-2024 06:00-0400 Body weight 100.7 kg Keturah Pat MD Work Phone: [facility] 08-07-2024 03:17-0400 Body height 177.8 cm Keturah Pat MD Work Phone: [facility] Encounters Encounter Date Encounter Type Care Provider Facility Start: 01-24-2025 [facility] Start: 11-10-2024 End: 11-10-2024 ambulatory Keturah Pat MD Work Phone: [facility] Work Phone: Start: 11-10-2024 End: 11-10-2024 Patient encounter procedure Rosalia Peters APRN -[facility] Work Phone: Start: 09-26-2024 End: 09-26-2024 ambulatory Keturah Pat MD Work Phone: [facility] Work Phone: Start: 09-26-2024 End: 09-26-2024 Patient encounter procedure Emile Orellana MD -[facility] Work Phone: Start: 08-17-2024 End: 08-17-2024 Patient encounter procedure Emile Orellana MD -[facility] Work Phone: Start: 08-07-2024 Non-patient / Non-visit Enedelia Pat MD Work Phone: [facility] Work Phone: Start: 08-07-2024 End: 08-07-2024 ambulatory UNKNOWN PROVIDER [facility] Start: 08-07-2024 End: 08-08-2024 Evaluation and management of inpatient Keturah Pat MD Work Phone: [facility] Work Phone: Start: 06-05-2021 End: 06-05-[address] KETURAH PAT Facility: Start: 10-30-2020 Encounter for genera l adult medical examination without abnormal findings DR KETURAH PAT [facility] Start: 10-23-2020 End: 10-24-2020 ambulatory [...] Comment on above: Performed By: #### P [facility] #### [facility] [address] [place] [address] Lyn Ward Plan of Treatment Date Care Activity Detail Author Start: 08-18-2024 Patient referral [facility] Work Phone: Start: 08-08-2024 [facility] Start: 08-07-2024 Dilation of Coronary Artery, One Artery with Drug-eluting Intraluminal Device, Percutaneous Approach Dilation of Coronary Artery, One Artery with Drug-eluting Intraluminal Device, Percutaneous Approach [facility] Start: 08-07-2024 Fluoroscopy of Left Heart using Low Osmolar Contrast Fluoroscopy of Left Heart using Low Osmolar Contrast [facility] Start: 08-07-2024 Fluoroscopy of Multiple Coronary Arteries using Low Osmolar Contrast Fluoroscopy of Multiple Coronary Arteries using Low Osmolar Contrast [facility] Start: 08-07-2024 Measurement of Cardiac Sampling and Pressure, Left Heart, Percutaneous Approach Measurement of Cardiac Sampling and Pressure, Left Heart, Percutaneous Approach [facility] Start: 08-07-2024 Ultrasonography of Single Coronary Artery, Intravascular Ultrasonography of Single Coronary Artery, Intravascular [facility] Start: 08-07-2024 Hospital admission [facility] Patient Education High cholester ol Heart attack - Discharge instructions Drug Eluting Stents Chest pain - Discharge instructions Know your Meds [facility] Work Phone: Patient referral [facility] Work Phone: Referral to cardiac rehabilitation program [facility] Payers Date Payer Category Payer Self-pay 1965 Unknown [id number] [id number] [id number] 1965 Unknown [id number] [id number] [id number] 1965 Unknown [id number] 1965 Unknown [id number] [id number] [id number] 1958 Unknown [id number] 1958 Unknown [id number] Unknown [id number] Social History Date Type Detail Facility Start: 08-07-2024 End: 08-17-2024 Tobacco smoking status NHIS Never smoked tobacco (finding) [facility] Start: 08-08-2024 Sex Male (finding) [facility] Start: 1965 Sex Assigned At Male [facility] Medical Equipment Procedure Code Equipment Code Equipment Origin al Text Equipment Identifier Dates CL STENT TERRENCE FRONTIER 3.5 X 26 FDA Start: 08-07-2024 CL STENT TERRENCE FRONTIER 3.5 X 26 FDA Start: 08-07-2024 CL STENT TERRENCE FRONTIER 3.5 X 26 FDA Start: 08-07-2024 Goals Date Patient Goal Desired Activity /State Functional Status Date Assessment Result Facility 08-08-2024 Functional status Patient at Baseline [facility] Work Phone: Mental Status Date Assessment Result Facility 08-08-2024 Cognitive function Cognitive Sta tus Patient at Baseline [facility] Work Phone: Evaluation note 08-17-2024 Note Date & Type Note Facility 08-17-2024 Evaluation note Authored May 21st, 2025 2:19p m CCS 0. NYHA Ia. Excellent cl inical response to pharmacal invasive management strategy followed by PCI to RCA. No mechanical complications of NM. No bleeding complications on dual antiplatelet therapy. [facility] Work Phone: Discharge summary 08-08-2024 Note Date & Type Note Facility 08-08-2024 Discharge summary Note Date/Time August 08, 2024 9:36am [facility] [address] [place] [address] Discharge Summary Signed Patient: Robert Boateng MR#: [id number] : 1965 Acct:[id number] Age/Sex: 59 / M Adm Date: 5 Loc: Room: [address] [place] [address]: Emile Damon MD Copies to: MD Emile Platt MD~ Providers Date of Discharge: 08/08/24 Discharging Provider: Emile Damon Primary Care Provider: Keturah Pat Discharge Diagnosis (1) ST elevation myocardial infarction (STEMI) of inferior wall: Final Diagnosis Final Discharge Diagnosis: 1. Acute inferior STEMI status post successful pharmacoinvasive management strategy with [id number] fibrinolytic therapy followed by early mechanical revascularization with PCI to the left circumflex. 2. Heart failure with mildly reduced ejection fraction. Post PCI EF 50%. 3. Dyslipidemia Summary Hospital Course Hospital course: Robert is a very pleasant 59-year-old white male who presented to [place] emergency department early Thursday morning with complaints [...] available was transported by [facility] to [facility] for further evaluation and management. On arrival to [facility] ICU his chest pain had resolved [...] hours from arrival to go to the Front Worker for cardiac catheterization and PCI. Please see [...] heart disease and no mechanical complication of NM noted. At this point as the patient [...] doctor or pharmacist, without first calling the vessel scrapper helper who implanted the stent. If you require [...] weight lifting, stair steppers, etc. until the vessel scrapper helper approves these activities. Check with the vessel scrapper helper on your first follow-up visit. CALL YOUR RELATIONS DIRECTOR: -If bleeding should occur from the catheter insertion site- apply pressure to the site then immediately call us. -Report any fever, redness, drainage, increased swelling, or firmness at the catheter insertion site. Some bruising or slight swelling may be present at thetime of discharge. -Should arm or leg become cold, numb, white, or blue, contact the vessel scrapper helper immediately. -IF you should experience episodes of [...] Cardiopulmonary Rehabilitation program is recommended. The attending vessel scrapper helper or a nurse clinician should provide you with specificinstructions regarding activity, diet, medications, and further follow up for you. Follow the medication instructions provided on your discharge. If the dosages and instructions on this sheet differ from the dosage and instructions on the bottle, follow the instructions on the bottle. [facility] is not responsible for incorrect prescription [...] % (Auto) 66.2, Lymph % (Auto) 20.1, Wythe % (Auto) 9.8, Eos % (Auto) 3.4, Baso % (Auto) 0.5, Nucleat RBC Rel Count 0.2, Neut # (Auto) 6.5, Lymph # (Auto) 2.0, Wythe # (Auto) 1.0 H, Eos # (Auto) 0.3, Baso # (Auto) 0.1 08/08/24 04:20: Corrected WBC Cancelled, Uncorrected WBC Count Cancelled, RBC Cancelled, Hgb Cancelled, Hct Cancelled, MCV Cancelled, MCH Cancelled, MCHC Cancelled, RDW Cancelled, Plt Count Cancelled, MPV Cancelled, Neut % (Auto) Cancelled, Lymph % (Auto) Cancelled, Wythe % (Auto) Cancelled, Eos % (Auto) Cancelled, Baso % (Auto) Cancelled, Nucleat RBC Rel Count Cancelled, Neut # (Auto)Cancelled, Lymph # (Auto) Cancelled, Wythe # (Auto) Cancelled, Eos # (Auto) Cancelled, Baso # (Auto) Cancelled, Monocyte Dist Width Cancelled, PHA Creatinine Clear 92.91, Sodium 138, Potassium 3.9, Chloride 108 H, Carbon Dioxide 24.7, Anion Gap 9.2, BUN 15, Creatinine 1.04, Est GFR (CKD-EPI) > 60.0, Glucose 113 H, Calcium 8.5 L, Total Bilirubin 0.9, AST 122 H, ALT 58 H, AlkalinePhosphatase 56, Troponin I High Sens 43769 H*, Total Protein 6.4, Albumin 3.9, Globulin 2.5, Albumin/Globulin Ratio 1.6 08/07/24 09:25: Heparin Anti-Xa, Unfract 0.60, Troponin I High Sens 41968 H* Documented By: Emile Damon MD 08/08/24 0922 Signed By: <Electronically signed by Emile Damon MD> 08/08/24 0936 [facility] Work Phone: Discharge summary 08-08-2024 Note Date & Type Note Facility 08-08-2024 Discharge summary [facility] History and physical note 08-07-2024 Note Date & Type Note Facility 08-07-2024 History and physi gregory note Note Date/Time August 07, 2024 11:34am [facility] [address] [place] [address] Cardiology H&P Signed Patient: Robert Boateng MR#: [id number] : 1965 Acct:[id number] Age/Sex: 59 / M Adm Date: 5 Loc: Room: [address] [place] [address] Type: ADM IN Attending Dr: Emile Damon [...] and the patient was taken directly to [facility] emergency department for emergent evaluation. In the [...] contacted again by the ER physician from [facility] telling the that there was going to [...] given IV TNK 50 mg in the [facility] ER. He had already been loaded with 180 mg oral Brilinta also per my direction. Once weather was conducive he was then transported by air flight to [facility] for further and ongoing management of [...] negative unless noted below or in HPI [facility] Medical History (Updated 08/07/24 @ 11:06 [...] Dysrhythmias Sinus rhythms and dysrhythmias: sinus rhythm NM, pacemaker, normal Myocardial infarction: inferior NM (acute or recent) A&P - Cardiology (1) [...] signed by Emile Damon MD> 08/07/24 1134 [facility] Work Phone: Procedure note 08-07-2024 Note Date & Type Note Facility 08-07-2024 Procedure note [facility] enter Procedure note 08-07-2024 Note Date & Type Note Facility 08-07-2024 Procedure note [facility] enter History and physical note 08-07-2024 Note Date & Type Note Facility 08-07-2024 History and physi gregory note [facility] enter Evaluation note 08-07-2024 Note Date & Type Note Facility 08-07-2024 Evaluation note Diagnosis Onset Date Resolution ST elevation myocardial infarction (STEMI) of inferior wall acute August 07, 2024 3 :00am [facility] Work Phone: Hospital Discharge instructions [...] doctor or pharmacist, without first calling the vessel scrapper helper who implanted the stent. If you require [...] weight lifting, stair steppers, etc. until the vessel scrapper helper approves these activities. Check with the vessel scrapper helper on your first follow-up visit. CALL YOUR RELATIONS DIRECTOR: -If bleeding should occur from the catheter insertion site- apply pressure to the site then immediately call us. -Report any fever, redness, drainage, increased swelling, or firmness at the catheter insertion site. Some bruising or slight swelling may be present at the time of discharge. -Should arm or leg become cold, numb, white, or blue, contact the vessel scrapper helper immediately. -IF you should experience episodes of [...] Cardiopulmonary Rehabilitation program is recommended. The attending vessel scrapper helper or a nurse clinician should provide you with specific instructions regarding activity, diet, medications, and further follow up for you. Follow the medication instructions provided on your discharge. If the dosages and instructions on this sheet differ from the dosage and instructions on the bottle, follow the instructions on the bottle. [facility] is not responsible for incorrect prescription information provided by the patient during their visit. Do not stop your medications without consulting your health care provider. Please take the list with you to your next doctor's appointment. [facility] Work Phone: Reason for referral (narrative) Note Date & Type Note Facility Reason for referral (narrative) No reason for referral information available [facility] Work Phone: Summary Purpose Family History [...] m STEMI August 07, 2024 11:24 am [facility] 08/08August 17, 2024 12:35 pm 6 week [...] 2024 1 2:35pm Chief Complaint Admit Date [facility] 08/08August 17, 2024 12:35 pm 6 week [...] CREATED AUTHOR AUTHOR'S ORGANIZ ATION 08/08/2024 [facility] DATE CREATED AUTHOR AUTHOR'S ORGANIZ ATION 09/18/2024 [facility] DATE CREATED AUTHOR AUTHOR'S ORGANIZ ATION 12/20/2024 [facility] Care Teams (unrecognized sec tion and [...] BE BASED ON THE PRIMARY CLINICAL RECORDS. [employer] provides no warranty or guarantee of the accuracy or completeness of information in this document.
--- OUTSIDE RECORDS SUMMARY | 2025-01-11 07:11 | XMS_ITS | Encounter Summary ---
Author Organization [facility] Address [address] [place] [address] Phone Care Team Providers Care Environmental Officer Name Role Phone Unavailable Primary Care Provider Unavailabl e Encounter Details Date Type Department Care Team (Late st Contact Info) Description 08/08/2024 Scanned Document [facility] [address] [place] [address] Scanning, Generic Provider Social History [...]
--- OUTSIDE RECORDS SUMMARY | 2025-01-11 07:11 | XMS_ITS | Clinical Summary ---
Author Organization [facility] Address [address] [place] [address] Phone Care Team Providers Care Web Marketing Assistant Name Role Phone Unavailable Primary Care Provider [...] patient's age to complete this topic Insurance [facility] [employer]
--- NOTE | 2025-01-11 07:12 | US_ITS ---
The [address] [address] Patient Name: ROBERT BOATENG MRN: [id number] date: 1965 Sex: M Assigned Patient Location: [place] Current Patient Location: [facility] Accession/Order Number: [id number] Exam Date: 01/11/2025 07:13 Report Date: 01/11/2025 07:51 At the request of: KETURAH QUIROZ MD Procedure: US renal BI BILATERAL RENAL AND BLADDER ULTRASOUND CLINICAL HISTORY: Follow-up right renal nodule on CT COMPARISON: CT 01/02/2025 Estimation of renal size is approximately 11.8 cm on the right and 11.1 cm on the left. Echogenic foci with twinkle artifact are seen at the inferior pole on the right and superior pole left measuring 7 mm in size. These might be stones however no corresponding stones are identified on the comparison CT. No hydronephrosis is identified. An exophytic cyst is present at the inferior pole of the right kidney measuring 1.5 x 2.0 x 1.6 cm. There is no perinephric fluid. The urinary bladder is poorly distended with a volume of 29 mL . No obvious contour or intraluminal abnormalities are seen. US/US renal BI IMPRESSION: RIGHT RENAL CYST. QUESTION OF NEPHROLITHIASIS. NO OBSTRUCTIVE UROPATHY. Impression dictated by: Sylvia Haywood M.D. 01/11/2025 7:51 AM Dictation Location: [place] [address] Electronically authenticated by: [id number] Y Date: 01/11/2025 07:51
== END 2025-01-11 07:10 | disposition home or self-care (01) ==
LOC: US 07:09
PROVIDERS: PCP Family Medicine; Visit Provider Family Medicine
DX: Q61.00 Congenital renal cyst, unspecified (principal)
CPT/HCPCS: 76775

== ENCOUNTER 2025-01-20 12:56 | Outpatient (OUT) | payer BC, SELFPAY ==
--- OUTSIDE RECORDS SUMMARY | 2025-01-11 10:05 | XMS_ITS ---
Author Organization [facility] [place] Address [address] [place] [address] Care Team Providers Care Theater Projectionist Name Role Phone Georgi Pat Primary Care Provider [phone] REASON FOR VISIT US Renal- Encounters Encounter Location Date Provider Diagnosis [facility] [address] [place] [address] 01/11/2025 Georgi Pat Renal cyst Q61.0 0 Assessments Encounter Date Diagnosis (ICD Code) Assessment Notes Treatment Notes Treatment Clinical Notes Section Notes 01/11/2025 Renal cyst (ICD-10 - Q61.00) Plan Of Treatment Pending Test Test Name Order Date MRI : Renal 01/11/2025 Progress Notes * Tommie BOATENG MDOB: 6 (60 yo M)Acc No.[id number]:01/11/2025 Patient:?Tommie BOATENG :1965???Age:60 Y???Sex:MalePhone:[phone] Address:[address] [place] [address], [address] Subjective: * Chief Complaints: * U S Renal- * Medical History: * Surgical History: * Hospitalization/Major Diagno stic Procedure: * Medications: Objective: * Vitals: * Physical Examination: ??? Assessment: * Assessment: 1.?Renal cyst - Q61.00 (Primary)??? Plan: * Treatment: ?Imaging: MRI : Renal * Procedure Codes: * true * Date:?Generated for Printing/Faxing/eTransmitting on:?01/20/2025 01:00 PM EDT
--- OUTSIDE RECORDS SUMMARY | 2025-01-16 06:29 | XMS_ITS ---
Author Organization The [facility] [place] Address [address] [place] [address] Care Team Providers Care Scarf And Anneal Operator Name Role Phone Georgi Pat Primary Care Provider REASON FOR VISIT Renal US Encounters Encounter Location Date Provider Diagnosis [facility] [address] [place] [address] 01/16/2025 Georgi aPt Renal cyst Q61.0 0 Assessments Encounter Date Diagnosis (ICD Code) Assessment Notes Treatment Notes Treatment Clinical Notes Section Notes 01/16/2025 Renal cyst (ICD-10 - Q61.00) Plan Of Treatment Pending Test Test Name Order Date MRI : Renal 01/16/2025 Progress Notes * Tommie BOATENG MDOB: 6 (60 yo M)Acc No.[id number]:01/16/2025 Patient:?Tommie BOATENG :1965???Age:60 Y???Sex:MalePhone:[phone] Address:[address] [place] [address], [address] Subjective: * Chief Complaints: * R enal US * Medical History: * Surgical History: * Hospitalization/Major Diagno stic Procedure: * Medications: Objective: * Vitals: * Physical Examination: ??? Assessment: * Assessment: 1.?Renal cyst - Q61.00 (Primary)??? Plan: * Treatment: ?Imaging: MRI : Renal* WITH AND WITHOUT * Procedure Codes: * true * Date:?Generated for Printing/Faxing/eTransmitting on:?01/20/2025 12:59 PM EDT
--- OUTSIDE RECORDS SUMMARY | 2025-01-20 13:00 | XMS_ITS | Patient Health Record ---
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 Date of Service: 08/19/24 Procedure(s): ITP Accession Number(s): [id number] cc: [facility] Test Date: 2024-08-19 Pat Name: ROBERT BOATENG Department: Room: - Gender: Male Sequins Spooler: : 1965 Requested By: Waqas Garcia Order Number: [id number] Reading MD: Waqas Garcia Interpretive Statements Okay to proceed with outlined treatment plan. Electronically Signed On 08-24-2024 9:14:39 EDT by Waqas Garcia Dictated By: Waqas Garcia D.O. Signed By: 08/24/24 0914 08/24/24 0914 DD/ 1420 TD/TT: Logging Contractor: JEEVAN Reviewed date:09/14/2024 06:09:22 PM Interpretation: Performing Lab: Notes/Report: Source Facility: [place] [address] [place] [address] Cardiac Rehab Report Signed Patient: ROBERT BOATENG MR#: [id number] : 1965 Acct:[id number] Age/Sex: 59 / M ADM Date: 09/13/24 Loc: CR Attending Dr: Gaby-Staff Physician Lyla Ordering Physician: Waqas Garcia D.O. Date of Service: 09/14/24 Procedure(s): ITP Accession Number(s): [id number] cc: [facility] Test Date: 2024-09-14 Pat Name: ROBERT BOATENG Department: Room: - Gender: Male Sequins Spooler: : 1965 Requested By: Waqas Garcia Order Number: [id number] Jacinta MD: Waqas Garcia Interpretive Statements Okay to continue with outlined treatment plan. Electronically Signed On 09-14-2024 17:58:50 EDT by Waqas Garcia Dictated By: Waqas Garcia D.O. Signed By: 09/14/24175709/14/24 175 DD/ 0755 TD/TT: Logging Contractor: JEEVAN Reviewed date:11/06/2024 07:56:53 PM Interpretation: Performing Lab: Notes/Report: Source Facility: [place] [address] [place] [address] Cardiac Rehab Report Signed Patient: ROBERT BOATENG MR#: [id number] : 1965 Acct:[id number] Age/Sex: 59 / M ADM Date: 11/02/24 Loc: CR Attending Dr: Gaby-Staff Physician Arita Ordering Physician: Raj Nguyen M.D. Date of Service: 10/12/24 Procedure(s): ITP Accession Number(s): [id number] cc: [facility] Test Date: 2024-10-12 Pat Name: ROBERT BOATENG Department: Room: - Gender: Male Sequins Spooler: : 1965 Requested By: RAJ NGUYEN Order Number: [id number] Jacinta MD: NITIN BAUTISTA M.D. Interpretive Statements Patient may continue cardiac rehab as outlined in the treatment plan. Electronically Signed On 11-04-2024 10:14:18 EDT by NITIN BAUTISTA M.D. Dictated By: NITIN BAUTISTA Signed By: 11/04/24 1014 11/04/24 1014 DD/ 1157 TD/TT: Logging Contractor: JEEVAN Reviewed date:11/28/2024 02:07:21 PM Interpretation: Performing Lab: Notes/Report: Source Facility: [place] [address] [place] [address] Cardiac Rehab Report Signed Patient: ROBERT BOATENG MR#: [id number] : 1965 Acct:[id number] Age/Sex: 59 / M ADM Date: 11/24/24 Loc: CR Attending Dr: Non-Staff Physician Lyla Ordering Physician: NITIN BAUTISTA Date of Service: 11/14/24 Procedure(s): ITP Accession Number(s): [id number] cc: [facility] Test Date: 2024-11-14 Pat Name: ROBERT BOATENG Department: Room: - Gender: Male Sequins Spooler: : 1965 Requested By: NITIN BAUTISTA M.D. Order Number: [id number] Jacinta MD: Ly Barnes Interpretive Statements Session Date: Electronically Signed On 11-25-2024 13:28:06 EDT by Ly Barnes Dictated By: Ly Barnes M.D. Signed By: 11/25/24 1328 11/25/24 1328 DD/ 1151 TD/TT: Logging Contractor: FREE T3 Reviewed date:12/11/2024 01:03:21 PM Interpretation: Performing Lab: Notes/Report: [facility] , Free T3 1.99 2.18-3.98 pg/mL Performing Lab:see noteML - [facility] LBGLYCOHEMOGLOBIN A1C Reviewed date:12/11/2024 01:03:21 PM Interpretation: Performing Lab: Notes/Report: [facility] ,Glycohemoglobin A1C5.54.5-6.2 % ADA RECOMMENDED LIMIT 4.0 - 6.0 ADA THERAPEUTIC TARGET < 7.0 ACTION SUGGESTED > 7.0 Estimated Average Vcxttdi422Lybvaoawmk Lab:see note - [facility] LB LIPID PROFILE Reviewed date:12/11/2024 01:03:21 PM Interpretation: Performing Lab: Notes/Report: [facility] ,Ygqrbutseejko59<=150 mg/vPWluxsxpvyfc851<=200 mg/dLHDL Pupguzzznuf5419-65 mg/dL > or =60 mg/dl - LOW CARDIOVASCULAR RISK <40 mg/dl - HIGH CARDIOVASCULAR RISK LDL Cholesterol Yepqrsyuhp03.6 <100 mg/dl OPTIMAL 100-129 mg/dl NEAR OR ABOVE OPTIMAL 130-159 mg/dl BORDERLINE HIGH 160-189 mg/dl HIGH >190 mg/dl VERY HIGH VLDL CHOLESTEROL8.4Chol HDL Ratio2.6 3.3 - 4.4 LOW RISK 4.4 - 7.1 AVERAGE RISK 7.1 - 11.0 MODERATE RISK >11.0 HIGH RISK Performing Lab:see note - [facility] LBPROF 14(COMP METB) Reviewed date:12/11/2024 01:03:21 PM Interpretation: Performing Lab: Notes/Report: [facility] ,Ypftpr866170-382 mmol/LPotassium3.93.5-5.1 mmol/NVhfdesfg13037-802 mmol/LCarbon Pbgbftv55.721.0-32.0 mmol/LAnion Gap12.2Dkulvcu43758-715 mg/dLBlood Urea Yhmtgvnt39.07.0-18.0 mg/dLCreatinine1.110.70-1.30 mg/dLEstimated GFR ( Tea>60>=60 mL/min/1.73m 2Estimated GFR (Non- Shruti>60>=60 mL/min/1.73m 2BUN Creatinine Ratio13.2Ltqrcwr0.18.5-10.1 mg/dLBilirubin Total0.90.2-1.0 mg/dL Aspartate Amino Rdlfzsiwmya3587-37 U/LAlanine Mivnkegwlkavylap4903-88 U/L Alkaline Lieeoqxdvhx7790-359 U/LTotal Protein7.76.4-8.2 g/dLAlbumin Level4.03.4- 5.0 g/dLGlobulin3.7Albumin Globulin Ratio1.1Performing Lab:see noteML - [facility] LBPSA SCREENING Reviewed date:12/11/2024 01:03:21 PM Interpretation: Performing Lab: Notes/Report: [facility] ,Prostate Specific Antigen Scrn1.59<=4.00 ng/mLPerforming Lab:see note - [facility] LBT4 Reviewed date:12/11/2024 01:03:21 PM Interpretation: Performing Lab: Notes/Report: [facility] ,T4 Thyroxine6.904.50-12.10 ug/dLPerforming Lab:see note - [facility] LBTSH Reviewed date:12/11/2024 01:03:21 PM Interpretation: Performing Lab: Notes/Report: [facility] ,Thyroid Stimulating Hormone1.3070.358-3.740 uIU/mLPerforming Lab:see note - [facility] LBITP Reviewed date:12/14/2024 06:06:45 PM Interpretation: Performing Lab: Notes/Report: Source Facility: [place] [address] Cardiac Rehab Report Signed Patient: ROBERT BOATENG MR#: [id number] : 1965 Acct:[id number] Age/Sex: 59 / M ADM Date: 12/14/24 Loc: MICHA Attending Dr: Non-Staff Physician Lyla Ordering Physician: Raj Nguyen M.D. Date of Service: 12/13/24 Procedure(s): ITP Accession Number(s): [id number] cc: [facility] Test Date: 2024-12-13 Pat Name: ROBERT BOATENG Department: Room: - Gender: Male Sequins Spooler: : 1965 Requested By: RAJ NGUYEN Order Number: [id number] Jacinta MD: NITIN BAUTISTA M.D. Interpretive Statements Patient may continue cardiac rehab as outlined in the treatment plan. Electronically Signed On 12-14-2024 18:02:35 EDT by NITIN BAUTISTA M.D. Dictated By: NITIN BAUTISTA Signed By: 12/14/24180112/14/241801 DD/ 100 TD/TT: Logging Contractor:Occult Blood* Reviewed date:12/14/2024 05:59:21 PM Interpretation: Performing Lab: Notes/Report: [facility] ,Occult BloodPositivePerforming Lab:see noteML - [facility] LBCT abdomen pelvis w con Reviewed date:01/02/2025 06:25:22 PM Interpretation: Performing Lab: Notes/Report: Source Facility: [place] [address] CT Scan Report Signed Patient: ROBERT BOATENG MR#: [id number] : 1965 Acct:[id number] Age/Sex: 59 / M ADM Date: 01/02/25 Loc: CT Attending Dr: Keturah Pat M.D. Ordering Physician: Keturah Pat M.D. Date of Service: 01/02/25 Procedure(s): CT abdomen pelvis w con Accession Number(s): [id number] cc: Keturah Pat M.D. [place] [address] Patient Name: ROBERT BOATENG MRN: [id number] date: 1965 Sex: M Assigned Patient Location: CT Current Patient Location: [facility] Accession/Order Number: [id number] Exam Date: 01/02/2025 14:23 Report Date: 01/02/2025 17:54 At the request of: KETURAH PAT MD Procedure: CT abdomen pelvis w con CT ABDOMEN AND PELVIS WITH INTRAVENOUS CONTRAST: CLINICAL HISTORY: Positive Occult Stool Test COMPARISON: None TECHNIQUE: Spiral images were obtained through the abdomen and pelvis following the administration of intravenous contrast. This CT exam was performed using one or more following dose reduction techniques: Automated exposure control, adjustment of the mA and/or kV according to patient size, or use of iterative reconstruction technique. FINDINGS: Lung Bases: [Lung bases are clear.] Organs:Left hepatic lobe hypodensities suggestive of a cyst.[Otherwise fatty infiltration liver. Exophytic lesion right kidney interpolar location indeterminate 37 HU 1.7 cm in size not clearly simple cyst. Otherwise, the Liver, spleen, adrenals, kidneys, pancreas unremarkable. GI: Rectal contrast noted. Tdjm-lk-wsuceuqa stool burden. Colonic diverticulosis. Presence of retained stool does degrade evaluation for possible colonic mass. No discrete areas of apple core formation or definite intraluminal mass identified.[No bowel obstruction. Appendix unremarkable. Small hiatal hernia. Pelvis:[Bladder prostate unremarkable.] Peritoneum/Retroperitoneum:No free air or free fluid. Mhjb-sg-xftdwixy plaque involving the nonaneurysmal aorta.[ Abd wall/Bones:Multilevel degenerative changes of the lumbar spine.[No suspicious osseous lesion. CT/CT abdomen pelvis w con IMPRESSION: Colonic diverticulosis without definite high-grade colonic stricturing or mass identified. Presence of stool does degrade evaluation. Please note this is not a substitute for colonoscopy or endoscopy given the reported presence for Hemoccult-positive stool.. Small hiatal hernia. Exophytic lesion right kidney 1.7 cm in size, indeterminate, not clearly a simple cyst. Consider ultrasound correlation. Impression dictated by: Mateusz Chin M.D. 01/02/2025 5:54 PM Dictation Location: [place] [address] Electronically authenticated by: [id number] Y Date: 01/02/2025 17:54 Dictated By: Mateusz Chin M.D. Signed By: 01/02/251755 DD/ 53 TD/TT: Logging Contractor:CBC AUTO DIFF Reviewed date:01/05/2025 12:45:05 PM Interpretation: Performing Lab: Notes/Report: [facility] ,White Blood Count8.64.0-11.0 10 3/uLRed Blood Count5.154.70-6.10 10 6/uL Satrbuzklv68.414.0-18.0 g/dFXyabmazthl45.742.0-54.0 %Mean Corpuscular Vaiuuo62.8 80.0-94.0 fLMean Corpuscular Yuqxodcfin24.925.9-34.0 pgMean Corpuscular HGB Conc 34.529.9-35.2 g/dLRed Cell Distribution Width13.111.0-15.0 %Platelet Jruzq951 150-450 10 3/uLMean Platelet Volume9.99.5-13.5 fLNeutrophils Percent Auto69.0 43.0-75.0 %Lymphocytes Percent Auto16.520.5-60.0 %Monocytes Percent Auto8.71.7- 12.0 %Eosinophils Percent Auto4.80.9-7.0 %Basophils Percent Auto0.80.2-2.0 % Immature Granulocytes Pct Auto0.20.0-0.5 %Neutrophils Absolute Auto6.01.4-6.5 10 3/uLLymphocytes Absolute Auto1.41.2-3.8 10 3/uLMonocytes Absolute Auto0.80.3- 0.8 10 3/uLEosinophils Absolute Auto0.40.0-0.7 10 3/uLBasophils Absolute Auto0.1 0.0-0.1 10 3/uLImmature Granulocytes Abs Auto0.020.00-0.03 10 3/uLPerforming Lab:see noteML - [facility] LBCEA Reviewed date:01/06/2025 08:46:06 AM Interpretation: Performing Lab: Notes/Report: [facility] ,CEA1.50.0-4.7 ng/mL Nonsmokers <3.9 Smokers <5.6 [facility] Electrochemiluminescence Immunoassay (ECLIA) Values obtained with different assay methods or kits cannot be used interchangeably. Results cannot be interpreted as absolute evidence of the presence or absence of malignant disease. Performed at: [address] [id number] Cooler Supervisor: Hank Issa PhD, Phone: [phone] Performing Lab:see noteLC - [facility] LBUS renal BI Reviewed date:01/11/2025 07:40:11 PM Interpretation: Performing Lab: Notes/Report: Source Facility: [place] [address] Ultrasound Report Signed Patient: ROBERT BOATENG MR#: [id number] : 1965 Acct:[id number] Age/Sex: 60 / M ADM Date: 01/11/25 Loc: US Attending Dr: Keturah Pat M.D. Ordering Physician: Keturah Pat M.D. Date of Service: 01/11/25 Procedure(s): US renal BI Accession Number(s): [id number] cc: Keturah Pat M.D. [place] [address] Patient Name: ROBERT BOATENG MRN: [id number] date: 1965 Sex: M Assigned Patient Location: Current Patient Location: [facility] Accession/Order Number: [id number] Exam Date: 01/11/2025 07:13 Report Date: 01/11/2025 07:51 At the request of: KETURAH PAT MD Procedure: US renal BI BILATERAL RENAL AND BLADDER ULTRASOUND CLINICAL HISTORY: Follow-up right renal nodule on CT COMPARISON: CT 01/02/2025 Estimation of renal size is approximately 11.8 cm on the right and 11.1 cm on the left. Echogenic foci with twinkle artifact are seen at the inferior pole on the right and superior pole left measuring 7 mm in size. These might be stones however no corresponding stones are identified on the comparison CT. No hydronephrosis is identified. An exophytic cyst is present at the inferior pole of the right kidney measuring 1.5 x 2.0 x 1.6 cm. There is no perinephric fluid. The urinary bladder is poorly distended with a volume of 29 mL . No obvious contour or intraluminal abnormalities are seen. US/US renal BI IMPRESSION: RIGHT RENAL CYST. QUESTION OF NEPHROLITHIASIS. NO OBSTRUCTIVE UROPATHY. Impression dictated by: Sylvia Haywood M.D. 01/11/2025 7:51 AM Dictation Location: [place] [address] Electronically authenticated by: [id number] Y Date: 01/11/2025 07:51 Dictated By: Sylvia Haywood M.D. Signed By: 01/11/25 0753 DD/ 0751 TD/TT: Logging Contractor:ITP Reviewed date:08/25/2024 10:25:01 AM Interpretation: Performing Lab: Notes/Report: Source Facility: [place] [address] Cardiac Rehab Report Signed Patient: ROBERT BOATENG MR#: [id number] : 1965 Acct:[id number] Age/Sex: 59 / M ADM Date: 08/24/24 Loc: CR Attending Dr: Non-Staff Physician Lyla Ordering Physician: Waqas Garcia D.O. Date of Service: 08/24/24 Procedure(s): [facility] Accession Number(s): [id number] cc: [facility] Test Date: 2024-08-24 Pat Name: ROBERT BOATENG Department: Room: - Gender: Male Sequins Spooler: : 1965 Requested By: Waqas Garcia Order Number: [id number] Jacinta MD: Waqas Garcia Interpretive Statements Okay to proceed with outlined treatment plan. 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 Electronically Signed On 08-25-2024 10:04:04 EDT by Waqas Garcia Dictated By: Waqas Garcia D.O. Signed By: 08/25/24 1004 08/25/24 1004 DD/ 1354 TD/TT: Logging Contractor:ECG 12 lead Reviewed date:08/07/2024 06:14:58 PM Interpretation: Performing Lab: Notes/Report: Source Facility: [place] [address] [place] [address] Electrocardiograph Report Signed Patient: ROBERT BOATENG MR#: [id number] : 1965 Acct:[id number] Age/Sex: 59 / M ADM Date: 08/07/24 Loc: ER Attending Dr: Ordering Physician: Dayo Wall Date of Service: 08/07/24 Procedure(s): ECG 12 lead Accession Number(s): [id number] cc: [facility] Test Date: 2024-08-07 Pat Name: ROBERT BOATENG Department: Room: - Gender: Male Sequins Spooler: : 1965 Requested By: [facility] Physician Order Number: [id number] Reading MD: NITIN BAUTISTA M.D. Measurements Intervals [place] Rate: 54 P: 17 WV: 180 QRS: 49 QRSD: 86 T: 78 [...] Signed By: 08/07/24 1315 DD/ 0226 TD/TT: Logging Contractor:ECG 12 lead Reviewed date:08/07/2024 06:14:58 PM Interpretation: Performing Lab: Notes/Report: Source Facility: [facility] [place] [address] [place] [address] Electrocardiograph Report Signed Patient: ROBERT BOATENG MR#: [id number] : 1965 Acct:[id number] Age/Sex: 59 / M ADM Date: 08/07/24 Loc: ER Attending Dr: Ordering Physician: Dayo Wall Date of Service: 08/07/24 Procedure(s): ECG 12 lead Accession Number(s): [id number] cc: [facility] Test Date: 2024-08-07 Pat Name: ROBERT BOATENG Department: Room: - Gender: Male Sequins Spooler: : 1965 Requested By: 1031 Order Number: [id number] Reading MD: NITIN BAUTISTA M.D. Measurements Intervals [place] Rate: 74 P: 13 WV: 174 QRS: 40 QRSD: 90 T: 94 [...] Dictated By: NITIN BAUTISTA Signed By: 08/07/24 1310 DD/ 0132 TD/TT: Logging Contractor:ECG 12 lead Reviewed date:08/07/2024 06:14:58 PM Interpretation: Performing Lab: Notes/Report: Source Facility: [place] [address] Electrocardiograph Report Signed Patient: ROBERT BOATENG MR#: [id number] : 1965 Acct:[id number] Age/Sex: 59 / M ADM Date: 08/07/24 Loc: ER Attending Dr: Ordering Physician: Dayo Wall Date of Service: 08/07/24 Procedure(s): ECG 12 lead Accession Number(s): [id number] cc: [facility] Test Date: 2024-08-07 Pat Name: ROBERT BOATENG Department: Room: - Gender: Male Sequins Spooler: : 1965 Requested By: 1031 Order Number: [id number] Reading MD: NITIN BAUTISTA M.D. Measurements Intervals [place] Rate: 70 P: 30 WV: 174 QRS: 55 QRSD: 86 T: 70 QT: 382 QTc: 403 Interpretive Statements NORMAL SINUS RHYTHM ST ELEVATION, CONSIDER INFERIOR INFARCT, PROBABLY ACUTE ACUTE STEMI Abnormal ECG No previous ECG available for comparison Electronically Signed On 08-07-2024 13:06:27 EDT by NITIN BAUTISTA M.D. Dictated By: NITIN BAUTISTA Signed By: 08/07/24 1306 DD/ 0049 TD/TT: Logging Contractor:Troponin I High Sensitivity Reviewed date:08/07/2024 06:14:58 PM Interpretation: Performing Lab: Notes/Report: [facility] ,Troponin I High Vibvtmmvyma399.84.0-76.1 pg/mL RESULTS CALLED TO JULIANO DHILLON RN @BY Varsha Connors at 0132 CUT-OFF POINTS HAVE BEEN ESTABLISHED BASED ON THE FOURTH UNIVERSAL DEFINITION OF MYOCARDIAL INFARCTION. THE UPPER REFERENCE LIMIT (URL) OF TROPONIN, DEFINED THE 99TH PERCENTILE OF cTnI DISTRIBUTION IN A REFERENCE POPULATION, HAS BEEN CONFIRMED THE DECISION THRESHOLD FOR NC DIAGNOSIS. 99TH PERCENTILE = 76.2 PG/ML NOTE: HIGH-SENSITIVITY TROPONIN ASSAY IS NOT INTENDED TO BE USED IN ISOLATION BUT SHOULD BE INTERPRETED IN CONJUNCTION WITH OTHER DIAGNOSTIC AND CLINICAL INFORMATION. Performing Lab:see note - [facility] LBPROF CHEM 8 (BAS METB) Reviewed date:08/07/2024 06:14:58 PM Interpretation: Performing Lab: Notes/Report: [facility] ,Tocphg571492-118 mmol/LPotassium3.73.5-5.1 mmol/XIyfhcjek62835-618 mmol/LCarbon Apwyzhn27.021.0-32.0 mmol/LAnion Gap11.0Npaictq52863-351 mg/dLBlood Urea Rdrzxxpm40.07.0-18.0 mg/dLCreatinine1.680.70-1.30 mg/dLEstimated GFR ( Xzjwjzc40>=60 mL/min/1.73m 2Estimated GFR (Non- Ame42>=60 mL/min/1.73m 2 BUN Creatinine Ratio10.9Qdcnnit7.38.5-10.1 mg/dLPerforming Lab:see note - [facility] LBCBC AUTO DIFF Reviewed date:08/07/2024 06:14:58 PM Interpretation: Performing Lab: Notes/Report: [facility] ,White Blood Count8.14.0-11.0 10 3/uLRed Blood Count5.454.70-6.10 10 6/uL Eqhbhwadrp17.014.0-18.0 g/aAFkglfclojc59.942.0-54.0 %Mean Corpuscular Cdplmu76.1 80.0-94.0 fLMean Corpuscular Sqeseknpyw02.425.9-34.0 pgMean Corpuscular HGB Conc 34.129.9-35.2 g/dLRed Cell Distribution Width13.311.0-15.0 %Platelet Rmmzl809 150-450 10 3/uLMean Platelet Ehinxl15.59.5-13.5 fLNeutrophils Percent Auto64.6 43.0-75.0 %Lymphocytes Percent Auto19.320.5-60.0 %Monocytes Percent Auto11.41.7- 12.0 %Eosinophils Percent Auto3.50.9-7.0 %Basophils Percent Auto1.10.2-2.0 % Immature Granulocytes Pct Auto0.10.0-0.5 %Neutrophils Absolute Auto5.21.4-6.5 10 3/uLLymphocytes Absolute Auto1.61.2-3.8 10 3/uLMonocytes Absolute Auto0.90.3- 0.8 10 3/uLEosinophils Absolute Auto0.30.0-0.7 10 3/uLBasophils Absolute Auto0.1 0.0-0.1 10 3/uLImmature Granulocytes Abs Auto0.010.00-0.03 10 3/uLPerforming Lab:see noteML - [facility] LBITP Reviewed date:12/23/2024 11:48:16 AM Interpretation: Performing Lab: Notes/Report: Source Facility: [facility]-[address] [place] [address] [place] [address] Cardiac Rehab Report Signed Patient: ROBERT BOATENG MR#: [id number] : 1965 Acct:[id number] Age/Sex: 59 / M ADM Date: 12/22/24 Loc: CR Attending Dr: Non-Staff Physician Lyla Ordering Physician: NITIN BAUTISTA Date of Service: 12/22/24 Procedure(s): ITP Accession Number(s): [id number] cc: [facility] Test Date: 2024-12-22 Pat Name: ROBERT BOATENG Department: Room: - Gender: Male Sequins Spooler: : 1965 Requested By: NITIN BAUTISTA M.D. Order Number: [id number] Jacinta MD: NITIN BAUTISTA M.D. Interpretive Statements Electronically Signed On 12-22-2024 21:36:23 EDT by NITIN BAUTISTA M.D. Dictated By: NITIN BAUTISTA Signed By: 12/22/24213512/22/242135 DD/ 145 TD/TT: Logging Contractor:CBC AUTO DIFF Reviewed date:12/11/2024 01:03:21 PM Interpretation: Performing Lab: Notes/Report: [facility] ,White Blood Count7.34.0-11.0 10 3/uLRed Blood Count5.304.70-6.10 10 6/uL Adhwgoiimh79.414.0-18.0 g/oWHocraltbju21.642.0-54.0 %Mean Corpuscular Wdcuqj20.9 80.0-94.0 fLMean Corpuscular Evjttoglsn91.125.9-34.0 pgMean Corpuscular HGB Conc 33.029.9-35.2 g/dLRed Cell Distribution Width13.211.0-15.0 %Platelet Khozn498 150-450 10 3/uLMean Platelet Kbwysu07.29.5-13.5 fLNeutrophils Percent Auto67.1 43.0-75.0 %Lymphocytes Percent Auto20.820.5-60.0 %Monocytes Percent Auto8.31.7- 12.0 %Eosinophils Percent Auto2.90.9-7.0 %Basophils Percent Auto0.80.2-2.0 % Immature Granulocytes Pct Auto0.10.0-0.5 %Neutrophils Absolute Auto4.91.4-6.5 10 3/uLLymphocytes Absolute Auto1.51.2-3.8 10 3/uLMonocytes Absolute Auto0.60.3- 0.8 10 3/uLEosinophils Absolute Auto0.20.0-0.7 10 3/uLBasophils Absolute Auto0.1 0.0-0.1 10 3/uLImmature Granulocytes Abs Auto0.010.00-0.03 10 3/uLPerforming Lab:see noteML - [facility] LB Reason For Referral Diagnosis 1 Positive occult stoo l blood test (R19.5) Referral Organization [facility] Referring Provider First Name Georgi Referring Provider Last Name Bi Referring Provider Speciality Family Med lauren Referred Provider Mike Knapp Referred Provider Specialty General Surg vita Referral Priority Routine Medications Medication SIG (Take, Route, Frequency, Duration) Notes Start Date End Date Status Pantoprazole Sodium 40 MG TAKE 1 TABLET BY MOUTH EVERY DAY FOR 30 DAYS; Duration: 90 days ActiveValsartan 80 MG1 tablet Orally Once a dayActiveMetoprolol Succinate ER 25 MG1 tablet Orally Once a dayActiveAspirin 81 81 MG1 tablet Orally Once a day ActiveAtorvastatin Calcium 80 MG1 tablet Orally Once a dayActiveTicagrelor 90 MG 1 tablet Orally Twice a dayActive Social History Tobacco Use: Social History Observation Description Date Details (start date - stop date) Never Smoker NA - NA Tobacco Use/Smoking Question Answer Notes Patient is a nonsmoker Alcohol Screen (Audit-C) Question Answer Notes Did you have a drink containing alcohol in the p ast year? No Qaibgx8CfnvilnvjpaqmrJavsdnyfXTFSR-W (Standard) Question Answer Notes Did you have a drink containing alcohol in the p ast year? No Rscghu0UqtbmvyqigqzknZbutplzh Problems Problem Type SNOMED Code ICD Code Onset Dates Problem Status W/U Status Risk Notes Problem Hyperlipidemia (42933618) Hyperlipidemia, unspecified (E78.5) ActiveconfirmedProblemDizziness and giddiness (903475110)Dizziness and giddiness (R42)ActiveconfirmedProblemRenal cyst (381395802)Renal cyst (Q61.00)Active confirmedProblemStented coronary artery (993523935)Stented coronary artery (Z95.5)ActiveconfirmedProblemWell adult (212620576)Well adult (Z00.00)Active confirmedProblemConjunctivitis (1963290)Conjunctivitis (H10.9)Activeconfirmed ProblemSTEMI - ST elevation myocardial infarction (930478077)STEMI (ST elevation myocardial infarction) (I21.3)Activeconfirmed Vital Signs Blood pressure diastolic 82 mm Hg 12/08/2024 Ibaacr68 in12/08/2024lood pressure oxkbzhnx398 mm Hg12/08/20247974Lrrtkw250.0 lbs 12/08/2024BMI29.12 kg/m212/08/2024 Encounters Encounter Location Date Provider Diagnosis [facility] [address] [place] [address] 08/10/2024 Georgi Hoy [facility] [place] [place] [address] 12/02/2024Doug [facility] [place] [address]/Doug HoyRenal cyst Q61.00[facility] [address] [place] [place] [address]/Doug [facility] [place] [address]/Doug Hoy Positive occult stool blood test R19.5[facility] [place] [address]/Doug HoyPositive occult stool blood test R19.5[facility] [place] [address]/08/2024Doug HoyRenal cyst Q61.00 and Positive occult stool blood test R19.5[facility] [place] [address]/12/2024[facility] [place] [address]/Doug HoyRenal cyst Q61.00[facility] [place] [address]/01/2025Doug HoyWell adult Z00.00 Assessments Encounter Date Diagnosis (ICD Code) Assessment Notes Treatment Notes Treatment Clinical Notes Section Notes 12/08/2024 Well adult (ICD-10 - Z00.00) 12/14/2024Positive occult stool blood test (ICD-10 - R19.5)12/21/2024Positive occult stool blood test (ICD-10 - R19.5)01/02/2025Renal cyst (ICD-10 - Q61.00) 01/11/2025Renal cyst (ICD-10 - Q61.00)01/16/2025Renal cyst (ICD-10 - Q61.00) 01/02/2025Positive occult stool blood test (ICD-10 - R19.5) Plan Of Treatment Pending Test Test Name Order Date MRI : Renal 01/11/2025 MRI : Renal 01/16/2025 CMP (COMPLETE METABOLIC PANEL) 4 HEMOGLOBIN A1C (GLYCO) 07/20/2023 HEMOGLOBIN A1C (GLYCO) 12/08/2024 LIPID PANEL (CHOL/TRIG/HDL/LDL) 07/20/19 24 LIPID PANEL (CHOL/TRIG/HDL/LDL) 12/09/19 25 CBC WITH DIFF 07/20/2023 PSA, PROSTATE-SPECIFIC ANTIGEN 4 CBC 01/02/2025 CEA 01/02/2025 STOOL OCCULT BLOOD 07/20/2023 STOOL OCCULT BLOOD 12/08/2024 CT ABD and PELV W CON 12/21/2024 THYROID PANEL (T4/TSH/FREE T3) 4 THYROID PANEL (T4/TSH/FREE T3) 5 PSA, SCREENING 12/08/2024 US Renal 01/02/2025 CMP (COMP MET BLAND) w/eGFR CKD-EPI 2024 CBC WITH DIFF 12/08/2024 Insurance Providers Payer Name Payer Address Payer Phone Subscriber Number Group Number Insured Name Patient Relationship to Insured Coverage Start Date Coverage End Date [employer] PPO PLUS LOCAL PLAN [address] [place] [address] [id number] Thaddeus Boatengelf - patient is the insured Medical (General) History Medical History History ICD Code Seasonal Allergic Rhinitis SinusitisSurgical History Surgery Date(Month/Year) Cardiac cath- stents placed- Dr Damon VasectomyHospitalization History Reason Date(Month/Year) see above
--- OUTSIDE RECORDS SUMMARY | 2025-01-20 13:00 | XMS_ITS | CCD ---
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 Role Phone DR KETURAH PAT Admitting Unavailable RICHIE, DR REBOLLAR Attending Unavailable RICHIE, DR REBOLLAR Primary Care Unavailable RICHIE, DR REBOLLAR Consulting Unavailable RICHIE, DR REBOLLAR Admitting Unavailable RICHIE, DR REBOLLAR Attending Unavailable RICHIE, DR REBOLLAR Primary Care Unavailable RICHIE, DR REBOLLAR Consulting Unavailable PROVIDER, UNKNOWN Attending Unavailable PROVIDER, UNKNOWN Admitting Unavailable Keturah Pat MD Primary Care Provider [phone] Emile Damon MD Admit Provider Emile Damon MD Attending Provider Emile Damon Admitting Unavailable Emile Damon Attending Unavailable Keturah Pat Primary Care Unavailable Emile Damon MD Other Provider Keturah Pat MD Primary Care Provider [phone] Emile Damon MD Attending Provider Rosalia Peters APRN Attending Provider Mike ASHLEY Attending Unavailable Keturah Pat Referring Unavailable Allergies Allergy ClassificationReported Allergen(s)Allergy TypeDate of OnsetReaction(s) Facility (3 sources)Opioids - Morphine AnaloguesDrug allergy (disorder)90-28-0446Wgrfzbgt [facility] Repository (1 source)No Known Medication Allergies; Translations: [No Known Medication Allergies]Propensity to adverse reactions (disorder)[facility] Repository Medications Current Medications MedicationDrug Class(es)DatesSig (Normalized)Sig (Original)aspirin 81 mg chewable tablet (5 sources)Platelet Aggregation Inhibitor, Nonsteroidal Anti-inflammatory Drug Start: 08-08-2024 End: 20-86-8894bywi 1 tablet by mouth once dailyAspirin (Children's Aspirin) 81 mg tablet,chewable Active 81 MG PO Daily 90 September 06, 2024 2:01pm Complies with drug therapyatorvastatin 80 mg oral tablet (5 sources)HMG-CoA Reductase InhibitorStart: 08-08-2024 End: 05-30-5843lqqa 1 tablet by mouth once daily in the eveningAtorvastatin 80 mg tablet Active 80 MG PO Every evening 90 September 06, 2024 2:01pm Complies with drug khjyghn62 hr metoprolol succinate 25 mg extended release oral tablet (8 sources)beta-Adrenergic BlockerStart: 16-35-0121ambq 2 tablets by mouth once dailyMetoprolol Succinate 25 mg tablet extended release 24 hr Active 12.5 MG PO Daily 45 September 26, 2024 4:07pm Complies with drug therapyStart: 08-17-2024 End: 39-80-6825xmks 1 tablet by mouth once dailyMetoprolol Succinate 25 mg tablet extended release 24 hr Discontinued 25 MG PO Daily September 06, 2024 2:01pm September 26, 2024 4:07pmStart: 08-08-2024 End: 41-35-8668isdl 1 capsule by mouth once daily in the eveningMetoprolol Succinate 25 mg capsule,sprinkle,ER 24hr Discontinued 25 MG PO Every evening August 08, 2024 12:00am August 17, 2024 12:53pmnitroglycerin 0.4 mg sublingual tablet (3 sources)Nitrate VasodilatorStart: 21-70-0670Zeghwakpepnjx 0.4 mg tablet, sublingual Active 0.4 MG SUBLINGUAL Q5M as needed for chest pain August 08, 2024 12:00am do not exceed 3 doses per episode Complies with drug therapy ticagrelor 90 mg oral tablet (5 sources)Start: 08-08-2024 End: 89-62-2401qvui 1 tablet by mouth twice dailyTicagrelor (Brilinta) 90 mg tablet Active 90 MG PO Twice daily 180 September 06, 2024 2:01pm Complies with drug therapyvalsartan 80 mg oral tablet (5 sources)Angiotensin 2 Receptor BlockerStart: 08-08-2024 End: 45-68-7810ijsc 1 tablet by mouth once daily in the eveningValsartan 80 mg tablet Active 80 MG PO Every evening 90 September 06, 2024 2:02pm Complies with drug therapy Problems Active Problems Problem ClassificationProblemDateDocumented DateEpisodic/ChronicAcute myocardial infarction (11 sources)Myocardial infarction; Translations: [ST elevation (STEMI) myocardial infarction involving other coronary artery of inferior wall]Onset: [id number] atherosclerosis and other heart disease (5 sources)Ischemic myocardial dysfunction; Translations: [Ischemic cardiomyopathy]17-92-6904RkwulwqMrbmelem atherosclerosis and other heart disease (6 sources)Coronary angioplasty status; Translations: [Stented coronary artery] Onset: [id number]i of lipid metabolism (5 sources)Dyslipidemia; Translations: [Hyperlipidemia, unspecified]08-17-2024 ChronicOther upper respiratory infections (1 source)Chronic sinusitis, unspecified; Translations: [CHRONIC SINUSITIS UNSPECIFIED]Onset: 52-47-5713HawmpnsQjzskqepsmtl (3 sources)CONTACT W/AND (SUSP) EXPOS COVID-19; Translations: [CONTACT W/AND (SUSP) EXPOS COVID-19]Onset: 00-39-7120Bajnnberxlxv (1 source)I25.5 - Ischemic cardiomyopathy,I21.19 - ST elevation (STEMI) myocardial infarction involving other coronary artery of inferior wall,Z95.5 - Presence of coronary angioplasty implant and graft Past or Other Problems Problem ClassificationProblemDateDocumented DateEpisodic/ChronicOther screening for suspected conditions (not mental disorders or infectious disease) (1 source)Encounter for screening for malignant neoplasm of prostate; Translations: [ENC SCREEN MALIG NEOPLASM PROSTATE]Onset: 29-58-7882Ulzbpxit Unclassified (1 source)CONTACT W/AND (SUSP) EXPOS COVID-19; Translations: [CONTACT W/AND (SUSP) EXPOS COVID-19]Onset: 06-05-2021 Results Test NameValueInterpretationReference RangeFacilityAlanine aminotransferase [Enzymatic activity/volume] in Serum or PlasmaOrdered By: Emile Damon on 77-72-8375NWP [Catalytic activity/Vol]Alanine aminotransferase [Enzymatic activity/volume] in Serum or Plasma[address] Albumin [Mass/volume] in Serum or Plasma by Bromocresol green (BCG) dye binding methoOrdered By: Emile Damon on 09-07-3599Zlqqjga BCG dye [Mass/Vol]Albumin [Mass/volume] in Serum or Plasma by Bromocresol green (BCG) dye binding metho 3.5-5.7FGrand Lake Joint Township District Memorial HospitalAlbumin BCG dye [Mass/Vol]3.9 g/dL 3.5-5.7FGrand Lake Joint Township District Memorial HospitalAlkaline phosphatase [Enzymatic activity/volume] in Serum or PlasmaOrdered By: Emile Damon on 12-60-2839LUQ [Catalytic activity/Vol]Alkaline phosphatase [Enzymatic activity/volume] in Serum or Qvzzzq34-305ZkmtqitapFirelands Regional Medical Center South CampusAspartate aminotransferase [Enzymatic activity/volume] in Serum or PlasmaOrdered By: Emile Damon on 22-76-4592GYW [Catalytic activity/Vol]Aspartate aminotransferase [Enzymatic activity/volume] in Serum or TapuhfJsia43-81JbariepkvFirelands Regional Medical Center [facility] Campus Basophils Auto (Bld) [#/Vol]Ordered By: Emile Damon on 35-29-2696Upsxgcnjz (Bld) [#/Vol]Automated basophil count0.0-0.2FGrand Lake Joint Township District Memorial Hospital Basophils/100 WBC Auto (Bld)Ordered By: Emile Damon on 97-39-4713Pfqytotid/100 WBC (Bld)Automated basophil %.[facility] South CampusBilirubin.total [Mass/volume] in Serum or PlasmaOrdered By: Emile Damon on 48-19-2893Rhknlqobx [Mass/Vol]Bilirubin.total [Mass/volume] in Serum or Plasma0.3-1.0[facility] CampusCalcium [Mass/volume] in Serum or PlasmaOrdered By: Emile Damon on 50-33-6960Ecqyazf [Mass/Vol]Calcium [Mass/volume] in Serum or PlasmaLow8.6-10.3FGrand Lake Joint Township District Memorial HospitalCarbon dioxide, total [Moles/volume] in Serum or PlasmaOrdered By: Emile Damon on 82-35-9329WX9 [Moles/Vol]Carbon dioxide, total [Moles/volume] in Serum or Lanetk01.0-31.0 [facility] CampusChloride [Moles/volume] in Serum or Plasma Ordered By: Emile Damon on 84-97-2559Jiqccqpu [Moles/Vol]Chloride [Moles/volume] in Serum or KbuvquCfla29-316ZgshvcsloFirelands Regional Medical Center [facility] Campus Complete Blood Count Auto DiffOrdered By: Emile Damon on 24-39-5693Kyrktlgat (Bld) [#/Vol]0.1 10*3/uL0.0-0.2FGrand Lake Joint Township District Memorial HospitalComment on above:Order Comment: REDRAWResult Comment: PERFORMED BY: [place] [address] PATHOLOGIST PROCESS IMPROVEMENT SPECIALIST SCOTTY ALFORD M.D.Performed By: #### CBC #### [place] [address] USABasophils/100 WBC (Bld)0.5 %.[facility] CampusComment on above:Order Comment: REDRAWPerformed By: #### CBC #### [place] [address] USAEosinophils (Bld) [#/Vol]0.3 10*3/uL0.0-0.45[facility] South CampusComment on above:Order Comment: REDRAWPerformed By: #### CBC #### [place] [address] USAEosinophils/100 WBC (Bld)3.4 %.[facility] CampusComment on above:Order Comment: REDRAWPerformed By: #### CBC #### [place] [address] USAErythrocyte distribution width (RBC) [Ratio]13.8 % 12.0-14.8[facility] CampusComment on above:Order Comment: REDRAW Performed By: #### CBC #### [place] [address] USAHematocrit (Bld) [Volume fraction]44.3 %38.8-50.0[facility] CampusComment on above:Order Comment: REDRAWPerformed By: #### CBC #### [place] [address] USAHemoglobin (Bld) [Mass/Vol]15.1 g/dL13.0-17.0[facility] CampusComment on above:Order Comment: REDRAWPerformed By: #### CBC #### [facility] [address] [place] [address] USALymphocytes (Bld) [#/Vol]2.0 10*3/uL1.00-4.8[facility] South CampusComhavenwyck hospital on above:Order Comment: REDRAWPerformed By: #### CBC #### [facility] [address] [place] [address] USALymphocytes/100 WBC (Bld)20.1 %.[facility] CampusComment on above:Order Comment: REDRAWPerformed By: #### CBC #### [facility] [address] [place] [address] USAMCH (RBC) [Entitic mass]29.0 pg27.5-35.2FGrand Lake Joint Township District Memorial HospitalComment on above:Order Comment: REDRAWPerformed By: #### CBC #### [facility] [address] [place] [address] USAMCV (RBC) [Entitic vol]85.1 fL83.5-101[facility] CampusComment on above:Order Comment: REDRAWPerformed By: #### CBC #### [facility] [address] [place] [address] USAMonocytes (Bld) [#/Vol]1.0 10*3/uLHigh0.0-0.8[facility] CampusComhavenwyck hospital on above:Order Comment: REDRAWPerformed By: #### CBC #### [facility] [address] [place] [id number] USAMonocytes/100 WBC (Bld)9.8 %.[facility] CampusComment on above:Order Comment: REDRAWPerformed By: #### CBC #### [facility] [address] [place] [address] USANeutrophils (Bld) [#/Vol]6.5 10*3/uL1.8-7.7FGrand Lake Joint Township District Memorial HospitalComment on above:Order Comment: REDRAWPerformed By: #### CBC #### [facility] [address] [place] [address] USANeutrophils/100 WBC (Bld)66.2 %.[facility] CampusComment on above:Order Comment: REDRAWPerformed By: #### CBC #### [facility] [address] [place] [address] USAPlatelet mean volume (Bld) [Entitic vol]8.6 fL6.6-10.1 [facility] CampusComment on above:Order Comment: REDRAWPerformed By: #### CBC #### [facility] [address] [place] [address] USAPlatelets (Bld) [#/Vol]154 10*3/sR746-786MsotggccyFirelands Regional Medical Center South CampusComment on above:Order Comment: REDRAWPerformed By: #### CBC #### [facility] [address] [place] [address] USARBC (Bld) [#/Vol]5.21 10*6/uL3.90-5.60[facility] CampusComment on above:Order Comment: REDRAWPerformed By: #### CBC #### [facility] [address] [place] [address] USAWBC (Bld) [#/Vol]9.8 10*3/uL4.1-10.5FGrand Lake Joint Township District Memorial HospitalComment on above:Order Comment: REDRAWPerformed By: #### CBC #### [facility] [address] [place] [address] USAComplete Blood Count Auto Diffon 95-82-1941Ikzf Corpuscular HGB Conc34.2 g/bLNdukji08.5-35.6The [facility] Rex Physician GroupComment on above:Order Comment: REDRAWPerformed By: #### CBC #### [facility] [address] [place] [address] USANRBC%0.2 /100{WBC}Normal0-0.5The [facility] Comment on above:Order Comment: REDRAWPerformed By: #### CBC #### [facility] [address] [place] [address] USAComprehensive Metabolic Panelon 07-52-4516Panricp [Mass/Vol]3.9 g/dLNormal3.5-5.7The [facility] Physician GroupComment on above: Performed By: #### CMP, HS TROP #### [facility] [address] [place] [address] USACreatinine Clr Calc Biyovgtg29.91NormalThBonner General Hospital Physician GroupComment on above:Result Comment: PERFORMED BY: [place] [address] PATHOLOGIST PROCESS IMPROVEMENT SPECIALIST SCOTTY ALFORD M.D.Performed By: #### CMP, HS TROP #### [place] [address] USAGFR/1.73 sq M.predicted MDRD (S/P/Bld) [Vol rate/Area] mL/min/{1.73_m2}NormalThe [facility] Physician [facility] CenterComment on above:Performed By: #### CMP, HS TROP #### [facility] [address] [place] [address] USAComprehensive Metabolic PanelOrdered By: Emile Damon on 40-30-8968Qxqbnyj/Globulin [Mass ratio]1.6 {ratio}[facility] CampusComment on above:Performed By: #### CMP, HS TROP #### [facility] [address] [place] [address] USAALP [Catalytic activity/Vol]56 U/J16-357ZfweaeehuFirelands Regional Medical Center South CampusComment on above:Performed By: #### CMP, HS TROP #### [facility] [address] [place] [address] USAALT [Catalytic activity/Vol]58 U/LHigh7-52[facility] CampusComment on above:Performed By: #### CMP, HS TROP #### [facility] [address] [place] [address] USAAnion gap [Moles/Vol]9.2 mmol/L6.0-15.0[facility] CampusComment on above:Performed By: #### CMP, HS TROP #### [facility] [address] [place] [address] USAAST [Catalytic activity/Vol]122 U/FXvxe33-88MgsrsegdcFirelands Regional Medical Center South CampusComment on above:Performed By: #### CMP, HS TROP #### [facility] [address] [place] [id number] USABilirubin [Mass/Vol]0.9 mg/dL0.3-1.0[facility] CampusComment on above:Performed By: #### CMP, HS TROP #### [facility] [address] [place] [address] USACalcium [Mass/Vol]8.5 mg/dLLow8.6-10.3FGrand Lake Joint Township District Memorial HospitalComment on above:Performed By: #### CMP, HS TROP #### [facility] [address] [place] [address] USAChloride [Moles/Vol]108 mmol/MWpzd21-148BdktzukflFirelands Regional Medical Center South CampusComment on above:Performed By: #### CMP, HS TROP #### [facility] [address] [place] [address] USACO2 [Moles/Vol]24.7 mmol/L21.0-31.0[facility] CampusComment on above:Performed By: #### CMP, HS TROP #### [facility] [address] [place] [address] USACreatinine [Mass/Vol]1.04 mg/dL0.70-1.30[facility] CampusComment on above:Performed By: #### CMP, HS TROP #### [facility] [address] [place] [id number] USAGlobulin (S) [Mass/Vol]2.5 g/dLFirelands Regional Medical Center South CampusComment on above:Performed By: #### CMP, HS TROP #### [facility] [address] [place] [address] USAGlucose [Mass/Vol]113 mg/fOEqjz69-063JqgwaqezfFirelands Regional Medical Center South CampusComment on above:Result Comment: Random Glucose Reference Range is dependent on time and content of last meal. Glucose of more than 200 mg/dL in a nonstressed, ambulatory subject supports the diagnosis of Diabetes Mellitus. ADA recommended reference rangePerformed By: #### CMP, HS TROP #### [facility] [address] [place] [address] USAADA recommended reference rangeRandom Glucose Reference Range is dependent on time and content of last meal. Glucose of more than 200 mg/dL in a nonstressed, ambulatory subject supports the diagnosisof Diabetes Mellitus.Potassium [Moles/Vol]3.9 mmol/L3.5-5.1FGrand Lake Joint Township District Memorial Hospital Comment on above:Performed By: #### CMP, HS TROP #### [facility] [address] [place] [address] USAProtein [Mass/Vol]6.4 g/dL6.4-8.9[facility] CampusComment on above:Performed By: #### CMP, HS TROP #### [facility] [address] [place] [address] USASodium [Moles/Vol]138 mmol/W040-147MzacctcvqFirelands Regional Medical Center South CampusComment on above:Performed By: #### CMP, HS TROP #### [facility] [address] [place] [address] USAUrea nitrogen [Mass/Vol]15 mg/dL7-25[facility] CampusComment on above:Performed By: #### CMP, HS TROP #### [facility] [address] [place] [address] USACreatinine [Mass/volume] in Serum or PlasmaOrdered By: Emile Damon on 41-75-3936Ucmpobixib [Mass/Vol]Creatinine [Mass/volume] in Serum or Plasma0.70-1.30[facility] South CampusECG 12 lead ECGon 08-08-2024 ECG 12 lead ECGOHIOHE[facility] [address] [place] [address] [place] [address] Electrocardiograph Report Signed Patient: Robert Boateng MR#: [id number] 57 : 1965 Acct:[id number] Age/Sex: 59 / M ADM Date: 08/07/24 Loc: Room: [address] [place] [address] Type: ADM IN Attending Dr: Emile Damon [...] QT has lengthened Confirmed by IFRAH [facility], GUTIERREZ (137) on 08/08/2024 12:21:25 PM Referred By: Electronically Signed By: GUTIERREZ RAINEY MD [facility] Transcribed By: MUS Signed By Gutierrez Rainey MD, FACC 08/08/[address] [place] [address] Physician GroupECH echo transthoracicon 13-94-6292NMK echo transthoracicOHIOHEALTH GRADY [facility] [address] [place] [address] [place] [address] Echocardiogram Signed Patient: Robert Boateng MR#: [id number] 57 : 1965 Acct:[id number] Age/Sex: 59 / M ADM Date: 08/07/24 Loc: Room: [address] [place] [address] Type: ADM IN Attending Dr: Emile Damon MD Ordering Provider: Emile Damon MD Date of Service: 08/08/2403/23/500 ECH/ECH echo transthoracic: inferior stemi Copies to: Gutierrez Rainey MD, [facility] Emile Damon MD BSA: 2.2 m2 BP: [...] cm SURI(I,D): 2.4 cm2 SURI(V,D): 2.3 cm2 Electronically signed by: GUTIERREZ RAINEY MD, [facility] on 08/08/2024 12:31 PM Transcribed By: SCV Performed At: 08/08/24 0837 Signed By: Gutierrez Rainey MD, [facility] 08/08/24 1231[facility] Physician GroupEosinophils Auto (Bld) [#/Vol]Ordered By: Emile Damon on 08-08-2024 Eosinophils (Bld) [#/Vol]Automated eosinophil count0.0-0.45[facility] CampusEosinophils/100 WBC Auto (Bld)Ordered By: Emile Damon on 77-03-7142Mngbvezivha/100 WBC (Bld)Automated eosinophil %.[facility] CampusErythrocyte distribution width Auto (RBC) [Ratio]Ordered By: Emile Damon on 77-45-1741Rzhiriovtty distribution width (RBC) [Ratio] Erythrocyte distribution width [Ratio] by Automated count12.0-14.8[facility] South CampusGlobulin Calc (S) [Mass/Vol]Ordered By: Emile Damon on 17-54-4673Gfzujahq (S) [Mass/Vol]Serum globulin measurement by calculation (mass/volume)[facility] CampusGlucose [Mass/volume] in Serum or PlasmaOrdered By: Emile Damon on 51-18-0455Xhvrxtc [Mass/Vol]Glucose [Mass/volume] in Serum or OxmfxkEray41-732WjwqrdvrtFirelands Regional Medical Center South Campus Comment on above:ADA recommended reference rangeRandom Glucose Reference Range is dependent on time and content of last meal. Glucose of more than 200 mg/dL in a nonstressed, ambulatory subject supports the diagnosisof Diabetes Mellitus. Hematocrit Auto (Bld) [Volume fraction]Ordered By: Emile Damon on 08-08-2024 Hematocrit (Bld) [Volume fraction]Hematocrit [Volume Fraction] of Blood by Automated count38.8-50.0[facility] South CampusHemoglobin [Mass/volume] in BloodOrdered By: Emile Damon on 05-64-4561Mmfrqcjfhj (Bld) [Mass/Vol]Hemoglobin [Mass/volume] in Blood13.0-17.0[facility] South CampusLeukocytes [#/volume] corrected for nucleated erythrocytes in Blood by Automated counOrdered By: Emile Damon on 72-91-0484BKQ corrected for nucl RBC Auto (Bld) [#/Vol]Leukocytes [#/volume] corrected for nucleated erythrocytes in Blood by Automated coun4.1-10.5FGrand Lake Joint Township District Memorial HospitalWBC corrected for nucl RBC Auto (Bld) [#/Vol]9.8 10*3/uL4.1-10.5FGrand Lake Joint Township District Memorial HospitalLymphocytes Auto (Bld) [#/Vol]Ordered By: Emile Damon on 08-08-2024 Lymphocytes (Bld) [#/Vol]Lymphocytes [#/volume] in Blood by Automated count 1.00-4.8[facility] South CampusLymphocytes/100 WBC Auto (Bld)Ordered By: Emile Damon on 62-98-5822Ydnimknuzbq/100 WBC (Bld)Lymphocytes/100 leukocytes in Blood by Automated count.[facility] Auto (RBC) [Entitic mass]Ordered By: Emile Damon on 63-64-5637ZOF (RBC) [Entitic mass]MCH [Entitic mass] by Automated count27.5-35.2FSelect Medical Specialty Hospital - AkronHC Auto (RBC) [Mass/Vol]Ordered By: Emile Damon on 90-87-9985LSMZ (RBC) [Mass/Vol]MCHC [Mass/volume] by Automated count32.5-35.6FSelect Medical Specialty Hospital - AkronHC (RBC) [Mass/Vol]34.2 g/dL32.5-35.6FGrand Lake Joint Township District Memorial HospitalMCV Auto (RBC) [Entitic vol]Ordered By: Emile Damon on 88-46-7384KIC (RBC) [Entitic vol]MCV [Entitic volume] by Automated count83.5-101[facility] South CampusMonocytes Auto (Bld) [#/Vol]Ordered By: Emile Damon on 68-37-3901Vdzieyued (Bld) [#/Vol]Automated blood monocyte countHigh0.0-0.8 [facility] CampusMonocytes/100 WBC Auto (Bld)Ordered By: Emile Damon on 77-18-3181Bmslbusuc/100 WBC (Bld)Automated monocyte %.[facility] South CampusNeutrophils Auto (Bld) [#/Vol]Ordered By: Emile Damon on 59-29-2730Fvascvgmysu (Bld) [#/Vol]Neutrophils [#/volume] in Blood by Automated count1.8-7.7FGrand Lake Joint Township District Memorial HospitalNeutrophils/100 WBC Auto (Bld) Ordered By: Emile Damon on 04-99-7480Tmwllrmdixp/100 WBC (Bld)Automated neutrophil %.[facility] CampusNo Panel InformationOrdered By: Emile Damon on 54-30-6612Pdbgiunxg GFR (CKD-EPI)> 60.0 mL/MinFirelands Regional Medical Center South CampusPharmacy Creatinine Clearance (Chem92.91[facility] South CampusNucleated erythrocytes [Presence] in Blood by Automated count Ordered By: Emile Damon on 16-93-5318Febfujcjb RBC Auto Ql (Bld)Nucleated erythrocytes [Presence] in Blood by Automated count0-0.5FGrand Lake Joint Township District Memorial HospitalNucleated RBC Auto Ql (Bld)0.2 /100{WBC}0-0.5FGrand Lake Joint Township District Memorial HospitalPlatelet mean volume Auto (Bld) [Entitic vol]Ordered By: Emile Damon on 01-23-1835Vkvdseiw mean volume (Bld) [Entitic vol]Platelet mean volume [Entitic volume] in Blood by Automated count6.6-10.1FGrand Lake Joint Township District Memorial HospitalPlatelets Auto (Bld) [#/Vol]Ordered By: Emile Damon on 08-08-2024 Platelets (Bld) [#/Vol]Platelets [#/volume] in Blood by Automated zwtin931-994 [facility] CampusPotassium [Moles/volume] in Serum or Plasma Ordered By: Emile Damon on 21-55-8387Nxlsuegzq [Moles/Vol]Potassium [Moles/volume] in Serum or Plasma3.5-5.1FGrand Lake Joint Township District Memorial HospitalProtein [Mass/volume] in Serum or PlasmaOrdered By: Emile Damon on 90-53-7222Yinxznt [Mass/Vol]Protein [Mass/volume] in Serum or Plasma6.4-8.9[facility] South CampusRBC Auto (Bld) [#/Vol]Ordered By: Emile Damon on 89-87-8813ASX (Bld) [#/Vol]Erythrocytes [#/volume] in Blood by Automated count3.90-5.60 [facility] Medical CenterSerum or plasma albumin/globulin mass ratio Ordered By: Emile Damon on 01-65-0603Xnrfkwf/Globulin [Mass ratio]Serum or plasma albumin/globulin mass ratioBlanchard Valley Health Systemerum or plasma anion gap determinationOrdered By: Emile Damon on 96-30-2390Egvrh gap [Moles/Vol]Serum or plasma anion gap determination6.0-15.0[facility] Systemodium [Moles/volume] in Serum or PlasmaOrdered By: Emile Damon on 39-02-8663Mcaqvm [Moles/Vol]Sodium [Moles/volume] in Serum or Jlysle039-071 [facility] CampusTroponin I High Sensitivityon 08-08-2024 Troponin I High Qjkczoasixe11289Zek scale high0-20[facility] Comment on above:Result Comment: Critical Result : Called to and read back by: DERECK LUNA at: 08/08/2024 05:16:37 by:DH The Troponin units of report have been changed to meet the Chest Pain Accreditation requirement, element EC5.M1l2. Troponin units are changed from pg/ml to ng/L. Also, the decimal is removed and results are in whole numbers. PERFORMED BY: [place] [address] PATHOLOGIST PROCESS IMPROVEMENT SPECIALIST SCOTTY ALFORD M.D.Performed By: #### CMP, HS TROP #### [place] [address] USATroponin I.cardiac [Mass/volume] in Serum or Plasma by Detection limit <= 0.01 ng/Ordered By: Emile Damon on 31-72-4743Eandnrcm I.cardiac DL <= 0.01 ng/mL [Mass/Vol]Troponin I.cardiac [Mass/volume] in Serum or Plasma by Detection limit <= 0.01 ng/Critically high020[facility] CampusComment on above:Critical Result : Called to and read back by: DERECK LUNA at: 08/08/2024 05:16:37 by:DHThe Troponin units of report have been changed to meet the Chest Pain Accreditation requirement, element EC5.M1l2. Troponin units are changed from pg/ml to ng/L. Also, the decimal is removed and results are in whole numbers.Troponin I.cardiac [Mass/volume] in Serum or Plasma by Detection limit <= 0.01 ng/mLOrdered By: Emile Damon on 66-41-1592Oobnuacw I.cardiac DL <= 0.01 ng/mL [Mass/Vol]83011 ng/LCritically high0-20[facility] CampusComment on above:Critical Result : Called to and read back by: DERECK LUNA at: 08/08/2024 05:16:37 by:DHThe Troponin units of report have been changed to meet the Chest Pain Accreditation requirement, element EC5.M1l2. Troponin units are changed from pg/ml to ng/L. Also, the decimal is removed and results are in whole numbers.Urea nitrogen [Mass/volume] in Serum or PlasmaOrdered By: Emile Damon on 56-68-9149Xjab nitrogen [Mass/Vol]Urea nitrogen [Mass/volume] in Serum or Plasma10-21[facility] WBC Auto (Bld) [#/Vol]Ordered By: Emile Damon on 41-18-5666VAL (Bld) [#/Vol] Leukocytes [#/volume] in Blood by Automated count4.1-10.5FGrand Lake Joint Township District Memorial HospitalAnti-Xa UF Heparinon 67-11-9831Latx-Xa UF Heparin0.60 [IU]/mL Normal0.30-0.70The [facility] Physician GroupComment on above:Result Comment: Use the aPTT protocol when triglycerides are > 800 mg/dL, total bilirubin is > 20 mg/dL and/or patient has received a DOAC, Fondaparinux or LMWH within 72 hours AND baseline anti-Xa level is > 0.7 units/mL PERFORMED BY: [facility] [address] [place] [address] PATHOLOGIST PROCESS IMPROVEMENT SPECIALIST SCOTTY ALFORD M.D.Performed By: #### UFHEP ####[facility] [place] [address] USAAnti-Xa UF Heparin0.42 [IU]/mL Normal0.30-0.70The [facility] Physician GroupComment on above:Result Comment: Use the aPTT protocol when triglycerides are > 800 mg/dL, total bilirubin is > 20 mg/dL and/or patient has received a DOAC, Fondaparinux or LMWH within 72 hours AND baseline anti-Xa level is > 0.7 units/mL PERFORMED BY: [place] [id number] PATHOLOGIST PROCESS IMPROVEMENT SPECIALIST SCOTTY ALFORD M.D.Performed By: #### UFHEP #### [place] [id number] USABasic Metabolic Panelon 52-19-7691Jjzbl gap [Moles/Vol] 11.9 mmol/LNormal6.0-15.0The [facility] Physician GroupComment on above:Performed By: #### BMP ####[place] [id number] USACalcium [Mass/Vol]9.0 mg/dLNormal8.6-10.3[facility] Comment on above:Performed By: #### BMP ####[place] [address] USAChloride [Moles/Vol]109 mmol/WScwh56-620Rtc [facility] Physician GroupComment on above:Performed By: #### BMP ####[place] [address] USACO2 [Moles/Vol]23.6 mmol/MBvpknu66.0-31.0The [facility] Physician GroupComment on above:Performed By: #### BMP ####[place] [address] USACreatinine [Mass/Vol]1.38 mg/dLHigh0.70-1.30[facility] Comment on above:Performed By: #### BMP ####[place] [address] USACreatinine Clr Calc Dkzpavyc32.02NormalThBonner General Hospital Physician GroupComment on above:Result Comment: PERFORMED BY: [place] [address] PATHOLOGIST PROCESS IMPROVEMENT SPECIALIST SCOTTY ALFORD M.D.Performed By: #### BMP ####[address] [address] USAEstimated GFR59.274 mL/MinNormalThe [facility] Physician GroupComment on above:Performed By: #### BMP ####[place] [id number] USAGlucose [Mass/Vol]125 mg/bELhqh86-445Ceu [facility] Physician GroupComment on above:Result Comment: Random Glucose Reference Range is dependent on time and content of last meal. Glucose of more than 200 mg/dL in a nonstressed, ambulatory subject supports the diagnosis of Diabetes Mellitus. ADA recommended reference rangePerformed By: #### BMP ####[place] [id number] USAPotassium [Moles/Vol]4.5 mmol/LNormal3.5-5.1The [facility] Physician GroupComment on above:Performed By: #### BMP ####[place] [address] USASodium [Moles/Vol]140 mmol/COgohvf622-038Ecg [facility] Physician GroupComment on above:Performed By: #### BMP ####[place] [address] USAUrea nitrogen [Mass/Vol]20 mg/dLNormal7-25The [facility] Physician GroupComment on above:Performed By: #### BMP ####[place] [id number] USAECG 12 lead ECGon 47-55-9896DTP 12 lead ECGOHIOHEALTH GRADY [facility] [address] [place] [address] [place] [address] Electrocardiograph Report Signed Patient: Robert Boateng MR#: [id number] 56 : 1965 Acct:[id number] Age/Sex: 59 / M ADM Date: 08/07/24 Loc: Room: [address] [place] [address] Type: ADM IN Attending Dr: Emile Damon [...] undetermined Abnormal ECG Confirmed by Fauzia Hernandez ([id number]) on 08/07/2024 10:05:18 PM Referred By: Electronically Signed By: Fauzia Hernandez Transcribed By: MUS Signed By Fauzia Hernandez MD [address] [place] [address] Physician GroupEC 12 [place] [address] Electrocardiograph Report Signed Patient: Robert Boateng MR#: [id number] 57 : 1965 Acct:[id number] Age/Sex: 59 / M ADM Date: 08/07/24 Loc: Room: [address] [place] [address] Type: ADM IN Attending Dr: Emile Damon [...] change was found Confirmed by IFRAH [facility] RES[facility]IR[facility]ORY [facility] COMPLEX CAREGUTIERREZ ([id number]) on 08/08/2024 12:20:50 PM Referred By: Electronically Signed By: GUTIERREZ RAINEY MD FACC Transcribed By: MUS Signed By Gutierrez Rainey MD, FACC 08/08/[address] [place] [address] Physician GroupECG 12 lead [facility] Main [address] [address] Electrocardiograph Report Signed Patient: Robert Boateng MR#: [id number] [birth year] : 1965 Acct:[id number] Age/Sex: 59 / M ADM Date: 08/07/24 Loc: Room: [address] [place] [address] Type: ADM IN Attending Dr: Emile Damon [...] rhythm Normal ECG Confirmed by Fauzia Hernandez ([id number]) on 08/07/2024 9:59:55 PM Referred By: Electronically Signed By: Fauzia Hernandez Transcribed By: MUS Signed By Fauzia Hernandez MD 5 2159Wood[facility]s Health CampusHeparin anti-Xa unfractionatedOrdered By: Emile Damon on 33-74-5978Nlniazz unfractionated Chromogenic method Qn (PPP) Heparin anti-Xa unfractionated0.30-0.70[facility] CampusComment on above:Use the aPTT protocol when triglycerides are > 800 mg/dL,total bilirubin is > 20 mg/dL and/orpatient has received aDOAC, Fondaparinux or LMWH within 72 hours AND baselineanti-Xa level is > 0.7 units/mLHeparin unfractionated Chromogenic method Qn (PPP)0.60 [IU]/mL0.30-0.70[facility] CampusComment on above:Use the aPTT protocol when triglycerides are > 800 mg/dL,total bilirubin is > 20 mg/dL and/orpatient has received aDOAC, Fondaparinux or LMWH within 72 hours AND baselineanti-Xa level is > 0.7 units/mLPartial Thromboplastin Timeon 49-36-1912xQBS Coag (Bld) [Time]41.1 sHigh 25.1-36.5The [facility] Physician GroupComment on above:Result Comment: A hematocrit value greater than 55% may lead to inaccurate results in coagulation testing. Patients having hematocrit values >55% require a special collection tube for coagulation studies. Please contact the laboratory at [phone] for redraw instructions. PERFORMED BY: [address] [place] [address] PATHOLOGIST PROCESS IMPROVEMENT SPECIALIST SCOTTY ALFORD M.D.Performed By: #### PTT ####[address] [address] USATroponin I High Sensitivityon 21-61-3568Qpahwcrg I High Pkhhbxcizbx54635Sdw scale [facility] Physician GroupComment on above:Result Comment: Critical Result : Called to and read back by: ADDISON BORGES at: 08/07/2024 10:15:55 by:QUINTON The Troponin units of report have been changed to meet the Chest Pain Accreditation requirement, element EC5.M1l2. Troponin units are changed from pg/ml to ng/L. Also, the decimal is removed and results are in whole numbers. PERFORMED BY: [address] [address] PATHOLOGIST PROCESS IMPROVEMENT SPECIALIST SCOTTY ALFORD M.D.Performed By: #### HS TROP ####[address] [address] USATroponin I High Sensitivity 8587Off scale [address] Physician GroupComment on above:Result Comment: Critical Result : Called to and read back by: ADDISON BORGES at: 08/07/2024 08:20:01 by:QUINTON The Troponin units of report have been changed to meet the Chest Pain Accreditation requirement, element EC5.M1l2. Troponin units are changed from pg/ml to ng/L. Also, the decimal is removed and results are in whole numbers. PERFORMED BY: [address] [address] PATHOLOGIST PROCESS IMPROVEMENT SPECIALIST SCOTTY ALFORD M.D.Performed By: #### HS TROP ####[address] [address] USATroponin I High Sensitivity 5112Off scale high040 Garner Streetlands Physician GroupComment on above:Order Comment: 0530 drawResult Comment: Critical Result : Called to and read back by: ALIDA SEAY at: 08/07/2024 07:15:03 by:QUINTON The Troponin units of report have been changed to meet the Chest Pain Accreditation requirement, element EC5.M1l2. Troponin units are changed from pg/ml to ng/L. Also, the decimal is removed and results are in whole numbers. PERFORMED BY: [place] [address] PATHOLOGIST PROCESS IMPROVEMENT SPECIALIST SCOTTY ALFORD M.D.Performed By: #### HS TROP #### [place] [address] USAaPTT in Platelet poor plasma by Coagulation assayOrdered By: Emile Damon on 24-37-6974cXLC Coag (PPP) [Time]Activated partial thromboplastin time (aPTT) in platelet poor plasma by coagulation aHigh25.1-36.5 [facility] CampusComment on above:A hematocrit value greater than 55% may lead to inaccurate results in coagulation testing. Patientshaving hematocrit values >55% require a special collection tube for coagulation studies. Please contact the laboratory at [phone] for redraw instructions. aPTT Coag (PPP) [Time]41.1 sHigh25.1-36.5FGrand Lake Joint Township District Memorial Hospital Comment on above:A hematocrit value greater than 55% may lead to inaccurate results in coagulation testing. Patientshaving hematocrit values >55% require a special collection tube for coagulation studies. Please contact the laboratory at [phone] for redraw instructions.Covid-19 PCR (CVDTBH)on 06-05-2021 SARS-CoV-2 (COVID-19) RNA HAKEEM+probe Ql (Unsp spec)Not detectedNormalNOT DETECTED The [facility] HospitalComment on above:Result Comment: This test is not yet approved or cleared by the [place] FDA. When there are no FDA-approved or cleared tests available, and other criteria are met, FDA can make tests available under an emergency access mechanism called an Emergency Use Authorization (EUA). The EUA for this test is supported by the Finance Executive of Health and Human Service's (HHS's) declaration [...] of clinical signs and symptoms consistent with SARS-CoV-2.Performed By: #### CVDTBH #### [facility] [address] [place] [address] Dr. Boby FranksOCC BLD IMMUNO SCREENon 10-48-2026VVFHIA BLOODNegativeNormal NEGATIVEThe [facility] HospitalComment on above:Performed By: #### OBSCRN #### [facility] [address] [place] [address] Lyn KarenGLYCOHEMOGLOBIN A1Con 45-33-7496JLG RECOMMENDATIONADA THERAPEUTIC TARGET 6.0 - 7.0 ACTION SUGGESTED > 7.0NormSycamore Medical CenterComment on above:Performed By: #### A1C #### [facility] [address] [place] [address] Lyn KarenGlucose [Mass/Vol]111 mg/dLNoDayton Children's HospitalComment on above:Performed By: #### A1C #### [facility] [address] [place] [address] Lyn NuatiLlL1o (Bld) [Mass fraction]5.5 %Normal<=6.0[facility] Comment on above:Performed By: #### A1C #### [facility] [address] [place] [address] Lyn Ward Vital Signs Date TimeVital SignValuePerforming EeactfoecVygysbxd54-18-7769 13:00-0400Body .8 cmKeturah Pat MD Work Phone: [facility]08-14-2025 13:00-0400 Body mass index (BMI) [Ratio]29.5 kg/s4QgenzfzKeturah Pat MD Work Phone: 1(416)[address] [place], [place] 9745908-14-2025 13:00-0400 Body cqzeas44.44 kgKeturah Pat MD Work Phone: 1(419)[address] [place], [place] 9745908-14-2025 13:00-0400 Diastolic blood vhkanpmb89 mm[Hg]Keturah Pat MD Work Phone: 1(419)[address] [place], [place] 9745908-14-2025 13:00-0400 Heart rate54 /Damon Pat MD Work Phone: 1(419)[address] [place], [place] 9745908-14-2025 13:00-0400 Respiratory rate18 /Damon Pat MD Work Phone: 1(539)[address] [place], [place] 9745908-14-2025 13:00-0400 SaO2% (BldA) [Mass fraction]96 %Keturah Pat MD Work Phone: 1419)[address] [place], [place] 9745908-14-2025 13:00-0400 Systolic blood vcaiwrkf974 mm[Hg]Keturah Pat MD Work Phone: 1(707)[address] [place], [place] 9745906-30-2025 15:53-0400 Body aiybbn326.8 cmKeturah Pat MD Work Phone: 1(978)[address] [place], [place] 9745906-30-2025 15:53-0400 Body mass index (BMI) [Ratio]29.9 kg/f1XrwzbqdKeturah Pat MD Work Phone: 1(419)[address] [place], [place] 9745906-30-2025 15:53-0400 Body rtfubj97.8 kgKeturah Pat MD Work Phone: 1(692)[address] [place], [place] 9745906-30-2025 15:53-0400 Diastolic blood cqnzttas38 mm[Hg]Keturah Pat MD Work Phone: 1(640)[address] [place], [place] 9745906-30-2025 15:53-0400 Heart rate85 /Damon Pat MD Work Phone: 1(412)[address] [place], [place] 9745906-30-2025 15:53-0400 Respiratory rate18 /Damon Pat MD Work Phone: 1(419)[address]06-30-2025 15:53-0400 SaO2% (BldA) [Mass fraction]98 %Keturah Pat MD Work Phone: 1(419)[address]06-30-2025 15:53-0400 Systolic blood mm[Hg]Keturah Pat MD Work Phone: 1(419)[address] [place], [place] 9745905-21-2025 13:06-0400 Body sgedcl528.8 cmKeturah Pat MD Work Phone: 1(419)[address] [place], [place] 9745905-21-2025 13:06-0400 Body mass index (BMI) [Ratio]30.4 kg/o9BzjyxrpKeturah Pat MD Work Phone: 1(419)[address] [place], [place] 9745905-21-2025 13:06-0400 Body gfulme28.16 kgKeturah Pat MD Work Phone: 1(419)[address] [place], [place] 9745905-21-2025 13:06-0400 Diastolic blood mm[Hg]Keturah Pat MD Work Phone: 1(419)[address] [place], [place] 9745905-21-2025 13:06-0400 Heart rate61 /Damon Pat MD Work Phone: 1(419)[address] [place], [place] 9745905-21-2025 13:06-0400 Respiratory rate18 /Damon Pat MD Work Phone: 1(419)[address] [place], [place] 9745905-21-2025 13:06-0400 SaO2% (BldA) [Mass fraction]97 %Keturah Pat MD Work Phone: 1(419)[address] [place], [place] 9745905-21-2025 13:06-0400 Systolic blood rkcdgqyw218 mm[Hg]Keturah Pat MD Work Phone: 1(419)[address] [place], [place] 9745905-12-2025 12:55-0400 Body wnecoj576.8 cmKeturah Pat MD Work Phone: 1(419)[address] [place], [place] 9745905-12-2025 11:30-0400 Body emyryhmhbyf92.4 [degF]Keturah Pat MD Work Phone: 1(656)[address]05-12-2025 11:30-0400 Diastolic blood ylklsgtd98 mm[Hg]Keturah Pat MD Work Phone: 1(728)[address]05-12-2025 11:30-0400 Heart rate64 /Damon Pat MD Work Phone: 1(244)[address]05-12-2025 11:30-0400 Respiratory rate15 /Damon Pat MD Work Phone: 1(064)[address]05-12-2025 11:30-0400 SaO2% (BldA) [Mass fraction]94 %Keturah Pat MD Work Phone: 1(669)[address]05-12-2025 11:30-0400 Systolic blood sbkaglrb305 mm[Hg]Keturah Pat MD Work Phone: 1(307)[address] [place], [place] 9745905-12-2025 07:00-0400 Inhaled oxygen flow rate2 L/Damon Pat MD Work Phone: 1(959)[address] [place], [place] 9745905-12-2025 06:00-0400 Body lavzat920.7 kgKeturah Pat MD Work Phone: 1(237)[address]05-11-2025 03:17-0400 Body osnopb846.8 cmKeturah Pat MD Work Phone: 1([phone] [place] [address] Encounters Encounter DateEncounter TypeCare ProviderFacilityStart: 51-80-1318rzdgpltkop Mike Ashraf NILAwaFacility:BRITTANY BellevueStart: 11-10-2024 End: 51-94-7544inreanbkzkCkpknij M Hoy MD Work Phone: [phone] [place] [address] Work Phone: Start: 11-10-2024 End: 45-06-1846Ghvbaix [facility] Work Phone: Start: 09-26-2024 End: 74-71-7606tpepgsnuuqZkglfld M Hoy MD Work Phone: [facility] Work Phone: Start: 09-26-2024 End: 83-53-2211Lopylty encounter procedureStonja Orellana MD-[facility] Work Phone: Start: 08-17-2024 End: 65-03-4274Xozwefj encounter procedureStonja Orellana MD-[facility] Work Phone: Start: 78-29-3934Uro-patient / Non-visitKeturah Pat MD Work Phone: [facility] Work Phone: Start: 08-07-2024 End: 76-22-2698mjtmgnwnztYAQWRPT PROVIDERFacility:METROHealthStart: 08-07-2024 End: 53-06-4966Oesrjxbyio and management of inpatientKeturah Pat MD Work Phone: [facility] Work Phone: Start: 06-05-2021 End: 01-40-2970jismdeibuoJW KETURAH ARCEYFacility:V2Sbtol: 07-25-8547Ugrzuuave for general adult medical examination without abnormal findingsDR KETURAH Denny [facility] HospitalStart: 10-23-2020 End: 66-27-1705spsgeyccatAU KETURAH HOYFacility:R3Lcbhz: 10-23-2020 End: 59-44-2169Kprggmbey for general adult medical examination without abnormal findingsDR KETURAH PATFacility:H1 Procedures DateProcedureProcedure DetailPerforming ClinicianStart: 55-20-4929LL Ivus Initial VesselKeturah Pat MD Work Phone: Start: 01-11-1527JX LHC & COR AngioKeturah Pat MD Work Phone: Start: 73-90-9573QI PCI AMI 1st Vessel CX DESKeturah Pat MD Work Phone: Start: 83-97-1539Yqolihj Hoy MD Work Phone: Start: 87-11-1614ZPT screeningDR KETURAH YAZMINDARRIANnidhi on above:Performed By: #### PSASC #### [facility] [address] [place] [address] Lyn Ward Plan of Treatment DateCare ActivityDetailAuthorStart: 80-28-8954Ajxkezc referralParkview Health [facility] Hospital Work Phone: Start: 41-98-6847YrpedokucFirelands Regional Medical Center South Campus Start: 73-37-9856Zpsyawpr of Coronary Artery, One Artery with Drug-eluting Intraluminal Device, Percutaneous ApproachDilation of Coronary Artery, One Artery with Drug-eluting Intraluminal Device, Percutaneous ApproachBlanchard Valley Health Systemtart: 51-89-3496Yzahbvccgex of Left Heart using Low Osmolar ContrastFluoroscopy of Left Heart using Low Osmolar ContrastBlanchard Valley Health Systemtart: 93-29-1690Fcdxtdameqs of Multiple Coronary Arteries using Low Osmolar ContrastFluoroscopy of Multiple Coronary Arteries using Low Osmolar ContrastBlanchard Valley Health Systemtart: 08-07-2024 Measurement of Cardiac Sampling and Pressure, Left Heart, Percutaneous Approach Measurement of Cardiac Sampling and Pressure, Left Heart, Percutaneous Approach [facility] Systemtart: 17-15-4513Nselifstwjuskhs of Single Coronary Artery, IntravascularUltrasonography of Single Coronary Artery, IntravascularBlanchard Valley Health Systemtart: 87-11-1990Oahqdlad admissionFirelands Regional Medical Center South CampusPatient EducationHigh cholesterol Heart attack - Discharge instructions Drug Eluting Stents Chest pain - Discharge instructions Know your MedOhio[facility] Work Phone: [facility] referralAk[facility] Work Phone: Referral to cardiac rehabilitation programFirelands Regional Medical Center [facility] Campus Payers DatePayer CategoryPayerPolicy [id number] 2..[id number] 2..[id number] [id number]htafTUI220Y7167430-41-7249Tavhjei [id number] 2..840.1.908338.3.579.2.531 Social History DateTypeDetailFacilityStart: 08-07-2024 End: 52-51-6629Lauxgvp smoking status NHISNever smoked tobacco (finding) [facility] Systemtart: 98-58-8544QnwUhyx (finding)[facility] Systemtart: 04-41-5548Zmj Assigned At BirthFirelands Regional Medical Center Medical Equipment Procedure CodeEquipment CodeEquipment Original TextEquipment IdentifierDatesCL STENT TERRENCE FRONTIER 3.5 X 26FDAStart: 06-51-1833AZ STENT TERRENCE FRONTIER 3.5 X 26 FDAStart: 75-79-6652JG STENT TERRENCE FRONTIER 3.5 X 26FDAStart: 08-07-2024 Goals DatePatient GoalDesired Activity/State Functional Status UhfaGdvmzlukswWtpanzQcdrilvn81-00-3400Rvtxzkytgo statusPatient at Baseline [facility] Work Phone: Mental Status NsjaMxfotiiczeUohedlDtgzfaxa02-81-2426Bccuitcau functionCognitive Status Patient at BaselineSumma Health Wadsworth - [facility] Center Work Phone: Evaluation note 08-17-2024 Note Date & RlklGaqwFcfgitlk59-07-2055 Evaluation note* Author Emile Damon [facility] CampusAuthoredMay 2024 2:19pmCCS 0. NYHA Ia. Excellent clinical response to pharmacal invasive management strategy followed by PCI to RCA. No mechanical complications of OR. No bleeding complications on dual antiplatelet therapy. [facility] Work Phone: Discharge summary 08-08-2024 Note Date & TcgsEbemWwpgadzd98-88-6129 Discharge summary Author Emile Damon [facility] South CampusNote Date/TimeMay 2024 9:[address] [address] Discharge Summary Signed Patient: Robert Boateng MR#: [id number] : 1965 Acct:[id number] Age/Sex: 59 / M Adm Date: 5 Loc: Room: [address] [place] [address]: Emile Damon MD Copies to: MD Emile Platt MD~ Providers Date of Discharge: 08/08/24 Discharging Provider: Emile Damon Primary Care Provider: Keturah Pat Discharge Diagnosis (1) ST elevation myocardial infarction (STEMI) of inferior wall: Final Diagnosis Final Discharge Diagnosis: 1. Acute inferior STEMI status post successful pharmacoinvasive management strategy with fla-wx-wfxotjmk fibrinolytic therapy followed by early mechanical revascularization with PCI to the left circumflex. 2. Heart failure with mildly reduced ejection fraction. Post PCI EF 50%. 3. Dyslipidemia Summary Hospital Course Hospital course: Robert is a very pleasant 59-year-old white male who presented to [place] emergency department early Thursday morning with complaints [...] and then once available was [facility] for further evaluation and management. [facility] his chest pain had resolved as had his ST segment elevation on surface ECG. The patient was admitted to theICU on full medical therapy for ACS including IV unfractionated heparin drip, IVnitroglycerin drip. He had been loaded with oral ticagrelor 180 mg at [place] ER. Given his anticoagulation and recent fibrinolytic therapy we elected to wait 4 hours from arrival to go to the [facility] for cardiac catheterization and PCI. Please see my cardiac catheterization and PCI reports for full details of the patient's procedure. However in short he was found to have a culprit lesion of the distal left circumflex. This was treated under IVUS guidance with implantation of a single large caliber frontier [place] drug-eluting stent with excellent clinical angiographic and [...] doctor or pharmacist, without first calling the ice guard tester who implanted thestent. If you require pain [...] weight lifting, stair steppers, etc. until the ice guard tester approves these activities. Check with the ice guard tester on your first follow-up visit. CALL YOUR ASSOCIATE ACCOUNT EXECUTIVE: -If bleeding should occur from the catheter insertion site- apply pressure to the site then immediately call us. -Report any fever, redness, drainage, increased swelling, or firmness at the catheter insertion site. Some bruising or slight swelling may be present at thetime of discharge. -Should arm or leg become cold, numb, white, or blue, contact the ice guard tester immediately. -IF you should experience episodes of [...] Cardiopulmonary Rehabilitation program is recommended. The attending ice guard tester or a nurse clinician should provide you with specificinstructions regarding activity, diet, medications, and further follow up for you. Follow the medication instructions provided on your discharge. If the dosages and instructions on this sheet differ from the dosage and instructions on the bottle, follow the instructions on the bottle. [facility] is not responsible for incorrect prescription information [...] % (Auto) 66.2, Lymph % (Auto) 20.1, Pleas[place] % (Auto) 9.8, Eos % (Auto) 3.4, Baso % (Auto) 0.5, Nucleat RBC Rel Count 0.2, Neut # (Auto) 6.5, Lymph # (Auto) 2.0, [place] # (Auto) 1.0 H, Eos # (Auto) 0.3, Baso # (Auto) 0.1 08/08/24 04:20: Corrected WBC Cancelled, Uncorrected WBC Count Cancelled, RBC Cancelled, Hgb Cancelled, Hct Cancelled, MCV Cancelled, MCH Cancelled, MCHC Cancelled, RDW Cancelled, Plt Count Cancelled, MPV Cancelled, Neut % (Auto) Cancelled, Lymph % (Auto) Cancelled, Pleasants % (Auto) Cancelled, Eos % (Auto) Cancelled, Baso % (Auto) Cancelled, Nucleat RBC Rel Count Cancelled, Neut # (Auto)Cancelled, Lymph # (Auto) Cancelled, Pleas[place] # (Auto) Cancelled, Eos # (Auto) Cancelled, Baso # (Auto) Cancelled, Monocyte Dist Width Cancelled, PHA Creatinine Clear 92.91, Sodium 138, Potassium 3.9, Chloride 108 H,Carbon Dioxide 24.7, Anion Gap 9.2, BUN 15, Creatinine 1.04, Est GFR (CKD-EPI) > 60.0, Glucose 113 H, Calcium 8.5 L, Total Bilirubin 0.9, AST 122 H, ALT 58 H, AlkalinePhosphatase 56, Troponin I High Sens 13776 H*, Total Protein 6.4, Albumin 3.9, Globulin 2.5, Albumin/Globulin Ratio 1.6 08/07/24 09:25: Heparin Anti-Xa, Unfract 0.60, Troponin I High Sens 57326 H* Documented By: Emile Damon MD 08/08/24921 Signed By: <Electronically signed by Emile Damon MD> 08/08/24 0936 [facility] Work Phone: Discharge summary 08-08-2024 Note Date & [id number] [place] [address] Discharge Summary Signed Patient: Robert Boateng MR#: [id number] : 1965 Acct:[id number] Age/Sex: 59 / M Adm Date: 5 Loc: Room: [address] [place] [address]: Emile Damon MD Copies to: MD Emile Platt MD~ Providers Date of Discharge: 08/08/24 Discharging Provider: Emile Damon Primary Care Provider: Keturah Pat Discharge Diagnosis (1) ST elevation myocardial infarction (STEMI) of inferior wall: Final Diagnosis Final Discharge Diagnosis: 1. Acute inferior STEMI status post successful pharmacoinvasive management strategy with tso-iu-idzbmain fibrinolytic therapy followed by early mechanical revascularization with PCI to the left circumflex. 2. Heart failure with mildly reduced ejection fraction. Post PCI EF 50%. 3. Dyslipidemia Summary Hospital Course Hospital course: Robert is a very pleasant 59-year-old white male who presented to [place] emergency department early Thursday morning with complaints [...] and then once available was transported by [facility] for further evaluation and management. On arrival to [facility] ICU his chest pain had resolved as had his ST segment elevation on surface ECG. The patient was admitted to theICU on full medical therapy for ACS including IV unfractionated heparin drip, IVnitroglycerin drip. He had been loaded with oral ticagrelor 180 mg at [facility]. Given his anticoagulation and recent fibrinolytic therapy we elected to wait 4 hours from arrival to go to the [facility] for cardiac catheterization and PCI. Please see [...] doctor or pharmacist, without first calling the ice guard tester who implanted thestent. If you require pain [...] weight lifting, stair steppers, etc. until the ice guard tester approves these activities. Check with the ice guard tester on your first follow-up visit. CALL YOUR ASSOCIATE ACCOUNT EXECUTIVE: -If bleeding should occur from the catheter insertion site- apply pressure to the site then immediately call us. -Report any fever, redness, drainage, increased swelling, or firmness at the catheter insertion site. Some bruising or slight swelling may be present at thetime of discharge. -Should arm or leg become cold, numb, white, or blue, contact the ice guard tester immediately. -IF you should experience episodes of [...] Cardiopulmonary Rehabilitation program is recommended. The attending ice guard tester or a nurse clinician should provide you with specificinstructions regarding activity, diet, medications, and further follow up for you. Follow the medication instructions provided on your discharge. If the dosages and instructions on this sheet differ from the dosage and instructions on the bottle, follow the instructions on the bottle. [facility] is not responsible for incorrect prescription information [...] % (Auto) 66.2, Lymph % (Auto) 20.1, [place]as[place] % (Auto) 9.8, Eos % (Auto) 3.4, Baso % (Auto) 0.5, Nucleat RBC Rel Count 0.2, Neut # (Auto) 6.5, Lymph # (Auto) 2.0, [place] # (Auto) 1.0 H, Eos # (Auto) 0.3, Baso # (Auto) 0.1 08/08/24 04:20: Corrected WBC Cancelled, Uncorrected WBC Count Cancelled, RBC Cancelled, Hgb Cancelled, Hct Cancelled, MCV Cancelled, MCH Cancelled, MCHC Cancelled, RDW Cancelled, Plt Count Cancelled, MPV Cancelled, Neut % (Auto) Cancelled, Lymph % (Auto) Cancelled, [place]as[place] % (Auto) Cancelled, Eos % (Auto) Cancelled, Baso % (Auto) Cancelled, Nucleat RBC Rel Count Cancelled, Neut # (Auto)Cancelled, Lymph # (Auto) Cancelled, [place] # (Auto) Cancelled, Eos # (Auto) Cancelled, Baso # (Auto) Cancelled, Monocyte Dist Width Cancelled, PHA Creatinine Clear 92.91, Sodium 138, Potassium 3.9, Chloride 108 H,Carbon Dioxide 24.7, Anion Gap 9.2, BUN 15, Creatinine 1.04, Est GFR (CKD-EPI) > 60.0, Glucose 113 H, Calcium 8.5 L, Total Bilirubin 0.9, AST 122 H, ALT 58 H, AlkalinePhosphatase 56, Troponin I High Sens 62831 H*, Total Protein 6.4, Albumin 3.9, Globulin 2.5, Albumin/Globulin Ratio 1.6 08/07/24 09:25: Heparin Anti-Xa, Unfract 0.60, Troponin I High Sens 34820 H* Documented By: Emile Damon MD 08/08/24 0922 Signed By: 08/08/24 0936 [facility] History and physical note 08-07-2024 Note Date & [id number] History and physical note Author Emile Damon [facility] Date/TimeMay 2024 11:34[place] [address] Cardiology H&P Signed Patient: Robert Boateng MR#: [id number] : 1965 Acct:[id number] Age/Sex: 59 / M Adm Date: 5 Loc: Room: [address] [place] [address] Type: ADM IN Attending Dr: Emile Damon [...] and the patient was taken directly to [place] emergency department for emergent evaluation. In the [...] contacted again by the ER physician from [place] telling the that there was going to [...] given IV TNK 50 mg in the [place] ER. He had already been loaded with 180 mg oral Brilinta also per my direction. Once weather was conducive he was then transported byair flight to [facility] for further and ongoing management of acute [...] Dysrhythmias Sinus rhythms and dysrhythmias: sinus rhythm OR, pacemaker, normal Myocardial infarction: inferior OR (acute or recent) A&P - Cardiology (1) [...] PCI. Documented By: Emile Damon MD 08/07/24 112 Signed By: <Electronically signed by Emile Damon MD> 08/07/24 1134 [facility] Work Phone: Procedure note 08-07-2024 Note Date & [id number] [place] [address] Cardiology PCI Note Signed Patient: Robert Boateng MR#: [id number] : 1965 Acct:[id number] Age/Sex: 59 / M Adm Date: 5 Loc: Room: [address] [place] [address] Type: ADM IN Attending Dr: Emile Damon [...] Eluting Stent: 3.5 x 26 mm frontier [place] drug-eluting stent sized and placed with IVUS [...] distal edge dissections. Narrative: Guiding catheter: 6 [place] EBU 3.5 Anticoagulation: IV bivalirudin using weight-based protocol Coronary guidewire: 190 cm 0.14 BMW IVUS: 6 [place] eye Impression: 1. Successful IVUS guided PCI after successful early reperfusion with thrombolytic therapy, now with implantation of a single large caliber frontier [place] drug-eluting stent in the distal left circumflex/proximal [...] systolic dysfunction in the wake of inferior OR: Metoprolol succinate 25 mg nightly and valsartan [...] MD 08/07/24 1141 Signed By: 08/07/24 1146 [facility] Procedure note 08-07-2024 Note Date & [id number] Procedure [place] [id number] Cardiac Catheterization Note Signed Patient: Robert Boateng MR#: [id number] : 1965 Acct:[id number] Age/Sex: 59 / M Adm Date: 5 Loc: Room: [address] [place] [address] Type: ADM IN Attending Dr: Emile Damon [...] through double vessel puncture technique modified Seldinger mldd-fyq-ctis technique hydrophilic 6 [place] vascular access sheath was inserted into the [...] air SUMMARY OF FINDINGS CCS Classification: CCS BI-EEO-ueilra at rest or w/ any activity Dominance: [...] was performed both in the JASON and SCOTT[place] caudal projections. Left ventricle was found to [...] MD 08/07/24 1134 Signed By: 08/07/24 1140 [facility] History and physical note 08-07-2024 Note Date & [id number] [place] [address] Cardiology H&P Signed Patient: Robert Boateng MR#: [id number] : 1965 Acct:[id number] Age/Sex: 59 / M Adm Date: 5 Loc: Room: 3Z0543-9 Type: ADM IN Attending Dr: Emile Damon [...] and the patient was taken directly to [place] emergency department for emergent evaluation. In the [...] contacted again by the ER physician from [place] telling the that there was going to [...] given IV TNK 50 mg in the [place] ER. He had already been loaded with 180 mg oral Brilinta also per my direction. Once weather was conducive he was then transported byair flight to [facility] for further and ongoing management of acute [...] Dysrhythmias Sinus rhythms and dysrhythmias: sinus rhythm OR, pacemaker, normal Myocardial infarction: inferior OR (acute or recent) A&P - Cardiology (1) [...] MD 08/07/24 1124 Signed By: 08/07/24 1134 [facility] Evaluation note 08-07-2024 Note Date & [id number] Evaluation note* Diagnosis Onset Date Resolution Status Admit Date ST elevation myocardial infarction (STEM I) of inferior wall acuteMay 2024 3:00am [facility] Work Phone: Hospital Discharge instructions Note Date & TypeNoteFacilityHospital Discharge instructions Additional Instructions DISCHARGE INSTRUCTIONS FOR [...] atorvastatin (Lipitor) 80 mg daily Drug-Eluting Stent (LOERTO) DO NOT discontinue Brilinta and/or Aspirin during the first few months regardless of what you are advised by your family doctor or pharmacist, without first calling the ice guard tester who implanted the stent. If you require [...] weight lifting, stair steppers, etc. until the ice guard tester approves these activities. Check with the ice guard tester on your first follow-up visit. CALL YOUR ASSOCIATE ACCOUNT EXECUTIVE: -If bleeding should occur from the catheter insertion site- apply pressure to the site then immediately call us. -Report any fever, redness, drainage, increased swelling, or firmness at the catheter insertion site. Some bruising or slight swelling may be present at the time of discharge. -Should arm or leg become cold, numb, white, or blue, contact the ice guard tester immediately. -IF you should experience episodes of [...] Cardiopulmonary Rehabilitation program is recommended. The attending ice guard tester or a nurse clinician should provide you with specific instructions regarding activity, diet, medications, and further follow up for you. Follow the medication instructions provided on your discharge. If the dosages and instructions on this sheet differ from the dosage and instructions on the bottle, follow the instructions on the bottle. [facility] is not responsible for incorrect prescription information provided by the patient during their visit. Do not stop your medications without consulting your health care provider. Please take the list with you to your next doctor's appointment.[facility] Work Phone: Reason for referral (narrative) Note Date & TypeNoteFacilityReason for referral (narrative)No reason for referral information availablePark[facility] Work Phone: Summary Purpose Family History No Family History Records Found Relationship Condition Age at Onset Recorded Date/T shirin father Heart disease Unknown Cardiac arrestUnknownHypertensionUnknownMyocardial infarctionUnknownsisterFemale pelvic inflammatory diseaseUnknownsisterHypertensionUnknownbrotherHeart disease UnknownChronic obstructive pulmonary diseaseUnknownStatus post angioplasty UnknownsisterHypothyroidismUnknownPresence of cardiac pacemakerUnknownAtrial fibrillationUnknownsisterRenal insufficiencyUnknown Advance Directives No Advanced Directives Records Found [...] m STEMI August 07, 2024 11:24 am [facility] 08/08August 17, 2024 12:35 pm 6 week [...] 2024 1 2:35pm Chief Complaint Admit Date [facility] 08/08August 17, 2024 12:35 pm 6 week [...] and content) DATE CREATED AUTHOR 06/06/2021 [facility] DATE CREATED AUTHOR AUTHOR'S ORGANIZ ATION 08/08/2024 [facility] DATE CREATED AUTHOR AUTHOR'S ORGANIZ ATION 09/18/2024 [facility] DATE CREATED AUTHOR AUTHOR'S ORGANIZ ATION 12/20/2024 [facility] Care Teams (unrecognized sec tion and content) Team Status: Active Member Role Status Mi Pat MD Primary Care Provider Active Team Status: Inactive Member Role Status Mi Pat MD Primary Care Provider Active Start: August 07, 2024 End: August 08, 2024Jones Mcdonough Provider, Attending ProviderActive Start: August 07, 2024 End: August 08, 2024 Team Status: Active Member Role Status Mi Pat MD Primary Care Provider Active Start: August 07, 2024 Jones Mcdonough Provider, Attending Provider, Other ProviderActiveStart: August 07, 2024 Team Status: Inactive Member Role Status Mi Pat MD Primary Care Provider Active Start: August 07, 2024 End: August 08, 2024StJones Cleary ProviderActiveStart: August 07, 2024 End: August 08, 2024StLiz Clearyending ProviderActiveStart: August 07, 2024 End: August 08, 2024 Team Status: Active Member Role Status Dates Keturah Pat MD Primary Care Provider Active Start: August 07, 2024 Emile Marisol JACOBdmroni ProviderActiveStart: August 07, 2024 Liz Mcdonoughending ProviderActiveStart: August 07, 2024 Emile Damon MDOther ProviderActiveStart: August 07, 2024 Team Status: Inactive Member Role Status Dates Keturah Pat MD Primary Care Provider Active Start: August 17, 2024 End: August 17, 2024StLiz Clearyending ProviderActiveStart: August 17, 2024 End: August 17, 2024 Team Status: Inactive Member Role Status Dates Keturah Pat MD Primary Care Provider Active Start: September 26, 2024 End: September 26, 2024StepLiz Thomasending ProviderActiveStart: September 26, 2024 End: September 26, 2024 Team Status: Inactive Member Role Status Dates Keturah Pat MD Primary Care Provider Active Start: November 10, 2024 End: November 10Wei Pierson ProviderActiveStart: November 10, 2024 End: November 10, 2024 [...] BE BASED ON THE PRIMARY CLINICAL RECORDS. [facility]. provides no warranty or guarantee of the accuracy or completeness of information in this document.
--- OUTSIDE RECORDS SUMMARY | 2025-01-20 13:00 | XMS_ITS | Clinical Summary ---
Author Organization [facility] Address [address] [place] [address] Phone Care Team Providers Care Lead Electrical Engineer Name Role Phone Unavailable Primary Care Provider Unavailabl e Social History Tobacco UseTypesPacks/DayYears UsedDateSmoking Tobacco: Never AssessedSex and Gender InformationValueDate RecordedSex Assigned at BirthNot on fileLegal Sex Male08/08/2024 12:43 PM EDTGender IdentityNot on fileSexual OrientationNot on file Plan of Treatment Health MaintenanceDue DateLast DoneCommentsCT Uhxevyfvjdxg1966Colonoscopy 1966Colorectal Cancer Uyrhhlfir1966FIT-DNA (Cologuard)1966FIT 1965HIV Thtfncdij1966Lipid Panel1965 4886Ihdcdykwdpqhn1966 Yearly Adult Wkntjtrq1966MMR Vaccines (1 of 1 - Standard series)1967 Hepatitis C Qfjeqqupb23/13/1984Hepatitis B Vaccines (1 of 3 - 19+ 3-dose series) 1985Pneumococcal Vaccine (1 of 2 - PCV)1985DTaP/Tdap/Td Vaccines (1 - Tdap)01/10/1988PSA Prostate Cancer Zbcybunbk70/13/2016Zoster Vaccines (1 of 2) 01/10/2016Influenza Vaccine (#1)5COVID-19 Vaccine (1 - season) 2024HIB VaccinesAged OutNo longer eligible based on patient's age to complete this topicHPV VaccinesAged OutNo longer eligible based on patient's age to complete this topicHepatitis A VaccinesAged OutNo longer eligible based on patient's age to complete this topicIPV VaccinesAged OutNo longer eligible based on patient's age to complete this topicMeningococcal VaccineAged OutNo longer eligible based on patient's age to complete this topicRotavirus VaccinesAged Out No longer eligible based on patient's age to complete this topic Insurance
--- NOTE | 2025-01-20 13:01 | MR_ITS ---
The [address] [address] Patient Name: ROBERT BOATENG MRN: [id number] date: 1965 Sex: M Assigned Patient Location: MRI Current Patient Location: Accession/Order Number: [id number] Exam Date: 01/20/2025 13:10 Report Date: 01/23/2025 12:48 At the request of: KETURAH QUIROZ MD Procedure: MR abdomen wo/w con MRI OF THE ABDOMEN WITH AND WITHOUT CONTRAST: CLINICAL HISTORY: renal cyst COMPARISON: CT abdomen and pelvis 01/02/2025 TECHNIQUE: Multisequence, multiplanar imaging of the abdomen was obtained before and after the use of IV contrast. FINDINGS: The liver appears normal in contour without evidence of steatosis or intrahepatic bile duct dilatation. No enhancing liver lesion. Hepatic and portal veins appear patent. Gallbladder demonstrate cholelithiasis. No CBD dilatation. Pancreas appears unremarkable. Spleen appears unremarkable. Adrenal glands appear unremarkable. Aorta appears normal in caliber. No bulky lymphadenopathy or ascites. No pleural effusion. Left kidney appears unremarkable. Cystic changes involving the right kidney largest measuring 1.9 cm. No enhancing right renal mass. IVC and renal veins appear patent. MR/MR abdomen wo/w con IMPRESSION: CYSTIC CHANGES INVOLVING THE RIGHT KIDNEY. NO ENHANCING RENAL MASS IS NOTED. NO ACUTE PROCESS IS SEEN. CHOLELITHIASIS. Impression dictated by: Carlos Eduardo Joshi Jr.OAllyson 01/23/2025 12:48 PM Dictation Location: [place] [address] Electronically authenticated by: [id number] Y Date: 01/23/2025 12:48
== END 2025-01-20 12:57 | disposition home or self-care (01) ==
LOC: MRI 12:56
PROVIDERS: PCP Family Medicine; Visit Provider Family Medicine
DX: Q61.00 Congenital renal cyst, unspecified (principal); K80.20 Calculus of gallbladder without cholecystitis without obstruction
CPT/HCPCS: 74183; A9575